=== PATIENT | male | born 1975 | race Caucasian/White ===

== ENCOUNTER 2021-10-18 13:25 | Emergency (ER) | payer OTHER, SELFPAY ==
[2021-10-18 13:49] VITALS: BP 136/81; PULSE 75; RESP 20; TEMP 36.6; O2SAT 98
--- NOTE | 2021-10-18 14:02 | ED.URI ---
HPI - URI/Sore Throat General Chief Complaint: Upper Respiratory Infection Stated Complaint: Sore Throat History of Present Illness HPI Narrative: This is 46 year old male that comes in that has been having a sore throat for the past week and his throat . Patient states he was taking some allergy medication Related Data Allergies Allergy/AdvReac Type Severity Reaction Status Date / Time No Known Allergies Allergy Verified 10/18/21 13:53 Review of Systems Review of Systems: sore throat All systems reviewed & are unremarkable except as noted in HPI and below PMFSH Family History Family History (Updated 11/15/16 @ 13:23 by DOCTOR UNKNOWN) Mother Diabetes mellitus Father Hypertension Social History Social History Smoking status: Former smoker Smoking end date: 09/25/15 Alcohol intake: never Comments At time as signature, I have reviewed and agree with nursing past medical, social, surgical and family history. Please see nursing chart for further information. There is no relevant family history pertinent to the presenting complaint. Exam Narrative: GENERAL:Well-appearing, well-nourished, and in no acute distress. HEAD:Normocephalic, atraumatic. EYES: PERRLA . ENT: Nares clear, Mucous membranes moist. Pharyngeal erythema copious secretions tonsils enlarged CHEST: Clear to auscultation. No respiratory distress. HEART: Regular rate and rhythm. . ABDOMEN: Soft, nontender EXTREMITIES: Normal range of motion. No edema. SKIN: Warm, dry, no rash. NEURO: No focal deficits. Alert and oriented x3. Course Course Level of Care: Express Care Visit Vital Signs Vital signs: Vital Signs Temperature 97.8 F 10/18/21 13:49 Pulse Rate 75 10/18/21 13:49 Respiratory Rate 20 10/18/21 13:49 Blood Pressure 136/81 10/18/21 13:49 Pulse Oximetry 98 10/18/21 13:49 Temperature 97.8 F 10/18/21 13:49 Pulse Rate 75 10/18/21 13:49 Respiratory Rate 20 10/18/21 13:49 Blood Pressure 136/81 10/18/21 13:49 Pulse Oximetry 98 10/18/21 13:49 MDM - URI/Sore Throat Differential Diagnosis Differential diagnosis: Likely upper respiratory infection, otitis media, sinusitis, influenza and pharyngitis Discharge Plan Discharge Clinical Impression: Pharyngitis Qualifiers: Pharyngitis/tonsillitis etiology: unspecified etiology Qualified Code(s): J02.9 - Acute pharyngitis, unspecified Acute tonsillitis Qualifiers: Pharyngitis/tonsillitis etiology: streptococcus Streptococcal tonsillitis recurrence: recurrent Qualified Code(s): J03.01 - Acute recurrent streptococcal tonsillitis Patient Disposition: Home, Self-Care Condition: Stable Instructions: Antibiotic Form, Pharyngitis (ED), Strep Throat (ED), Tonsillitis (ED) Additional Instructions: Strep instructions strep instructions take the medication as prescribed. Salt water gargles and/or may use topical anesthetic (eg. Chloraseptic spray) Take tylenol and ibuprofen as needed for pain and fever as directed. Throw away the toothbrush after 24hours of antibiotic. Follow up with primary care provider in 2-3 days if condition is not improving or seek ER visit if your child starts breathing fast/has trouble breathing, is not drinking enough fluids, will not wake up or will not interact with you. Prescriptions: New amoxicillin 500 mg capsule 500 mg PO Q12H 10 Days Qty: 20 RF: 0 fexofenadine [Fe Allergy] 180 mg tablet 180 mg PO DAILY Qty: 30 RF: 0 Follow-up/Referrals: PHYSICIAN,ADULT MINISTRIES DIRECTOR [Primary Care Provider] - Stand Alone Forms: Work/School Release IP Time of Disposition: 14:05
== END 2021-10-18 14:09 | disposition home or self-care (01) ==
PROVIDERS: Emergency Provider Nurse Practitioner Family
DX: J02.9 Acute pharyngitis, unspecified (principal)
CPT/HCPCS: 87081; 99213; G0463

== ENCOUNTER 2022-08-22 20:24 | Emergency (ER) | payer OTHER, SELFPAY ==
--- NOTE | ~2022-08-22 | XR_ITS ---
EXAMINATION: XR chest 2V Exam Date/Time: 08/22/2022 22:10 TOMBSTONE ERECTOR HISTORY: dyspnea, TIGHTNESS IN CHEST Comparison: 02/06/2018. RESULT: Lines, tubes, and devices: Cervical spine fusion hardware. Lungs and pleura: Clear. Cardiomediastinal silhouette: Stable. Other: No acute osseous or upper abdominal finding. IMPRESSION: No acute cardiopulmonary process. Reviewed, dictated and finalized at location [facility]. STONE ERECTOR
--- NOTE | 2022-08-22 20:25 | ECG_ITS ---
Measurements Intervals [place] Rate: 89 P: 31 OR: 152 QRS: 30 QRSD: 97 T: 17 QT: 342 QTc: 416 Interpretive Statements SINUS RHYTHM NORMAL ECG NO PREVIOUS ECG AVAILABLE FOR COMPARISON Electronically Signed On 08-22-2022 23:23:18 RING SEWER by Kennedy Reid D.O.
[2022-08-22 21:58] VITALS: BP 152/90; PULSE 86; RESP 16; TEMP 37; O2SAT 97
[2022-08-22 22:32] LABS: Alanine Aminotransferase 37 U/L (6-50); Albumin Level 4.5 g/dL (3.5-5.1); Alkaline Phosphatase 68 U/L (38-126); Anion Gap 11 mmol/L (8-16); Aspartate Amino Transferase 30 U/L (17-59); Bilirubin,Total 0.6 mg/dL (0.2-1.3); Blood Urea Nitrogen 18 mg/dL (9-20); Calcium 9.3 mg/dL (8.4-10.2); Carbon Dioxide 24 mmol/L (22-30); Chloride 105 mmol/L (98-107); Estimated CRCL calculation 93 ml/min; Estimated Glomerular Filt Rate > 60; Glucose 101 mg/dL (65-110); Potassium 3.9 mmol/L (3.4-5.0); Sodium 140 mmol/L (137-145)
[2022-08-22 22:48] LABS: Basophils Absolute Auto 0.1 K/mm3 (0.0-0.1); Basophils Percent Auto 0.9 % (0.2-1.2); Eosinophils Absolute Auto 0.5 K/mm3 (0-0.3); Eosinophils Percent Auto 4.2 % (0-4.4); Hematocrit 40.9 % (42.0-52.0); Hemoglobin 14.5 g/dL (14.0-18.0); Immature Granulocyte Absolute 0.03 K/mm3 (0.00-0.031); Immature Granulocyte Percent A 0.3 % (0-0.5); Lymphocytes Absolute Auto 2.74 K/mm3 (0.9-3.2); Lymphocytes Percent Auto 24.2 % (18.3-44.2); Mean Corpuscular HGB Conc 35.5 g/dl (32-36); Mean Corpuscular Hemoglobin 30.8 pg (26-34); Mean Corpuscular Volume 86.8 fl (80-100); Mean Platelet Volume 9.3 fl (7.4-10.4); Monocytes Absolute Auto 1.1 K/mm3 (0.1-0.6); Monocytes Percent Auto 9.3 % (2.6-8.5); Neutrophils Absolute Auto 6.9 K/mm3 (1.3-6.7); Neutrophils Percent Auto 61.1 % (45.5-73.1); Platelet Count Result 329 k/mm3 (150-375); Red Blood Count 4.71 M/mm3 (4.6-6.20); Red Cell Distribution Width 11.8 % (11.5-14.5); White Blood Count 11.3 K/mm3 (4.5-10.0)
[2022-08-22 23:00] LABS: Influenza A QL RT-PCR Negative (Negative); Influenza B QL RT-PCR Negative (Negative); SARS-CoV-2 RNA PCR Negative
--- NOTE | 2022-08-23 00:57 | ED.GENADULT ---
HPI - General Adult General Chief complaint: Shortness of Breath/Dyspnea Stated complaint: hard time breathing Time Seen by Provider: 08/23/22 00:48 History of Present Illness HPI narrative: This is a 47-year-old male with past medical history of hypertension, presenting to the emergency department with an episode of shortness of breath. He states he felt as though he had to take a deep breath in order to catch his breath. He checked his O2 sats at home measured between 89 to 92%. He denies any known sick contacts. He states yesterday he had an episode of chest tightness that resolved on its own after approximately 15 minutes and has not recurred. He has no other complaints today. Related Data Allergies Allergy/AdvReac Type Severity Reaction Status Date / Time No Known Allergies Allergy Verified 10/18/21 13:53 Review of Systems Review of Systems: CONSTITUTIONAL: Denies fever, chills, or sweats. EYES: Denies visual changes, redness, or discharge. ENT: Denies rhinorrhea, congestion, sore throat, or otalgia. CARDIOVASCULAR: Chest tightness?resolved denies chest pain, palpitations, or edema. RESPIRATORY: Dyspnea -resolved denies cough GASTROINTESTINAL: Denies abdominal pain, nausea, vomiting, or diarrhea. GENITOURINARY: Denies dysuria or hematuria. SKIN: Denies rash or itching. MUSCULOSKELETAL: Denies back pain, joint pain, or myalgia. NEUROLOGIC: Denies headache, numbness, dizziness, or weakness. PSYCHIATRIC: Denies anxiety or depression. PMFSH Past Medical History Medical History (Updated 08/23/22 @ 01:00 by Jj Brown MD) Calculus of gallbladder with acute cholecystitis without obstruction Hypertension Surgical History Surgical History History of cholecystectomy Family History Family History Mother Diabetes mellitus Father Hypertension Social History Social History Smoking status: Former smoker Smoking end date: 09/25/15 Alcohol intake: never Exam Narrative: GENERAL: Well-developed, well-nourished, and in no acute distress. HEAD: Normocephalic, atraumatic. EYES: PERRLA and EOMI. ENT: Nares clear, no rhinorrhea or epistaxis. Mucous membranes moist. Oropharynx without tonsillar hypertrophy exudate or other lesions. NECK: Supple. No adenopathy or masses. No carotid bruits or JVD CHEST: Clear to auscultation. No respiratory distress. No wheezes rales or rhonchi HEART: Regular rate and rhythm. No murmur heard. Normal peripheral pulses. ABDOMEN: Soft, nontender, nondistended, normal active bowel sounds. EXTREMITIES: Normal range of motion. No edema. SKIN: Warm, dry, no rash. NEURO: No focal deficits. Alert and oriented x3. PSYCH: Normal mood and affect. Course Course Emergency Course: 02:00 - CBC and chemistries unremarkable. Chest x-ray negative for acute cardiopulmonary process. EKG unremarkable. Troponin negative. Influenza and COVID-negative. HEART score 1 (low risk). Discussed findings with the patient and recommendations to follow-up with primary care doctor. The patient voiced understanding and is comfortable with the plan. All questions answered to his satisfaction Vital Signs Vital signs: Vital Signs Temperature 98.6 F 08/22/22 21:58 Pulse Rate 86 08/22/22 21:58 Respiratory Rate 16 08/22/22 21:58 Blood Pressure 152/90 H 08/22/22 21:58 Pulse Oximetry 97 08/22/22 21:58 Temperature 98.2 F 08/23/22 02:15 Pulse Rate 89 08/23/22 02:15 Respiratory Rate 18 08/23/22 02:15 Blood Pressure 132/79 08/23/22 02:15 Pulse Oximetry 98 08/23/22 02:15 Medical Decision Making [facility] Narrative Medical decision making narrative: Plan: Labs, imaging, EKG, reassess Differential Diagnosis Differential Diagnosis: COVID, influenza, pneumonia, metabolic abnormality, ACS, other Vital S
[2022-08-23 01:56] LABS: Troponin I < 0.012 ng/mL (0.000-0.034)
[2022-08-23 02:15] VITALS: BP 132/79; PULSE 89; RESP 18; TEMP 36.8; O2SAT 98
== END 2022-08-23 02:18 | disposition home or self-care (01) ==
PROVIDERS: Emergency Medicine; Emergency Provider Preventive Medicine Aerospace Medicine
DX: R06.00 Dyspnea, unspecified (principal); Z20.822 Contact with and (suspected) exposure to COVID-19; I10 Essential (primary) hypertension; Z87.891 Personal history of nicotine dependence
CPT/HCPCS: 36415; 71046; 80053; 84484; 85025; 87636; 93005; 99284

== ENCOUNTER 2022-09-15 21:58 | Emergency (ER) | payer OTHER, SELFPAY ==
--- NOTE | ~2022-09-15 | CT_ITS ---
EXAMINATION: CT abdomen pelvis wo con DATE: 09/15/2022 22:28 INDICATION: Flank pain TECHNIQUE: Computed tomography (CT) of the abdomen and pelvis was performed without intravenous contr ast. Automated exposure control and iterative reconstruction technique were employed. Exam dose: 557 .18 mGy-cm total exam DLP. COMPARISON: October 29, 2016 gallbladder ultrasound examination FINDINGS: The lung bases are clear. Normal heart size. No pericardial or pleural effusion. Status post cholecystectomy. No bile duct or pancreatic duct dilatation. No hepatic, splenic, pancreatic, adrenal or renal space-occupying mass lesion is detected There is a 2.8 mm calculus of the left ureterovesical junction with mild left hydroureteronephrosis, minimal perinephric an periureteral stranding on the left. Mild prostate enlargement. Prostate calcifications. Small fat-containing left inguinal hernia. Normal appendix. No bowel obstruction or intraperitoneal free air. Normal caliber of the abdominal aorta. No intraperitoneal or retroperitoneal or pelvic mass lesion or adenopathy or ascites. Diffuse idiopathic skeletal hyperostosis of the thoracic spine. No suspicious osteolytic or osteoblas tic lesions. IMPRESSION: 2.8 mm left uterovesical junction calculus with mild left hydroureteronephrosis Reviewed, dictated and finalized at [facility]. Reviewed, dictated and finalized at location [facility]. EN MAKER IMPRESSION: 2.8 mm left uterovesical junction calculus with mild left hydroure teronephrosis
[2022-09-15 22:00] VITALS: PULSE 86; RESP 16; TEMP 36.2; O2SAT 98
[2022-09-15 22:19] VITALS: O2SAT 99
[2022-09-15] MEDS: KETOROLAC 30 MG/ML VIAL (*BKC) IV PUSH (22:29)
--- NOTE | 2022-09-15 22:48 | ED.ABDPAIN ---
HPI - Abdominal Pain General Chief Complaint: Abdominal Pain Stated Complaint: flank pain Time Seen by Provider: 09/15/22 22:00 History of Present Illness HPI narrative: 47-year-old male presents to the emergency room for evaluation of sudden onset of left flank pain 45 minutes prior to arrival. Patient does endorse history of a kidney stone 3 years ago. Patient denies any nausea or vomiting. He has not taking any medications for his pain. States pain radiates from left flank into his groin area. Admits to having difficulty finding a comfortable position. Denies fever. Reports decreased urine flow. Related Data Allergies Allergy/AdvReac Type Severity Reaction Status Date / Time No Known Allergies Allergy Verified 10/18/21 13:53 Review of Systems Review of Systems: CONSTITUTIONAL: Denies fever, chills, or sweats. EYES: Denies visual changes, redness, or discharge. ENT: Denies rhinorrhea, congestion, sore throat, or otalgia. CARDIOVASCULAR: Denies chest pain, palpitations, or edema. RESPIRATORY: Denies cough or dyspnea. GASTROINTESTINAL: Reports flank pain GENITOURINARY: Denies dysuria or hematuria. SKIN: Denies rash or itching. MUSCULOSKELETAL: Denies back pain, joint pain, or myalgia. NEUROLOGIC: Denies headache, numbness, dizziness, or weakness. PSYCHIATRIC: Denies anxiety or depression. PMFSH Past Medical History Medical History Calculus of gallbladder with acute cholecystitis without obstruction Hypertension Surgical History Surgical History History of cholecystectomy Family History Family History Mother Diabetes mellitus Father Hypertension Social History Social History Smoking status: Former smoker Smoking end date: 09/25/15 Alcohol intake: never Exam Narrative: GENERAL: Well-appearing, well-nourished, no physical limitations, and in obvious acute distress. HEAD: Normocephalic, atraumatic. EYES: Conjunctivae normal, PERRLA and EOMI. CHEST: Clear to auscultation. No respiratory distress. No wheezes rales or rhonchi. HEART: Regular rate and rhythm. No murmur heard. Normal peripheral pulses. ABDOMEN: Soft, nontender, nondistended, normal active bowel sounds. BACK: Left CVA tenderness EXTREMITIES: Normal range of motion. No edema. No clubbing or cyanosis SKIN: Warm, dry, no rash. No noted wounds NEURO: No focal deficits. Alert and oriented x3. MAEW. CN's II-XI intact bilaterally, normal gait PSYCH: Cooperative. Normal mood and affect. Course Vital Signs Vital signs: Vital Signs Temperature 36.2 C L 09/15/22 22:00 Pulse Rate 86 09/15/22 22:00 Respiratory Rate 16 09/15/22 22:00 Pulse Oximetry 98 09/15/22 22:00 Temperature 36.2 C L 09/15/22 22:00 Pulse Rate 76 09/15/22 23:33 Respiratory Rate 20 09/15/22 23:33 Blood Pressure 142/98 H 09/15/22 23:33 Pulse Oximetry 98 09/15/22 23:33 MDM - Abdominal Pain Lab Data 09/15/22 22:19 09/15/22 22:19 Labs: Lab Results 09/15/22 09/15/22 09/15/22 Range/Units 23:18 23:18 23:18 WBC 7.1 (4.5-10.0) K/mm3 RBC 4.56 L (4.6-6.20) M/mm3 Hgb 14.1 (14.0-18.0) g/dL Hct 40.7 L (42.0-52.0) % MCV 89.3 (80-100) fl MCH 30.9 (26-34) pg MCHC 34.6 (32-36) g/dl RDW 11.7 (11.5-14.5) % Plt Count 279 (150-375) k/mm3 MPV 8.9 (7.4-10.4) fl Immature Gran % (Auto) 0.1 (0-0.5) % Neut % (Auto) 62.0 (45.5-73.1) % Lymph % (Auto) 22.5 (18.3-44.2) % Frio % (Auto) 9.8 H (2.6-8.5) % Eos % (Auto) 4.6 H (0-4.4) % Baso % (Auto) 1.0 (0.2-1.2) % Lymph # (Auto) 1.60 (0.9-3.2) K/mm3 Frio # (Auto) 0.7 H (0.1-0.6) K/mm3 Eos # (Auto) 0.3 (0-0.3) K/mm3 Baso # (Auto) 0.1 (0.0-0.1) K/mm3 Abs Immat Gran
[2022-09-15 23:24] LABS: Basophils Absolute Auto 0.1 K/mm3 (0.0-0.1); Eosinophils Absolute Auto 0.3 K/mm3 (0-0.3); Eosinophils Percent Auto 4.6 % (0-4.4); Hematocrit 40.7 % (42.0-52.0); Hemoglobin 14.1 g/dL (14.0-18.0); Immature Granulocyte Absolute 0.01 K/mm3 (0.00-0.031); Immature Granulocyte Percent A 0.1 % (0-0.5); Lymphocytes Percent Auto 22.5 % (18.3-44.2); Mean Corpuscular HGB Conc 34.6 g/dl (32-36); Mean Corpuscular Hemoglobin 30.9 pg (26-34); Mean Corpuscular Volume 89.3 fl (80-100); Mean Platelet Volume 8.9 fl (7.4-10.4); Monocytes Absolute Auto 0.7 K/mm3 (0.1-0.6); Monocytes Percent Auto 9.8 % (2.6-8.5); Neutrophils Absolute Auto 4.4 K/mm3 (1.3-6.7); Platelet Count Result 279 k/mm3 (150-375); Red Blood Count 4.56 M/mm3 (4.6-6.20); Red Cell Distribution Width 11.7 % (11.5-14.5); White Blood Count 7.1 K/mm3 (4.5-10.0)
[2022-09-15 23:33] VITALS: BP 142/98; PULSE 76; RESP 20; O2SAT 98
[2022-09-15 23:33] LABS: Alanine Aminotransferase 36 U/L (6-50); Albumin Level 4.1 g/dL (3.5-5.1); Alkaline Phosphatase 71 U/L (38-126); Anion Gap 7 mmol/L (8-16); Aspartate Amino Transferase 30 U/L (17-59); Bilirubin,Total 0.5 mg/dL (0.2-1.3); Blood Urea Nitrogen 16 mg/dL (9-20); Calcium 8.7 mg/dL (8.4-10.2); Carbon Dioxide 25 mmol/L (22-30); Chloride 106 mmol/L (98-107); Estimated CRCL calculation 86 ml/min; Estimated Glomerular Filt Rate > 60; Glucose 125 mg/dL (65-110); Mucus Urine Rare /lpf; Potassium 3.6 mmol/L (3.4-5.0); RBC Urine >75 /hpf (0-2); Sodium 138 mmol/L (137-145); Squamous Epithelial Cell Urine Rare /hpf (Few)
[2022-09-15 23:42] LABS: Add Urine Microscopic? YES; Appearance Urine Slightly Cloudy (Clear); Bilirubin Urine Negative (Negative); Blood Urine 3+ (Negative); Color Urine Yellow (Yellow); Glucose Urine UA Negative (Negative); Ketones Urine Negative (Negative); Leukocyte Esterase Ur Negative LEU/UL (Negative); Nitrate Urine Negative (Negative); Protein Urine Trace mg/dL (Negative); Specific Grav Ur >= 1.030 (1.001-1.035); Urobilinogen Urine 0.2 mg/dL (<2.0)
[2022-09-15] MEDS: SODIUM CHLORIDE 0.9% IV 1,000 ML 999 ML IV CONT (23:44)
[2022-09-15] MEDS: HYDROmorphone HCL INJ (*CRX) 1 MG/ML SYR IV PUSH (23:48)
[2022-09-16 00:20] VITALS: O2SAT 100
--- NOTE | 2022-09-16 00:20 | PC.NURSE ---
Pt reports to this RN that his flank pain has resolved but he is now having chest tightness. Vitals obtained and pt placed on registered nurse cardiac telemetry. Frankie PEARSON notified.
[2022-09-16 00:21] VITALS: BP 161/99; PULSE 79; RESP 15; O2SAT 100
[2022-09-16 00:30] VITALS: PULSE 56; RESP 16; O2SAT 97
[2022-09-16 00:32] VITALS: BP 143/85; PULSE 72; RESP 16; O2SAT 96
[2022-09-16 00:45] VITALS: PULSE 69; RESP 17; O2SAT 98
[2022-09-16 00:47] VITALS: BP 153/96; PULSE 53; RESP 10; O2SAT 96
== END 2022-09-16 00:59 | disposition home or self-care (01) ==
PROVIDERS: Emergency Provider Nurse Practitioner Family
DX: N13.2 Hydronephrosis with renal and ureteral calculous obstruction (principal); I10 Essential (primary) hypertension; Z87.891 Personal history of nicotine dependence
CPT/HCPCS: 36415; 74176; 80053; 81001; 85025; 96361; 96374; 96375; 99284; J1170; J1885; J7030

== ENCOUNTER 2022-09-22 12:43 | Emergency (ER) | payer OTHER, SELFPAY ==
--- NOTE | ~2022-09-22 | CT_ITS ---
EXAMINATION: CT abdomen pelvis w con INDICATION: Abdominal pain and diarrhea TECHNIQUE: Computed tomographic images of the abdomen and pelvis were obtained after the administrati on of 100 cc of Omnipaque 350 intravenous contrast. The dose-length product (DLP) was 1098.92 mGy-cm. Automated exposure control and iterative reconstruction technique were employed. COMPARISON: 09/15/2022 FINDINGS: Minimal dependent atelectasis is present in the lung bases. The heart size is normal. The l iver, spleen, pancreas, and adrenal glands are normal. The gallbladder is surgically absent. The kidn eys are unremarkable. Previously described mild left hydroureteronephrosis has resolved. The left ure terovesicular junction stone is no longer evident. No pathologically enlarged abdominal or pelvic lym ph nodes are identified. There is no free intraperitoneal gas or evidence of bowel obstruction. There is liquid stool throughout the colon to the level of the rectum. The appendix is normal. There is mi ld lumbar spondylosis. IMPRESSION: 1. Liquid stool throughout the colon to the level of the rectum, consistent with history of diarrhea. 2. Interval treatment or passage of the previously described left ureterovesicular junction stone and resolution of prior left hydroureteronephrosis. Reviewed, dictated and finalized at location [facility]. PROFESSIONAL IMPRESSION: 1. Liquid stool throughout the colon to the level of the rectum, consistent wit h history of diarrhea. 2. Interval treatment or passage of the previously described left ureterovesicu lar junction stone and resolution of prior left hydroureteronephrosis.
[2022-09-22 13:46] VITALS: BP 111/81; PULSE 110; RESP 16; TEMP 37.4; O2SAT 96
[2022-09-22 14:09] LABS: Basophils Percent Auto 0.3 % (0.2-1.2); Eosinophils Absolute Auto 0.1 K/mm3 (0-0.3); Eosinophils Percent Auto 0.4 % (0-4.4); Hematocrit 44.7 % (42.0-52.0); Hemoglobin 15.5 g/dL (14.0-18.0); Immature Granulocyte Absolute 0.04 K/mm3 (0.00-0.031); Immature Granulocyte Percent A 0.3 % (0-0.5); Lymphocytes Absolute Auto 0.73 K/mm3 (0.9-3.2); Mean Corpuscular HGB Conc 34.7 g/dl (32-36); Mean Corpuscular Hemoglobin 30.6 pg (26-34); Mean Corpuscular Volume 88.2 fl (80-100); Mean Platelet Volume 8.9 fl (7.4-10.4); Monocytes Absolute Auto 0.6 K/mm3 (0.1-0.6); Monocytes Percent Auto 4.7 % (2.6-8.5); Neutrophils Absolute Auto 10.8 K/mm3 (1.3-6.7); Neutrophils Percent Auto 88.3 % (45.5-73.1); Platelet Count Result 319 k/mm3 (150-375); Red Blood Count 5.07 M/mm3 (4.6-6.20); Red Cell Distribution Width 11.8 % (11.5-14.5); White Blood Count 12.3 K/mm3 (4.5-10.0)
[2022-09-22 14:17] LABS: Alanine Aminotransferase 39 U/L (6-50); Albumin Level 4.6 g/dL (3.5-5.1); Alkaline Phosphatase 67 U/L (38-126); Anion Gap 10 mmol/L (8-16); Aspartate Amino Transferase 28 U/L (17-59); Bilirubin,Total 1.1 mg/dL (0.2-1.3); Blood Urea Nitrogen 17 mg/dL (9-20); Calcium 9.1 mg/dL (8.4-10.2); Carbon Dioxide 23 mmol/L (22-30); Chloride 104 mmol/L (98-107); Estimated CRCL calculation 93 ml/min; Estimated Glomerular Filt Rate > 60; Glucose 119 mg/dL (65-110); Lipase 31 U/L (23-300); Potassium 4.3 mmol/L (3.4-5.0); Sodium 137 mmol/L (137-145)
--- NOTE | 2022-09-22 15:58 | ED.GENADULT ---
HPI - General Adult General Chief complaint: Nausea/Vomiting/Diarrhea Stated complaint: diarrhea Time Seen by Provider: 09/22/22 15:51 Source: RN notes reviewed History of Present Illness HPI narrative: Patient presents emergency department from home for diarrhea. Patient states symptoms again at 5 AM this morning states has had numerous episodes of loose bowel movement. States is associate with abdominal pain is described as cramping throughout the abdomen. States he has been having subjective fevers he denies any chest pain or shortness of breath denies any vomiting or any other symptoms. States he has not take anything for the symptoms. States he last ate a ham sandwich last Related Data Allergies Allergy/AdvReac Type Severity Reaction Status Date / Time No Known Allergies Allergy Verified 09/22/22 15:55 Review of Systems Review of Systems: Gen.: Denies fevers or chills ENT: Denies congestion Respiratory: Denies shortness of breath or cough CV: Denies chest pain or palpitations GI: See HPI Musculoskeletal: Denies back pain or muscle pain Neuro: Denies numbness, tingling, weakness or focal weakness Skin: Denies rash Except as documented, all other systems reviewed and negative [facility] Past Medical History Medical History Calculus of gallbladder with acute cholecystitis without obstruction Hypertension Surgical History Surgical History History of cholecystectomy Family History Family History Mother Diabetes mellitus Father Hypertension Social History Social History Smoking status: Former smoker Smoking end date: 09/25/15 Alcohol intake: never Exam Narrative: APPEARANCE: No acute distress, nontoxic, resting in bed EYES: EOMI HEENT: Normocephalic, atraumatic, OMM RESPIRATORY: No respiratory distress Clear to auscultation bilaterally with no rhonchi wheezing or rales. CARDIOVASCULAR: Regular rate and rhythm without murmurs rubs or gallops. ABDOMINAL: Soft, nondistended, diffusely tender to palpation no rebound or guarding MUSCULOSKELETAl: Moves all extremities. No clubbing, cyanosis or edema. NEURO: Awake and alert. Following commands, speech normal, no focal deficits SKIN:: Warm, dry. No rashes lesions or abrasions PSYCHIATRIC: Normal affect/mood, Course Course Emergency Course: Patient states that they are feeling much better at this time. States abdominal pain has resolved. Repeat abdominal exam shows the patient's abdomen to be soft with no surgical abdomen present. Discussed with patient results of workup and diagnosis. Discussed need for follow-up with primary care physician, reasons to return to the emergency department in proper use of medication. Patient understands and agrees to current treatment plan Vital Signs Vital signs: Vital Signs Temperature 99.3 F 09/22/22 13:46 Pulse Rate 110 H 09/22/22 13:46 Respiratory Rate 16 09/22/22 13:46 Blood Pressure 111/81 09/22/22 13:46 Pulse Oximetry 96 09/22/22 13:46 Oxygen Delivery Room Air 09/22/22 13:46 Temperature 99.3 F 09/22/22 13:46 Pulse Rate 110 H 09/22/22 13:46 Respiratory Rate 16 09/22/22 13:46 Blood Pressure 111/81 09/22/22 13:46 Pulse Oximetry 96 09/22/22 13:46 Oxygen Delivery Room Air 09/22/22 13:46 Medical Decision Making MDM Narrative Medical decision making narrative: Patient's abdomen is soft without significant pain or signs of surgical abdomen on serial exams. Lab and x-ray evaluations are reviewed and patient is felt to be a reasonable candidate for outpatient management. Patient was instructed as to limitations of x-ray and laboratory evaluation and encouraged to return to ED or primary physician for repeat exam in 12 hours if continued or worsening pain Vital
[2022-09-22] MEDS: SODIUM CHLORIDE 0.9% IV 1,000 ML 999 ML IV CONT ×2 (16:10→18:03)
[2022-09-22] MEDS: KETOROLAC 30 MG/ML VIAL (*BKC) IV PUSH (16:11)
[2022-09-22 17:18] LABS: Influenza A QL RT-PCR Negative (Negative); Influenza B QL RT-PCR Negative (Negative); SARS-CoV-2 RNA PCR Negative
[2022-09-22 18:08] LABS: Add Urine Microscopic? YES; Appearance Urine Clear (Clear); Bilirubin Urine Negative (Negative); Blood Urine 1+ (Negative); Color Urine Yellow (Yellow); Glucose Urine UA Negative (Negative); Ketones Urine Negative (Negative); Leukocyte Esterase Ur Negative LEU/UL (Negative); Nitrate Urine Negative (Negative); Protein Urine Negative (Negative); Urobilinogen Urine 0.2 mg/dL (<2.0)
[2022-09-22 18:18] LABS: Bacteria Urine Trace /hpf; Mucus Urine Moderate /lpf; WBC Urine 0-3 /hpf
== END 2022-09-22 19:29 | disposition home or self-care (01) ==
PROVIDERS: Emergency Medicine; Emergency Provider Emergency Medicine
DX: R19.7 Diarrhea, unspecified (principal); R10.9 Unspecified abdominal pain; Z20.822 Contact with and (suspected) exposure to COVID-19; I10 Essential (primary) hypertension; Z87.891 Personal history of nicotine dependence
CPT/HCPCS: 36415; 74177; 80053; 81001; 83690; 85025; 87636; 96361; 96374; 99284; J1885; J7030; Q9967

== ENCOUNTER 2022-09-22 22:38 | Emergency (ER) | payer OTHER, SELFPAY ==
--- NOTE | ~2022-09-22 | XR_ITS ---
Clinical Indication: Chest pain, back pain PA and lateral views of the chest: Comparison: 08/22/2022 Findings: The lungs are clear, without evidence of focal consolidation or pleural effusion. Cardiome diastinal silhouette is within normal limits. Stable cervical spine fixation hardware. Impression: Clear lungs. Reviewed, dictated and finalized at [facility]. ENT MONITOR Impression: Clear lungs.
--- NOTE | 2022-09-22 22:40 | ECG_ITS ---
Measurements Intervals [place] Rate: 89 P: 26 [place]: 158 QRS: 21 QRSD: 100 T: 15 QT: 342 QTc: 417 Interpretive Statements SINUS RHYTHM NORMAL ECG COMPARED TO ECG 08/22/2022 22:01:49 NO SIGNIFICANT CHANGES Electronically Signed On 09-23-2022 14:46:36 BAR TACKER by Brown Quiroz M.D.
[2022-09-22] MEDS: ASPIRIN 81 MG CHEWABLE TABLET 324 MG (22:56)
[2022-09-22] MEDS: NITROGLYCERIN SL 0.4 MG TABLET 1.2 MG (22:57)
[2022-09-22 23:00] VITALS: BP 115/72; PULSE 84; RESP 20; TEMP 36.7; O2SAT 96
--- NOTE | 2022-09-22 23:13 | ED.CHESTPAIN ---
HPI - Chest Pain General Chief Complaint: Chest Pain Stated Complaint: CP Time Seen by Provider: 09/22/22 23:06 History of Present Illness HPI narrative: 47-year-old male presents to the emergency room for evaluation of midsternal chest pain. Patient states earlier this evening he was sitting watching TV, when he began experiencing squeezing chest tightness that radiated through to his back. States the pain was constant for 30 to 40 minutes until he arrived in the emergency room. Patient also states he was diaphoretic. Denies any shortness of breath or syncopal episodes. Patient was seen here earlier today for abdominal pain secondary to diarrhea. Patient was given fluids and on reexamination was feeling better. Patient states he has not experienced symptoms like this. Upon chart review, patient was in the emergency room on 1129, where he was experiencing shortness of breath and chest tightness. According to chart, the symptoms lasted for 15 minutes and resolved. Related Data Allergies Allergy/AdvReac Type Severity Reaction Status Date / Time No Known Allergies Allergy Verified 09/22/22 15:55 Review of Systems Review of Systems: CONSTITUTIONAL: Denies fever, chills, or sweats. EYES: Denies visual changes, redness, or discharge. ENT: Denies rhinorrhea, congestion, sore throat, or otalgia. CARDIOVASCULAR: Reports chest pain RESPIRATORY: Denies cough or dyspnea. GASTROINTESTINAL: Denies abdominal pain, nausea, vomiting, or diarrhea. GENITOURINARY: Denies dysuria or hematuria. SKIN: Denies rash or itching. MUSCULOSKELETAL: Denies back pain, joint pain, or myalgia. NEUROLOGIC: Denies headache, numbness, dizziness, or weakness. PSYCHIATRIC: Denies anxiety or depression. [facility] Past Medical History Medical History Calculus of gallbladder with acute cholecystitis without obstruction Hypertension Surgical History Surgical History History of cholecystectomy Family History Family History Mother Diabetes mellitus Father Hypertension Social History Social History Smoking status: Former smoker Smoking end date: 09/25/15 Alcohol intake: never Exam Narrative: GENERAL: Well-appearing, well-nourished, no physical limitations, and in no acute distress. HEAD: Normocephalic, atraumatic. EYES: Conjunctivae normal, PERRLA and EOMI. NECK: Supple. No meningeal signs. No adenopathy or masses. No carotid bruits or JVD CHEST: Clear to auscultation. No respiratory distress. No wheezes rales or rhonchi. HEART: Regular rate and rhythm. No murmur heard. Normal peripheral pulses. ABDOMEN: Soft, nontender, nondistended, normal active bowel sounds. EXTREMITIES: Normal range of motion. No edema. No clubbing or cyanosis SKIN: Warm, dry, no rash. No noted wounds NEURO: No focal deficits. Alert and oriented x3. MAEW. CN's II-XI intact bilaterally, normal gait PSYCH: Cooperative. Normal mood and affect. Course Vital Signs Vital signs: Vital Signs Temperature 36.7 C 09/22/22 23:00 Pulse Rate 84 09/22/22 23:00 Respiratory Rate 20 09/22/22 23:00 Blood Pressure 115/72 09/22/22 23:00 Pulse Oximetry 96 09/22/22 23:00 Oxygen Delivery Room Air 09/22/22 23:00 Temperature 36.7 C 09/22/22 23:00 Pulse Rate 84 09/22/22 23:00 Respiratory Rate 20 09/22/22 23:00 Blood Pressure 115/72 09/22/22 23:00 Pulse Oximetry 96 09/22/22 23:00 Oxygen Delivery Room Air 09/22/22 23:00 MDM - Chest Pain MDM Narrative Medical decision making narrative: 47-year-old male presented emergency room with sudden onset of substernal squeezing chest tightness that radiated into his back. Patient was seen here earlier today for diarrhea. EKG showed no signs of active ischemia. Single troponin was ne
[2022-09-22 23:18] LABS: Basophils Percent Auto 0.3 % (0.2-1.2); Eosinophils Absolute Auto 0.1 K/mm3 (0-0.3); Hematocrit 38.4 % (42.0-52.0); Immature Granulocyte Absolute 0.01 K/mm3 (0.00-0.031); Immature Granulocyte Percent A 0.2 % (0-0.5); Lymphocytes Percent Auto 14.3 % (18.3-44.2); Mean Corpuscular HGB Conc 33.9 g/dl (32-36); Mean Corpuscular Hemoglobin 30.2 pg (26-34); Mean Corpuscular Volume 89.1 fl (80-100); Monocytes Absolute Auto 0.5 K/mm3 (0.1-0.6); Monocytes Percent Auto 8.6 % (2.6-8.5); Neutrophils Absolute Auto 4.8 K/mm3 (1.3-6.7); Neutrophils Percent Auto 75.6 % (45.5-73.1); Platelet Count Result 226 k/mm3 (150-375); Red Blood Count 4.31 M/mm3 (4.6-6.20); Red Cell Distribution Width 11.7 % (11.5-14.5); White Blood Count 6.3 K/mm3 (4.5-10.0)
[2022-09-22 23:28] LABS: Alanine Aminotransferase 40 U/L (6-50); Albumin Level 3.6 g/dL (3.5-5.1); Alkaline Phosphatase 52 U/L (38-126); Anion Gap 7 mmol/L (8-16); Aspartate Amino Transferase 45 U/L (17-59); Bilirubin,Total 1.5 mg/dL (0.2-1.3); Blood Urea Nitrogen 14 mg/dL (9-20); Calcium 7.5 mg/dL (8.4-10.2); Carbon Dioxide 20 mmol/L (22-30); Chloride 109 mmol/L (98-107); Estimated Glomerular Filt Rate > 60; Glucose 106 mg/dL (65-110); INR 1.2; Lipase 28 U/L (23-300); Potassium 3.2 mmol/L (3.4-5.0); Prothrombin Time 14.8 Seconds (11.1-14.7); Sodium 136 mmol/L (137-145)
[2022-09-22 23:29] LABS: Partial Thromboplastin Time 25.6 SECONDS (22.3-36.8)
[2022-09-22 23:40] LABS: Troponin I < 0.012 ng/mL (0.000-0.034)
[2022-09-22] MEDS: BELLADONNA ALK/PHENOB ELIX 10 ML, MAG HYDROX/ALUMINUM HYD/SIMETH 30 ML, LIDOCAINE HCL 2... PO (23:41)
[2022-09-23] MEDS: HYDROmorphone HCL INJ (*CRX) 1 MG/ML SYR IV PUSH (00:09)
[2022-09-23] MEDS: PANTOPRAZOLE SODIUM IV 40 MG VIAL IV PUSH (00:28)
[2022-09-23] MEDS: POTASSIUM CHLORIDE 20 MEQ PACKET (FOR LIQUID) 40 MEQ PO (00:28)
[2022-09-23] MEDS: DICYCLOMINE HCL INJ 20 MG/2 ML VIAL IM (00:28)
== END 2022-09-23 01:18 | disposition home or self-care (01) ==
PROVIDERS: General Practice; Emergency Provider Nurse Practitioner Family
DX: M62.838 Other muscle spasm (principal); E87.6 Hypokalemia; I10 Essential (primary) hypertension; Z87.891 Personal history of nicotine dependence
CPT/HCPCS: 36415; 71046; 80053; 83690; 84484; 85025; 85610; 85730; 93005; 96372; 96374; 96375; 99284; A9270; C9113; J0500; J1170

== ENCOUNTER 2024-03-11 22:21 | Emergency (ER) | payer OTHER, SELFPAY ==
--- NOTE | ~2024-03-11 | CT_ITS ---
EXAMINATION: CT abdomen pelvis wo con DATE: 03/12/2024 00:59 INDICATION: Flank pain. TECHNIQUE: Computed tomography (CT) of the abdomen and pelvis was performed without intravenous contr ast. Automated exposure control and iterative reconstruction technique were employed. The dose-length product was 1277.13 mGy-cm. COMPARISON: CT abdomen and pelvis 09/22/2022 FINDINGS: The visualized portions of the lung bases demonstrate mild atelectasis. No pleural effusion . The heart size is normal. No pericardial effusion. There is diffuse hepatic steatosis. There are ch anges of cholecystectomy. The spleen, pancreas, adrenal glands, and right kidney are normal. There is mild left hydronephrosis. There is a 4 mm stone in proximal left ureter. There is a left inguinal he rnia containing fat. There are no dilated loops of bowel. The appendix is normal. There are no pathol ogically enlarged lymph nodes. There is no free intraperitoneal fluid. There is mild thoracic spondyl osis and moderate lumbar spondylosis. IMPRESSION: 1. 4 mm stone in proximal left ureter with mild left hydronephrosis. 2. Diffuse hepatic steatosis. Reviewed, dictated and finalized at location E.
[2024-03-11 22:28] VITALS: BP 155/100; PULSE 92; RESP 18; TEMP 36.6; O2SAT 95
[2024-03-11 23:12] LABS: Basophils Absolute Auto 0.1 K/mm3 (0.0-0.1); Basophils Percent Auto 0.8 % (0.2-1.2); Eosinophils Absolute Auto 0.3 K/mm3 (0-0.3); Eosinophils Percent Auto 3.7 % (0-4.4); Hematocrit 39.3 % (42.0-52.0); Hemoglobin 13.6 g/dL (14.0-18.0); Immature Granulocyte Absolute 0.02 K/mm3 (0.00-0.031); Immature Granulocyte Percent A 0.3 % (0-0.5); Lymphocytes Absolute Auto 2.39 K/mm3 (0.9-3.2); Lymphocytes Percent Auto 30.2 % (18.3-44.2); Mean Corpuscular HGB Conc 34.6 g/dl (32-36); Mean Corpuscular Volume 89.5 fl (80-100); Mean Platelet Volume 8.9 fl (7.4-10.4); Monocytes Absolute Auto 1.1 K/mm3 (0.1-0.6); Monocytes Percent Auto 13.9 % (2.6-8.5); Neutrophils Absolute Auto 4.1 K/mm3 (1.3-6.7); Neutrophils Percent Auto 51.1 % (45.5-73.1); Platelet Count Result 273 k/mm3 (150-375); Red Blood Count 4.39 M/mm3 (4.6-6.20); Red Cell Distribution Width 11.9 % (11.5-14.5); White Blood Count 7.9 K/mm3 (4.5-10.0)
[2024-03-11 23:18] LABS: Appearance Urine Clear (Clear); Bacteria Urine None Seen /hpf; Bilirubin Urine Negative (Negative); Blood Urine 3+ (Negative); Color Urine Yellow (Yellow); Glucose Urine UA Negative (Negative); Ketones Urine Trace mg/dL (Negative); Leukocyte Esterase Ur Negative LEU/UL (Negative); Nitrate Urine Negative (Negative); Non Pathogenic Casts 0-2; Protein Urine Negative (Negative); RBC Urine 21-50 /hpf (0-2); Specific Grav Ur 1.021 (1.001-1.035); Squamous Epithelial Cell Urine None Seen /hpf (Few); WBC Urine 0-5 /hpf (0-3)
[2024-03-11 23:21] LABS: Add Urine Microscopic? YES
[2024-03-11 23:24] LABS: Alanine Aminotransferase 31 U/L (6-50); Albumin Level 4.2 g/dL (3.5-5.1); Alkaline Phosphatase 57 U/L (38-126); Anion Gap 9 mmol/L (4-12); Aspartate Amino Transferase 31 U/L (17-59); Bilirubin,Total 0.8 mg/dL (0.2-1.3); Blood Urea Nitrogen 20 mg/dL (9-20); Carbon Dioxide 24 mmol/L (22-30); Chloride 105 mmol/L (98-107); Estimated CRCL calculation 62 ml/min; Estimated Glomerular Filt Rate 50; Glucose 101 mg/dL (65-110); Potassium 3.6 mmol/L (3.4-5.0); Sodium 138 mmol/L (137-145)
--- NOTE | 2024-03-11 23:28 | PC.NURSE ---
Pt to ED via POV. Pt states having pain in his left flank area. Pt states he has a hx of kidney stones.
[2024-03-12] MEDS: SODIUM CHLORIDE 0.9% IV 1,000 ML 999 ML IV CONT (00:27)
[2024-03-12] MEDS: ONDANSETRON INJ 4 MG/2 ML VIAL IV PUSH (00:28)
[2024-03-12] MEDS: MORPHINE SULFATE (*CRX) 4 MG/ML INJ IV PUSH (00:28)
[2024-03-12 01:37] VITALS: BP 145/89; PULSE 89; RESP 18; O2SAT 100
--- NOTE | 2024-03-12 02:11 | ED.GENADULT ---
HPI - General Adult General Chief complaint: Back Pain/Injury Stated complaint: lower back pain Time Seen by Provider: 03/12/24 00:13 History of Present Illness HPI narrative: patient 49-year-old gentleman presents emergency department with chief complaint of flank pain. Patient reports that he has prior history of kidney stones and reports that he started having discomfort in his flank the patient reports that he is concerned that he may have a kidney stone today reports this is not as bad as his previous episodes reports pain is in the left flank area does report that radiates to the left lower quadrant patient denies dysuria denies fever reports no nausea or vomiting. Related Data Allergies Allergy/AdvReac Type Severity Reaction Status Date / Time No Known Allergies Allergy Verified 03/11/24 22:22 Review of Systems Review of Systems: A 10 system review of systems was completed on the patient and is negative except for what is stated in the HPI. Nursing and ancillary documentation was reviewed. ON LICENSE OF [facility] Past Medical History Medical History Calculus of gallbladder with acute cholecystitis without obstruction Hypertension Surgical History Surgical History History of cholecystectomy Family History Family History Mother Diabetes mellitus Father Hypertension Social History Social History Smoking status: Former smoker Smoking end date: 09/25/15 Alcohol intake: never Exam Narrative: GENERAL: Well-appearing, well-nourished, and in no acute distress. HEAD: Normocephalic, atraumatic. EYES: PERRLA and EOMI. ENT: Nares clear, no rhinorrhea or epistaxis. Mucous membranes moist. NECK: Supple. CHEST: Clear to auscultation. No respiratory distress. HEART: Regular rate and rhythm. No murmur heard. Normal peripheral pulses. ABDOMEN: Soft, nontender, nondistended, normal active bowel sounds. No CVA tenderness EXTREMITIES: Normal range of motion. No edema. SKIN: Warm, dry, no rash. NEURO: No focal deficits. Alert and oriented x3. PSYCH: Normal mood and affect. Course Vital Signs Vital signs: Vital Signs Temperature 36.6 C 03/11/24 22:28 Pulse Rate 92 03/11/24 22:28 Respiratory Rate 18 03/11/24 22:28 Blood Pressure 155/100 H 03/11/24 22:28 Pulse Oximetry 95 03/11/24 22:28 Temperature 36.6 C 03/11/24 22:28 Pulse Rate 89 03/12/24 01:37 Respiratory Rate 18 03/12/24 01:37 Blood Pressure 145/89 H 03/12/24 01:37 Pulse Oximetry 100 03/12/24 01:37 Medical Decision Making MDM Narrative Medical decision making narrative: differential diagnosis includes ureterolithiasis, pyelonephritis, intra-abdominal infection, laboratory studies were obtained on the patient which showed a white count 7.9 hemoglobin 13.6 electrolytes are within normal limits creatinine was 1.5 this is slightly elevated from previous studies. Liver enzymes within normal limits urinalysis showed 21-50 rbc's but otherwise no signs of infection CT scan of the abdomen pelvis showed a 5 mm stone in the mid left ureter approximately 18 cm from the UVJ the patient will be started on Flomax and given a prescription for pain medications Flomax and Zofran. Patient should follow-up with urology Vital Signs Vital Signs: Vital Signs Temperature 36.6 C 03/11/24 22:28 Pulse Rate 92 03/11/24 22:28 Respiratory Rate 18 03/11/24 22:28 Blood Pressure 155/100 H 03/11/24 22:28 Pulse Oximetry 95 03/11/24 22:28 Temperature 36.6 C 03/11/24 22:28 Pulse Rate 89 03/12/24 01:37 Respiratory Rate 18 03/12/24 01:37 Blood Pressure 145/89 H 03/12/24 01:37 Pulse Oximetry 100 03/12/24 01:37 Lab Data 03/11/24 23:04 0
[2024-03-12] MEDS: TAMSULOSIN HCL 0.4 MG CAPSULE PO (04:04)
== END 2024-03-12 04:07 | disposition home or self-care (01) ==
PROVIDERS: Emergency Provider Emergency Medicine
DX: N20.1 Calculus of ureter (principal); I10 Essential (primary) hypertension
CPT/HCPCS: 36415; 74176; 80053; 81001; 85025; 96361; 96374; 96375; 99284; A9270; J2270; J2405; J7030

== ENCOUNTER 2024-03-25 14:07 | Emergency (ER) | payer OTHER, SELFPAY ==
--- NOTE | ~2024-03-25 | CT_ITS ---
EXAMINATION: CT abdomen pelvis wo con DATE: 03/25/2024 15:03 INDICATION: Lower abdominal pain. Hematuria. TECHNIQUE: Computed tomography (CT) of the abdomen and pelvis was performed without intravenous contr ast. Automated exposure control and iterative reconstruction technique were employed. The dose-length product was 605.46 mGy-cm. COMPARISON: CT abdomen and pelvis 03/12/2024 FINDINGS: The visualized portions of the lung bases are clear without pneumonia or pleural effusion. The heart size is normal. No pericardial effusion. There is diffuse hepatic steatosis. There are hernandez ges of cholecystectomy. The spleen, pancreas, adrenal glands, and kidneys are normal. There is a 4 mm stone in distal left ureter. There are no dilated loops of bowel. The appendix is normal. There are no pathologically enlarged lymph nodes. There is no free intraperitoneal fluid. There is mild thoraci c and lumbar spondylosis. IMPRESSION: 1. 4 mm stone in distal left ureter. No hydronephrosis. 2. Diffuse hepatic steatosis. Reviewed, dictated and finalized at location A.
--- NOTE | 2024-03-25 14:27 | ED.MALEGU ---
HPI - Male Genitourinary General Chief complaint: Urogenital-Male <CHRISTY Tomlinson Last Filed: 03/25/24 14:34> Stated complaint: flank pain <CHRISTY Tomlinson Last Filed: 03/25/24 14:34> Time Seen by Provider: 03/25/24 14:27 <CHRISTY Tomlinson Last Filed: 03/25/24 14:34> Focused HPI: Patient is a 49 y/o male who presents to the ED with c/o hematuria. Patient reports he was seen in the ED here on 03/12 and diagnosed with a L sided 4mm UPJ stone. Patient has had several kidney stones in the past, always able to pass on his own. Does not currently follow with Urology. States over the past 4-5 days, he has had pain in his penis with intermittent hematuria. Reports persistent hematuria over last 3 days with dysuria. Reports persistent pain in LLQ. Denies N/V, fevers, testicular pain or swelling. GENERAL: Well-appearing, obese with BMI of 35.3, and in no acute distress. HEAD: Normocephalic, atraumatic. CHEST: Clear to auscultation. ?No respiratory distress. HEART: Regular rate and rhythm.? ABD: TTP in LLQ. Normoactive BS. NEURO: ?Alert and oriented x3. Patient screened in triage and initial orders placed.? ?Additional care and disposition to be based upon?diagnostic testing and treatment. <CHRISTY Tomlinson Last Filed: 03/25/24 14:34> Source: patient and old records reviewed <CHRISTY Tomlinson Last Filed: 03/25/24 14:34> Mode of arrival: ambulatory <CHRISTY Tomlinson Last Filed: 03/25/24 14:34> Limitations: no limitations <CHRISTY Tomlinson Last Filed: 03/25/24 14:34> Related Data Allergies/Adverse reactions: Allergies Allergy/AdvReac Type Severity Reaction Status Date / Time No Known Allergies Allergy Verified 03/11/24 22:22 <Germania aHrmon PA-C - Last Filed: 03/25/24 14:34> [facility] Past Medical History Medical History: Medical History Calculus of gallbladder with acute cholecystitis without obstruction Hypertension <Germania Harmon PA-C - Last Filed: 03/25/24 14:34> Surgical History Surgical History: Surgical History History of cholecystectomy <CHRISTY Tomlinson Last Filed: 03/25/24 14:34> Family History Family History: Family History Mother Diabetes mellitus Father Hypertension <Germania Harmon PA-C - Last Filed: 03/25/24 14:34> Social History Social History: Social History Smoking status: Former smoker Smoking end date: 09/25/15 Alcohol intake: never <Germania Harmon PA-C - Last Filed: 03/25/24 14:34> Exam Narrative: APPEARANCE: No apparent distress. Head: atraumatic. EYES: EOMI, NOSE: Atraumatic NECK: Trachea midline RESPIRATORY: No increased rate of breathing CARDIOVASCULAR: RRR, ABDOMINAL: Non-distended Soft nontender, no CVA tenderness MUSCULOSKELETAl: No obvious deformities NEURO: Alert. Moving 4/4 extremities SKIN:: Warm, dry. Normal color PSYCHIATRIC: Normal affect <Xavier Montalvo MD - Last Filed: 03/25/24 16:14> Course Vital Signs Vital signs: Vital Signs Pulse Rate 86 03/25/24 14:28 Respiratory Rate 17 03/25/24 14:28 Blood Pressure 132/92 H 03/25/24 14:28 Pulse Oximetry 99 03/25/24 14:28 Pulse Rate 86 03/25/24 14:28 Respiratory Rate 17 03/25/24 14:28 Blood Pressure 132/92 H 03/25/24 14:28 Pulse Oximetry 99 03/25/24 14:28 <Germania Harmon PA-C - Last Filed: 03/25/24 14:34> Vital Signs Pulse Rate 86 03/25/24 14:28 Respiratory Rate 17 03/25/24 14:28 Blood Pressure 132/92 H 03/25/24 14:28 Pulse Oximetry 99 03/25/24 14:28 Pulse Rate 86 03/25/24 14:28 Respiratory Rate 17
[2024-03-25 14:28] VITALS: BP 132/92; PULSE 86; RESP 17; O2SAT 99
[2024-03-25] MEDS: HYDROcodone/acetaminophen (*CRX) 5-325 MG TABLET 1 TAB PO (14:40)
[2024-03-25 14:45] LABS: Basophils Absolute Auto 0.1 K/mm3 (0.0-0.1); Basophils Percent Auto 0.9 % (0.2-1.2); Eosinophils Absolute Auto 0.2 K/mm3 (0-0.3); Eosinophils Percent Auto 2.9 % (0-4.4); Hematocrit 40.9 % (42.0-52.0); Hemoglobin 14.2 g/dL (14.0-18.0); Immature Granulocyte Absolute 0.02 K/mm3 (0.00-0.031); Immature Granulocyte Percent A 0.3 % (0-0.5); Lymphocytes Absolute Auto 1.97 K/mm3 (0.9-3.2); Lymphocytes Percent Auto 29.8 % (18.3-44.2); Mean Corpuscular HGB Conc 34.7 g/dl (32-36); Mean Corpuscular Hemoglobin 31.2 pg (26-34); Mean Corpuscular Volume 89.9 fl (80-100); Monocytes Absolute Auto 0.5 K/mm3 (0.1-0.6); Monocytes Percent Auto 7.6 % (2.6-8.5); Neutrophils Absolute Auto 3.9 K/mm3 (1.3-6.7); Neutrophils Percent Auto 58.5 % (45.5-73.1); Platelet Count Result 300 k/mm3 (150-375); Red Blood Count 4.55 M/mm3 (4.6-6.20); Red Cell Distribution Width 11.5 % (11.5-14.5); White Blood Count 6.6 K/mm3 (4.5-10.0)
[2024-03-25 14:50] LABS: Appearance Urine Clear (Clear); Bacteria Urine None Seen /hpf; Bilirubin Urine Negative (Negative); Blood Urine Trace (Negative); Color Urine Yellow (Yellow); Glucose Urine UA Negative (Negative); Ketones Urine Negative (Negative); Leukocyte Esterase Ur Negative LEU/UL (Negative); Nitrate Urine Negative (Negative); Non Pathogenic Casts 0-2; Protein Urine Negative (Negative); Specific Grav Ur 1.021 (1.001-1.035); Squamous Epithelial Cell Urine None Seen /hpf (Few); Urobilinogen Urine 0.2 mg/dL (<2.0); WBC Urine 0-5 /hpf (0-3)
[2024-03-25 14:53] LABS: Add Urine Microscopic? YES
[2024-03-25 15:05] LABS: Alanine Aminotransferase 30 U/L (6-50); Albumin Level 4.4 g/dL (3.5-5.1); Alkaline Phosphatase 57 U/L (38-126); Anion Gap 11 mmol/L (4-12); Aspartate Amino Transferase 27 U/L (17-59); Bilirubin,Total 0.8 mg/dL (0.2-1.3); Blood Urea Nitrogen 15 mg/dL (9-20); Calcium 9.3 mg/dL (8.4-10.2); Carbon Dioxide 23 mmol/L (22-30); Chloride 105 mmol/L (98-107); Estimated CRCL calculation 83 ml/min; Estimated Glomerular Filt Rate > 60; Glucose 158 mg/dL (65-110); Potassium 4.1 mmol/L (3.4-5.0); Sodium 139 mmol/L (137-145)
[2024-03-25] MEDS: KETOROLAC 15 MG/ML VIAL (*BKC) IV PUSH (16:15)
[2024-03-25] MEDS: ACETAMINOPHEN 500 MG TABLET 1000 MG PO (16:15)
[2024-03-25 16:35] VITALS: BP 140/84; PULSE 86; RESP 16; TEMP 36.7; O2SAT 97
== END 2024-03-25 16:42 | disposition home or self-care (01) ==
PROVIDERS: Physician Assistant; Emergency Provider Emergency Medicine
DX: N20.0 Calculus of kidney (principal); I10 Essential (primary) hypertension; Z87.891 Personal history of nicotine dependence
CPT/HCPCS: 36415; 74176; 80053; 81001; 85025; 96374; 99284; A9270; J1885

== ENCOUNTER 2024-10-16 17:30 | Emergency (ER) | payer OTHER, SELFPAY ==
[2024-10-16] VITALS (9 sets, daily range): BP systolic 131–142; BP diastolic 87–94; PULSE 63–82; RESP 14–21; TEMP 36.4–36.6; O2SAT 96–100
--- NOTE | ~2024-10-16 | CT_ITS ---
CLINICAL INDICATION: Right lower quadrant pain COMPARISON: 03/25/2024. TECHNIQUE: Multiple contiguous axial images of the abdomen and pelvis were performed following the ad ministration of with 100 mL Omnipaque-350 intravenous contrast The dose-length product (DLP) was 1213.62 mGy-cm. Automated exposure control and iterative reconstruction technique were employed. FINDINGS/OBSERVATIONS: Visualized lower thorax: The bilateral lung bases are clear. The heart is of normal size, without pericardial effusion. Small hiatal hernia is present. Liver: The liver enhances homogeneously, and is borderline enlarged measuring 19 cm in longitudinal dimensio n. Gallbladder and biliary system: The gallbladder is surgically absent. Pancreas: The pancreas enhances homogeneously without ductal dilatation. Spleen: The spleen enhances homogeneously and is not enlarged measuring 10 cm in longitudinal dimension. Kidneys: The bilateral kidneys enhance symmetrically without hydronephrosis or renal calculi. Adrenal glands: Unremarkable. Gastrointestinal tract: Trace fecal stasis Appendix: The air-filled appendix is of normal caliber (axial series, images 119 through 128) Vasculature: Unremarkable. No aneurysmal dilatation or significant stenosis. Lymph nodes: No pathologically enlarged or morphologically suspicious lymph nodes within the retroperitoneum or at the root of the mesentery. Pelvic structures: The bladder is only minimally distended, and otherwise unremarkable. The prostate gland is not enlarged, and demonstrates multiple calcifications. Body wall and musculoskeletal: No significant degenerative disease within the lower thoracic or lumbosacral spine. . IMPRESSION: No acute pathology. Normal appendix. Reviewed, dictated and finalized at location A. [facility] CO[facility]INATOR
[2024-10-16 18:01] LABS: Add Urine Microscopic? YES; Appearance Urine Clear (Clear); Bacteria Urine None Seen /hpf; Bilirubin Urine Negative (Negative); Blood Urine Trace (Negative); Color Urine Yellow (Yellow); Glucose Urine UA Negative (Negative); Ketones Urine Negative (Negative); Leukocyte Esterase Ur Negative LEU/UL (Negative); Nitrate Urine Negative (Negative); Non Pathogenic Casts 0-2; Protein Urine Negative (Negative); RBC Urine 0-2 /hpf (0-2); Specific Grav Ur 1.028 (1.001-1.035); Squamous Epithelial Cell Urine None Seen /hpf (Few); Urobilinogen Urine 0.2 mg/dL (<2.0); WBC Urine 0-5 /hpf (0-3)
[2024-10-16 18:06] LABS: Basophils Percent Auto 0.6 % (0.2-1.2); Eosinophils Absolute Auto 0.2 K/mm3 (0-0.3); Eosinophils Percent Auto 3.4 % (0-4.4); Hematocrit 40.6 % (42.0-52.0); Immature Granulocyte Absolute 0.02 K/mm3 (0.00-0.031); Immature Granulocyte Percent A 0.3 % (0-0.5); Lymphocytes Absolute Auto 2.37 K/mm3 (0.9-3.2); Lymphocytes Percent Auto 36.5 % (18.3-44.2); Mean Corpuscular HGB Conc 34.5 g/dl (32-36); Mean Corpuscular Hemoglobin 30.5 pg (26-34); Mean Corpuscular Volume 88.5 fl (80-100); Mean Platelet Volume 8.8 fl (7.4-10.4); Monocytes Absolute Auto 0.6 K/mm3 (0.1-0.6); Monocytes Percent Auto 9.4 % (2.6-8.5); Neutrophils Absolute Auto 3.2 K/mm3 (1.3-6.7); Neutrophils Percent Auto 49.8 % (45.5-73.1); Platelet Count Result 281 k/mm3 (150-375); Red Blood Count 4.59 M/mm3 (4.6-6.20); Red Cell Distribution Width 11.6 % (11.5-14.5); White Blood Count 6.5 K/mm3 (4.5-10.0)
[2024-10-16 18:12] LABS: Alanine Aminotransferase 31 U/L (6-50); Albumin Level 4.2 g/dL (3.5-5.1); Alkaline Phosphatase 58 U/L (38-126); Anion Gap 11 mmol/L (4-12); Aspartate Amino Transferase 27 U/L (17-59); Bilirubin,Total 1.1 mg/dL (0.2-1.3); Blood Urea Nitrogen 17 mg/dL (9-20); Calcium 9.1 mg/dL (8.4-10.2); Carbon Dioxide 23 mmol/L (22-30); Chloride 103 mmol/L (98-107); Estimated CRCL calculation 95 ml/min; Estimated Glomerular Filt Rate > 60; Glucose 97 mg/dL (65-110); Lipase 37 U/L (23-300); Potassium 3.8 mmol/L (3.4-5.0); Sodium 137 mmol/L (137-145)
--- NOTE | 2024-10-16 18:25 | ED.ABDPAIN ---
HPI - Abdominal Pain General Chief Complaint: Abdominal Pain Stated Complaint: RLQ abdominal pain x 3 days Time Seen by Provider: 10/16/24 17:45 Source: patient Mode of arrival: ambulatory Limitations: no limitations History of Present Illness HPI narrative: This is a 49 year old male that presents to the ER for right lower quadrant pain. Ongoing over the last couple of days. No associated symptoms. Related Data Allergies Allergy/AdvReac Type Severity Reaction Status Date / Time No Known Allergies Allergy Verified 10/16/24 17:56 Review of Systems Review of Systems: CONSTITUTIONAL: Denies fever GASTROINTESTINAL: Reports abdominal pain. Denies nausea, vomiting, or diarrhea. GENITOURINARY: Denies dysuria or hematuria. All systems reviewed & are unremarkable except as noted in HPI and below PMFSH Past Medical History Medical History Calculus of gallbladder with acute cholecystitis without obstruction Hypertension Surgical History Surgical History History of cholecystectomy Family History Family History Mother Diabetes mellitus Father Hypertension Social History Social History Smoking status: Former smoker Smoking end date: 09/25/15 Alcohol intake: never Exam Narrative: GENERAL: Well-appearing, well-nourished, and in no acute distress. HEAD: Normocephalic, atraumatic. EYES: EOMI. CHEST: Clear to auscultation. No respiratory distress. No wheezes rales or rhonchi HEART: Regular rate and rhythm. No murmur heard. Normal peripheral pulses. ABDOMEN: Soft, nondistended, normal active bowel sounds. Tender to palpation in the right lower quadrant, without guarding EXTREMITIES: Normal range of motion. No edema. SKIN: Warm, dry, no rash. NEURO: No focal deficits. Alert and oriented x3. PSYCH: Normal mood and affect Course Course Emergency Course: Patient updated on his workup and agrees with plan of care Vital Signs Vital signs: Vital Signs Temperature 97.5 F L 10/16/24 17:32 Pulse Rate 70 10/16/24 17:32 Respiratory Rate 16 10/16/24 17:32 Blood Pressure 142/90 H 10/16/24 17:32 Pulse Oximetry 100 10/16/24 17:32 Oxygen Delivery Room Air 10/16/24 17:32 Temperature 97.5 F L 10/16/24 17:32 Pulse Rate 63 10/16/24 19:15 Respiratory Rate 14 10/16/24 19:15 Blood Pressure 131/94 H 10/16/24 17:50 Pulse Oximetry 97 10/16/24 19:15 Oxygen Delivery Room Air 10/16/24 17:32 MDM - Abdominal Pain MDM Narrative Medical decision making narrative: Patient presents to the emergency department for right lower quadrant abdominal pain. Ongoing over the last couple of days. He is afebrile and nontoxic appearing. Cbc without leukocytosis. Metabolic panel without concerning findings. Urine without evidence of infection. CT abdomen and pelvis without acute pathology. Patient was updated on his workup and agrees with plan of care. He is instructed to return for any new/worsening symptoms. He is to follow up with primary provider Differential Diagnosis Differential diagnosis: Likely acute appendicitis, calculus of kidney, constipation and diverticulitis Lab Data Attestation: I reviewed the patient's lab results. 10/16/24 17:56 10/16/24 17:56 Labs: Lab Results 10/16/24 10/16/24 Range/Units 17:48 17:56 WBC 6.5 (4.5-10.0) K/mm3 RBC 4.59 L (4.6-6.20) M/mm3 Hgb 14.0 (14.0-18.0) g/dL Hct 40.6 L (42.0-52.0) % MCV 88.5 (80-100) fl MCH 30.5 (26-34) pg MCHC 34.5 (32-36) g/dl RDW 11.6 (11.5-14.5) % Plt Count 281 (150-375) k/mm3 MPV 8.8 (7.4-10.4) fl Immature Gran % (Auto) 0.3 (0-0.5) % Neut % (Auto) 49.8 (45.5-73.1) % Lymph % (Auto) 36.5 (18.3-44.2) % [place] % (Auto) 9.4 H (2.6-8.5) % Eos % (Auto) 3.4 (0-4.4) % Baso % (Auto) 0.6 (0.2-1.2) % Lymph # (Auto) 2.37 (0.9-3.2) K/mm3 [place] # (Auto) 0.6 (0.1-0.6) K/mm3 Eos # (Auto) 0.2 (0-0.3) K/mm3 Baso # (Auto) 0.0 (0.0-0.1) K/mm3 Abs Immat Gran (auto) 0.02 (0.00-0.031) K/mm3 Absolute Neuts (auto) 3.2 (1.3-6.7) K/mm3 Absolute Nucleated RBC 0.000 (0.0-0.012) K/mm3 Nucleated RBC % 0.0 (0.0-0.2) % Sodium 137 (137-145) mmol/L Potassium 3.8 (3.4-5.0) mmol/L Chloride 103 (98-107) mmol/L Carbon Dioxide 23 (22-30) mmol/L Anion Gap 11 (4-12) mmol/L BUN 17 (9-20) mg/dL Creatinine 0.97 (0.7-1.3) mg/dL Estim Creat Clear Calc 95 ml/min Estimated GFR > 60 (59 - ) Glucose 97 (65-110) mg/dL Calcium 9.1 (8.4-10.2) mg/dL Total Bilirubin 1.1 (0.2-1.3) mg/dL AST 27 (17-59) U/L ALT 31 (6-50) U/L Alkaline Phosphatase 58 (38-126) U/L Total Protein 8.0 (6.3-8.2) g/dL Albumin 4.2 (3.5-5.1) g/dL Lipase 37 (23-300) U/L Urine Color Yellow (Yellow) Urine Appearance Clear (Clear) Urine pH 5.0 (5.0-9.0) Ur Specific [place] 1.028 (1.001-1.035) Urine Protein Negative (Negative) mg/dL Urine Glucose (UA) Negative (Negative) mg/dL Urine Ketones Negative (Negative) mg/dL Ur Blood (Man) Trace (Negative) Urine Nitrate Negative (Negative) Urine Bilirubin Negative (Negative) Urine Urobilinogen 0.2 (<2.0) mg/dL Leukocyte Esterase Rfl Negative (Negative) MELISSA/UL Urine RBC 0-2 (0-2) /hpf Urine WBC 0-5 (0-3) /hpf Ur Squamous Epith Cells None seen (Few) /hpf Urine Bacteria None seen /hpf Urine Casts 0-2 Imaging Data Radiologist's impression: ITS Impressions Abdomen/Pelvis CT 10/16/24 19:03 IMPRESSION: No acute pathology. Normal appendix. Critical Care Time Critical Care Time Critical Care Time: No Discharge Plan Discharge Clinical Impression: Abdominal pain, acute, right lower quadrant Patient Disposition: Home, Self-Care Condition: Stable Instructions: Abdominal Pain (ED) Additional Instructions: Return to the ER if you experience fever, abdominal pain with nausea and vomiting, you are unable to keep down liquids or solids, pain or burning with urination, blood in the urine or any other symptoms that are concerning to you Follow up with your primary care doctor Patient Language: Syriac Prescriptions: No Action amoxicillin 500 mg capsule 500 mg PO Q12H 10 Days Qty: 20 0RF fexofenadine [Fe Allergy] 180 mg tablet 180 mg PO DAILY Qty: 30 0RF dicyclomine 20 mg tablet 20 mg PO BID Qty: 14 0RF hydrocodone-acetaminophen 5-325 mg tablet 1 tablet PO Q8H PRN (Reason: pain) Qty: 10 0RF hydrocodone-acetaminophen 5-325 mg tablet 1 tablet PO Q8H PRN (Reason: pain) Qty: 10 0RF tamsulosin [Flomax] 0.4 mg capsule 0.4 mg PO DAILY Qty: 7 0RF tamsulosin [Flomax] 0.4 mg capsule 0.4 mg PO DAILY Qty: 10 0RF ondansetron 4 mg tablet,disintegrating 4 mg PO Q8H PRN (Reason: nausea and vomiting) Qty: 10 0RF hydrocodone-acetaminophen 5-325 mg tablet 1 tablet PO Q6H PRN (Reason: pain) 3 Days Qty: 12 0RF ibuprofen 800 mg tablet 800 mg PO TID PRN (Reason: pain) 7 Days Qty: 21 0RF acetaminophen 500 mg tablet 1,000 mg PO TID PRN (Reason: veronica) 7 Days Qty: 42 0RF ondansetron 4 mg tablet,disintegrating 4 mg PO Q8H PRN (Reason: nausea and vomiting) Qty: 30 0RF oxycodone 5 mg tablet 5 mg PO Q4H PRN (Reason: pain) Qty: 14 0RF tamsulosin [Flomax] 0.4 mg capsule 0.4 mg PO DAILY Qty: 30 0RF Follow-up/Referrals: PHYSICIAN NOT ON STAFF,NONSTAFF [Primary Care Provider] -
--- OUTSIDE RECORDS SUMMARY | 2024-10-18 03:25 | XMS_ITS | Continuity of Care Document ---
Author Name [facility] Organization [facility] Care Team Providers Care Precipitator Name Role Phone [facility] Unavailable Unavailable Problems Combined list of problems from Department of Defense and Veterans Affairs facilities. It does not include entries that were removed or entered in error. 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
cervica l spinal surgery 10/2004 Ambulatory Pharmacy Dermatitis or Eczema Active 11/22/19 13 Condition Ambulatory Pharmacy Calculus of Kidney6 Active 11/22/19 13 Condition 07/14/2006 - NILDA VALENTINE
2002 and 2003 Ambulatory Pharmacy Pain in joint involving hand (ICD-9-CM 719.44) Active 09/01/20 11 Condition Ambulatory Pharmacy Folliculitis * (ICD-9-CM 704.8) Active 07/08/20 09 Condition Ambulatory Pharmacy Cyst, ganglion * (ICD-9-CM 727.43) Active 10/10/19 09 Condition Ambulatory Pharmacy Disorders of bursae and tendons in shoulder region (ICD-9-CM 726.10) Active 08/08/20 06 Condition Ambulatory Pharmacy Pain in joint involving ankle and foot (ICD-9-CM 719.47)1 Active 07/14/20 06 Condition 07/14/2006 - NILDA VALENTINE
cystic bone lesion right ankle Ambulatory Pharmacy Cervical Radiculopathy2 Active 07/14/20 06 Condition 07/14/2006 - NILDA VALENTINE
fusion C5-6 Ambulatory Pharmacy Family History of Diabetes Mellitus3 Active 07/14/20 Condition 07/14/2006 - NILDA VALENTINE
mother recently dx with DMT2 or glucose intolerance Ambulatory Pharmacy Family History of Stroke (Cerebrovascular) Active 07/14/20 Condition Ambulatory Pharmacy Family History of other Cardiovascular Diseases4 Active 07/14/20 Condition 07/14/2006 - NILDA VALENTINE
FH HTN Ambulatory Pharmacy Headache * (ICD-9-CM 784.0)5 Active 07/14/20 Condition 07/14/2006 - NILDA VALENTINE
related to neck pain Ambulatory Pharmacy Obesity8 Active 07/14/20 Condition 07/14/2006 - NILDA VALENTINE
BMI-32 06/30 FH DMT2 Ambulatory Pharmacy Tobacco Use Disorder * (ICD-9-CM 305.1)9 Active 07/14/20 Condition 07/14/2006 - NILDA VALENTINE
1/2 PPD 06/30 Ambulatory Pharmacy Blood Platelet Disorders Active Condition Jul 14, 2006 Entered By: NILDA VALENTINE Comment: stays awayf rom black hair dye, Vit C, Vit K and other listsJul 14, 2006 Entered By: NILDA VALENTINE Comment: Dx: G6PD [facility] Calculus of Kidney Active Condition O ct 2005 Entered By: NILDA VALENTINE Comment: 2002 and 2003 [facility] Calculus of Kidney Active Condition [facility] Cervical Radiculopathy Active Condition Jul 14, 2006 Entered By: NILDA VALENTINE Comment: fusion C5-6 [facility] Cyst, ganglion * (ICD-9-CM 727.43) Active Condition [facility] Dermatitis or Eczema Active Condition [facility] Disorders of bursae and tendons in shoulder region (ICD-9-CM 726.10) Active Condition [facility] Family History of Diabetes Mellitus Active Condition Jul 14 Entered By: NILDA VALENTINE Comment: mother recently dx with DMT2 or glucose intolerance [facility] Family History of Malignant Neoplasm of other Respiratory and Intrathoracic Orga Active Condition Jul 14 006 Entered By: NILDA VALENTINE Comment: GM lung caner and bone cancer- likley METS to bone [facility] Family History of other Cardiovascular Diseases Active Condition Jul 14, 2006 Entered By: NILDA VALENTINE Comment: FH HTN [facility] Family History of Stroke (Cerebrovascular) Active Condition [facility] Folliculitis * (ICD-9-CM 704.8) Active Condition [facility] Gastroesophageal reflux disease Active Condition [facility] Gastroesophageal Reflux Disorder Active Condition [facility] Tftxloj-7-usuahudpi dehydrogenase deficiency anemia Active Condition [facility] Headache * (ICD-9-CM 784.0) Active Condition Jul 14 6 Entered By: NILDA VALENTINE Comment: related to neck pain [facility] Hyperlipidemia Active Condition [facility] Kidney stone Active Condition [facility] Lichen planus Active Condition [facility] Lichen planus, bullous Active Condition [facility] Neck pain Active Condition Jan 06 15 Entered By: DERRICK HENDERSON Comment: cervical spinal surgery 10/2004 [facility] Neck Pain Active Condition [facility] Obesity Active Condition Jul 14 06 Entered By: NILDA VALENTINE Comment: BMI-32 06/30 FH DMT2 [facility] Obesity Active Condition [facility] Pain in joint involving ankle and foot (ICD-9-CM 719.47) Active Condition Jul 14, 2006 Entered By: NILDA VALENTINE Comment: cystic bone lesion right ankle [facility] Pain in joint involving hand (ICD-9-CM 719.44) Active Condition [facility] Personality disorder Active Condition [facility] Pompholyx * (ICD-9-CM 705.81) Active Condition [facility] Tobacco Use Disorder * (ICD-9-CM 305.1) Active Condition Jul 14 6 Entered By: NILDA VALENTINE Comment: 12 PPD 06/30 [facility] Benign essential hypertension Inactive Condition 01/24/2024 [facility] Dyslipidemia Inactive Condition 01/24/2024 [facility] Legal problem Inactive Condition 01/24/2024 [facility] Pain in joint involving shoulder region (ICD-9-CM 719.41) Inactive Condition 08/08/2006 Jul 14, 2006 Entered By: NILDA VALENTINE Comment: left shoulder pain with possible rotator cuff injury [facility] Diagnosis: ICD-10-CM N20.0 Calculus of kidney Active Diagnosis [facility] Diagnosis: ICD-10-CM N23 Unspecified renal colic Active Diagnosis [facility] Diagnosis: ICD-10-CM N20.1 Calculus of ureter Active Diagnosis [facility] Diagnosis: ICD-10-CM M54.2 Cervicalgia Active Diagnosis [facility] Diagnosis: ICD-10-CM M47.892 Other spondylosis, cervical region Active Diagnosis [facility] Diagnosis: ICD-10-CM Z00.00 Encntr for general adult medical exam w/o abnormal findings Active Diagnosis [facility] Diagnosis: ICD-10-CM H52.4 Presbyopia Active Diagnosis [facility] Diagnosis: ICD-10-CM M54.12 Radiculopathy, cervical region Active Diagnosis [facility] Medications Combined list of outpatient medications from Department of Defense and [facility] Affairs facilities.Medications provided include 1) outpatient medications from the last 15 months, and 2) patient-reported medications. Medication Details Route Status Patient Instructions Prescription Expires Prescription Number Last Dispense Date Ordering Provider Order Date Order Qty Source ACETAMINOPH EN TAB TAKE BY MOUTH FOUR TIMES A DAY NEEDED ORAL ACTIVE JOSEPH ZAMORA 2023 [facility] CLOBETASOL 0.05% CREAM/CEREV E CREAM 1:1- APPLY SPARINGL Y TO AFFECTED AREA(S) ONCE A DAY (EXTERNA L USE ONLY) 02/23/2024 [id number] 4 MARGARITA ZAMORA 2023 30 [facility] CLOBETASOL 0.05% CREAM/CEREV E CREAM 1:1- APPLY SPARINGL Y TO AFFECTED AREA(S) ONCE A DAY (EXTERNA L USE ONLY) 02/23/2024 [id number] 4 MARGARITA ZAMORA 2023 30 [facility] CLOBETASOL PROPIONATE 0.05% CREAM,TOP APPLY SPARINGL Y TO AFFECTED AREA(S) ONCE A DAY (EXTERNA L USE ONLY) TOPICA L 02/23/2024 [id number] 4 JOSEPH ZAMORA LBY R 2023 30 [facility] NAPROXEN 500MG TAB TAKE ONE TABLET BY MOUTH TWICE A DAY FOR PAIN TAKE WITH FOOD. ORAL 05/04/2024 [id number] 4 MARIANO FLORES 2023 28 [facility] Allergies, Adverse Reactions, Alerts Combined list of allergies from Department of Defense and Veterans Affairs facilities. It does not include entries that were removed or entered in error. Substance Category Reaction Severity Reaction type Status Date Reported Comments Source MUPIROCIN Propensity to adverse reactions to drug (finding) Eruption active 3 [facility] Mupirocin Calcium Drug allergy (disorder) Eruption of skin active 9 [facility] mupirocin topical Drug allergy Eruption of skin (disorder ), Eruption of skin (disorder ) Active One or More [facility] Facilities MST Immunizations Combined list of available immunizations from the Department of Defense and Veterans Affairs facilities. 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 Comments Source influenza virus vaccine, unspecified 2019 88 complet ed influenza virus vaccine, unspecifi ed 07/22/20 Recorded Ambulat ory Pharmac y INFLUENZA, UNSPECIFIED FORMULATION 2019 88 complet ed [facility] INFLUENZA, INJECTABLE, MDCK, PRESERVATIVE FREE, QUADRIVALENT 1 2019 171 complet ed [facility] TDAP 2015 115 complet ed Left Deltoid [facility] tetanus, diphtheria, acellular pertu is 2015 115 complet ed Result Comment: Left Deltoid Ambulat ory Pharmac y tetanus, diphtheria, acellular pertu is 2013 115 complet ed tetanus, diphtheri a, acellular pertussis 09/25/13 Recorded Ambulat ory Pharmac y TDAP 2013 115 complet ed [facility] Td(adult) unspecified formulation 2007 139 complet ed Td(adult) unspecifi ed formulati on 09/25/07 Recorded Ambulat ory Pharmac y TETANUS DIPTHERIA (TD-ADULT) (HISTORICAL) 2007 139 complet ed [facility] Td(adult) unspecified formulation 2003 139 complet ed Td(adult) unspecifi ed formulati on 09/25/03 Recorded Ambulat ory Pharmac y TD(ADULT) UNSPECIFIED FORMULATION 2003 139 complet ed [facility] Results Combined list of recent chemistry, hematology and other laboratory results from Department of Defense and Veterans Affairs, ranging from 15 months to all on record, depending upon the facility. Order Name Results Value Reference Range Date Interpretation Specimen Comments Source URINALYSI S W/ CX REFLEX (STL-PB) COLOR OF URINE Colorles s 04/04 Specimen Type: URINE No comment entered. Ordering Provider: MARIANO FLORES Report Released Date/Time : Apr 04, 2024 09:53 AM Reporting Lab: [facility] [address] [place] [phone] 1 Performin g Lab: [address] [phone] [facility] URINALYSI S W/ CX REFLEX (STL-PB) BILIRUBIN.T OTAL [PRESENCE] IN URINE BY TEST STRIP Negative mg/dL 04/04 Specimen Type: URINE No comment entered. Ordering Provider: MARIANO FLOERS Report Released Date/Time : Apr 04, 2024 09:53 AM Reporting Lab: [facility] [address] [place] [phone] 1 Performin g Lab: [address] [phone] 1 [facility] URINALYSI S W/ CX REFLEX (STL-PB) PH OF URINE BY TEST STRIP 5.5 5.0 - 8.0 04/04 Specimen Type: URINE No comment entered. Ordering Provider: MARIANO FLORES Report Released Date/Time : Apr 04, 2024 09:53 AM Reporting Lab: [address] [phone] 1 Performin g Lab: [address] [phone] 1 [facility] URINALYSI S W/ CX REFLEX (STL-PB) LEUKOCYTES [#/AREA] IN URINE SEDIMENT BY MICROSCOPY HIGH POWER FIELD <1/[HPF] 0 - 5 04/04 Specimen Type: URINE No comment entered. Ordering Provider: MARIANO FLORES Report Released Date/Time : Apr 04, 2024 09:53 AM Reporting Lab: [address] [phone] 1 Performin g Lab: [address] [phone] 1 [facility] URINALYSI S W/ CX REFLEX (STL-PB) ERYTHROCYTE S [#/VOLUME] IN URINE SEDIMENT BY MICROSCOPY HIGH POWER FIELD 1 /[HPF] 0 - 5 04/04 Specimen Type: URINE No comment entered. Ordering Provider: MARIANO FLORES Report Released Date/Time : Apr 04, 2024 09:53 AM Reporting Lab: [address] [phone] 1 Performin g Lab: [address] [address] 1 [facility] URINALYSI S W/ CX REFLEX (STL-PB) APPEARANCE OF URINE Clear 04/04 Specimen Type: URINE No comment entered. Ordering Provider: MARIANO FLORES Report Released Date/Time : Apr 04, 2024 09:53 AM Reporting Lab: [address] [phone] 1 Performin g Lab: [address] [address] 1 [facility] URINALYSI S W/ CX REFLEX (STL-PB) NITRITE [PRESENCE] IN URINE BY TEST STRIP Negative mg/dL 04/04 Specimen Type: URINE No comment entered. Ordering Provider: MARIANO FLORES Report Released Date/Time : Apr 04, 2024 09:53 AM Reporting Lab: [address] [phone] 1 Performin g Lab: [address] [phone] 1 [facility] URINALYSI S W/ CX REFLEX (STL-PB) MUCUS [PRESENCE] IN URINE SEDIMENT BY LIGHT MICROSCOPY RARE/[LP F] 04/04 Specimen Type: URINE No comment entered. Ordering Provider: MARIANO FLORES Report Released Date/Time : Apr 04, 2024 09:53 AM Reporting Lab: [place] [address] 1 Performin g Lab: [address] [phone] 1 [facility] URINALYSI S W/ CX REFLEX (STL-PB) GLUCOSE [MASS/VOLUM E] IN URINE BY TEST STRIP Normalmg /dL 04/04 Specimen Type: URINE No comment entered. Ordering Provider: MARIANO FLORES Report Released Date/Time : Apr 04, 2024 09:53 AM Reporting Lab: [address] [phone] 1 Performin g Lab: [address] [phone] 1 [facility] URINALYSI S W/ CX REFLEX (STL-PB) PROTEIN [MASS/VOLUM E] IN URINE BY TEST STRIP Negative mg/dL - 20 04/04 Specimen Type: URINE No comment entered. Ordering Provider: MARIANO FLORES Report Released Date/Time : Apr 04, 2024 09:53 AM Reporting Lab: [address] [phone] 1 Performin g Lab: [address] [phone] 1 [facility] URINALYSI S W/ CX REFLEX (STL-PB) URN.UROBILI NOGEN Normalmg /dL 04/04 Specimen Type: URINE No comment entered. Ordering Provider: MARIANO FLORES Report Released Date/Time : Apr 04, 2024 09:53 AM Reporting Lab: [place] [address] [facility] [address] 1 Performin g Lab: [address] [phone] 1 [facility] URINALYSI S W/ CX REFLEX (STL-PB) HEMOGLOBIN [MASS/VOLUM E] IN URINE BY TEST STRIP Negative mg/dL 04/04 Specimen Type: URINE No comment entered. Ordering Provider: MARIANO FLORES Report Released Date/Time : Apr 04, 2024 09:53 AM Reporting Lab: [place] [address] 1 Performin g Lab: [address] [phone] 1 [facility] URINALYSI S W/ CX REFLEX (STL-PB) KETONES [MASS/VOLUM E] IN URINE BY TEST STRIP Negative mg/dL 04/04 Specimen Type: URINE No comment entered. Ordering Provider: MARIANO FLORES Report Released Date/Time : Apr 04, 2024 09:53 AM Reporting Lab: [address] [address] 1 Performin g Lab: [address] 15[address] 1 [facility] URINALYSI S W/ CX REFLEX (STL-PB) URN.LEUK.ES T. Negative mg/dL 04/04 Specimen Type: URINE No comment entered. Ordering Provider: MARIANO FLORES Report Released Date/Time : Apr 04, 2024 09:53 AM Reporting Lab: [place] [phone] 1 Performin g Lab: [place] [address] [place] [address] 1 [facility] URINALYSI S W/ CX REFLEX (STL-PB) SPECIFIC GRAVITY OF URINE 1.017 1.005 - 1.029 04/04 Specimen Type: URINE No comment entered. Ordering Provider: MARIANO FLORES Report Released Date/Time : Apr 04, 2024 09:53 AM Reporting Lab: [place] [address] [place] [address] 1 Performin g Lab: [place] [address] [place] [address] 1 [facility] COMPREHEN SIVE METABOLIC PANEL CREATININE [MASS/VOLUM E] IN SERUM OR PLASMA 0.94 mg/dL 0.7 - 1.3 04/04 Specimen Type: PLASMA Comment: K result may show a positive bias due to hemolysis . Specimen slightly hemolyzed . Ordering Provider: MARIANO FLORES Report Released Date/Time : Apr 04, 2024 09:53 AM Reporting Lab: [place] [address] [place] [address] 1 Performin g Lab: [place] [address] 1 [facility] COMPREHEN SIVE METABOLIC PANEL UREA NITROGEN [MASS/VOLUM E] IN SERUM OR PLASMA 14.5 mg/dL 9.0 - 25.0 04/04 Specimen Type: PLASMA Comment: K result may show a positive bias due to hemolysis . Specimen slightly hemolyzed . Ordering Provider: MARIANO FLORES Report Released Date/Time : Apr 04, 2024 09:53 AM Reporting Lab: [place] [address] 1 Performin g Lab: [place] [address] 1 [facility] COMPREHEN SIVE METABOLIC PANEL GLUCOSE [MASS/VOLUM E] IN SERUM OR PLASMA 96 mg/dL 72 - 99 04/04 Specimen Type: PLASMA Comment: K result may show a positive bias due to hemolysis . Specimen slightly hemolyzed . Ordering Provider: MARIANO FLORES Report Released Date/Time : Apr 04, 2024 09:53 AM Reporting Lab: [facility] [address] [facility] [address] 1 Performin g Lab: [facility] [address] [facility] [address] 1 [facility] COMPREHEN SIVE METABOLIC PANEL SODIUM [MOLES/VOLU ME] IN SERUM OR PLASMA 138 meq/L 136 - 145 04/04 Specimen Type: PLASMA Comment: K result may show a positive bias due to hemolysis . Specimen slightly hemolyzed . Ordering Provider: MARIANO FLORES Report Released Date/Time : Apr 04, 2024 09:53 AM Reporting Lab: [place] [phone] 1 Performin g Lab: [place] [address] [place] [phone] 1 [facility] COMPREHEN SIVE METABOLIC PANEL POTASSIUM [MOLES/VOLU ME] IN SERUM OR PLASMA 5.0 meq/L 3.5 - 5 04/04 Specimen Type: PLASMA Comment: K result may show a positive bias due to hemolysis . Specimen slightly hemolyzed . Ordering Provider: MARIANO FLORES Report Released Date/Time : Apr 04, 2024 09:53 AM Reporting Lab: [address] [phone] 1 Performin g Lab: [place] [address] [facility] [address]-859 1 [facility] COMPREHEN SIVE METABOLIC PANEL CHLORIDE [MOLES/VOLU ME] IN SERUM OR PLASMA 108 meq/L 98 - 107 04/04 H Specimen Type: PLASMA Comment: K result may show a positive bias due to hemolysis . Specimen slightly hemolyzed . Ordering Provider: MARIANO FLORES Report Released Date/Time : Apr 04, 2024 09:53 AM Reporting Lab: [facility] [address] [facility] [address]-937 1 Performin g Lab: [facility] [address] [facility] 20051-468 1 [facility] COMPREHEN SIVE METABOLIC PANEL CARBON DIOXIDE, TOTAL [MOLES/VOLU ME] IN SERUM OR PLASMA 21 meq/L 22 - 31 04/04 L Specimen Type: PLASMA Comment: K result may show a positive bias due to hemolysis . Specimen slightly hemolyzed . Ordering Provider: MARIANO FLORES Report Released Date/Time : Apr 04, 2024 09:53 AM Reporting Lab: [place] [phone] Performin g Lab: [place] [phone] 1 [facility] COMPREHEN SIVE METABOLIC PANEL CALCIUM [MASS/VOLUM E] IN SERUM OR PLASMA 9.5 mg/dL 8.4 - 10.4 04/04 Specimen Type: PLASMA Comment: K result may show a positive bias due to hemolysis . Specimen slightly hemolyzed . Ordering Provider: MARIANO FLORES Report Released Date/Time : Apr 04, 2024 09:53 AM Reporting Lab: [address] [phone] 1 Performin g Lab: [address] [address] 1 [facility] COMPREHEN SIVE METABOLIC PANEL PROTEIN [MASS/VOLUM E] IN SERUM OR PLASMA 7.4 g/dL 6 - 8.6 04/04 Specimen Type: PLASMA Comment: K result may show a positive bias due to hemolysis . Specimen slightly hemolyzed . Ordering Provider: MARIANO FLORES Report Released Date/Time : Apr 04, 2024 09:53 AM Reporting Lab: [address] [address] 1 Performin g Lab: [address] [address]57[address] 1 [facility] COMPREHEN SIVE METABOLIC PANEL ALBUMIN [MASS/VOLUM E] IN SERUM OR PLASMA 4.0 g/dL 3.4 - 5 04/04 Specimen Type: PLASMA Comment: K result may show a positive bias due to hemolysis . Specimen slightly hemolyzed . Ordering Provider: MARIANO FLORES Report Released Date/Time : Apr 04, 2024 09:53 AM Reporting Lab: [facility] [address] [facility] [address] 1 Performin g Lab: [place] [address] [facility] [address] 1 [facility] COMPREHEN SIVE METABOLIC PANEL BILIRUBIN.T OTAL [MASS/VOLUM E] IN SERUM OR PLASMA 0.4 mg/dL 0.2 - 1.2 04/04 Specimen Type: PLASMA Comment: K result may show a positive bias due to hemolysis . Specimen slightly hemolyzed . Ordering Provider: MARIANO FLORES Report Released Date/Time : Apr 04, 2024 09:53 AM Reporting Lab: [place] [address] [facility] [address]183 1 Performin g Lab: [place] [address] [facility] [address] 1 [facility] COMPREHEN SIVE METABOLIC PANEL ALKALINE PHOSPHATASE [ENZYMATIC ACTIVITY/VO LUME] IN SERUM OR PLASMA 65 U/L 40 - 150 04/04 Specimen Type: PLASMA Comment: K result may show a positive bias due to hemolysis . Specimen slightly hemolyzed . Ordering Provider: MARIANO FLORES Report Released Date/Time : Apr 04, 2024 09:53 AM Reporting Lab: [place] [address] [address] [facility] [address] 1 Performin g Lab: [place] [address] [facility] [address] 1 [facility] COMPREHEN SIVE METABOLIC PANEL ASPARTATE AMINOTRANSF ERASE [ENZYMATIC ACTIVITY/VO LUME] IN SERUM OR PLASMA 22 U/L 5 - 34 04/04 Specimen Type: PLASMA Comment: K result may show a positive bias due to hemolysis . Specimen slightly hemolyzed . Ordering Provider: MARIANO FLORES Report Released Date/Time : Apr 04, 2024 09:53 AM Reporting Lab: [address] [phone] 1 Performin g Lab: [address] [address] 1 [facility] COMPREHEN SIVE METABOLIC PANEL ALANINE AMINOTRANSF ERASE [ENZYMATIC ACTIVITY/VO LUME] IN SERUM OR PLASMA 27 U/L 8 - 40 04/04 Specimen Type: PLASMA Comment: K result may show a positive bias due to hemolysis . Specimen slightly hemolyzed . Ordering Provider: MARIANO FLORES Report Released Date/Time : Apr 04, 2024 09:53 AM Reporting Lab: [address] [phone] 1 Performin g Lab: [address] [phone] 1 [facility] COMPREHEN SIVE METABOLIC PANEL GLOMERULAR FILTRATION RATE/1.73 SQ M.PREDICTED [VOLUME RATE/AREA] IN SERUM, PLASMA OR BLOOD BY CREATININE- BASED FORMULA (CKD-EPI 2020) 100.0 60 04/04 Specimen Type: PLASMA Comment: K result may show a positive bias due to hemolysis . Specimen slightly hemolyzed . Ordering Provider: MARIANO FLORES Report Released Date/Time : Apr 04, 2024 09:53 AM Reporting Lab: [address] [address] 1 Performin g Lab: [address] [address] [facility] CBC LEUKOCYTES [#/VOLUME] IN BLOOD BY AUTOMATED COUNT 6.4 10*3/uL 3.6 - 11.2 04/04 Specimen Type: BLOOD No comment entered. Ordering Provider: MARIANO FLORES Report Released Date/Time : Apr 04, 2024 09:53 AM Reporting Lab: [address] [address] 1 Performin g Lab: [address] [address] 1 [facility] CBC ERYTHROCYTE S [#/VOLUME] IN BLOOD BY AUTOMATED COUNT 4.62 10*6/uL 4.10 - 5.70 04/04 Specimen Type: BLOOD No comment entered. Ordering Provider: MARIANO FLORES Report Released Date/Time : Apr 04, 2024 09:53 AM Reporting Lab: [address] [address] 1 Performin g Lab: [address] [address] 1 [facility] CBC HEMOGLOBIN [MASS/VOLUM E] IN BLOOD 14.2 g/dL 13.1 - 16.8 04/04 Specimen Type: BLOOD No comment entered. Ordering Provider: MARIANO FLORES Report Released Date/Time : Apr 04, 2024 09:53 AM Reporting Lab: [address] [address] 1 Performin g Lab: [address] [phone] 1 [facility] CBC HEMATOCRIT [VOLUME FRACTION] OF BLOOD 41.4 38.2 - 48.4 04/04 Specimen Type: BLOOD No comment entered. Ordering Provider: MARIANO FLORES Report Released Date/Time : Apr 04, 2024 09:53 AM Reporting Lab: [address] [phone] 1 Performin g Lab: [address] [address] 1 [facility] CBC MCV [ENTITIC VOLUME] BY AUTOMATED COUNT 89.6 fL 80.0 - 100.0 04/04 Specimen Type: BLOOD No comment entered. Ordering Provider: MARIANO FLORES Report Released Date/Time : Apr 04, 2024 09:53 AM Reporting Lab: [address] [address] 1 Performin g Lab: [place] [phone] [facility] CBC MCH [ENTITIC MASS] BY AUTOMATED COUNT 30.7 pg 27.0 - 34.0 04/04 Specimen Type: BLOOD No comment entered. Ordering Provider: MARIANO FLORES Report Released Date/Time : Apr 04, 2024 09:53 AM Reporting Lab: [address] [address] 1 Performin g Lab: [address] [address] 1 [facility] CBC MCHC [MASS/VOLUM E] BY AUTOMATED COUNT 34.3 g/dL 33.0 - 36.0 04/04 Specimen Type: BLOOD No comment entered. Ordering Provider: MARIANO FLORES Report Released Date/Time : Apr 04, 2024 09:53 AM Reporting Lab: [address] [address] 1 Performin g Lab: [address] [address] 1 [facility] CBC PLATELETS [#/VOLUME] IN BLOOD BY AUTOMATED COUNT 331 10*3/uL 150 - 400 04/04 Specimen Type: BLOOD No comment entered. Ordering Provider: MARIANO FLORES Report Released Date/Time : Apr 04, 2024 09:53 AM Reporting Lab: [address] [address] 1 Performin g Lab: [address] [address] 1 [facility] CBC PLATELET MEAN VOLUME [ENTITIC VOLUME] IN BLOOD BY AUTOMATED COUNT 9.6 fL 7.5 - 11.2 04/04 Specimen Type: BLOOD No comment entered. Ordering Provider: MARIANO FLORES Report Released Date/Time : Apr 04, 2024 09:53 AM Reporting Lab: [address] [address] 1 Performin g Lab: [address] [place] [address] [facility] CBC ERYTHROCYTE DISTRIBUTIO N WIDTH [RATIO] BY AUTOMATED COUNT 11.7 11.8 - 15.1 04/04 L Specimen Type: BLOOD No comment entered. Ordering Provider: MARIANO FLORES Report Released Date/Time : Apr 04, 2024 09:53 AM Reporting Lab: [facility] [address] [place] [address] 1 Performin g Lab: [address] [address] 1 [facility] CBC LYMPHOCYTES /100 LEUKOCYTES IN BLOOD BY AUTOMATED COUNT 30 04/04 Specimen Type: BLOOD No comment entered. Ordering Provider: MARIANO FLORES Report Released Date/Time : Apr 04, 2024 09:53 AM Reporting Lab: [address] [address] 1 Performin g Lab: [address] [address] 1 [facility] CBC MONOCYTES/1 00 LEUKOCYTES IN BLOOD BY AUTOMATED COUNT 8 04/04 Specimen Type: BLOOD No comment entered. Ordering Provider: MARIANO FLORES Report Released Date/Time : Apr 04, 2024 09:53 AM Reporting Lab: [address] [address] 1 Performin g Lab: [address] [address] 1 [facility] CBC NEUTROPHILS /100 LEUKOCYTES IN BLOOD BY AUTOMATED COUNT 55 04/04 Specimen Type: BLOOD No comment entered. Ordering Provider: MARIANO FLORES Report Released Date/Time : Apr 04, 2024 09:53 AM Reporting Lab: [address] [address] 1 Performin g Lab: [address] [address] 1 [facility] CBC EOSINOPHILS /100 LEUKOCYTES IN BLOOD BY AUTOMATED COUNT 5 04/04 Specimen Type: BLOOD No comment entered. Ordering Provider: MARIANO FLORES Report Released Date/Time : Apr 04, 2024 09:53 AM Reporting Lab: [address] [address] 1 Performin g Lab: [address] [address] 1 [facility] CBC BASOPHILS/1 00 LEUKOCYTES IN BLOOD BY AUTOMATED COUNT 1 04/04 Specimen Type: BLOOD No comment entered. Ordering Provider: MARIANO FLORES Report Released Date/Time : Apr 04, 2024 09:53 AM Reporting Lab: [place] [address] 1 Performin g Lab: [place] [address] 1 [facility] CBC LYMPHOCYTES [#/VOLUME] IN BLOOD BY AUTOMATED COUNT 1.93 10*3/uL 0.77 - 4.50 04/04 Specimen Type: BLOOD No comment entered. Ordering Provider: MARIANO FLORES Report Released Date/Time : Apr 04, 2024 09:53 AM Reporting Lab: [place] [phone] 1 Performin g Lab: [address] [address] 1 [facility] CBC MONOCYTES [#/VOLUME] IN BLOOD BY AUTOMATED COUNT 0.53 10*3/uL 0.19 - 0.80 04/04 Specimen Type: BLOOD No comment entered. Ordering Provider: MARIANO FLORES Report Released Date/Time : Apr 04, 2024 09:53 AM Reporting Lab: [place] [phone] 1 Performin g Lab: [address] [address] 1 [facility] CBC NEUTROPHILS [#/VOLUME] IN BLOOD BY AUTOMATED COUNT 3.48 10*3/uL 2.10 - 8.00 04/04 Specimen Type: BLOOD No comment entered. Ordering Provider: MARIANO FLORES Report Released Date/Time : Apr 04, 2024 09:53 AM Reporting Lab: [address] [address] 1 Performin g Lab: [address] [address] 1 [facility] CBC EOSINOPHILS [#/VOLUME] IN BLOOD BY AUTOMATED COUNT 0.34 10*3/uL 0.00 - 0.60 04/04 Specimen Type: BLOOD No comment entered. Ordering Provider: MARIANO FLORES Report Released Date/Time : Apr 04, 2024 09:53 AM Reporting Lab: [address] [address] 1 Performin g Lab: [address] [address] 1 [facility] CBC BASOPHILS [#/VOLUME] IN BLOOD BY AUTOMATED COUNT 0.08 10*3/uL 0.00 - 0.20 04/04 Specimen Type: BLOOD No comment entered. Ordering Provider: MARIANO FLORES Report Released Date/Time : Apr 04, 2024 09:53 AM Reporting Lab: [address] [address] 1 Performin g Lab: [address] [address] 1 [facility] Vital Signs Combined list of inpatient and outpatient Vital Signs from Department of Defense and Veterans Affairs, ranging from 12 months to all on record, depending upon the facility. Vital Sign Value Date Comments Source No data available for this section Ambulatory Pharm acy SYSTOLIC BLOOD PRESSURE 121 04/22/20 24 13:35:51 [facility] DIASTOLIC BLOOD PRESSURE 83 024 13:35:51 [facility] PULSE OXIMETRY 97 04/22/2024 13:35:51 [facility] WEIGHT 235.4 04/22/2024 13:35:51 [facility] BMI 37kg/m2 04/22/2024 13:35:51 [facility] PAIN 0 04/22/2024 13:35:51 [facility] HEIGHT 67 04/22/2024 13:35:51 [facility] TEMPERATURE 97.4 04/22/2024 13:35:51 [facility] PULSE 78 04/22/2024 13:35:51 [facility] RESPIRATION 18 04/22/2024 13:35:51 [facility] SYSTOLIC BLOOD PRESSURE 152 04/04/20 24 09:24:00 [facility] DIASTOLIC BLOOD PRESSURE 98 024 09:24:00 [facility] PAIN 4 04/04/2024 09:24:00 [facility] TEMPERATURE 98.2 04/04/2024 09:24:00 [facility] PULSE 70 04/04/2024 09:24:00 [facility] RESPIRATION 18 04/04/2024 09:24:00 [facility] SYSTOLIC BLOOD PRESSURE 138 03/11/20 24 10:09:29 [facility] DIASTOLIC BLOOD PRESSURE 92 024 10:09:29 [facility] PULSE OXIMETRY 95 03/11/2024 10:09:29 [facility] WEIGHT 230.1 03/11/2024 10:09:29 [facility] BMI 36kg/m2 03/11/2024 10:09:29 [facility] PAIN 7 03/11/2024 10:09:29 [facility] HEIGHT 67 03/11/2024 10:09:29 [facility] TEMPERATURE 97.5 03/11/2024 10:09:29 [facility] PULSE 79 03/11/2024 10:09:29 [facility] RESPIRATION 20 03/11/2024 10:09:29 [facility] SYSTOLIC BLOOD PRESSURE 151 01/24/20 24 14:41:39 [facility] DIASTOLIC BLOOD PRESSURE 90 024 14:41:39 [facility] PULSE OXIMETRY 95 01/24/2024 14:41:39 [facility] WEIGHT 231.4 01/24/2024 14:41:39 [facility] BMI 36kg/m2 01/24/2024 14:41:39 [facility] PAIN 7 01/24/2024 14:41:39 [facility] TEMPERATURE 98.2 01/24/2024 14:41:39 [facility] PULSE 68 01/24/2024 14:41:39 [facility] RESPIRATION 18 01/24/2024 14:41:39 [facility] Encounters Combined list of: 1) Encounters from Department of Veterans Affairs facilities [facility]. 2) Encounters from the Department of Defense facilities going back up to 280 months. Location Location Details Encounter Type Encounter Number Reason For Visit Attending Provider ADM Date DC Date Status Disposition Source [facility] Outpatient Encounter [id number] TRICIA ZAMORA 05/10 [facility] Outpatient Encounter [id number] 09/06 [facility] Outpatient Encounter [id number] 12/18 [facility] Outpatient Encounter [id number] JUAN MATTHEW 12/18 [facility] Outpatient Encounter [id number] Diagnos is: ICD-10- CM M54.2 Cervica lgia
GRAVES,CHINTAN N L 12/18 [facility] Outpatient Encounter [id number] 12/25 [facility] OFF/OP CNSLTJ NEW/EST MOD 40 [id number] Diagnos is: ICD-10- CM M54.12 Radicul opathy, cervica l region< br/> JOHANN,FUR QAN 12/25 [facility] Outpatient Encounter [id number] 12/25 [facility] COMPRE OPH EXAM EST PT 1/> [id number] Diagnos is: ICD-10- CM H52.4 Presbyo jo<br/ > FATOUMATARPEDRO Bowser PANCHITO 12/31 [facility] OFF/OP CNSLTJ NEW/EST MOD 40 [id number] Diagnos is: ICD-10- CM M54.2 Cervica lgia
MARQUISE,ABRAM HN 01/07 [facility] Outpatient Encounter [id number] 01/23 [facility] Outpatient Encounter [id number] Diagnos is: ICD-10- CM Z00.00 Encntr for general adult medical exam w/o abnorma l finding s
TRICIA ZAMORA BY R 01/23 [facility] Outpatient Encounter [id number] 02/15 [facility] OFF/OP CNSLTJ NEW/EST LOW 30 [id number] Diagnos is: ICD-10- CM M47.892 Other spondyl osis, cervica l region< br/> SAMUDRALA, SIRESHA 02/21 [facility] Outpatient Encounter [id number] 03/08 [facility] OFFICE O/P EST MOD 30 MIN [id number] Diagnos is: ICD-10- CM M54.2 Cervica lgia
MARQUISE,ABRAM HN 03/11 [facility] Outpatient Encounter [id number] 03/12 [facility] Outpatient Encounter [id number] 03/15 [facility] Outpatient Encounter [id number] PEDRO KRAUSE L 03/25 [facility] Outpatient Encounter [id number] 03/25 [facility] Outpatient Encounter [id number] Diagnos is: ICD-10- CM N20.1 Calculu s of ureter< br/> VU,SERGIO D 03/25 [facility] Outpatient Encounter [id number] 03/29 [facility] HC PRO PHONE CALL 5-10 MIN [id number] Diagnos is: ICD-10- CM N20.1 Calculu s of ureter< br/> MAYDEN,CHR ISTINE M 04/01 [facility] EMERGENCY DEPT VISIT [facility] [id number] Diagnos is: ICD-10- CM N23 Unspeci fied renal colic<b r/> Cristofer VOGEL MD 04/04 [facility] Outpatient Encounter [id number] Cristofer VOGEL MD 04/04 [facility] OFFICE O/P EST LOW 20 MIN [id number] Diagnos is: ICD-10- CM N20.0 Calculu s of kidney< br/> RADHA,R ALPH J 04/22 [facility] HC PRO PHONE CALL 5-10 MIN [id number] Diagnos is: ICD-10- CM N20.0 Calculu s of kidney< br/> SCOTT SALVADOR S 04/25 [facility] Outpatient Encounter [id number] 05/01 [facility] Outpatient Encounter [id number] 06/19 [facility] Outpatient Encounter [id number] 06/21 [facility] Outpatient Encounter [id number] 10/16 [facility] Procedures Combined list of: 1) Procedures from Department of Veterans Affairs facilities going back up to thelast 18 months, not all ID non-surgical procedures are included; 2) All procedures from the Department of Defense facilities. Procedure Procedure Type Code Date Perfomer Comments Sourc e COLONOSCOPY, FLEXIBLE; DIAGNOSTIC, INCLUDING COLLECTION OF SPECIMEN(S) BY BRUSHING OR WASHING, WHEN PERFORMED (SEPARATE PROCEDURE) Colonoscopy, flexible, proximal to splenic flexure; diagnostic, with or without collection of specimen(s) by brushing or washing, with or without colon decompression (separate procedure) [id number] 12/05/19 Ambulatory Pharmacy ESOPHAGOGASTRODUODEN OSCOPY, FLEXIBLE, TRANSORAL; WITH BIOPSY, SINGLE OR MULTIPLE Upper gastrointestinal endoscopy including esophagus, stomach, and either the duodenum and/or jejunum as appropriate; with biopsy, single or multiple [id number] 12/05/19 Ambulatory Pharmacy EXCISION OF LESION, TENDON, TENDON SHEATH, OR CAPSULE (INCLUDING SYNOVECTOMY) (EG, CYST OR GANGLION); FOOT Excision of lesion, tendon, tendon sheath, or capsule (including synovectomy) (eg, cyst or ganglion); foot [id number] 01/03/20 09 Ambulatory Pharmacy IMMUNIZATION ADMINISTRATION (INCLUDES PERCUTANEOUS, INTRADERMAL, SUBCUTANEOUS, OR INTRAMUSCULAR INJECTIONS); 1 VACCINE (SINGLE OR COMBINATION VACCINE/TOXOID) 08/03/20 17 [facility]D IMMUNIZATION ADMINISTRATION (INCLUDES PERCUTANEOUS, INTRADERMAL, SUBCUTANEOUS, OR INTRAMUSCULAR INJECTIONS); EACH ADDITIONAL VACCINE (SINGLE OR COMBINATION VACCINE/TOXOID) 07/29/20 16 [facility] OPHTHALMOLOGICAL SERVICES: MEDICAL EXAMINATION AND EVALUATION, WITH INITIATION OR CONTINUATION OF DIAGNOSTIC AND TREATMENT PROGRAM; COMPREHENSIVE, ESTABLISHED PATIENT, 1 OR MORE VISITS 06/21/20 16 [facility] OPHTHALMOLOGICAL SERVICES: MEDICAL EXAMINATION AND EVALUATION, WITH INITIATION OR CONTINUATION OF DIAGNOSTIC AND TREATMENT PROGRAM; COMPREHENSIVE, ESTABLISHED PATIENT, 1 OR MORE VISITS 05/13/20 15 [facility] INFLUENZA VIRUS VACCINE, QUADRIVALENT (IIV4), SPLIT VIRUS, 0.5 ML DOSAGE, FOR INTRAMUSCULAR USE 08/06/20 14 [facility] OPHTHALMOLOGICAL SERVICES: MEDICAL EXAMINATION AND EVALUATION, WITH INITIATION OR CONTINUATION OF DIAGNOSTIC AND TREATMENT PROGRAM; COMPREHENSIVE, ESTABLISHED PATIENT, 1 OR MORE VISITS 04/30/20 14 [facility] INTRAOPERATIVE CHOLANGIOGRAM 03/27/20 14 [facility] LAPAROSCOPIC CHOLECYSTECTOMY 03/27/20 14 [facility] CASE MANAGEMENT, EACH 15 MINUTES 03/27/20 14 [facility] MEDICAL NUTRITION THERAPY; INITIAL ASSESSMENT AND INTERVENTION, INDIVIDUAL, [id number] WITH THE PATIENT, EACH 15 MINUTES 03/26/20 14 [facility] LAPAROSCOPY, SURGICAL; CHOLECYSTECTOMY WITH CHOLANGIOGRAPHY 03/25/20 14 [facility] THERAPEUTIC, PROPHYLACTIC, OR DIAGNOSTIC INJECTION (SPECIFY SUBSTANCE OR DRUG); INTRAVENOUS PUSH, SINGLE OR INITIAL SUBSTANCE/DRUG 03/24/20 14 [facility] INFLUENZA VIRUS VACCINE, TRIVALENT (IIV3), SPLIT VIRUS, PRESERVATIVE FREE, 0.5 ML DOSAGE, FOR INTRAMUSCULAR USE 09/04/20 13 [facility] OPHTHALMOLOGICAL SERVICES: MEDICAL EXAMINATION AND EVALUATION, WITH INITIATION OR CONTINUATION OF DIAGNOSTIC AND TREATMENT PROGRAM; COMPREHENSIVE, ESTABLISHED PATIENT, 1 OR MORE VISITS 07/23/20 13 [facility] UNLISTED SPECIAL SERVICE, PROCEDURE OR REPORT 06/27/20 13 [facility] ELECTROCARDIOGRAM, ROUTINE ECG WITH AT LEAST 12 LEADS; WITH INTERPRETATION AND REPORT 06/21/20 13 [facility] OPHTHALMOLOGICAL SERVICES: MEDICAL EXAMINATION AND EVALUATION, WITH INITIATION OR CONTINUATION OF DIAGNOSTIC AND TREATMENT PROGRAM; COMPREHENSIVE, ESTABLISHED PATIENT, 1 OR MORE VISITS 12/28/19 13 [facility] IMMUNIZATION ADMINISTRATION (INCLUDES PERCUTANEOUS, INTRADERMAL, SUBCUTANEOUS, OR INTRAMUSCULAR INJECTIONS); EACH ADDITIONAL VACCINE (SINGLE OR COMBINATION VACCINE/TOXOID) 07/23/20 12 [facility] ECHOCARDIOGRAPHY, TRANSTHORACIC, REAL-TIME WITH IMAGE DOCUMENTATION (2D), INCLUDES M-MODE RECORDING, WHEN PERFORMED, COMPLETE, WITHOUT SPECTRAL OR COLOR DOPPLER ECHOCARDIOGRAPHY 05/21/20 12 [facility] PNEUMOCOCCAL POLYSACCHARIDE VACCINE, 23-VALENT (PPSV23), ADULT OR IMMUNOSUPPRESSED PATIENT DOSAGE, WHEN ADMINISTERED TO INDIVIDUALS 2 YEARS OR OLDER, FOR SUBCUTANEOUS OR INTRAMUSCULAR USE 04/25/20 12 [facility] TETANUS, DIPHTHERIA TOXOIDS AND ACELLULAR PERTUSSIS VACCINE (TDAP), WHEN ADMINISTERED TO INDIVIDUALS 7 YEARS OR OLDER, FOR INTRAMUSCULAR USE 04/25/20 12 [facility] OPHTHALMOLOGICAL SERVICES: MEDICAL EXAMINATION AND EVALUATION, WITH INITIATION OR CONTINUATION OF DIAGNOSTIC AND TREATMENT PROGRAM; COMPREHENSIVE, ESTABLISHED PATIENT, 1 OR MORE VISITS 03/22/20 12 [facility] OPHTHALMOLOGICAL SERVICES: MEDICAL EXAMINATION AND EVALUATION, WITH INITIATION OR CONTINUATION OF DIAGNOSTIC AND TREATMENT PROGRAM; COMPREHENSIVE, ESTABLISHED PATIENT, 1 OR MORE VISITS 06/16/20 11 [facility] VIS FUNCT SCREEN,AUTOMAT/SEMI- AUTOMAT BILAT QUANT DETERM VISUAL ACUITY,OCULAR ALIGN,COLOR VISION,PSEUDOISOCHRO MAT PLATES,& FIELD VIS (MAY INC ALL/SOME SCRN DETERM FOR CONTRAST SENSITIV,VIS UND GLARE) 05/13/20 11 [facility] INFLUENZA VIRUS VACCINE, TRIVALENT (IIV3), SPLIT VIRUS, 0.5 ML DOSAGE, FOR INTRAMUSCULAR USE 08/31/20 10 DoD TELE ASSESS & MGT SRV PROV QUAL NONPHYS HLTH CARE PRO TO EST PAT,PARENT,GUARD NOT ORIG REL ASSESS & MGT SRV PROV W/IN PREV 7 DAYS NOR LEAD ASSESS & MGT SRV/PX W/IN NXT 24H/SOON APT; 11-20 MIN MED DIS 04/06/20 10 [facility] IMMUNIZATION ADMINISTRATION (INCLUDES PERCUTANEOUS, INTRADERMAL, SUBCUTANEOUS, OR INTRAMUSCULAR INJECTIONS); 1 VACCINE (SINGLE OR COMBINATION VACCINE/TOXOID) 09/24/20 09 [facility] ECHOCARDIOGRAPHY,TRA NSTHORACIC,REAL-TIME W IMAGE DOCUMENTATION (2D),INCLUDES M-MODE RECORDING,WHEN PERFORMED,COMPLETE,W ITH SPECTRAL DOPPLER ECHOCARDIOGRAPHY,AND W COLOR FLOW DOPPLER ECHOCARDIOGRAPHY 09/23/20 09 [facility] INFLUENZA VIRUS VACCINE, TRIVALENT (IIV3), SPLIT VIRUS, 0.5 ML DOSAGE, FOR INTRAMUSCULAR USE 07/22/20 09 [facility] DUPLEX SCAN OF EXTREMITY VEINS INCLUDING RESPONSES TO COMPRESSION AND OTHER MANEUVERS; UNILATERAL OR LIMITED STUDY 05/27/20 09 [facility]D TELE ASSESS & MGT SRV PROV QUAL NONPHYS HLTH CARE PRO TO EST PAT,PARENT,GUARD NOT ORIG REL ASSESS & MGT SRV PROV W/IN PREV 7 DAYS NOR LEAD ASSESS & MGT SRV/PX W/IN NXT 24 HR/SOON APT;5-10 MIN MED DIS 03/26/20 09 [facility] INFLUENZA VIRUS VACCINE, TRIVALENT (IIV3), SPLIT VIRUS, PRESERVATIVE FREE, 0.5 ML DOSAGE, FOR INTRAMUSCULAR USE 07/25/20 08 [facility] IMMUNIZATION ADMINISTRATION (INCLUDES PERCUTANEOUS, INTRADERMAL, SUBCUTANEOUS, OR INTRAMUSCULAR INJECTIONS); 1 VACCINE (SINGLE OR COMBINATION VACCINE/TOXOID) 08/22/20 06 [facility] INFLUENZA VIRUS VACCINE, TRIVALENT (IIV3), SPLIT VIRUS, 0.5 ML DOSAGE, FOR INTRAMUSCULAR USE 09/01/20 05 DoD NONINVASIVE EAR OR PULSE OXIMETRY FOR OXYGEN SATURATION; SINGLE DETERMINATION 04/17/20 05 [facility] INFLUENZA VIRUS VACCINE, TRIVALENT (IIV3), SPLIT VIRUS, 0.5 ML DOSAGE, FOR INTRAMUSCULAR USE 09/02/20 04 DoD SCREENING PAP[place]ICOLAOU SMEAR; OBTAINING, PREPARING AND CONVEYANCE OF CERVICAL OR VAGINAL SMEAR TO LABORATORY 07/29/20 04 [facility] BLOOD,OCCULT,BY PEROXIDASE ACTIV (EG,GUAIAC),QUAL;FEC ES,CONSECUTIVE COLLECTED SPECIMENS W SING DETERMIN,FOR COLORECTAL NEOPLAS SCREEN (IE,PAT PROVIDE 3 CARDS/SING TRIPLE CARD FOR CONSECUTIVE COLLECT) 06/17/20 03 [facility] DETERMINATION OF REFRACTIVE STATE 06/12/20 03 [facility] ROUTINE VENIPUNCTURE FOR COLLECTION OF SPECIMEN(S) 03/25/20 03 [facility] INFLUENZA VIRUS VACCINE, TRIVALENT (IIV3), SPLIT VIRUS, 0.5 ML DOSAGE, FOR INTRAMUSCULAR USE 02/11/20 [facility] SCREENING PAPANICOLAOU SMEAR; OBTAINING, PREPARING AND CONVEYANCE OF CERVICAL OR VAGINAL SMEAR TO LABORATORY 12/27/19 [facility] COLLECTION OF VENOUS BLOOD BY VENIPUNCTURE 08/08/20 [facility] INFLUENZA VIRUS VACCINE, TRIVALENT (IIV3), SPLIT VIRUS, 0.5 ML DOSAGE, FOR INTRAMUSCULAR USE 08/07/20 [facility] Social History Combined list of available smoking, tobacco, and other social history from Department of Defense and Veterans Affairs facilities. Social History Type Response Date Comment [facility] e Tobacco smoking status [facility] VA-TOBACCO FORMER USER 01/24/2024 [facility] History of tobacco use ID-TOBACCO QUIT 5 TO < 15 YRS 01/24/2024 [facility] Male 12/29/2021 [facility] History of tobacco use ID-TOBACCO QUIT 1 TO < 5 YRS 06/12/2020 [facility] History of tobacco use ID-TOBACCO QUIT 1 TO < 5 YRS 08/28/2018 [facility] History of tobacco use QUIT TOBACCO >12 MO and <7 YRS AGO 02/07/2018 [facility] History of tobacco use TOBACCO OFFERRED PT MEDS (PROVIDER) 04/01/2016 [facility] History of tobacco use CURRENT TOBACCO USER 01/06/2015 [facility] History of tobacco use TOBACCO SCREEN COMPLETED 11/22/2012 No, not willing to quit now [facility] History of tobacco use TOBACCO CESSATION MEDS REFUSED 09/01/2011 [facility] History of tobacco use PREMA TOBACCO MEDS INTERESTED 08/31/2010 [facility] History of tobacco use TOBACCO OFFERRED PT MEDS (PROVIDER) 09/03/2009 [facility] History of tobacco use TOBACCO OFFERRED STOP SMOKING CLINIC 08/20/2008 [facility] Sexual Orientation [facility]acy Gender identity [facility] This section is an empty social history section. DoD Assessment and Plan Combined list of future care activities from Department of Defense and Veterans Affairs facilities (e.g., assessment and plan notes, appointments, orders, and referrals). Additional future care activities may be listed in the Plan of Care section. Result Assessment and Plan Date Source Assessment and Plan No data available for this section 10/18/2024 [facility] Plan of Care List of future care activities from Department of Veterans Affairs facilities. Additional future care activities may be listed in the Assessment and Plan section. Date/Time Care Activity Care Activity Detail Facili ty 11/20/2024 AMBULATORY - SURGERY AMBULATORY - SURGERY [facility] 12/23/2024 AMBULATORY - SURGERY AMBULATORY - SURGERY [facility] 01/28/2025 AMBULATORY - MEDICINE AMBULATORY - MEDICI [facility] Functional Status Combined list of recent functional and cognitive assessments recorded at Department of Defense and Veterans Affairs (ID).ID Functional [place] Measurement (FIM) Scale: 1 = Total Assistance (Subject = 0% +), 2 = Maximal Assistance (Subject = 25% +), 3 = Moderate Assistance (Subject = 50% +), 4 = Minimal Assistance (Subject = 75% +), 5 = Supervision, 6 = Modified [place] (Device), 7 = Complete [place] (Timely, Safely). Assessment Date/Time Source Assessment Type Assessment Skill Assessment Score Assessment Details No data available for this section
--- OUTSIDE RECORDS SUMMARY | 2024-10-18 03:25 | XMS_ITS | Encounter Summary ---
Author Name [facility] [place] [facility] [place] Organization [facility] [place] [facility] [place] Address [address] [place] [address] Care Team Providers Care Quarry Worker Name Role Phone NOAHTRICIABY Primary Care Provider Unavailabl e Selected Encounter This section includes the information on record at [place] for the Encounter. Date/Time Encounter Type Encounter Description Reason Pro vider Source Oct 16, 2024 02:31 PM Outpatient Encounter TELEPHONE TRIAGE IHE Encounter Template Text not used by [place] Plan of Treatment: Future Appointments (+ 6 months) and Future Tests (+/- 45 days) The Plan of Treatment section includes future care activities for the patient from all [place] treatmentfacilities. This section includes future appointments and future orders which are active, pending or scheduled. Future Appointments This section includes appointments that were scheduled to occur 6 months from the date of the Encounter, up to a maximum of 20 appointments. The data comes from all [place] treatment facilities. Appointment Date/Time Appointment Type Appointme nt Facility Name Nov 20, 2024 01:00 PM AMBULATORY - SURGERY [facility] Dec 23, 2024 02:00 PM AMBULATORY - SURGERY [facility] January 28, 2025 02:00 PM AMBULATORY - MEDICINE [facility] Social History: Smoking Status (Most current) and Tobacco Use (All prior to encounter date) This section includes the most current, and the historical, smoking and tobacco- related health factors from the [place] facility where the Encounter took place. Current Smoking Status This section includes the most current smoking, or tobacco-related health factor, from the [place] facility where the Encounter took place. Date/Time Current Smoking Status Comment Jojo ferris Jan 06, 2015 01:37 PM CURRENT TOBACCO USER [facility] Tobacco Use History This section includes a history of the smoking, or tobacco-related health factors, that were collected on or before the date of the Encounter. The data comes from the [place] facility where the Encounter took place. Date/Time Smoking Status/Tobacco Use Comment F pacomounika Jan 06, 2015 01:37 PM TOBACCO MEDS OFFER ED BUT DECLINED [facility] Encounter Notes: All associated encounter notes This section contains the clinical notes associated to the Encounter. Date/Time Encounter Note(s) Provider Source Oct 16, 2024 02:31 PM RN PROGRESS NOTE: LOCAL TITLE: CCC: CLINICAL TRIAGE STANDARD TITLE: RN PROGRESS NOTE DATE OF NOTE: OCT 16, 2024@14:31:09 ENTRY DATE: OCT 16, 2024@14:31:09 AUTHOR: JOSELYN ATKINS COSIGNER: URGENCY: STATUS: COMPLETED Patient Demographics Patient Name: VANNA GLEZ Patient Primary Address: [address] [place] [address] Patient Primary Phone: [phone] Patient : 1975 Patient Age: 49 Current Location: [address] [place] [address] Call Back Number: [phone] Caller/Recipient Relation to Patient: Self Caller Name: VANNA GLEZ Emergency Contact: OKSANA LUNA Triage Summary Conducted triage/discussed symptoms Pain Score: 4 Utilized the Triage Tool: Yes Chief Complaint: Abdominal Pain System WHEN: Within 24 Hours Nurse's Recommendation / WHEN: Now System WHERE: Clinic Nurse's Recommendation / WHERE: ED [facility] Patient Disposition Patient/Caregiver agrees to plan of care: No Patient WHERE: ED Other Patient WHEN: Now Nursing Plan and Disposition Referred patient to higher level of care Instructed to go to Emergency Room (ER) Advised of Financial Disclaimer: Patient advised that recommendation for care provided during the call does not constitute an approval or authorization for payment by the [place] or its staff. Patient advised to report a community ED visit to the [facility] Office of Community Care at within 72 hours. Other course(s) of action Generated msg to PACT/Provider Nurse Summary Nurse Summary: The has been having 4/10 Right lower quadrant abdominal pain for the past 4 days. His temperature is 98.6 he says. I triaged the and recommended that he be evaluated for his symptoms at an ER now. The is 25 minutes form the [facility] ER so he will go to [facility] ER now to be evaluated. I reminded the that the [place] may or may not pay for non [facility] care and that he should call [facility] within 72 hours of being treated at any non [place] medical center. Clinical Contact Center Codes Clinic/Location: [facility] PHONE CCC RN Decision Support System Output: Triage Complete Triage Date: 10/16/2024, 02:26 PM Triage Note: Decision Support Tool Used: TXCC Phone Triage 16 Oct 2024 20:17:59 +[address] [facility] Demographics 49 y/o Male Results CC: Abdominal Pain Software suggested: Within 24 Hours Software suggested follow-up location: Clinic, consider [facility] care Values and Measures Temperature: 98.6 Fahrenheit Duration of CC: 4 Days Positive Responses HPI: abdominal pain, duration longer than 6 hours HPI: abdominal pain, right lower quadrant HPI: diarrhea PMH: UTI PSH: abdominal surgery VS: BP not taken VS: pulse not taken Negative Responses Denies: HPI: abdominal pain, localized to upper abdomen Denies: HPI: abdominal pain, moderate to severe Denies: HPI: abdominal pain, severe Denies: HPI: abdominal pain, worsening Denies: HPI: brown urine Denies: HPI: chest pain Denies: HPI: dermal icterus Denies: HPI: diarrhea, more than 8 episodes within past 12 hours Denies: HPI: diarrhea, watery stool, more than 5 episodes within past 24 hours Denies: HPI: diarrhea, watery stool, more than 8 episodes within past 2 days Denies: HPI: dysuria Denies: HPI: generalized pruritus Denies: HPI: hematochezia Denies: HPI: hematuria Denies: HPI: increased urinary frequency Denies: HPI: melena Denies: HPI: oliguria Denies: HPI: scleral icterus Denies: HPI: symptoms similar to past UTI Denies: HPI: urinary urgency, constant Denies: HPI: vomiting Denies: HPI: weakness, unable to stand or get out of bed Denies: MEDS: antibiotic Denies: PMH: abdominal aortic aneurysm Denies: PMH: Crohn's disease Denies: PMH: diabetes Denies: PMH: ulcerative colitis Denies: PSH: abdominal surgery, within past 10 days IMPORTANT: This note was created by [facility] Clinical Contact Center staff. Please do not alert the staff member by adding them as a signer for future communications. Alerts are not monitored by this user. /es/ JOSELYN ATKINS RN JOSELYN ATKINS RN Signed: 10/16/2024 14:31 Receipt Acknowledged By: 10/16/2024 15:18 /es/ WOODROW MENDEZ,DEPARTMENT CHAIR REGISTERED NURSE 10/16/2024 15:18 /es/ hSanthi Aiken DNP, MOTION PICTURE NARRATOR, MANAGER ENVIRONMENTAL-C Primary Care Nurse Practitioner JOSELYN ATKINS [facility]
--- OUTSIDE RECORDS SUMMARY | 2024-10-18 03:25 | XMS_ITS | Encounter Summary ---
Author Name [facility] [place] [facility] [place] Organization [facility] [place] [facility] [place] Address [address] [place] [address] Care Team Providers Care Rn First Assistant Name Role Phone MARGARITA ZAMORA Primary Care Provider Unavailabl e Selected Encounter This section includes the information on record at [place] for the Encounter. Date/Time Encounter Type Encounter Description Reason Provider Source Mar 25, 2024 01:11 PM Outpatient Encounter ADMIN PAT ACTIVTIES (MASNONCT) DANIELA KRAUSE Kimberly Encounter Template Text not used by [place] Plan of Treatment: Future Appointments (+ 6 months) and Future Tests (+/- 45 days) The Plan of Treatment section includes future care activities for the patient from all [place] treatmentfacilities. This section includes future appointments and future orders which are active, pending or scheduled. Future Appointments This section includes appointments that were scheduled to occur 6 months from the date of the Encounter, up to a maximum of 20 appointments. The data comes from all [place] treatment facilities. Appointment Date/Time Appointment Type Appointme nt Facility Name Apr 01, 2024 10:30 AM AMBULATORY - MEDICINE [facility] Apr 04, 2024 09:16 AM AMBULATORY - MEDICINE [facility] Apr 22, 2024 01:20 PM AMBULATORY - SURGERY [facility] Active, Pending, and Scheduled Orders This section includes a listing of several types of active, pending, and scheduled orders, including clinic medications orders, diagnostic test orders, procedure orders and consult orders; where the start date of the order is 45 days before the date of the Encounter or 45 days after the date of theEncounter. The data comes from all [place] treatment facilities. Test Date/Time Test Type Test Details Facility Name Apr 02, 2024 12:00 AM Laboratory - Chemistry Order LIPID PANEL (STL) GREEN LI/HEP BLD/PLAS PLASMA SP [facility] Apr 02, 2024 12:00 AM Laboratory - Chemistry Order VITAMIN D, 25-HYDROXY GOLD/RED SST SERUM SP [facility] Apr 02, 2024 12:00 AM Laboratory - Chemistry Order CBC BLOOD [facility] Apr 02, 2024 12:00 AM Laboratory - Chemistry Order TSH (MA-PB) GOLD/RED SST SERUM SP [facility] Apr 02, 2024 12:00 AM Laboratory - Chemistry Order COMPREHENSIVE METABOLIC PANEL GREEN LI/HEP BLD/PLAS PLASMA SP [facility] Apr 02, 2024 12:00 AM Laboratory - Chemistry Order HGA1C BLOOD [facility] Lab Results: +/- 30 days of the encounter This section includes the Chemistry and Hematology Lab Results on record with [place] for the patient. Radiology Reports and Pathology Reports are provided separately, in subsequent sections. Lab Results This section contains the Chemistry/Hematology Results that were resulted 30 days before or 30 daysafter the date of the Encounter. Date/Time Source Result Type Result - Unit Interpretation Reference Range Comment Apr 04, 2024 09:54 AM [facility] COMPREHENSIVE METABOLIC PANEL Specimen Type: PLASMA Comment: K result may show a positive bias due to hemolysis. Specimen slightly hemolyzed. Ordering Provider: TYSHAWN FLORES Report Released Date/Time: Apr 04, 2024 09:53 AM Reporting Lab: [facility] [address] [address] Performing Lab: [facility] [address] [facility] [address] CREATININE 0.94 mg/dL 0.7-1.3 UREA NITROGEN 14.5 mg/dL 9.0-25.0 GLUCOSE 96 mg/dL 72-99 SODIUM 138 meq/L 136-145 POTASSIUM 5.0 meq/L 3.5-5 CHLORIDE 108 meq/L H 98-107 CARBON DIOXIDE 21 meq/L L 22-31 CALCIUM 9.5 mg/dL 8.4-10.4 PROTEIN 7.4 g/dL 6-8.6 ALBUMIN 4.0 g/dL 3.4-5 TOTAL BILIRUBIN 0.4 mg/dL 0.2-1.2 ALKALINE PHOSPHATASE 65 U/L 40-150 AST/SGOT 22 U/L 5-34 ALT/SGPT 27 U/L 8-40 EGFR (CKD-EPI 2020) 100.0 >60 Apr 04, 2024 09:54 AM [facility] URINALYSIS W/ CX REFLEX (STL-PB) Specimen Type: URINE No comment entered. Ordering Provider: TYSHAWN FLORES Report Released Date/Time: Apr 04, 2024 09:53 AM Reporting Lab: [address] [address] Performing Lab: [address] [address] URINE COLOR Colorless Yellow U.BILIRUBIN Negative mg/dL Negative U.PH 5.5 5.0-8.0 URINE WBC/HPF <1 /[HPF] 0-5 URINE RBC/HPF 1 /[HPF] 0-5 APPEARANCE Clear Clear U.NITRITE Negative mg/dL Negative MUCUS RARE /[LPF] Negative -Ra re URN.GLUCOSE Normal mg/dL Negative URN.PROTEIN Negative mg/dL Negative-20 URN.UROBILINOGEN Normal mg/dL Normal URN.BLOOD Negative mg/dL Negative-Tr jax URN.KETONES Negative mg/dL Negative-Tr jax URN.LEUK.EST. Negative mg/dL Negative-Tr jax URN.SPECIFIC GRAVITY 1.017 1.005-1.029 Apr 04, 2024 09:54 AM [facility] CBC Specimen Type: BLOOD No comment entered. Ordering Provider: TYSHAWN FLORES Report Released Date/Time: Apr 04, 2024 09:53 AM Reporting Lab: [address] [place] [address] Performing Lab: [facility] [address] [facility] [address] WBC 6.4 10*3/uL 3.6-11.2 RBC 4.62 10*6/uL 4.10-5.70 HGB 14.2 g/dL 13.1-16.8 HCT 41.4 38.2-48.4 MCV 89.6 fL 80.0-100.0 MCH 30.7 pg 27.0-34.0 MCHC 34.3 g/dL 33.0-36.0 PLT 331 10*3/uL 150-400 MPV 9.6 fL 7.5-11.2 RDW 11.7 L 11.8-15.1 LYMPHOCYTES, AUTO % 30 MONOCYTES, AUTO % 8 NEUTROPHILS, AUTO % 55 EOSINOPHILS, AUTO % 5 BASOPHILS, AUTO % 1 LYMPHOCYTES, ABSOLUTE 1.93 10*3/uL 0.77-4.50 MONOCYTES, ABSOLUTE 0.53 10*3/uL 0.19-0.80 NEUTROPHILS, ABSOLUTE 3.48 10*3/uL 2.10-8.00 EOSINOPHILS, ABSOLUTE 0.34 10*3/uL 0.00-0.60 BASOPHILS, ABSOLUTE 0.08 10*3/uL 0.00-0.20 Social History: Smoking Status (Most current) and Tobacco Use (All prior to encounter date) This section includes the most current, and the historical, smoking and tobacco- related health factors from the [place] facility where the Encounter took place. Current Smoking Status This section includes the most current smoking, or tobacco-related health factor, from the [place] facility where the Encounter took place. Date/Time Current Smoking Status Comment Jojo ferris Jan 06, 2015 01:37 PM CURRENT TOBACCO USER [facility] Tobacco Use History This section includes a history of the smoking, or tobacco-related health factors, that were collected on or before the date of the Encounter. The data comes from the [place] facility where the Encounter took place. Date/Time Smoking Status/Tobacco Use Comment F mellisa Jan 06, 2015 01:37 PM TOBACCO MEDS OFFER ED BUT DECLINED [facility] Radiology Reports: +/- 30 days of the encounter Radiology Reports For cases when an order for radiology services may have been completed prior to the date of the Encounter, the report list includes the Radiology Reports that were completed up to 30 days before dateof the Encounter. For cases when an order for radiology services may have been completed after the date of the Encounter, the report list also includes the Radiology Reports that were completed up to30 days after date of the Encounter. The data comes from all [place] treatment facilities. Date/Time Radiology Report Provider Source Apr 04, 2024 10:[address] ABD PEL W/O CON T & 3D: VANNA GLEZ [facility] [id number] -1975 M Exm Date: APR 04, 2024@10:14 Req Phys: MARIANO FLORES M Pat Loc: [facility]-EMERGENCY DEPT 2ND SHIFT (R Img Loc: [facility]-CT IMAGING [facility] Service: Unknown [address] [address] (Case [id number] COMPLETE) CT ABDOMEN AND PELVIS W/O CONTRAS(CT Detailed) CPT:62092 Reason for Study: kidney stones, L and R flank pain, L groin pain (Case [id number] COMPLETE) CT 3D RENDERING W INDEPENDENT WOR(CT Detailed) CPT:25174 Clinical History: Responsible Attendin Attending Contact Number: Phil Resident Contact Number: Stone protocol Allergies listed in CPRS chart: Patient has answered NKA Creatinine:No CREATININE EO data found /eGFR: STL EGFR (within one year). *No Lab Data Found* Wt: 230.1 lb [104.37 kg] (03/11/2024 10:09) History of: Renal failure, chronic or acute renal disease: NO Report Status: Verified Date Reported: APR 04, 2024 Date Verified: APR 04, 2024 Sanforizing Machine Operator E-Sig:/ES/PATSY HAY Report: EXAMINATION: CT ABDOMEN AND PELVIS W/O CONTRAST, CT 3D RENDERING W INDEPENDENT WORKSTATION POSTPROCESSING [id number] DATE: 04/04/2024 10:14 AM HISTORY: kidney stones, L and R flank pain, L groin pain. COMPARISON: None. TECHNIQUE: Helical multidetector dual-energy CT axial slices through the abdomen and pelvis without intravenous contrast administration, according to center protocol. From the original axial data, sagittal and coronal reconstructions were performed. Kidney stone decomposition dual-energy CT analysis was also performed. FINDINGS: Inferior Thorax: Unremarkable. Vasculature: Calcified plaque; aortic caliber does not exceed 2.9 cm. Normal portal venous and hepatic venous enhancement for the contrast bolus timing. Liver: normal Gallbladder: Prior cholecystectomy. Bile Ducts: The intrahepatic and extrahepatic bile ducts are normal for the patient's stated age. Spleen: normal Pancreas: normal Kidneys: Mild asymmetric dilatation of the left extrarenal pelvis. No intrarenal calculi. Adrenal Glands: normal Bowel: Unremarkable Appendix: Normal. Retroperitoneum and Mesentery: No ascites or suspicious lymphadenopathy. Urinary Bladder: There is a 4 mm cystine calculus within the left ureterovesical junction with only minimal distal asymmetric left ureteral dilatation and distal urothelial thickening consistent with a mildly obstructing calculus. Reproductive/Other Pelvic Contents: Normal for age. Musculoskeletal/Soft Tissues: The musculoskeletal anatomy is age appropriate. Impression: Mildly obstructing 4 mm cystine calculus at the left ureterovesical junction. Primary Interpreting Staff: PATSY HAY Diagnostic Radiologist (Sanforizing Machine Operator) /PATSY BURKS [facility] Encounter Notes: All associated encounter notes This section contains the clinical notes associated to the Encounter. Date/Time Encounter Note(s) Provider Source Mar 25, 2024 01:11 PM TELEHEALTH NOTE: LOCAL TITLE: TELE EMERGENCY CARE ABSTRACT CHECKER NOTE STANDARD TITLE: TELEHEALTH NOTE DATE OF NOTE: MAR 25, 2024@13:11 ENTRY DATE: MAR 25, 2024@13:11:42 AUTHOR: DANIELA KRAUSE EXP COSIGNER: URGENCY: STATUS: COMPLETED referred from: [place]'s name, last 4, and were verified. Encounter/Visit Type: Telephone 's Phone Number, Address, Email Address and Contact Information Patient Address: [address] [place] [address] Patient Email - NONE FOUND Emergency Contact: CON - Patient Contacts Patient Phone Numbers: Cell: No data available Home: Work: Emergency Contact: Name: JEREMY,OKSANA Relationship: UNRELATED FRIEND/OTHER Secondary Emergency Contact: Name: No data available Relationship: No data available Phone: No data available Secondary Next of Kin Contact Name: NEWTONABRAHAN Relationship: BROTHER ------- Age: 49 years old Gender: MALE Chief Complaint: urinary frequency TeleEC (HUMAIRA) dry heat room attendant Assessment Info Triage being performed by Tele[facility] (HUMAIRA) RN Vital Signs: (Self-Reported) Vitals not taken Stability Assessment (Self-Reported): Neuro: Oriented to the following: Person, Place, Time, Situation Breathing Assessment: Regular Respirations, no labored breathing. Able to speak complete sentences with ease. Skin Assessment: Other:unable to visualize Subjective/Chief Complaint: pt states he was dx with a kidney stone 2 weeks ago with hx of stones. states he's been straining and hasn't seen it yet. states it was 5mm. states now he is having urinary frequency, urgency, and blood in urine. dneies any pain. states taking flomax. states new sx x4-5 days. pt denies any fever. pt agrees to speak with tele ec provider. Safety Assessment: (Self-Reported) Are you living in a safe environment? Yes Are you carrying any weapons or contraband? 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 NELI TURNER anemia Obesity 01/24/2024 MARGARITA ZAMORA Lichen planus 01/24/2024 MARGARITA ZAMORA Allergies/Adverse Reactions Current Medications: Active Outpatient Medications (including Supplies): Non-VA ACETAMINOPHEN TAB BY MOUTH ACTIVE Vital Signs (Historical/Last 3): Measurement DT TEMP RESP PULSE BP POx F(C) (L/MIN)(%) 03/11/2024 10:09 97.5(36.4) 20 79 138/92 95 01/24/2024 14:41 127/86 01/24/2024 14:41 98.2(36.8) 18 68 151/90 95 Measurement DT PAIN WEIGHT HEIGHT LB(KG)[BMI] IN(CM) 03/11/2024 10:09 7 230.1(104.37)[36*] 67(170.18) 01/24/2024 14:41 01/24/2024 14:41 7 231.4(104.96)[36*] Emergency Severity Index (ELBA) level Level 3 Disposition: Transferred to Tele Emergency Care Provider Time Spent: 15minutes /es/ DANIELA KRAUSE RN Signed: 03/25/2024 13:[address] [facility]
--- OUTSIDE RECORDS SUMMARY | 2024-10-18 03:26 | XMS_ITS | Clinical Summary ---
Author Organization [facility] Address [address] [place] [address]. 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 Gender Identity Not on file Sexual Orientation Not on file Plan of Treatment Health Maintenance Due Date Last Done Comments Colorectal Cancer Screening Colonoscopy (10 Years) 1975 Annual Physical 1979 Hepatitis C 1994 DTaP, Tdap and Td Vaccines ( 1 - Tdap) 1995 Hepatitis B Vaccines (1 of 3 - 19+ 3-dose series) 1995 COVID-19 Vaccine (2023-2 5 season) 2024 Influenza Adult (#1) 2024 Meningococcal Vaccine Aged Out No kiara lexi eligible based on patient's age to complete this topic Pneumococcal Vaccine: Pediat rics (0 to 5 Years) and At-Risk Patients (6 to 64 Years) Aged Out No longer eligible b ased on patient's age to complete this topic RSV Immunizations Under 20 Months Aged Out No longer eligible based on patient's age to complete this topic
--- OUTSIDE RECORDS SUMMARY | 2024-10-18 03:30 | XMS_ITS | Continuity of Care Document ---
Author Name [facility] Organization [facility] Care Team Providers Care Airbrush Artist Name Role Phone [facility] Unavailable Unavailable Problems Combined list of problems from Department of Defense and Veterans Affairs facilities. It does not include entries that were removed or entered in error. 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 Ambulatory [...] Entered By: NILDA VALENTINE Comment: Dx: G6PD [facility] Calculus of Kidney Active Condition O ct 2005 Entered By: NILDA VALENTINE Comment: 2002 and 2003 [facility] Calculus of Kidney Active Condition [facility] Cervical Radiculopathy Active Condition Jul 14, 2006 Entered By: NILDA VALENTINE Comment: fusion C5-6 [facility] Cyst, ganglion * (ICD-9-CM 727.43) Active Condition [facility] Dermatitis or Eczema Active Condition [facility] Disorders of bursae and tendons in shoulder region (ICD-9-CM 726.10) Active Condition [facility] Family History of Diabetes Mellitus Active Condition Jul 14 Entered By: NILDA VALENTINE Comment: mother recently dx with DMT2 or glucose intolerance [facility] Family History of Malignant Neoplasm of other Respiratory and Intrathoracic Orga Active Condition Jul 14 006 Entered By: NILDA VALENTINE Comment: GM lung caner and bone cancer- likley METS to bone [facility] Family History of other Cardiovascular Diseases Active Condition Jul 14, 2006 Entered By: NILDA VALENTINE Comment: FH HTN [facility] Family History of Stroke (Cerebrovascular) Active Condition [facility] Folliculitis * (ICD-9-CM 704.8) Active Condition [facility] Gastroesophageal reflux disease Active Condition [facility] Gastroesophageal Reflux Disorder Active Condition [facility] Cifwfzl-9-yyoxafhwe dehydrogenase deficiency anemia Active Condition [facility] Headache * (ICD-9-CM 784.0) Active Condition Jul 14 6 Entered By: NILDA VALENTINE Comment: related to neck pain [facility] Hyperlipidemia Active Condition [facility] Kidney stone Active Condition [facility] Lichen planus Active Condition [facility] Lichen planus, bullous Active Condition [facility] Neck pain Active Condition Jan 06 15 Entered By: DERRICK HENDERSON Comment: cervical spinal surgery 10/2004 [facility] Neck Pain Active Condition [facility] Obesity Active Condition Jul 14 06 Entered By: NILDA VALENTINE Comment: BMI-32 06/30 FH DMT2 [facility] Obesity Active Condition [facility] Pain in joint involving ankle and foot (ICD-9-CM 719.47) Active Condition Jul 14, 2006 Entered By: NILDA VALENTINE Comment: cystic bone lesion right ankle [facility] Pain in joint involving hand (ICD-9-CM 719.44) Active Condition [facility] Personality disorder Active Condition [facility] Pompholyx * (ICD-9-CM 705.81) Active Condition [facility] Tobacco Use Disorder * (ICD-9-CM 305.1) Active Condition Jul 14 6 Entered By: NILDA VALENTINE Comment: 12 PPD 06/30 [facility] Benign essential hypertension Inactive Condition 01/24/2024 [facility] Dyslipidemia Inactive Condition 01/24/2024 [facility] Legal problem Inactive Condition 01/24/2024 [facility] Pain in joint involving shoulder region (ICD-9-CM 719.41) Inactive Condition 08/08/2006 Jul 14, 2006 Entered By: NILDA VALENTINE Comment: left shoulder pain with possible rotator cuff injury [facility] Diagnosis: ICD-10-CM N20.0 Calculus of kidney Active Diagnosis [facility] Diagnosis: ICD-10-CM N23 Unspecified renal colic Active Diagnosis [facility] Diagnosis: ICD-10-CM N20.1 Calculus of ureter Active Diagnosis [facility] Diagnosis: ICD-10-CM M54.2 Cervicalgia Active Diagnosis [facility] Diagnosis: ICD-10-CM M47.892 Other spondylosis, cervical region Active Diagnosis [facility] Diagnosis: ICD-10-CM Z00.00 Encntr for general adult medical exam w/o abnormal findings Active Diagnosis [facility] Diagnosis: ICD-10-CM H52.4 Presbyopia Active Diagnosis [facility] Diagnosis: ICD-10-CM M54.12 Radiculopathy, cervical region Active Diagnosis [facility] Medications Combined list of outpatient medications from Department of Defense and [facility] Affairs facilities.Medications provided include 1) outpatient medications from the last 15 months, and 2) patient-reported medications. Medication Details Route Status Patient Instructions Prescription Expires Prescription Number Last Dispense Date Ordering Provider Order Date Order Qty Source ACETAMINOPH EN TAB TAKE BY MOUTH FOUR TIMES A DAY NEEDED ORAL ACTIVE JOSEPH ZAMORA 2023 [facility] CLOBETASOL 0.05% CREAM/CEREV E CREAM 1:1- APPLY SPARINGL Y TO AFFECTED AREA(S) ONCE A DAY (EXTERNA L USE ONLY) 02/23/2024 [id number] MARGARITA ZAMORA 2023 30 [facility] CLOBETASOL 0.05% CREAM/CEREV E CREAM 1:1- APPLY SPARINGL Y TO AFFECTED AREA(S) ONCE A DAY (EXTERNA L USE ONLY) 02/23/2024 [id number] 4 MARGARITA ZAMORA 2023 30 [facility] CLOBETASOL PROPIONATE 0.05% CREAM,TOP APPLY SPARINGL Y TO AFFECTED AREA(S) ONCE A DAY (EXTERNA L USE ONLY) TOPICA L 02/23/2024 [id number] 4 JOSEPH ZAMORA LBY R 2023 30 [facility] NAPROXEN 500MG TAB TAKE ONE TABLET BY MOUTH TWICE A DAY FOR PAIN TAKE WITH FOOD. ORAL 05/04/2024 [id number] 4 MARIANO FLORES 2023 28 [facility] Allergies, Adverse Reactions, Alerts Combined list of allergies from Department of Defense and Veterans Affairs facilities. It does not include entries that were removed or entered in error. Substance Category Reaction Severity Reaction type Status Date Reported Comments Source MUPIROCIN Propensity to adverse reactions to drug (finding) Eruption active 3 [facility] Mupirocin Calcium Drug allergy (disorder) Eruption of skin active 9 [facility] mupirocin topical Drug allergy Eruption of skin (disorder ), Eruption of skin (disorder ) Active One or More [facility] Facilities MST Immunizations Combined list of available immunizations from the Department of Defense and Veterans Affairs facilities. Immunization Series Date Given Administered By Site Reaction Lot Number CVX Code Drug Cargo Services Coordinator Status Comments Source influenza virus vaccine, unspecified 2019 88 complet ed influenza virus vaccine, unspecifi ed 07/22/20 Recorded Ambulat ory Pharmac y INFLUENZA, UNSPECIFIED FORMULATION 2019 88 complet ed [facility] INFLUENZA, INJECTABLE, MDCK, PRESERVATIVE FREE, QUADRIVALENT 1 2019 171 complet ed [facility] TDAP 2015 115 complet ed Left Deltoid [facility] tetanus, diphtheria, acellular pertu is 2015 115 complet ed Result Comment: Left Deltoid Ambulat ory Pharmac y tetanus, diphtheria, acellular pertu is 2013 115 complet ed tetanus, diphtheri a, acellular pertussis 09/25/13 Recorded Ambulat ory Pharmac y TDAP 2013 115 complet ed [facility] Td(adult) unspecified formulation 2007 139 complet ed Td(adult) unspecifi ed formulati on 09/25/07 Recorded Ambulat ory Pharmac y TETANUS DIPTHERIA (TD-ADULT) (HISTORICAL) 2007 139 complet ed [facility] Td(adult) unspecified formulation 2003 139 complet ed Td(adult) unspecifi ed formulati on 09/25/03 Recorded Ambulat ory Pharmac y TD(ADULT) UNSPECIFIED FORMULATION 2003 139 complet ed [facility] Results Combined list of recent chemistry, hematology and other laboratory results from Department of Defense and Veterans Affairs, ranging from 15 months to all on record, depending upon the facility. Order Name Results Value Reference Range Date Interpretation Specimen Comments Source CBC LEUKOCYTES [#/VOLUME] IN BLOOD BY AUTOMATED COUNT 6.4 10*3/uL 3.6 - 11.2 04/04 Specimen Type: BLOOD No comment entered. Ordering Provider: MARIANO FLORES Report Released Date/Time : Apr 04, 2024 09:53 AM Reporting Lab: [facility] [address] [facility] [phone] 1 Performin g Lab: [facility] [address] [place] [phone] 1 [facility] CBC ERYTHROCYTE S [#/VOLUME] IN BLOOD BY AUTOMATED COUNT 4.62 10*6/uL 4.10 - 5.70 04/04 Specimen Type: BLOOD No comment entered. Ordering Provider: MARIANO FLORES Report Released Date/Time : Apr 04, 2024 09:53 AM Reporting Lab: [facility] 5 [facility] [phone] 1 Performin g Lab: [address] [phone] [facility] CBC HEMOGLOBIN [MASS/VOLUM E] IN BLOOD 14.2 g/dL 13.1 - 16.8 04/04 Specimen Type: BLOOD No comment entered. Ordering Provider: MARIANO FLORES Report Released Date/Time : Apr 04, 2024 09:53 AM Reporting Lab: [place] [address] [facility] [phone] 1 Performin g Lab: [address] [phone] 1 [facility] CBC HEMATOCRIT [VOLUME FRACTION] OF BLOOD 41.4 38.2 - 48.4 04/04 Specimen Type: BLOOD No comment entered. Ordering Provider: MARIANO FLORES Report Released Date/Time : Apr 04, 2024 09:53 AM Reporting Lab: [address] [phone] 1 Performin g Lab: [address] [phone] 1 [facility] CBC MCV [ENTITIC VOLUME] BY AUTOMATED COUNT 89.6 fL 80.0 - 100.0 04/04 Specimen Type: BLOOD No comment entered. Ordering Provider: MARIANO FLORES Report Released Date/Time : Apr 04, 2024 09:53 AM Reporting Lab: [address] [phone] 1 Performin g Lab: [address] [phone] 1 [facility] CBC MCH [ENTITIC MASS] BY AUTOMATED COUNT 30.7 pg 27.0 - 34.0 04/04 Specimen Type: BLOOD No comment entered. Ordering Provider: MARIANO FLORES Report Released Date/Time : Apr 04, 2024 09:53 AM Reporting Lab: [address] [phone] 1 Performin g Lab: [address] [phone] 1 [facility] CBC MCHC [MASS/VOLUM E] BY AUTOMATED COUNT 34.3 g/dL 33.0 - 36.0 04/04 Specimen Type: BLOOD No comment entered. Ordering Provider: MARIANO FLORSE Report Released Date/Time : Apr 04, 2024 09:53 AM Reporting Lab: [address] [place] [address] 1 Performin g Lab: [address] [phone] 1 [facility] CBC PLATELETS [#/VOLUME] IN BLOOD BY AUTOMATED COUNT 331 10*3/uL 150 - 400 04/04 Specimen Type: BLOOD No comment entered. Ordering Provider: MARIANO FLORES Report Released Date/Time : Apr 04, 2024 09:53 AM Reporting Lab: [address] [phone] 1 Performin g Lab: [address] [phone] 1 [facility] CBC PLATELET MEAN VOLUME [ENTITIC VOLUME] IN BLOOD BY AUTOMATED COUNT 9.6 fL 7.5 - 11.2 04/04 Specimen Type: BLOOD No comment entered. Ordering Provider: MARIANO FLORES Report Released Date/Time : Apr 04, 2024 09:53 AM Reporting Lab: [address] [phone] 1 Performin g Lab: [address] [phone] 1 [facility] CBC ERYTHROCYTE DISTRIBUTIO N WIDTH [RATIO] BY AUTOMATED COUNT 11.7 11.8 - 15.1 04/04 L Specimen Type: BLOOD No comment entered. Ordering Provider: MARIANO FLORES Report Released Date/Time : Apr 04, 2024 09:53 AM Reporting Lab: [address] [phone] 1 Performin g Lab: [address] [phone] 1 [facility] CBC LYMPHOCYTES /100 LEUKOCYTES IN BLOOD BY AUTOMATED COUNT 30 04/04 Specimen Type: BLOOD No comment entered. Ordering Provider: MARIANO FLORES Report Released Date/Time : Apr 04, 2024 09:53 AM Reporting Lab: [place] [phone] 1 Performin g Lab: [facility] [address] [facility] [phone] 1 [facility] CBC MONOCYTES/1 00 LEUKOCYTES IN BLOOD BY AUTOMATED COUNT 8 04/04 Specimen Type: BLOOD No comment entered. Ordering Provider: MARIANO FLORES Report Released Date/Time : Apr 04, 2024 09:53 AM Reporting Lab: [facility] [address] [facility] [phone] 1 Performin g Lab: [facility] [address] [facility] [phone] 1 [facility] CBC NEUTROPHILS /100 LEUKOCYTES IN BLOOD BY AUTOMATED COUNT 55 04/04 Specimen Type: BLOOD No comment entered. Ordering Provider: MARIANO FLORES Report Released Date/Time : Apr 04, 2024 09:53 AM Reporting Lab: [facility] [address] [place] [phone] 1 Performin g Lab: [facility] [address] [place] [phone] 1 [facility] CBC EOSINOPHILS /100 LEUKOCYTES IN BLOOD BY AUTOMATED COUNT 5 04/04 Specimen Type: BLOOD No comment entered. Ordering Provider: MARIANO FLORES Report Released Date/Time : Apr 04, 2024 09:53 AM Reporting Lab: [facility] [address] [place] [phone] 1 Performin g Lab: [facility] [address] [place] [phone] 1 [facility] CBC BASOPHILS/1 00 LEUKOCYTES IN BLOOD BY AUTOMATED COUNT 1 04/04 Specimen Type: BLOOD No comment entered. Ordering Provider: MARIANO FLORES Report Released Date/Time : Apr 04, 2024 09:53 AM Reporting Lab: [facility] [address] [place] [phone] 1 Performin g Lab: [facility] [address] [facility] [phone] 1 [facility] CBC LYMPHOCYTES [#/VOLUME] IN BLOOD BY AUTOMATED COUNT 1.93 10*3/uL 0.77 - 4.50 04/04 Specimen Type: BLOOD No comment entered. Ordering Provider: MARIANO FLORES Report Released Date/Time : Apr 04, 2024 09:53 AM Reporting Lab: [place] [phone] 1 Performin g Lab: [place] [phone] 1 [facility] CBC MONOCYTES [#/VOLUME] IN BLOOD BY AUTOMATED COUNT 0.53 10*3/uL 0.19 - 0.80 04/04 Specimen Type: BLOOD No comment entered. Ordering Provider: MARIANO FLORES Report Released Date/Time : Apr 04, 2024 09:53 AM Reporting Lab: [place] [phone] 1 Performin g Lab: [place] [id number] 1 [facility] CBC NEUTROPHILS [#/VOLUME] IN BLOOD BY AUTOMATED COUNT 3.48 10*3/uL 2.10 - 8.00 04/04 Specimen Type: BLOOD No comment entered. Ordering Provider: MARIANO FLORES Report Released Date/Time : Apr 04, 2024 09:53 AM Reporting Lab: [place] [id number] 1 Performin g Lab: [place] [phone] 1 [facility] CBC EOSINOPHILS [#/VOLUME] IN BLOOD BY AUTOMATED COUNT 0.34 10*3/uL 0.00 - 0.60 04/04 Specimen Type: BLOOD No comment entered. Ordering Provider: MARIANO FLORES Report Released Date/Time : Apr 04, 2024 09:53 AM Reporting Lab: [place] [phone] 1 Performin g Lab: [facility] [place] [address] 1 [facility] CBC BASOPHILS [#/VOLUME] IN BLOOD BY AUTOMATED COUNT 0.08 10*3/uL 0.00 - 0.20 04/04 Specimen Type: BLOOD No comment entered. Ordering Provider: MARIANO FLORES Report Released Date/Time : Apr 04, 2024 09:53 AM Reporting Lab: [place] [phone] 1 Performin g Lab: [place] [address] 1 [facility] COMPREHEN SIVE METABOLIC PANEL CREATININE [MASS/VOLUM E] IN SERUM OR PLASMA 0.94 mg/dL 0.7 - 1.3 04/04 Specimen Type: PLASMA Comment: K result may show a positive bias due to hemolysis . Specimen slightly hemolyzed . Ordering Provider: MARIANO FLORES Report Released Date/Time : Apr 04, 2024 09:53 AM Reporting Lab: [place] [address] 1 Performin g Lab: [place] [address] 1 [facility] COMPREHEN SIVE METABOLIC PANEL UREA NITROGEN [MASS/VOLUM E] IN SERUM OR PLASMA 14.5 mg/dL 9.0 - 25.0 04/04 Specimen Type: PLASMA Comment: K result may show a positive bias due to hemolysis . Specimen slightly hemolyzed . Ordering Provider: MARIANO FLORES Report Released Date/Time : Apr 04, 2024 09:53 AM Reporting Lab: [place] [address] 1 Performin g Lab: [place] [address] 1 [facility] COMPREHEN SIVE METABOLIC PANEL GLUCOSE [MASS/VOLUM E] IN SERUM OR PLASMA 96 mg/dL 72 - 99 04/04 Specimen Type: PLASMA Comment: K result may show a positive bias due to hemolysis . Specimen slightly hemolyzed . Ordering Provider: MARIANO FLORES Report Released Date/Time : Apr 04, 2024 09:53 AM Reporting Lab: [facility] [address] [facility] [phone] 1 Performin g Lab: [facility] [address] [facility] [phone] 1 [facility] COMPREHEN SIVE METABOLIC PANEL SODIUM [MOLES/VOLU ME] IN SERUM OR PLASMA 138 meq/L 136 - 145 04/04 Specimen Type: PLASMA Comment: K result may show a positive bias due to hemolysis . Specimen slightly hemolyzed . Ordering Provider: MARIANO FLORES Report Released Date/Time : Apr 04, 2024 09:53 AM Reporting Lab: [place] [address] [facility] [phone] 1 Performin g Lab: [place] [address] [facility] [phone] 1 [facility] COMPREHEN SIVE METABOLIC PANEL POTASSIUM [MOLES/VOLU ME] IN SERUM OR PLASMA 5.0 meq/L 3.5 - 5 04/04 Specimen Type: PLASMA Comment: K result may show a positive bias due to hemolysis . Specimen slightly hemolyzed . Ordering Provider: MARIANO FLORES Report Released Date/Time : Apr 04, 2024 09:53 AM Reporting Lab: [place] [address] [facility] [phone] 1 Performin g Lab: [place] [address] [facility] [phone] 1 [facility] COMPREHEN SIVE METABOLIC PANEL CHLORIDE [MOLES/VOLU ME] IN SERUM OR PLASMA 108 meq/L 98 - 107 04/04 H Specimen Type: PLASMA Comment: K result may show a positive bias due to hemolysis . Specimen slightly hemolyzed . Ordering Provider: MARIANO FLORES Report Released Date/Time : Apr 04, 2024 09:53 AM Reporting Lab: [place] [address] [facility] [phone] 1 Performin g Lab: [place] [address] [facility] [phone] 1 [facility] COMPREHEN SIVE METABOLIC PANEL CARBON DIOXIDE, TOTAL [MOLES/VOLU ME] IN SERUM OR PLASMA 21 meq/L 22 - 31 04/04 L Specimen Type: PLASMA Comment: K result may show a positive bias due to hemolysis . Specimen slightly hemolyzed . Ordering Provider: MARIANO FLORES Report Released Date/Time : Apr 04, 2024 09:53 AM Reporting Lab: [place] [address] [place] [address] 1 Performin g Lab: [place] [id number] 1 [facility] COMPREHEN SIVE METABOLIC PANEL CALCIUM [MASS/VOLUM E] IN SERUM OR PLASMA 9.5 mg/dL 8.4 - 10.4 04/04 Specimen Type: PLASMA Comment: K result may show a positive bias due to hemolysis . Specimen slightly hemolyzed . Ordering Provider: MARIANO FLORES Report Released Date/Time : Apr 04, 2024 09:53 AM Reporting Lab: [address] [phone] 1 Performin g Lab: [address] [phone] 1 [facility] COMPREHEN SIVE METABOLIC PANEL PROTEIN [MASS/VOLUM E] IN SERUM OR PLASMA 7.4 g/dL 6 - 8.6 04/04 Specimen Type: PLASMA Comment: K result may show a positive bias due to hemolysis . Specimen slightly hemolyzed . Ordering Provider: MARIANO FLORES Report Released Date/Time : Apr 04, 2024 09:53 AM Reporting Lab: [address] [phone] 1 Performin g Lab: [address] [phone] 1 [facility] COMPREHEN SIVE METABOLIC PANEL ALBUMIN [MASS/VOLUM E] IN SERUM OR PLASMA 4.0 g/dL 3.4 - 5 04/04 Specimen Type: PLASMA Comment: K result may show a positive bias due to hemolysis . Specimen slightly hemolyzed . Ordering Provider: MARIANO FLORES Report Released Date/Time : Apr 04, 2024 09:53 AM Reporting Lab: [place] [address] [facility] [phone] 1 Performin g Lab: [place] [address] [facility] [phone] 1 [facility] COMPREHEN SIVE METABOLIC PANEL BILIRUBIN.T OTAL [MASS/VOLUM E] IN SERUM OR PLASMA 0.4 mg/dL 0.2 - 1.2 04/04 Specimen Type: PLASMA Comment: K result may show a positive bias due to hemolysis . Specimen slightly hemolyzed . Ordering Provider: MARIANO FLORES Report Released Date/Time : Apr 04, 2024 09:53 AM Reporting Lab: [place] [address] [place] [phone] 1 Performin g Lab: [place] [address] [facility] [phone] 1 [facility] COMPREHEN SIVE METABOLIC PANEL ALKALINE PHOSPHATASE [ENZYMATIC ACTIVITY/VO LUME] IN SERUM OR PLASMA 65 U/L 40 - 150 04/04 Specimen Type: PLASMA Comment: K result may show a positive bias due to hemolysis . Specimen slightly hemolyzed . Ordering Provider: MARIANO FLORES Report Released Date/Time : Apr 04, 2024 09:53 AM Reporting Lab: [place] [address] [place] [id number] 1 Performin g Lab: [place] [address] [facility] [phone] 1 [facility] COMPREHEN SIVE METABOLIC PANEL ASPARTATE AMINOTRANSF ERASE [ENZYMATIC ACTIVITY/VO LUME] IN SERUM OR PLASMA 22 U/L 5 - 34 04/04 Specimen Type: PLASMA Comment: K result may show a positive bias due to hemolysis . Specimen slightly hemolyzed . Ordering Provider: MARIANO FLORES Report Released Date/Time : Apr 04, 2024 09:53 AM Reporting Lab: [place] [address] [facility] [address]284 1 Performin g Lab: [place] [address] [facility] [phone] 1 [facility] COMPREHEN SIVE METABOLIC PANEL ALANINE AMINOTRANSF ERASE [ENZYMATIC ACTIVITY/VO LUME] IN SERUM OR PLASMA 27 U/L 8 - 40 04/04 Specimen Type: PLASMA Comment: K result may show a positive bias due to hemolysis . Specimen slightly hemolyzed . Ordering Provider: MARIANO FLORES Report Released Date/Time : Apr 04, 2024 09:53 AM Reporting Lab: [address] [phone] 1 Performin g Lab: [address] [phone] 1 [facility] COMPREHEN SIVE METABOLIC PANEL GLOMERULAR FILTRATION RATE/1.73 SQ M.PREDICTED [VOLUME RATE/AREA] IN SERUM, PLASMA OR BLOOD BY CREATININE- BASED FORMULA (CKD-EPI 2020) 100.0 60 04/04 Specimen Type: PLASMA Comment: K result may show a positive bias due to hemolysis . Specimen slightly hemolyzed . Ordering Provider: MARIANO FLORES Report Released Date/Time : Apr 04, 2024 09:53 AM Reporting Lab: [place] [address] [facility] [address]595 1 Performin g Lab: [address] [phone] 1 [facility] URINALYSI S W/ CX REFLEX (STL-PB) COLOR OF URINE Colorles s 04/04 Specimen Type: URINE No comment entered. Ordering Provider: MARIANO FLORES Report Released Date/Time : Apr 04, 2024 09:53 AM Reporting Lab: [address] [phone] 1 Performin g Lab: [address] [phone] 1 [facility] URINALYSI S W/ CX REFLEX (STL-PB) BILIRUBIN.T OTAL [PRESENCE] IN URINE BY TEST STRIP Negative mg/dL 04/04 Specimen Type: URINE No comment entered. Ordering Provider: MARIANO FLORES Report Released Date/Time : Apr 04, 2024 09:53 AM Reporting Lab: [place] [id number] 1 Performin g Lab: [place] [id number] 1 [facility] URINALYSI S W/ CX REFLEX (STL-PB) PH OF URINE BY TEST STRIP 5.5 5.0 - 8.0 04/04 Specimen Type: URINE No comment entered. Ordering Provider: MARIANO FLORES Report Released Date/Time : Apr 04, 2024 09:53 AM Reporting Lab: [place] [phone] 1 Performin g Lab: [place] [id number] 1 [facility] URINALYSI S W/ CX REFLEX (STL-PB) LEUKOCYTES [#/AREA] IN URINE SEDIMENT BY MICROSCOPY HIGH POWER FIELD <1/[HPF] 0 - 5 04/04 Specimen Type: URINE No comment entered. Ordering Provider: MARIANO FLORES Report Released Date/Time : Apr 04, 2024 09:53 AM Reporting Lab: [place] [id number] Performin g Lab: [address] [phone] 1 [facility] URINALYSI S W/ CX REFLEX (STL-PB) ERYTHROCYTE S [#/VOLUME] IN URINE SEDIMENT BY MICROSCOPY HIGH POWER FIELD 1 /[HPF] 0 - 5 04/04 Specimen Type: URINE No comment entered. Ordering Provider: MARIANO FLORES Report Released Date/Time : Apr 04, 2024 09:53 AM Reporting Lab: [address] [place] [address] 1 Performin g Lab: [address] [phone] 1 [facility] URINALYSI S W/ CX REFLEX (STL-PB) APPEARANCE OF URINE Clear 04/04 Specimen Type: URINE No comment entered. Ordering Provider: MARIANO FLORES Report Released Date/Time : Apr 04, 2024 09:53 AM Reporting Lab: [place] [id number] 1 [facility] g Lab: [place] [id number] 1 [facility] URINALYSI S W/ CX REFLEX (STL-PB) NITRITE [PRESENCE] IN URINE BY TEST STRIP Negative mg/dL 04/04 Specimen Type: URINE No comment entered. Ordering Provider: MARIANO FLORES Report Released Date/Time : Apr 04, 2024 09:53 AM Reporting Lab: [place] [id number] [facility] g Lab: [place] [id number] 1 [facility] URINALYSI S W/ CX REFLEX (L-PB) MUCUS [PRESENCE] IN URINE SEDIMENT BY LIGHT MICROSCOPY RARE/[LP F] 04/04 Specimen Type: URINE No comment entered. Ordering Provider: MARIANO FLORES Report Released Date/Time : Apr 04, 2024 09:53 AM Reporting Lab: [place] [id number] 1 [facility] g Lab: [place] [id number] 1 [facility] URINALYSI S W/ CX REFLEX (STL-PB) GLUCOSE [MASS/VOLUM E] IN URINE BY TEST STRIP Normalmg /dL 04/04 Specimen Type: URINE No comment entered. Ordering Provider: MARIANO FLORES Report Released Date/Time : Apr 04, 2024 09:53 AM Reporting Lab: [address] [phone] 1 Performin g Lab: [place] [id number] 1 [facility] URINALYSI S W/ CX REFLEX (STL-PB) PROTEIN [MASS/VOLUM E] IN URINE BY TEST STRIP Negative mg/dL - 20 04/04 Specimen Type: URINE No comment entered. Ordering Provider: MARIANO FLORES Report Released Date/Time : Apr 04, 2024 09:53 AM Reporting Lab: [place] [id number] 1 [facility] g Lab: [place] [id number] 1 [facility] URINALYSI S W/ CX REFLEX (STL-PB) URN.UROBILI NOGEN Normalmg /dL 04/04 Specimen Type: URINE No comment entered. Ordering Provider: MARIANO FLORES Report Released Date/Time : Apr 04, 2024 09:53 AM Reporting Lab: [place] [id number] 1 [facility] g Lab: [address] [address] 1 [facility] URINALYSI S W/ CX REFLEX (L-PB) HEMOGLOBIN [MASS/VOLUM E] IN URINE BY TEST STRIP Negative mg/dL 04/04 Specimen Type: URINE No comment entered. Ordering Provider: MARIANO FLORES Report Released Date/Time : Apr 04, 2024 09:53 AM Reporting Lab: [place] [id number] 1 [facility] g Lab: [address] [phone] 1 [facility] URINALYSI S W/ CX REFLEX (STL-PB) KETONES [MASS/VOLUM E] IN URINE BY TEST STRIP Negative mg/dL 04/04 Specimen Type: URINE No comment entered. Ordering Provider: MARIANO FLORES Report Released Date/Time : Apr 04, 2024 09:53 AM Reporting Lab: [address] [id number] 1 Performin g Lab: [address] [phone] 1 [facility] URINALYSI S W/ CX REFLEX (STL-PB) URN.LEUK.ES T. Negative mg/dL 04/04 Specimen Type: URINE No comment entered. Ordering Provider: MARIANO FLORES Report Released Date/Time : Apr 04, 2024 09:53 AM Reporting Lab: [address] [phone] 1 Performin g Lab: [address] [phone] 1 [facility] URINALYSI S W/ CX REFLEX (STL-PB) SPECIFIC GRAVITY OF URINE 1.017 1.005 - 1.029 04/04 Specimen Type: URINE No comment entered. Ordering Provider: MARIANO FLORES Report Released Date/Time : Apr 04, 2024 09:53 AM Reporting Lab: [address] [address] 1 Performin g Lab: [address] [address] 1 [facility] Vital Signs Combined list of inpatient and outpatient Vital Signs from Department of Defense and Veterans Affairs, ranging from 12 months to all on record, depending upon the facility. Vital Sign Value Date Comments Source No data available for this section Ambulatory Pharm acy SYSTOLIC BLOOD PRESSURE 121 04/22/20 24 13:35:51 [facility] DIASTOLIC BLOOD PRESSURE 83 024 13:35:51 [facility] PULSE OXIMETRY 97 04/22/2024 13:35:51 [facility] WEIGHT 235.4 04/22/2024 13:35:51 [facility] BMI 37kg/m2 04/22/2024 13:35:51 [facility] PAIN 0 04/22/2024 13:35:51 [facility] HEIGHT 67 04/22/2024 13:35:51 [facility] TEMPERATURE 97.4 04/22/2024 13:35:51 [facility] PULSE 78 04/22/2024 13:35:51 [facility] RESPIRATION 18 04/22/2024 13:35:51 [facility] SYSTOLIC BLOOD PRESSURE 152 04/04/20 24 09:24:00 [facility] DIASTOLIC BLOOD PRESSURE 98 024 09:24:00 [facility] PAIN 4 04/04/2024 09:24:00 [facility] TEMPERATURE 98.2 04/04/2024 09:24:00 [facility] PULSE 70 04/04/2024 09:24:00 [facility] RESPIRATION 18 04/04/2024 09:24:00 [facility] SYSTOLIC BLOOD PRESSURE 138 03/11/20 24 10:09:29 [facility] DIASTOLIC BLOOD PRESSURE 92 024 10:09:29 [facility] PULSE OXIMETRY 95 03/11/2024 10:09:29 [facility] WEIGHT 230.1 03/11/2024 10:09:29 [facility] BMI 36kg/m2 03/11/2024 10:09:29 [facility] PAIN 7 03/11/2024 10:09:29 [facility] HEIGHT 67 03/11/2024 10:09:29 [facility] TEMPERATURE 97.5 03/11/2024 10:09:29 [facility] PULSE 79 03/11/2024 10:09:29 [facility] RESPIRATION 20 03/11/2024 10:09:29 [facility] SYSTOLIC BLOOD PRESSURE 151 01/24/20 24 14:41:39 [facility] DIASTOLIC BLOOD PRESSURE 90 024 14:41:39 [facility] PULSE OXIMETRY 95 01/24/2024 14:41:39 [facility] WEIGHT 231.4 01/24/2024 14:41:39 [facility] BMI 36kg/m2 01/24/2024 14:41:39 [facility] PAIN 7 01/24/2024 14:41:39 [facility] TEMPERATURE 98.2 01/24/2024 14:41:39 [facility] PULSE 68 01/24/2024 14:41:39 [facility] RESPIRATION 18 01/24/2024 14:41:39 [facility] Encounters Combined list of: 1) Encounters from Department of Veterans Affairs facilities [facility] 2) Encounters from the Department of Defense facilities going back up to 280 months. Location Location Details Encounter Type Encounter Number Reason For Visit Attending Provider ADM Date DC Date Status Disposition Source [facility] Outpatient Encounter [id number] TRICIA ZAMORA 05/10 [facility] Outpatient Encounter [id number] 09/06 [facility] Outpatient Encounter [id number] 12/18 [facility] Outpatient Encounter [id number] JUAN MATTHEW 12/18 [facility] Outpatient Encounter [id number] Diagnos is: ICD-10- CM M54.2 Cervica lgia
GRAVES,CHINTAN N L 12/18 [facility] Outpatient Encounter [id number] 12/25 [facility] OFF/OP CNSLTJ NEW/EST MOD 40 [id number] Diagnos is: ICD-10- CM M54.12 Radicul opathy, cervica l region< br/> JOHANN,FUR QAN 12/25 [facility] Outpatient Encounter [id number] 12/25 [facility] COMPRE OPH EXAM EST PT 1/> [id number] Diagnos is: ICD-10- CM H52.4 Presbyo jo<br/ > FATOUMATARPEDRO Bowser PANCHITO 12/31 [facility] OFF/OP CNSLTJ NEW/EST MOD 40 [id number] Diagnos is: ICD-10- CM M54.2 Cervica lgia
MARQUISE,ABRAM HN 01/07 [facility] Outpatient Encounter [id number] 01/23 [facility] Outpatient Encounter [id number] Diagnos is: ICD-10- CM Z00.00 Encntr for general adult medical exam w/o abnorma l finding s
TRICIA ZAMORA BY R 01/23 [facility] Outpatient Encounter [id number] 02/15 [facility] OFF/OP CNSLTJ NEW/EST LOW 30 [id number] Diagnos is: ICD-10- CM M47.892 Other spondyl osis, cervica l region< br/> SAMUDRALA, SIRESHA 02/21 [facility] Outpatient Encounter [id number] 03/08 [facility] OFFICE O/P EST MOD 30 MIN [id number] Diagnos is: ICD-10- CM M54.2 Cervica lgia
MARQUISE,ABRAM HN 03/11 [facility] Outpatient Encounter [id number] 03/12 [facility] Outpatient Encounter [id number] 03/15 [facility] Outpatient Encounter [id number] PEDRO KRAUSE L 03/25 [facility] Outpatient Encounter [id number] 03/25 [facility] Outpatient Encounter [id number] Diagnos is: ICD-10- CM N20.1 Calculu s of ureter< br/> VU,SERGIO D 03/25 [facility] Outpatient Encounter [id number] 03/29 [facility] HC PRO PHONE CALL 5-10 MIN [id number] Diagnos is: ICD-10- CM N20.1 Calculu s of ureter< br/> MAYDEN,CHR ISTINE M 04/01 [facility] EMERGENCY DEPT VISIT [facility] [id number] Diagnos is: ICD-10- CM N23 Unspeci fied renal colic<b r/> Cristofer VOGEL MD 04/04 [facility] Outpatient Encounter [id number] Cristofer VOGEL MD 04/04 [facility] OFFICE O/P EST LOW 20 MIN [id number] Diagnos is: ICD-10- CM N20.0 Calculu s of kidney< br/> RADHA,R ALPH J 04/22 [facility] HC PRO PHONE CALL 5-10 MIN [id number] Diagnos is: ICD-10- CM N20.0 Calculu s of kidney< br/> SCOTT SALVADOR S 04/25 [facility] Outpatient Encounter [id number] 05/01 [facility] Outpatient Encounter [id number] 06/19 [facility] Outpatient Encounter [id number] 06/21 [facility] Outpatient Encounter [id number] 10/16 [facility] Procedures Combined list of: 1) Procedures from Department of Veterans Affairs facilities going back up to thelast 18 months, not all [place] non-surgical procedures are included; 2) All procedures from the Department of Defense facilities. Procedure Procedure Type Code Date Perfomer Comments Sour e IMMUNIZATION ADMINISTRATION (INCLUDES PERCUTANEOUS, INTRADERMAL, SUBCUTANEOUS, OR INTRAMUSCULAR INJECTIONS); 1 VACCINE (SINGLE OR COMBINATION VACCINE/TOXOID) 08/03/20 17 [facility] IMMUNIZATION ADMINISTRATION (INCLUDES PERCUTANEOUS, INTRADERMAL, SUBCUTANEOUS, OR INTRAMUSCULAR INJECTIONS); EACH ADDITIONAL VACCINE (SINGLE OR COMBINATION VACCINE/TOXOID) 07/29/20 16 [facility] OPHTHALMOLOGICAL SERVICES: MEDICAL EXAMINATION AND EVALUATION, WITH INITIATION OR CONTINUATION OF DIAGNOSTIC AND TREATMENT PROGRAM; COMPREHENSIVE, ESTABLISHED PATIENT, 1 OR MORE VISITS 06/21/20 16 [facility] OPHTHALMOLOGICAL SERVICES: MEDICAL EXAMINATION AND EVALUATION, WITH INITIATION OR CONTINUATION OF DIAGNOSTIC AND TREATMENT PROGRAM; COMPREHENSIVE, ESTABLISHED PATIENT, 1 OR MORE VISITS 05/13/20 15 [facility] INFLUENZA VIRUS VACCINE, QUADRIVALENT (IIV4), SPLIT VIRUS, 0.5 ML DOSAGE, FOR INTRAMUSCULAR USE 08/06/20 14 [facility] OPHTHALMOLOGICAL SERVICES: MEDICAL EXAMINATION AND EVALUATION, WITH INITIATION OR CONTINUATION OF DIAGNOSTIC AND TREATMENT PROGRAM; COMPREHENSIVE, ESTABLISHED PATIENT, 1 OR MORE VISITS 04/30/20 14 [facility] INTRAOPERATIVE CHOLANGIOGRAM 03/27/20 14 [facility] LAPAROSCOPIC CHOLECYSTECTOMY 03/27/20 14 [facility] CASE MANAGEMENT, EACH 15 MINUTES 03/27/20 14 [facility] MEDICAL NUTRITION THERAPY; INITIAL ASSESSMENT AND INTERVENTION, INDIVIDUAL, [id number] WITH THE PATIENT, EACH 15 MINUTES 03/26/20 14 [facility] LAPAROSCOPY, SURGICAL; CHOLECYSTECTOMY WITH CHOLANGIOGRAPHY 03/25/20 14 [facility] THERAPEUTIC, PROPHYLACTIC, OR DIAGNOSTIC INJECTION (SPECIFY SUBSTANCE OR DRUG); INTRAVENOUS PUSH, SINGLE OR INITIAL SUBSTANCE/DRUG 03/24/20 14 [facility] INFLUENZA VIRUS VACCINE, TRIVALENT (IIV3), SPLIT VIRUS, PRESERVATIVE FREE, 0.5 ML DOSAGE, FOR INTRAMUSCULAR USE 09/04/20 13 [facility] OPHTHALMOLOGICAL SERVICES: MEDICAL EXAMINATION AND EVALUATION, WITH INITIATION OR CONTINUATION OF DIAGNOSTIC AND TREATMENT PROGRAM; COMPREHENSIVE, ESTABLISHED PATIENT, 1 OR MORE VISITS 07/23/20 13 [facility] UNLISTED SPECIAL SERVICE, PROCEDURE OR REPORT 06/27/20 13 [facility] ELECTROCARDIOGRAM, ROUTINE ECG WITH AT LEAST 12 LEADS; WITH INTERPRETATION AND REPORT 06/21/20 13 [facility] OPHTHALMOLOGICAL SERVICES: MEDICAL EXAMINATION AND EVALUATION, WITH INITIATION OR CONTINUATION OF DIAGNOSTIC AND TREATMENT PROGRAM; COMPREHENSIVE, ESTABLISHED PATIENT, 1 OR MORE VISITS 12/28/19 13 [facility] IMMUNIZATION ADMINISTRATION (INCLUDES PERCUTANEOUS, INTRADERMAL, SUBCUTANEOUS, OR INTRAMUSCULAR INJECTIONS); EACH ADDITIONAL VACCINE (SINGLE OR COMBINATION VACCINE/TOXOID) 07/23/20 12 [facility] ECHOCARDIOGRAPHY, TRANSTHORACIC, REAL-TIME WITH IMAGE DOCUMENTATION (2D), INCLUDES M-MODE RECORDING, WHEN PERFORMED, COMPLETE, WITHOUT SPECTRAL OR COLOR DOPPLER ECHOCARDIOGRAPHY 05/21/20 12 [facility] PNEUMOCOCCAL POLYSACCHARIDE VACCINE, 23-VALENT (PPSV23), ADULT OR IMMUNOSUPPRESSED PATIENT DOSAGE, WHEN ADMINISTERED TO INDIVIDUALS 2 YEARS OR OLDER, FOR SUBCUTANEOUS OR INTRAMUSCULAR USE 04/25/20 12 [facility] TETANUS, DIPHTHERIA TOXOIDS AND ACELLULAR PERTUSSIS VACCINE (TDAP), WHEN ADMINISTERED TO INDIVIDUALS 7 YEARS OR OLDER, FOR INTRAMUSCULAR USE 04/25/20 12 [facility] OPHTHALMOLOGICAL SERVICES: MEDICAL EXAMINATION AND EVALUATION, WITH INITIATION OR CONTINUATION OF DIAGNOSTIC AND TREATMENT PROGRAM; COMPREHENSIVE, ESTABLISHED PATIENT, 1 OR MORE VISITS 03/22/20 12 [facility] OPHTHALMOLOGICAL SERVICES: MEDICAL EXAMINATION AND EVALUATION, WITH INITIATION OR CONTINUATION OF DIAGNOSTIC AND TREATMENT PROGRAM; COMPREHENSIVE, ESTABLISHED PATIENT, 1 OR MORE VISITS 06/16/20 11 [facility] VIS FUNCT SCREEN,AUTOMAT/SEMI- AUTOMAT BILAT QUANT DETERM VISUAL ACUITY,OCULAR ALIGN,COLOR VISION,PSEUDOISOCHRO MAT PLATES,& FIELD VIS (MAY INC ALL/SOME SCRN DETERM FOR CONTRAST SENSITIV,VIS UND GLARE) 05/13/20 11 [facility] INFLUENZA VIRUS VACCINE, TRIVALENT (IIV3), SPLIT VIRUS, 0.5 ML DOSAGE, FOR INTRAMUSCULAR USE 08/31/20 10 [facility] TELE ASSESS & MGT SRV PROV QUAL NONPHYS HLTH CARE PRO TO EST PAT,PARENT,GUARD NOT ORIG REL ASSESS & MGT SRV PROV W/IN PREV 7 DAYS NOR LEAD ASSESS & MGT SRV/PX W/IN NXT 24H/SOON APT; 11-20 MIN MED DIS 04/06/20 10 [facility] IMMUNIZATION ADMINISTRATION (INCLUDES PERCUTANEOUS, INTRADERMAL, SUBCUTANEOUS, OR INTRAMUSCULAR INJECTIONS); 1 VACCINE (SINGLE OR COMBINATION VACCINE/TOXOID) 09/24/20 09 [facility] ECHOCARDIOGRAPHY,TRA NSTHORACIC,REAL-TIME W IMAGE DOCUMENTATION (2D),INCLUDES M-MODE RECORDING,WHEN PERFORMED,COMPLETE,W ITH SPECTRAL DOPPLER ECHOCARDIOGRAPHY,AND W COLOR FLOW DOPPLER ECHOCARDIOGRAPHY 09/23/20 09 [facility] INFLUENZA VIRUS VACCINE, TRIVALENT (IIV3), SPLIT VIRUS, 0.5 ML DOSAGE, FOR INTRAMUSCULAR USE 07/22/20 09 [facility] DUPLEX SCAN OF EXTREMITY VEINS INCLUDING RESPONSES TO COMPRESSION AND OTHER MANEUVERS; UNILATERAL OR LIMITED STUDY 05/27/20 09 [facility] TELE ASSESS & MGT SRV PROV QUAL NONPHYS HLTH CARE PRO TO EST PAT,PARENT,GUARD NOT ORIG REL ASSESS & MGT SRV PROV W/IN PREV 7 DAYS NOR LEAD ASSESS & MGT SRV/PX W/IN NXT 24 HR/SOON APT;5-10 MIN MED DIS 03/26/20 09 [facility] INFLUENZA VIRUS VACCINE, TRIVALENT (IIV3), SPLIT VIRUS, PRESERVATIVE FREE, 0.5 ML DOSAGE, FOR INTRAMUSCULAR USE 07/25/20 08 [facility] IMMUNIZATION ADMINISTRATION (INCLUDES PERCUTANEOUS, INTRADERMAL, SUBCUTANEOUS, OR INTRAMUSCULAR INJECTIONS); 1 VACCINE (SINGLE OR COMBINATION VACCINE/TOXOID) 08/22/20 06 [facility] INFLUENZA VIRUS VACCINE, TRIVALENT (IIV3), SPLIT VIRUS, 0.5 ML DOSAGE, FOR INTRAMUSCULAR USE 09/01/20 05 [facility] NONINVASIVE EAR OR PULSE OXIMETRY FOR OXYGEN SATURATION; SINGLE DETERMINATION 04/17/20 05 [facility] INFLUENZA VIRUS VACCINE, TRIVALENT (IIV3), SPLIT VIRUS, 0.5 ML DOSAGE, FOR INTRAMUSCULAR USE 09/02/20 04 [facility] SCREENING PAPANICOLAOU SMEAR; OBTAINING, PREPARING AND CONVEYANCE OF CERVICAL OR VAGINAL SMEAR TO LABORATORY 07/29/20 04 [facility] BLOOD,OCCULT,BY PEROXIDASE ACTIV (EG,GUAIAC),QUAL;FEC ES,CONSECUTIVE COLLECTED SPECIMENS W SING DETERMIN,FOR COLORECTAL NEOPLAS SCREEN (IE,PAT PROVIDE 3 CARDS/SING TRIPLE CARD FOR CONSECUTIVE COLLECT) 06/17/20 03 [facility] DETERMINATION OF REFRACTIVE STATE 06/12/20 03 [facility] ROUTINE VENIPUNCTURE FOR COLLECTION OF SPECIMEN(S) 03/25/20 03 [facility] INFLUENZA VIRUS VACCINE, TRIVALENT (IIV3), SPLIT VIRUS, 0.5 ML DOSAGE, FOR INTRAMUSCULAR USE 02/11/20 03 [facility] SCREENING P[place]ICOLAOU SMEAR; OBTAINING, PREPARING AND CONVEYANCE OF CERVICAL OR VAGINAL SMEAR TO LABORATORY 12/27/19 02 [facility] COLLECTION OF VENOUS BLOOD BY VENIPUNCTURE 08/08/20 01 [facility] INFLUENZA VIRUS VACCINE, TRIVALENT (IIV3), SPLIT VIRUS, 0.5 ML DOSAGE, FOR INTRAMUSCULAR USE 08/07/20 [facility] COLONOSCOPY, FLEXIBLE; DIAGNOSTIC, INCLUDING COLLECTION OF SPECIMEN(S) BY BRUSHING OR WASHING, WHEN PERFORMED (SEPARATE PROCEDURE) Colonoscopy, flexible, proximal to splenic flexure; diagnostic, with or without collection of specimen(s) by brushing or washing, with or without colon decompression (separate procedure) [id number] 12/05/19 [facility]ulatory Pharmacy ESOPHAGOGASTRODUODEN OSCOPY, FLEXIBLE, TRANSORAL; WITH BIOPSY, SINGLE OR MULTIPLE Upper gastrointestinal endoscopy including esophagus, stomach, and either the duodenum and/or jejunum as appropriate; with biopsy, single or multiple [id number] 12/05/19 Ambulatory Pharmacy EXCISION OF LESION, TENDON, TENDON SHEATH, OR CAPSULE (INCLUDING SYNOVECTOMY) (EG, CYST OR GANGLION); FOOT Excision of lesion, tendon, tendon sheath, or capsule (including synovectomy) (eg, cyst or ganglion); foot [id number] 01/03/20 Ambulatory Pharmacy Social History Combined list of available smoking, tobacco, and other social history from Department of Defense and Veterans Affairs facilities. Social History Type Response Date Comment [facility] e Tobacco smoking status [facility] VA-TOBACCO FORMER USER 01/24/2024 [facility] History of tobacco use [place]-TO[place]ACCO QUIT 5 TO < 15 YRS 01/24/2024 [facility] Male 12/29/2021 Ambulatory [facility]acy History of tobacco use [place]-TOBACCO QUIT 1 TO < 5 YRS 06/12/2020 [facility] History of tobacco use [place]-TOBACCO QUIT 1 TO < 5 YRS 08/28/2018 [facility] History of tobacco use QUIT TOBACCO >12 MO and <7 YRS AGO 02/07/2018 [facility] History of tobacco use TOBACCO OFFERRED PT MEDS (PROVIDER) 04/01/2016 [facility] History of tobacco use CURRENT TOBACCO USER 01/06/2015 [facility] History of tobacco use TOBACCO SCREEN COMPLETED 11/22/2012 No, not willing to quit now [facility] History of tobacco use TOBACCO CESSATION MEDS REFUSED 09/01/2011 [facility] History of tobacco use PREMA TOBACCO MEDS INTERESTED 08/31/2010 [facility] History of tobacco use TOBACCO OFFERRED PT MEDS (PROVIDER) 09/03/2009 [facility] History of tobacco use TOBACCO OFFERRED STOP SMOKING CLINIC 08/20/2008 [facility] This section is an empty social history section. DoD Sexual Orientation Ambula tory Pharmacy Gender identity Ambulator y Pharmacy Assessment and Plan Combined list of future care activities from Department of Defense and Veterans [facility] facilities (e.g., assessment and plan notes, appointments, orders, and referrals). Additional future care activities may be listed in the Plan of Care section. Result Assessment and Plan Date Source Assessment and Plan No data available for this section 10/18/2024 Ambulatory Pharmacy Plan of Care List of future care activities from Department of Veterans [facility] facilities. Additional future care activities may be listed in the Assessment and Plan section. Date/Time Care Activity Care Activity Detail Facili ty 11/20/2024 AMBULATORY - SURGERY AMBULATORY - SURGERY [facility] 12/23/2024 AMBULATORY - SURGERY AMBULATORY - SURGERY [facility] 01/28/2025 AMBULATORY - MEDICINE AMBULATORY - MEDICI [facility] Functional Status Combined list of recent functional and cognitive assessments recorded at Department of Defense and Veterans Affairs ([place] Functional [place] Measurement (FIM) Scale: 1 = Total Assistance (Subject = 0% +), 2 = Maximal Assistance (Subject = 25% +), 3 = Moderate Assistance (Subject = 50% +), 4 = Minimal Assistance (Subject = 75% +), 5 = Supervision, 6 = Modified [place] (Device), 7 = Complete [place] (Timely, Safely). Assessment Date/Time Source Assessment Type Assessment Skill Assessment Score Assessment Details No data available for this section
== END 2024-10-16 20:18 | disposition home or self-care (01) ==
PROVIDERS: Emergency Provider Physician Assistant
DX: R10.31 Right lower quadrant pain (principal); I10 Essential (primary) hypertension; Z87.891 Personal history of nicotine dependence; Z90.49 Acquired absence of other specified parts of digestive tract
CPT/HCPCS: 36415; 74177; 80053; 81001; 83690; 85025; 99284; Q9967

== ENCOUNTER 2025-04-11 15:19 | Observation (INO) | payer OTHER, SELFPAY ==
[2025-04-11] VITALS (11 sets, daily range): BP systolic 120–169; BP diastolic 75–110; PULSE 71–86; RESP 18–21; TEMP 36.4–36.7; O2SAT 95–98; BMI 36.9
--- NOTE | ~2025-04-11 | CT_ITS ---
EXAMINATION: CTA brain carotid DATE: 04/11/2025 19:31 INDICATION: r neck pain, L face/arm numbness TECHNIQUE: Computed tomographic angiography (CTA) of the head was performed without and with 100 mL O mnipaque-350 intravenous contrast. CTA of the neck was performed with intravenous contrast. The dose- length product was 1960.70 mGy-cm. Maximum intensity projection and volume rendered 3D-reconstruction s were created by the technologist on a separate workstation. COMPARISON: None. FINDINGS: CT BRAIN: No acute large vessel infarct, intracranial hemorrhage, mass, or hydrocephalus. CTA HEAD: No large vessel occlusion, aneurysm, high flow vascular malformation, nidus or extravasation. Persist ent origin of the right FRONT WINDOW CASHIER, a normal variant. Patent cerebral veins. Symmetric parenchymal enh ancement. CTA NECK: Aortic arch and proximal great vessels: Normal arch anatomy. No significant plaque. Right common carotid, carotid bifurcation, and internal carotid artery: No plaque.There is 0% stenosi s of the proximal right internal carotid artery relative to normal distal artery lumen diameter (NASC ET criteria). Left common carotid, carotid bifurcation, and internal carotid artery: No plaque.There is 0% stenosis of the proximal left internal carotid artery relative to normal distal artery lumen diameter (NASCET criteria). Vertebral arteries: No significant plaque or stenosis. Vertebral arteries co-dominant. Other findings: Uncomplicated appearing ACDF hardware and interbody device at C5-6. Left hilar node c alcification. IMPRESSION: No acute intracranial process. No large vessel intracranial occlusion, high-grade intracranial stenosis, or aneurysm. No carotid or vertebral artery occlusion, dissection, or significant stenosis. Reviewed, dictated and finalized at location K. IMPRESSION: No acute intracranial process. No large vessel intracranial occlusion, high-grade intracranial stenosis, or an eurysm. No carotid or vertebral artery occlusion, dissection, or significant stenosis.
--- NOTE | ~2025-04-11 | MR_ITS ---
MRI of the cervical spine Clinical History: Left arm numbness Technique: Axial T2-weighted and gradient images, and sagittal T1-weighted, T2-weighted, and STIR paris ges were acquired. Findings: No acute fracture or dislocation seen. No suspicious bone marrow signal reality seen. There is anterior fusion from C5 to C6. At C2-C3, there is no significant disc bulge or herniation. No spinal canal stenosis, cord compressio n, or neural foraminal narrowing. At C3-C4, there is mild disc osteophyte complex. No adrian canal stenosis, cord compression. Probable mild bilateral neural foraminal narrowing. At C4-C5, there is disc ossify compress with central disc protrusion. There is mild canal stenosis an d mild ventral cord compression. There is bilateral neural foraminal narrowing. At C5-C6, there is mild osteophyte formations left paracentral region. There is minimal canal stenosi s without adrian cord compression. No definite neural foraminal narrowing. At C6-C7, there is minimal disc osteophyte complex. No spinal canal stenosis or cord compression. No definite neural foraminal narrowing. No abnormal signal seen in the spinal cord. Paravertebral soft tissues are unremarkable. Impression: Advanced spondylosis at C4-C5, with disc protrusion and osteophyte complex, resulting in mild ventral cord compression. Additional degenerative changes, as above. Prior anterior fusion from C5 to C6. Reviewed, dictated and finalized at [facility]. Impression: Advanced spondylosis at C4-C5, with disc protrusion and osteophyte complex, res ulting in mild ventral cord compression. Additional degenerative changes, as above. Prior anterior fusion from C5 to C6.
--- NOTE | ~2025-04-11 | MR_ITS ---
MRI of the brain Clinical History: Left arm numbness, CVA Technique: Axial and sagittal T1-weighted images were acquired. These were followed by axial T2-weigh vanessa, diffusion weighted, gradient, and FLAIR images. Following intravenous administration of 20 cc Mu ltiHance gadolinium, T1-weighted fat-sat imaging was performed in the axial and coronal planes. Findings: No abnormal signal seen in the brain parenchyma. No acute infarct, intracranial hemorrhage or mass lesion seen. Ventricles and subarachnoid spaces are unremarkable. Orbits are unremarkable. Paranasal sinuses and m astoid air cells are clear. Major intracranial flow voids are intact. Sagittal midline structures are intact. No abnormal postcontrast enhancement identified. IMPRESSION: Normal exam. Reviewed, dictated and finalized at location M. IMPRESSION: Normal exam.
--- NOTE | ~2025-04-11 | XR_ITS ---
EXAMINATION: XR chest 2V Exam Date/Time: 04/11/2025 18:26 CDT HISTORY: cva w/u Comparison: 09/22/2022; CT abdomen pelvis 10/16/2024. RESULT: Lines, tubes, and devices: ACDF hardware. Lungs and pleura: No focal consolidation, pleural effusion, or pneumothorax. Streaky bibasilar atele ctasis/scar. 11 mm left lower lung nodule. Cardiomediastinal silhouette: Stable. Other: No acute osseous or upper abdominal finding. IMPRESSION: 11 mm left lower lung nodule, not confidently identified in prior studies. Recommend nonemergent but timely outpatient low-dose noncontrast CT of the chest. Reviewed, dictated and finalized at location K. IMPRESSION: 11 mm left lower lung nodule, not confidently identified in prior studies. Pito mmend nonemergent but timely outpatient low-dose noncontrast CT of the chest.
--- OUTSIDE RECORDS SUMMARY | 2025-04-11 15:21 | XMS_ITS | Encounter Summary ---
Author Name [facility] Organization [facility] Address [address] [place] [address] Care Team Providers Care Retail Merchandiser Name Role Phone NOAH MARGARITA Primary Care Provider Unavailabl e Selected Encounter This section includes the information on record at [place] for the Encounter. Date/Time Encounter Type Encounter Description Reason Provider Source Apr 08, 2025 02:20 PM Inpatient Visit EMERGENCY DEPT DENISE COFFMAN Encounter Template Text not used by [place] Plan of Treatment: Future Appointments (+ 6 months) and Future Tests (+/- 45 days) The Plan of Treatment section includes future care activities for the patient from all [place] treatmentfacilities. This section includes future appointments and future orders which are active, pending or scheduled. Future Appointments This section includes appointments that were scheduled to occur 6 months from the date of the Encounter, up to a maximum of 20 appointments. The data comes from all [place] treatment facilities. Appointment Date/Time Appointment Type Appointme nt Facility Name Apr 11, 2025 03:30 PM [facility] Apr 23, 2025 01:20 PM AMBULATORY - SURGERY [facility] Apr 29, 2025 10:00 AM AMBULATORY - NONE [facility] May 19, 2025 02:00 PM AMBULATORY - MEDICINE [facility] Jul 01, 2025 11:00 AM AMBULATORY - MEDICINE [facility] Active, Pending, and Scheduled Orders This section includes a listing of several types of active, pending, and scheduled orders, including clinic medications orders, diagnostic test orders, procedure orders and consult orders; where the start date of the order is 45 days before the date of the Encounter or 45 days after the date of theEncounter. The data comes from all [place] treatment facilities. Test Date/Time Test Type Test Details Facility Name Apr 08, 2025 03:22 PM Procedure Order CP EKG STL CP EKG - STL Proc Medical Investigator's Choice [facility] Apr 29, 2025 12:00 AM Imaging - Magnetic Resonance Imaging (MRI) Order MRI SPINE CERVICAL W/O&W CONT [facility] Apr 29, 2025 12:00 AM Imaging - Magnetic Resonance Imaging (MRI) Order MRI BRAIN W/O CONT [facility] Lab Results: +/- 30 days of the encounter This section includes the Chemistry and Hematology Lab Results on record with [facility] for the patient. Radiology Reports and Pathology Reports are provided separately, in subsequent sections. Lab Results This section contains the Chemistry/Hematology Results that were resulted 30 days before or 30 daysafter the date of the Encounter. Date/Time Source Result Type Result - Unit Interpretation Reference Range Specimen Type Comment Apr 09, 2025 06:38 AM [facility] B12 SERUM Specimen Type: SERUM No comment entered. Ordering Provider: ANTONINA MEDINA Report Released Date/Time: Apr 09, 2025 04:48 AM Reporting Lab: [facility] [address] [facility] [address] Performing Lab: [place] [id number] [facility] [address] B12 350 pg/mL [id number] Apr 08, 2025 11:50 PM [facility] MRSA SURVL NARES DNA NARES Specimen Type: DEEPTHI ES Comment: Qualitative real-time PCR test for the rapid detection of methicillin-resistant Staphylococcus aureus (MRSA) DNA from nasal swabs. A negative result does not preclude infection with the agent(s) tested and should not be used as the sole basis for treatment or other patient management decisions. A positive test does not necessarily indicate the presence of viable organisms, following bacterial culture to recover the organism for further characterization and susceptibility testing. All results must be combined with clinical observations, patient history, and epidemiological information for final interpretation. Ordering Provider: JESSICA MEDINA Report Released Date/Time: Apr 08, 2025 09:42 PM Reporting Lab: [facility] [address] [facility] [address] Performing Lab: [facility] [address] [place] [phone] MRSA SURVL NARES DNA Negative Negative Apr 08, 2025 10:06 PM [facility] LIPID PANEL (STL) PLASMA Specimen Type: PLASM A No comment entered. Ordering Provider: JESSICA MEDINA Report Released Date/Time: Apr 08, 2025 09:42 PM Reporting Lab: [place] [address] [facility] [address] Performing Lab: [facility] [address] [facility] [address] CHOLESTEROL 207 mg/dL H 0-200 TRIGLYCERIDE 121 mg/dL 0-150 CALCULATED LDL 141 mg/dL HDL(New) 42 mg/dL >40 Apr 08, 2025 04:08 PM [facility] MAGNESIUM PLASMA Specimen Type: PLASM A Comment: No hemolysis noted. Ordering Provider: DI GOODWIN Report Released Date/Time: Apr 08, 2025 03:20 PM Reporting Lab: [facility] [address] [facility] [address] Performing Lab: [address] [address] MAGNESIUM 2.1 mg/dL 1.6-2.6 Apr 08, 2025 04:08 PM [facility] PHOSPHOROUS PLASMA Specimen Type: PLASM A Comment: No hemolysis noted. Ordering Provider: DI GOODWIN Report Released Date/Time: Apr 08, 2025 03:20 PM Reporting Lab: [facility] [address] [facility] [address] Performing Lab: [address] [address] PHOSPHOROUS 3.0 mg/dL 2.3-4.7 Apr 08, 2025 04:08 PM [facility] TROPONIN I (STL) PLASMA Specimen Type: PLASM A Comment: No hemolysis noted. Ordering Provider: DI GOODWIN Report Released Date/Time: Apr 08, 2025 03:20 PM Reporting Lab: [address] [address] Performing Lab: [address] [address] TROPONIN I (STL) <0.010 ng/mL 0-0.033 Apr 08, 2025 04:08 PM [facility] TSH (MA-PB) SERUM Specimen Type: SERUM No comment entered. Ordering Provider: DI GOODWIN Report Released Date/Time: Apr 08, 2025 03:20 PM Reporting Lab: [address] [address] Performing Lab: [address] [address] TSH 2.009 u[IU]/mL 0.47-5 Apr 08, 2025 04:08 PM [facility] CBC BLOOD Specimen Type: BLOOD No comment entered. Ordering Provider: DI GOODWIN Report Released Date/Time: Apr 08, 2025 03:20 PM Reporting Lab: [address] [address] Performing Lab: [address] [address] WBC 6.7 10*3/uL 3.6-11.2 RBC 4.69 10*6/uL 4.10-5.70 HGB 14.2 g/dL 13.1-16.8 HCT 41.2 38.2-48.4 MCV 87.8 fL 80.0-100.0 MCH 30.3 pg 27.0-34.0 MCHC 34.5 g/dL 33.0-36.0 PLT 315 10*3/uL 150-400 MPV 9.1 fL 7.5-11.2 RDW 11.8 11.8-15.1 LYMPHOCYTES, AUTO % 28 MONOCYTES, AUTO % 12 NEUTROPHILS, AUTO % 55 EOSINOPHILS, AUTO % 5 BASOPHILS, AUTO % 1 LYMPHOCYTES, ABSOLUTE 1.86 10*3/uL 0.77- 4.50 MONOCYTES, ABSOLUTE 0.80 10*3/uL 0.19-0. 80 NEUTROPHILS, ABSOLUTE 3.67 10*3/uL 2.10- 8.00 EOSINOPHILS, ABSOLUTE 0.32 10*3/uL 0.00- 0.60 BASOPHILS, ABSOLUTE 0.07 10*3/uL 0.00-0. 20 Apr 08, 2025 04:08 PM [facility] COMPREHENSIVE METABOLIC PANEL PLASMA Specimen Type: PLASMA Comment: No hemolysis noted. Ordering Provider: DI GOODWIN Report Released Date/Time: Apr 08, 2025 03:20 PM Reporting Lab: [place] [id number] [facility] [address] Performing Lab: [address] [address] CREATININE 1.08 mg/dL 0.7-1.3 UREA NITROGEN 19.7 mg/dL 9.0-25.0 GLUCOSE 90 mg/dL 72-99 SODIUM 135 meq/L L 136-145 POTASSIUM 4.2 meq/L 3.5-5 CHLORIDE 106 meq/L 98-107 CARBON DIOXIDE 22 meq/L 22-31 CALCIUM 9.1 mg/dL 8.4-10.4 PROTEIN 7.8 g/dL 6-8.6 ALBUMIN 4.1 g/dL 3.4-5 TOTAL BILIRUBIN 0.5 mg/dL 0.2-1.2 ALKALINE PHOSPHATASE 65 U/L 40-150 AST/SGOT 31 U/L 5-34 ALT/SGPT 38 U/L 8-40 EGFR (CKD-EPI 2020) 84.1 >60 Vital Signs: All taken on the encounter date This section contains inpatient and outpatient Vital Signs collected on the date of the Encounter. Date/Time Temperature Pulse Blood Pressure Respiratory Rate SP02 Pain Height Weight Body Mass Index Source Apr 08, 2025 11:45 PM 5 [facility] Apr 08, 2025 10:15 PM 5 [facility] Apr 08, 2025 09:44 PM 97.9 F 71 /min 154/96 mm[Hg] 18 /min 96 % 6 237.1 lb 37 [facility] Apr 08, 2025 09:43 PM 73 /min 144/93 mm[Hg] 15 /min 95 % [facility] Apr 08, 2025 08:46 PM 79 /min 147/108 mm[Hg] 18 /min 94 % [facility] Social History: Smoking Status (Most current) and Tobacco Use (All prior to encounter date) This section includes the most current, and the historical, smoking and tobacco- related health factors from the [place] facility where the Encounter took place. Current Smoking Status This section includes the most current smoking, or tobacco-related health factor, from the [place] facility where the Encounter took place. Date/Time Current Smoking Status Comment Jojo ferris Jan 06, 2015 01:37 PM CURRENT TOBACCO USER [facility] Tobacco Use History This section includes a history of the smoking, or tobacco-related health factors, that were collected on or before the date of the Encounter. The data comes from the [place] facility where the Encounter took place. Date/Time Smoking Status/Tobacco Use Comment F mellisa Jan 06, 2015 01:37 PM TOBACCO MEDS OFFER ED BUT DECLINED [facility] Radiology Reports: +/- 30 days of the [...] the Encounter. The data comes from all [place] treatment facilities. Date/Time Radiology Report Provider Source Apr 08, 2025 04:[address] CERVICAL SPINE W/O CONT: NEWTONVANNA ALL [id number] -1975 M Exm Date: APR 08, 2025@16:26 Req Phys: DI GOODWIN Loc: THEO-EMERGENCY DEPT 2ND SHIFT (R Img Loc: THEO-CT IMAGING THEO Service: Unknown [facility] [address] [place] [address] (Case [id number] COMPLETE) CT CERVICAL SPINE W/O CONT (CT Detailed) CPT:20536 Reason for Study: possibel chord blockage c spine, dr teran says ct is best test Clinical History: Responsible Attending: lucas Attending Contact Number: er Resident Contact Number: Allergies listed in CPRS chart: Patient has answered NKA Creatinine/eGFR: STL EGFR (within one year). CREATININE 1.04 mg/dL (01/31/25 13:38) Wt: 234 lb [106.14 kg] (01/31/2025 14:10) History of: Renal failure, chronic or acute renal disease: NO Report Status: Verified Date Reported: APR 08, 2025 Date Verified: APR 08, 2025 Coin Purse Assembler E-Sig:/ES/OUTSIDE SERVICE RADIOLOGY Report: CT HEAD W/O CONT, CT CERVICAL SPINE W/O CONT HISTORY: weakness COMPARISON: 12/26/[address] TECHNIQUE: Contiguous axial CT images from the level of the skull base through the skull apex, performed at the local [place] facility. 270 images were received by the [place] National Teleradiology Program (NTP) for interpretation. CT of the cervical spine with multiplanar reformatting was performed at the local [place] facility. 1260 images were received by the [place] National Teleradiology Program (NTP) for interpretation. RADIATION DOSE (mGy*cm): 1315 IV CONTRAST: None administered. FINDINGS: Head: Intracranial Hemorrhage: No acute intracranial hemorrhage. Brain Parenchyma: No evidence for evolving cortical infarction. Sanford-white differentiation is preserved. No significant white matter disease. No intracranial mass effect. Extraaxial Spaces: Ventricles and sulci are normal in size. Basilar cisterns are patent. Cerebral Vasculature: No significant atherosclerotic calcification. Orbits: Visualized intraorbital contents are within normal limits. Sinuses: Visualized paranasal sinuses are well-aerated. Calvarium and Skull Base: No depressed calvarial fracture. Mastoid air cells and middle ears are well-aerated. Scalp: Soft tissues are within normal limits. Cervical spine: Trauma: C5-6 ACDF with interbody spacer and osseous bridging. No prevertebral soft tissue swelling. Alignment: Straightening of normal cervical lordosis. Anatomic basocervical alignment. Regional Soft Tissue: No significant inflammatory stranding, hematoma or subcutaneous gas. Lung Apices: Visualized portions clear. Findings by disc level (Please note evaluation of degenerative changes is more sensitive with MRI): C2-3: No appreciable disk bulge. No appreciable facet arthropathy. No appreciable spinal canal narrowing. No appreciable neuroforaminal narrowing. C3-4: Mild posterior disk osteophyte complex. No appreciable facet arthropathy. No appreciable spinal canal narrowing. No appreciable neuroforaminal narrowing. C4-5: Mild posterior disk osteophyte complex. Mild bilateral facet arthropathy. Mild spinal canal narrowing. Mild bilateral neuroforaminal narrowing. C5-6: Left asymmetric posterior disc osteophyte complex. Mild bilateral facet arthropathy. Moderate left lateral recess narrowing. Moderate to severe left neural foraminal narrowing. C6-7: No appreciable disk bulge. No appreciable facet arthropathy. No appreciable spinal canal narrowing. No appreciable neuroforaminal narrowing. C7-T1: No appreciable disk bulge. No appreciable facet arthropathy. No appreciable spinal canal narrowing. No appreciable neuroforaminal narrowing. Impression: No acute intracranial hemorrhage or territorial infarct. No acute fracture or subluxation of the cervical spine. Postoperative changes at the C5-6 level again noted. Left asymmetric posterior disc osteophyte complex with moderate narrowing of the lateral recess and moderate to severe left neural foraminal narrowing. Mild degenerative changes at other cervical levels also noted as described READING PHYSICIAN: Fly Hui M.D. -[phone] 04/08/2025 12:34 [facility] National Teleradiology Program [phone] (For Medical Practitioner Use Only) Attention Patients / Veterans: If you have questions or concerns about these test results, please contact your ordering provider or primary care team. Primary Interpreting Staff: OUTSIDE SERVICE RADIOLOGY, Staff Physician / RADIOLOGY,OUTSIDE SERVICE [facility] Apr 08, 2025 04:[address] HEAD W/O CONT: VANNA GLEZ [id number] -1975 M Exm Date: APR 08, 2025@16:26 Req Phys: DI GOODWIN Loc: THEO-EMERGENCY DEPT 2ND SHIFT (R Img Loc: THEO-CT IMAGING THEO Service: Unknown [facility] [address] [place] [address] (Case [id number] COMPLETE) CT HEAD W/O CONT (CT Detailed) CPT:46919 Reason for Study: weakness Clinical History: Responsible Attending: lucas Attending Contact Number: er Resident Contact Number: Allergies listed in CPRS chart: Patient has answered NKA Creatinine: CREATININE 1.04 mg/dL 01/31/2025 13:38 /eGFR: STL EGFR (within one year). CREATININE 1.04 mg/dL (01/31/25 13:38) Wt: 234 lb [106.14 kg] (01/31/2025 14:10) History of: Renal failure, chronic or acute renal disease: NO Report Status: Verified Date Reported: APR 08, 2025 Date Verified: APR 08, 2025 Coin Purse Assembler E-Sig:/ES/OUTSIDE SERVICE RADIOLOGY Report: CT HEAD W/O CONT, CT CERVICAL SPINE W/O CONT HISTORY: weakness COMPARISON: 12/26/[address] TECHNIQUE: Contiguous axial CT images from the level of the skull base through the skull apex, performed at the local [place] facility. 270 images were received by the [place] National Teleradiology Program (NTP) for interpretation. CT of the cervical spine with multiplanar reformatting was performed at the local [place] facility. 1260 images were received by the [place] National Teleradiology Program (NTP) for interpretation. RADIATION DOSE (mGy*cm): 1315 IV CONTRAST: None administered. FINDINGS: Head: Intracranial Hemorrhage: No acute intracranial hemorrhage. Brain Parenchyma: No evidence for evolving cortical infarction. Sanford-white differentiation is preserved. No significant white matter disease. No intracranial mass effect. Extraaxial Spaces: Ventricles and sulci are normal in size. Basilar cisterns are patent. Cerebral Vasculature: No significant atherosclerotic calcification. Orbits: Visualized intraorbital contents are within normal limits. Sinuses: Visualized paranasal sinuses are well-aerated. Calvarium and Skull Base: No depressed calvarial fracture. Mastoid air cells and middle ears are well-aerated. Scalp: Soft tissues are within normal limits. Cervical spine: Trauma: C5-6 ACDF with interbody spacer and osseous bridging. No prevertebral soft tissue swelling. Alignment: Straightening of normal cervical lordosis. Anatomic basocervical alignment. Regional Soft Tissue: No significant inflammatory stranding, hematoma or subcutaneous gas. Lung Apices: Visualized portions clear. Findings by disc level (Please note evaluation of degenerative changes is more sensitive with MRI): C2-3: No appreciable disk bulge. No appreciable facet arthropathy. No appreciable spinal canal narrowing. No appreciable neuroforaminal narrowing. C3-4: Mild posterior disk osteophyte complex. No appreciable facet arthropathy. No appreciable spinal canal narrowing. No appreciable neuroforaminal narrowing. C4-5: Mild posterior disk osteophyte complex. Mild bilateral facet arthropathy. Mild spinal canal narrowing. Mild bilateral neuroforaminal narrowing. C5-6: Left asymmetric posterior disc osteophyte complex. Mild bilateral facet arthropathy. Moderate left lateral recess narrowing. Moderate to severe left neural foraminal narrowing. C6-7: No appreciable disk bulge. No appreciable facet arthropathy. No appreciable spinal canal narrowing. No appreciable neuroforaminal narrowing. C7-T1: No appreciable disk bulge. No appreciable facet arthropathy. No appreciable spinal canal narrowing. No appreciable neuroforaminal narrowing. Impression: No acute intracranial hemorrhage or territorial infarct. No acute fracture or subluxation of the cervical spine. Postoperative changes at the C5-6 level again noted. Left asymmetric posterior disc osteophyte complex with moderate narrowing of the lateral recess and moderate to severe left neural foraminal narrowing. Mild degenerative changes at other cervical levels also noted as described READING PHYSICIAN: Fly Hui M.D. -[phone] 04/08/2025 12:34 [facility] National Teleradiology Program [phone] (For Medical Practitioner Use Only) Attention Patients / Veterans: If you have questions or concerns about these test results, please contact your ordering provider or primary care team. Primary Interpreting Staff: OUTSIDE SERVICE RADIOLOGY, Staff Physician / RADIOLOGY,OUTSIDE SERVICE [facility] Mar 21, 2025 01:25 PM US RENAL COMPLETE: VANNA GLEZ [id number] -1975 M Ex Date: MAR 21, 2025@13:25 Req Phys: SYL COREAS Pat Loc: THEO-UROLOGY RES (Req'g Loc) Img Loc: THEO-ULTRASOUND THEO Service: [facility] [address] [place] [address] (Case [id number] COMPLETE) US RENAL COMPLETE (US Detailed) CPT:59066 Reason for Study: history of stones Clinical History: Report Status: Verified Date Reported: MAR 21, 2025 Date Verified: MAR 21, 2025 Coin Purse Assembler E-Sig:/ES/JAVIER ZAMORA Report: HISTORY: history of stones FINDINGS: Echotexure of the kidneys normal, with age appropriate size. Right kidney normal measuring 10.8cm and left kidney normal measuring 11.7cm. No hydronephrosis or obstruction. No renal lithiasis. No large mass or cyst. No perirenal fluid collections. Visualized bladder normal. Impression: Normal renal ultrasound. RR Primary Interpreting Staff: JAVIER ZAMORA, Staff Physician (Coin Purse Assembler) /JAVIER DIAZ [facility] Encounter Notes: All associated encounter notes This section contains the clinical notes associated to the Encounter. Date/Time Encounter Note(s) Provider Source Apr 08, 2025 02:31 PM EMERGENCY DEPT TRI AGE NOTE: LOCAL TITLE: EMERGENCY DEPARTMENT TRIAGE NOTE STANDARD TITLE: EMERGENCY DEPT TRIAGE NOTE DATE OF NOTE: APR 08, 2025@14:31 ENTRY DATE: APR 08, 2025@14:31:41 AUTHOR: DENISE COFFMAN EXP COSIGNER: URGENCY: STATUS: COMPLETED EMERGENCY DEPARTMENT TRIAGE NOTE Has ADDENDA Emergency Department/Urgent Care Center Triage Patient age:50 Sex in chart: MALE Mode of Arrival: Self Mode of Mobility: * Walk Chief Complaint: facial numbness, bilateral thumb numbness poke in Note (Subjective/Objective): pt to ER triage NOD related facial numbness and numbness to both thumbs since yesterday. pt related hx of numbness to R thumb, hx of neck surgery and fusion, pt being followed by neurosurgery. pt denied weakness, bilateral tow motor operator strength equal, no facial droop. pt related he feels off balance, denied changes to gait just off Level of Consciousness (AVPU): Alert = Appears aware of and responsive to the environment on their own. Follows commands, opens eyes spontaneously, and tracks objects. Vital Signs: Vital signs previously recorded this visit: Date Vital Measurement Qualifiers 04/08/2025 14:30 Temp F (C) 98.1 (36.7) Pulse 78 Respir 14 BP 132/82 POx (L/Min)(%) 97 Pain: DVPRS Scale Location: [facility] Pain Rating Scale (DVPRS): Patient's acceptable pain goal: Suicide Screen: [place] Suicide Severity Rating Scale (C-SSRS) screener 1. Over the past month, have you wished you were or wished you could go to sleep and not wake up? No 2. Over the past month, have you had any actual thoughts of killing yourself? No 3. Over the past month, have you been thinking about how you might do this? Response not required due to responses to other questions. 4. Over the past month, have you had these thoughts and had some intention of acting on them? Response not required due to responses to other questions. 5. Over the past month, have you started to work out or worked out the details of how to kill yourself? Response not required due to responses to other questions. 6. If yes, at any time in the past month did you intend to carry out this plan? Response not required due to responses to other questions. 7. In your lifetime, have you ever done anything, started to do anything, or prepared to do anything to end your life (for example, collected pills, obtained a gun, gave away valuables, went to the roof but didn't jump)? No 8. If YES, was this within the past 3 months? Response not required due to responses to other questions. Emergency Severity Index (ELBA) level: Level 3 Previously documented allergies: Patient has answered NKA Current Problems: 1) Gastroesophageal reflux disease 2) Neck pain 3) Personality disorder 4) Hyperlipidemia 5) Termggk-8-wsifcygxh dehydrogenase deficiency anemia 6) Obesity 7) Lichen planus 8) Kidney stone 9) Abdominal pain 10) Vitamin D deficiency /brigida/ SOULEYMANE ROSARIO, RN REGISTERED NURSE Signed: 04/08/2025 14:34 04/08/2025 ADDENDUM STATUS: COMPLETED 1605: 18g IV placed in L AC bld work collected and sent /brigida/ SOULEYMANE ROSARIO, RN REGISTERED NURSE Signed: 04/08/2025 16:10 04/08/2025 ADDENDUM STATUS: COMPLETED 1730: Pt placed in ED room 104-1 at this time. Pt escorted to assigned ED room via wheelchair. Pt able to stand/pivot to ED stretcher. Pt currently resting in ED stretcher. Monitoring equipment attached to pt. EKG completed prior to ED room placement. Blood work completed prior to ED room placement. CT Head & CT neck completed prior to ED room placement. Warm blankets applied. Pt ED side rails up x 2. Call light is within reach. Bed locked in lowest position. Pt A&Ox4 at this time. Pt in NAD at this time. Respirations even & unlabored. Assessment unchanged from triage. 1735: Currently waiting on MRI for pt imaging. 1740: WATER SWALLOW SCREENING Completed 5 ml water 10 ml water 20 ml water PATIENT PASSED DYSPHAGIA SCREEN 1800: Assessment unchanged from previous rounding. 1900: Assessment unchanged from previous rounding. 1940: Transfer of care report given to Joann AUGUSTINE. All questions answered at this time. No additional comments or concerns raised. /brigida/ BASSAM BOOKER RN REGISTERED NURSE Signed: 04/08/2025 19:41 04/08/2025 ADDENDUM STATUS: COMPLETED 2044: Pt requested sandwich and update regarding plan of care including when MRI would be performed; Provider okayed pt to eat; Pt given sandwich and water. Pt updated that MRI will be performed tomorrow as they are not here overnight. Pt updated. Pt denies any needs. VSS. Pt resting quietly and calmly in no distress with even and unlabored respirations. ASA was documented as being administered, however, pt declined the administration of this medication b/c he stated he isn't supposed to take it due to having anemia that attacks his RBCs when he has it; Provider notified and made aware and stated to hold. 2119: Report given to Nurse Cowan on inpatient unit who will be resuming pt care upon pt's transport to inpatient unit. Pt udpated. Pt denies any needs. VSS. Pt resting quietly and calmly in no distress with even and unlabored respirations. 2141: Pt transported to inpatient unit with this RN; Pt was waiting on food to be delivered that has since now been delievered by his friend. VSS. Pt in no distress with even and unlabored respirations. /es/ Van Porter RN REGISTERED NURSE Signed: 04/08/2025 21:[address] [facility]
--- OUTSIDE RECORDS SUMMARY | 2025-04-11 15:21 | XMS_ITS | Encounter Summary ---
Author Name [facility] [facility] [place] Address [address] [place] [address] Care Team Providers Care Stripper And Printer Name Role Phone MARGARITA ZAMORA Primary Care Provider Unavailabl e Selected Encounter This section includes the information on record at [place] for the Encounter. Date/Time Encounter Type Encounter Description Reason Provider Source Nov 20, 2024 01:00 PM OFFICE O/P EST LOW 20 MIN [facility]OLOGY CL[facility]IC ICD-10-CM N20.0 Calculus of kidney NAIFAND MEHREEN STORY Encounter Template Text not used by [place] Assessments - Encounter Diagnoses This section includes the primary and secondary diagnoses documented for the Encounter. Date/Time Primary/Secondary Diagnosis Diagnosis Name Provider Source Nov 20, 2024 01:55 PM PRIMARY Calculus of kidney SOY NINO [facility] Plan of Treatment: Future Appointments (+ 6 months) and Future Tests (+/- 45 days) The Plan of Treatment section includes future care activities for the patient from all [place] treatmentfacilities. This section includes future appointments and future orders which are active, pending or scheduled. Future Appointments This section includes appointments that were scheduled to occur 6 months from the date of the Encounter, up to a maximum of 20 appointments. The data comes from all [facility]. Appointment Date/Time Appointment Type Appointme nt Facility Name Dec 10, 2024 10:00 AM AMBULATORY - MEDICINE [facility] Dec 10, 2024 01:00 PM AMBULATORY - MEDICINE [facility] Dec 23, 2024 02:00 PM AMBULATORY - SURGERY . [facility] January 31, 2025 01:30 PM AMBULATORY - MEDICINE [facility] February 14, 2025 03:30 PM AMBULATORY - MEDICINE [facility] Feb 26, 2025 01:00 PM AMBULATORY - MEDICINE [facility] Mar 21, 2025 01:30 PM AMBULATORY - NONE [facility] Apr 08, 2025 02:20 PM AMBULATORY - MEDICINE [facility] Apr 11, 2025 03:30 PM AMBULATORY - MEDICINE [facility] Apr 23, 2025 01:20 PM AMBULATORY - SURGERY [facility] Apr 29, 2025 10:00 AM AMBULATORY - NONE [facility] May 19, 2025 02:00 PM AMBULATORY - MEDICINE [facility] Active, Pending, and Scheduled Orders This section includes a listing of several types of active, pending, and scheduled orders, including clinic medications orders, diagnostic test orders, procedure orders and consult orders; where the start date of the order is 45 days before the date of the Encounter or 45 days after the date of theEncounter. The data comes from all [facility]. Test Date/Time Test Type Test Details Facility Name Dec 10, 2024 12:00 AM Laboratory - Chemi stry Order PTH, INTACT (STL) RED/NO-GEL SERUM SP [facility] Dec 10, 2024 12:00 AM Laboratory - Chemi stry Order MICRAL/CREAT PROFILE (STL) URINE YELLOW SP [facility] Dec 10, 2024 12:00 AM Laboratory - Chemi stry Order RENAL PANEL GREEN LI/HEP BLD/PLAS PLASMA SP [facility] Dec 10, 2024 12:00 AM Laboratory - Chemi stry Order CBC BLOOD SP [facility] Dec 10, 2024 12:00 AM Laboratory - Chemi stry Order URINE STONE PNL (24HR-STL-PB) 24HR UR ANGELITO 24-HOUR URINE SP ONCE [facility] Dec 10, 2024 12:00 AM Laboratory - Chemi stry Order URIC ACID GREEN LI/HEP BLD/PLAS PLASMA SP [facility] Vital Signs: All taken on the encounter date This section contains inpatient and outpatient Vital Signs collected on the date of the Encounter. Date/Time Temperature Pulse Blood Pressure Respiratory Rate SP02 Pain Height Weight Body Mass Index Source Nov 20, 2024 01:22 PM 97.9 66 118/73 16 96 0 67 229.3 36 [facility] Social History: Smoking Status (Most current) and Tobacco Use (All prior to encounter date) This section includes the most current, and the historical, smoking and tobacco- related health factors from the [place] facility where the Encounter took place. Current Smoking Status This section includes the most current smoking, or tobacco-related health factor, from the [place] facility where the Encounter took place. Date/Time Current Smoking Status Comment Jojo ity Jan 06, 2015 01:37 PM TOBACCO MEDS OFFER ED BUT DECLINED [facility] Tobacco Use History This section includes a history of the smoking, or tobacco-related health factors, that were collected on or before the date of the Encounter. The data comes from the [place] facility where the Encounter took place. Date/Time Smoking Status/Tobacco Use Comment F [email or web address] Jan 06, 2015 01:37 PM TOBACCO MEDS OFFER ED BUT DECLINED [facility] Encounter Notes: All associated encounter notes This section contains the clinical notes associated to the Encounter. Date/Time Encounter Note(s) Provider Source Nov 20, 2024 01:35 PM UROLOGY NOTE: LOCAL TITLE: UROLOGY NOTE STANDARD TITLE: UROLOGY NOTE DATE OF NOTE: NOV 20, 2024@13:35 ENTRY DATE: NOV 20, 2024@13:35:49 AUTHOR: BEATRICE NINO COSIGNER: VIKY DISLA URGENCY: STATUS: COMPLETED CHIEF COMPLAINT, HPI, EXAM & DATA CC: f/u kidney stones, last seen March 2024 HPI: - 49 yr old M with PMHx of recurrent kidney stones, GERD, G6PD deficiency, lichen planus who presents for follow up of kidney stones # Hx of recurrent kidney stones, - has had about 6-7 episodes in past, - always passed them, no surgical interventions. - [facility], was diagnosed with L kidney stone at [facility], represented to [facility] ED, stone progressed to UVJ. March we saw in clinic and had specimen in a cup. There is no record of this in labs - since that episode has not passed another stone or had UTIs - overall feels well, no further pain, dysuria, hematuria, or fevers/chills - states that occasionally has ache in right flank pain. happens in morning, does not drink alcohol so unclear if happens with this. has not noticed after caffeine. has never been told he has an obstruction. On March 2024 CT scan, there is no hydro but right UO does appear somewhat tethered to psoas. Pain is only 1-2 and transient so - looks as if was referred to nephrology but never saw ROS/PMH Denies F/C/N/V/CP/SOB Remainder of PMH listed below and reviewed? Yes TARGETED PHYSICAL EXAM: Gen: NAD HEENT: NC/AT Resp: NLB Abd: s/nt/nd, no rebound or guarding Back: No CVAT bilaterally Ext: WWP MSK: MAEW Neuro: non-focal Skin: warm and dry : deferred PVR (by scan): NI CREATININE:CREATININE 0.94 mg/dL 04/04/2024 09:54 PSA: No PSA EO data found IMAGING: none new ASSESSM ENT AND PLAN --- 49 yo M with hx of recurrent kidney stones. No recent episodes. Will see back in March with RBUS which is ~ 1 year out from prior imaging. Return precautions given. Discussed that if intermittent flank pain worsens to let us know so we can consider UPJO etc. Also discussed >2 L water per day, lemon in water, <2 gram salt per day. He will try to implement these. Will replace referreal to nephrology. FOLLOW-UP: March with RBUS (MORE INFORMATION) -- * LABS------ PSA Trend: No PSA (LAST 10 5Y) EO data found BMP: SODIUM 138 mEq/L 04/04/2024 09:54 POTASSIUM 5.0 mEq/L 04/04/2024 09:54 CHLORIDE 108 H mEq/L 04/04/2024 09:54 UREA NITROGEN 14.5 mg/dL 04/04/2024 09:54 CREATININE 0.94 mg/dL 04/04/2024 09:54 CALCIUM 9.5 mg/dL 04/04/2024 09:54 CARBON DIOXIDE 21 L mEq/L 04/04/2024 09:54 GLUCOSE 96 mg/dL 04/04/2024 09:54 EGFR (CKD-EPI 2020) 100.0 04/04/2024 09:54 CBC: WBC 6.4 10*3/uL 04/04/2024 09:54 RBC 4.62 10*6/uL 04/04/2024 09:54 HGB 14.2 g/dL 04/04/2024 09:54 HCT 41.4 % 04/04/2024 09:54 MCV 89.6 fL 04/04/2024 09:54 MCH 30.7 pg 04/04/2024 09:54 MCHC 34.3 g/dL 04/04/2024 09:54 RDW 11.7 L % 04/04/2024 09:54 PLT 331 10*3/uL 04/04/2024 09:54 MPV 9.6 fL 04/04/2024 09:54 NEUTROPHILS, AUTO % 55 % 04/04/2024 09:54 LYMPHOCYTES, AUTO % 30 % 04/04/2024 09:54 MONOCYTES, AUTO % 8 % 04/04/2024 09:54 EOSINOPHILS, AUTO % 5 % 04/04/2024 09:54 BASOPHILS, AUTO % 1 % 04/04/2024 09:54 NEUTROPHILS, ABSOLUTE 3.48 10*3/uL 04/04/2024 09:54 LYMPHOCYTES, ABSOLUTE 1.93 10*3/uL 04/04/2024 09:54 MONOCYTES, ABSOLUTE 0.53 10*3/uL 04/04/2024 09:54 EOSINOPHILS, ABSOLUTE 0.34 10*3/uL 04/04/2024 09:54 BASOPHILS, ABSOLUTE 0.08 10*3/uL 04/04/2024 09:54 UA: URINE COLOR Colorless 04/04/2024 09:54 APPEARANCE Clear 04/04/2024 09:54 U.PH 5.5 04/04/2024 09:54 U.BILIRUBIN Negative mg/dL 04/04/2024 09:54 U.NITRITE Negative mg/dL 04/04/2024 09:54 URINE RBC/HPF 1 /HPF 04/04/2024 09:54 URINE WBC/HPF <1 /HPF 04/04/2024 09:54 MUCUS RARE /LPF 04/04/2024 09:54 PAST MEDICAL, SOCIAL, FAMILY HX AND ROS 1) Gastroesophageal reflux disease 2) Neck pain 3) Personality disorder 4) Hyperlipidemia 5) Ynmwqdi-2-qcmcirwpa dehydrogenase deficiency anemia 6) Obesity 7) Lichen planus 8) Kidney stone 9) Abdominal pain MEDICATIONS: Active Outpatient Medications (including Supplies): Active Non-VA Medications Status 1) Non-VA ACETAMINOPHEN TAB BY MOUTH ACTIVE Allergies: Patient has answered NKA /brigida/ BEATRICE NINO MD UROLOGY RESIDENT Signed: 11/20/2024 13:56 /brigida/ VIKY DISLA MD Staff Physician, Urology Cosigned: 11/20/2024 22:44 BEATRICE NINO [facility]
--- OUTSIDE RECORDS SUMMARY | 2025-04-11 15:22 | XMS_ITS ---
[place] [facility] Encounter Summary Created on: April 11, 2025 JESUSITAVANNA HENSON : 1975 Sex: Male Author Name [facility] [place] [facility] [place] Address [address] [place] [address] Care Team Providers Care Patient Experience Coordinator Name Role Phone NOAHTRICIABY Primary Care Provider Unavailabl e Selected Encounter This section includes the information on record at [place] for the Encounter. Date/Time Encounter Type Encounter Description Reason Pro vider Source Apr 08, 2025 09:40 PM Inpatient Visit HOSPITALIZATION KWABENA MAYERS Kimberly Encounter Template Text not used by [place] Plan of Treatment: Future Appointments (+ 6 months) and Future Tests (+/- 45 days) The Plan of Treatment section includes future care activities for the patient from all [place] treatmentfacilities. This section includes future appointments and future orders which are active, pending or scheduled. Future Appointments This section includes appointments that were scheduled to occur 6 months from the date of the Encounter, up to a maximum of 20 appointments. The data comes from all [place] treatment facilities. Appointment Date/Time Appointment Type Appointme nt Facility Name Apr 11, 2025 03:30 PM AMBULATORY - MEDICINE . [facility] Apr 23, 2025 01:20 PM AMBULATORY - SURGERY [facility] Apr 29, 2025 10:00 AM AMBULATORY - NONE [facility] May 19, 2025 02:00 PM AMBULATORY - MEDICINE [facility] Jul 01, 2025 11:00 AM AMBULATORY - MEDICINE [facility] Active, Pending, and Scheduled Orders This section includes a listing of several types of active, pending, and scheduled orders, including clinic medications orders, diagnostic test orders, procedure orders and consult orders; where the start date of the order is 45 days before the date of the Encounter or 45 days after the date of theEncounter. The data comes from all [place] treatment facilities. Test Date/Time Test Type Test Details Facility Name Apr 08, 2025 03:22 PM Procedure Order CP EKG STL CP EKG - STL Proc Branding Specialist's Choice [facility] Apr 29, 2025 12:00 AM Imaging - Magnetic Resonance Imaging (MRI) Order MRI SPINE CERVICAL W/O&W CONT [facility] Apr 29, 2025 12:00 AM Imaging - Magnetic Resonance Imaging (MRI) Order MRI BRAIN W/O CONT [facility] Lab Results: +/- 30 days of the encounter This section includes the Chemistry and Hematology Lab Results on record with [place] for the patient. Radiology Reports and Pathology Reports are provided separately, in subsequent sections. Lab Results This section contains the Chemistry/Hematology Results that were resulted 30 days before or 30 daysafter the date of the Encounter. Date/Time Source Result Type Result - Unit Interpretation Reference Range Specimen Type Comment Apr 09, 2025 06:[address] [facility] B12 SERUM Specimen Type: SERUM No comment entered. Ordering Provider: ANTONINA MEDINA Report Released Date/Time: Apr 09, 2025 04:48 AM Reporting Lab: [facility] [address] [address] Performing Lab: [facility] [address] [facility] [facility] [address] B12 350 pg/mL 213-816 Apr 08, 2025 11:[address] [facility] MRSA SURVL NARES DNA NARES Specimen [...] Apr 08, 2025 09:42 PM Reporting Lab: [facility] [address] [address] Performing Lab: [facility] [address] [address] MRSA SURVL NARES DNA Negative Negative Apr 08, 2025 10:[address] [facility] LIPID PANEL (STL) PLASMA Specimen Type: PLASM A No comment entered. Ordering Provider: JESSICA MEDINA Report Released Date/Time: Apr 08, 2025 09:42 PM Reporting Lab: [facility] [address] [address] Performing Lab: [facility] [address] [address] CHOLESTEROL 207 mg/dL H 0-200 TRIGLYCERIDE 121 mg/dL 0-150 CALCULATED LDL 141 mg/dL HDL(New) 42 mg/dL >40 Apr 08, 2025 04:[address] [facility] PHOSPHOROUS PLASMA Specimen Type: PLASM A Comment: No hemolysis noted. Ordering Provider: DI GOODWIN Report Released Date/Time: Apr 08, 2025 03:20 PM Reporting Lab: [facility] [address] [address] Performing Lab: [facility] [address] [address] PHOSPHOROUS 3.0 mg/dL 2.3-4.7 Apr 08, 2025 04:[address] [facility] MAGNESIUM PLASMA Specimen Type: PLASM A Comment: No hemolysis noted. Ordering Provider: DI GOODWIN Report Released Date/Time: Apr 08, 2025 03:20 PM Reporting Lab: [facility] [address] [facility] [address] Performing Lab: [facility] [address] [address] MAGNESIUM 2.1 mg/dL 1.6-2.6 Apr 08, 2025 04:[address] [facility] TROPONIN I (STL) PLASMA Specimen Type: PLASM A Comment: No hemolysis noted. Ordering Provider: DI GOODWIN Report Released Date/Time: Apr 08, 2025 03:20 PM Reporting Lab: [address] [address] Performing Lab: [place] [id number] TROPONIN I (STL) <0.010 ng/mL 0-0.033 Apr 08, 2025 04:[address] [facility] TSH (MA-PB) SERUM Specimen Type: SERUM No comment entered. Ordering Provider: DI GOODWIN Report Released Date/Time: Apr 08, 2025 03:20 PM Reporting Lab: [address] [address] Performing Lab: [address] [address] TSH 2.009 u[IU]/mL 0.47-5 Apr 08, 2025 04:[address] [facility] CBC BLOOD Specimen Type: BLOOD No comment entered. Ordering Provider: DI GOODWIN Report Released Date/Time: Apr 08, 2025 03:20 PM Reporting Lab: [address] [address] Performing Lab: [address] [address] WBC 6.7 10*3/uL 3.6-11.2 RBC 4.69 10*6/uL [...] 0.00-0. 20 Apr 08, 2025 04:[address] [facility] COMPREHENSIVE METABOLIC PANEL PLASMA Specimen Type: PLASMA Comment: No hemolysis noted. Ordering Provider: DI GOODWIN Report Released Date/Time: Apr 08, 2025 03:20 PM Reporting Lab: [facility] [address] [address] Performing Lab: [facility] [address] [facility] [address] CREATININE 1.08 mg/dL 0.7-1.3 UREA NITROGEN 19.7 [...] Source Apr 08, 2025 11:45 PM 5 [facility] Apr 08, 2025 10:15 PM 5 [facility] Apr 08, 2025 09:44 PM 97.9 F 71 /min 154/96 mm[Hg] 18 /min 96 % 6 237.1 lb 37 [facility] Apr 08, 2025 09:43 PM 73 /min 144/93 mm[Hg] 15 /min 95 % [facility] Apr 08, 2025 08:46 PM 79 /min 147/108 mm[Hg] 18 /min 94 % [facility] Social History: Smoking Status (Most current) and Tobacco Use (All prior to encounter date) This section includes the most current, and the historical, smoking and tobacco- related health factors from the [place] facility where the Encounter took place. Current Smoking Status This section includes the most current smoking, or tobacco-related health factor, from the [place] facility where the Encounter took place. Date/Time Current Smoking Status Comment Jojo ferris Jan 06, 2015 01:37 PM CURRENT TOBACCO USER [facility] Tobacco Use History This section includes a history of the smoking, or tobacco-related health factors, that were collected on or before the date of the Encounter. The data comes from the [place] facility where the Encounter took place. Date/Time Smoking Status/Tobacco Use Comment Garret pak Jan 06, 2015 01:37 PM TOBACCO MEDS OFFER ED BUT DECLINED [facility] Radiology Reports: +/- 30 days of [...] the Encounter. The data comes from all [place] treatment facilities. Date/Time Radiology Report Provider Source Apr 08, 2025 04:[address] HEAD W/O CONT: VANNA GLEZ ALL [id number] -1975 M Exm Date: APR 08, 2025@16:26 Req Phys: DI GOODWIN Loc: THEO-EMERGENCY DEPT 2ND SHIFT (R Img Loc: THEO-CT IMAGING THEO Service: Unknown [facility] [address] [place] [address] (Case [id number] COMPLETE) CT HEAD W/O CONT (CT Detailed) CPT:22683 Reason for Study: weakness Clinical History: Responsible [...] 08, 2025 Date Verified: APR 08, 2025 [employer]-Sig:/ES/OUTSIDE SERVICE RADIOLOGY Report: CT HEAD W/O CONT, CT CERVICAL SPINE W/O CONT HISTORY: weakness COMPARISON: 12/26/[address] TECHNIQUE: Contiguous axial CT images from the level of the skull base through the skull apex, performed at the local [place] facility. 270 images were received by the [place] National Teleradiology Program (NTP) for interpretation. CT of the cervical spine with multiplanar reformatting was performed at the local [place] facility. 1260 images were received by the [place] National Teleradiology Program (NTP) for interpretation. RADIATION [...] as described READING PHYSICIAN: Fly Hui M.D. -[phone] 04/08/2025 12:34 [facility] National Teleradiology Program [phone] (For Medical Practitioner Use Only) Attention Patients / Veterans: If you have questions or concerns about these test results, please contact your ordering provider or primary care team. Primary Interpreting Staff: OUTSIDE SERVICE RADIOLOGY, Staff Physician / RADIOLOGY,OUTSIDE SERVICE [facility] Apr 08, 2025 04:[address] CERVICAL SPINE W/O CONT: VANNA GLEZ [id number] -1975 M Ex Date: APR 08, 2025@16:26 Req Phys: DI GOODWIN Loc: THEO-EMERGENCY DEPT 2ND SHIFT (R Img Loc: THEO-CT IMAGING THEO Service: Unknown [facility] [address] [place] [address] (Case [id number] COMPLETE) CT CERVICAL SPINE W/O CONT (CT Detailed) CPT:23963 Reason for Study: possibel chord blockage c [...] 08, 2025 Date Verified: APR 08, 2025 [employer]:/ES/OUTSIDE SERVICE RADIOLOGY Report: CT HEAD W/O CONT, CT CERVICAL SPINE W/O CONT HISTORY: weakness COMPARISON: 12/26/[address] TECHNIQUE: Contiguous axial CT images from the level of the skull base through the skull apex, performed at the local [place] facility. 270 images were received by the [place] National Teleradiology Program (NTP) for interpretation. CT of the cervical spine with multiplanar reformatting was performed at the local [place] facility. 1260 images were received by the [place] National Teleradiology Program (NTP) for interpretation. RADIATION [...] as described READING PHYSICIAN: Fly Hui M.D. -[phone] 04/08/2025 12:34 [facility] National Teleradiology Program [phone] (For Medical Practitioner Use Only) Attention Patients / Veterans: If you have questions or concerns about these test results, please contact your ordering provider or primary care team. Primary Interpreting Staff: OUTSIDE SERVICE RADIOLOGY, Staff Physician / RADIOLOGY,OUTSIDE SERVICE [facility] Mar 21, 2025 01:25 PM US RENAL COMPLETE: VANNA GLEZ [id number] -1975 M Exm Date: MAR 21, 2025@13:25 Req Phys: SYL COREAS Pat Loc: THEO-UROLOGY RES (Req'g Loc) Img Loc: THEO-ULTRASOUND THEO Service: Unknown [facility] [address] [address] (Case [id number] COMPLETE) US RENAL COMPLETE (US Detailed) CPT:85198 Reason for Study: history of stones Clinical History: Report Status: Verified Date Reported: MAR 21, 2025 Date Verified: MAR 21, 2025 [employer]:/ES/JAVIER ZAMORA Report: HISTORY: history of stones FINDINGS: Echotexure of the kidneys normal, with age appropriate size. Right kidney normal measuring 10.8cm and left kidney normal measuring 11.7cm. No hydronephrosis or obstruction. No renal lithiasis. No large mass or cyst. No perirenal fluid collections. Visualized bladder normal. Impression: Normal renal ultrasound. RR Primary Interpreting Staff: JAVIER ZAMORA, Staff Physician (Yassine) /JAVIER DIAZ [facility] Encounter Notes: All associated encounter notes This section contains the clinical notes associated to the Encounter. Date/Time Encounter Note(s) Provider Source Apr 09, 2025 02:38 PM DISCHARGE SUMMARY: LOCAL TITLE: Discharge Summary STANDARD TITLE: DISCHARGE SUMMARY DICT DATE: APR 09, 2025@10:56 ENTRY DATE: APR 09, 2025@10:56:14 DICTATED BY: JESÚS HAHN ATTENDING: MUSHTAQ GEE URGENCY: routine STATUS: COMPLETED PRINCIPAL DIAGNOSIS: Numbness and tingling (different from baseline) SECONDARY DIAGNOSES: Significant Medical Problems PRESENT on Admission: Rybvvgu-4-yuvnivkdm dehydrogenase-deficiency, Hyperlipidemia, Gastroesophageal Reflux Disease, nephrolithiasis, lichen planus, obesity, cervical spinal stenosis status post C5-6 Anterior Cervical Discectomy and Fusion in 2002, and chronic neck pain Significant Medical Problems NOT PRESENT on Admission: None OPERATIVE/INVASIVE PROCEDURES: None ATTENDING PHYSICIAN: Mushtaq Gee M.D. BRIEF HISTORY AND ESSENTIAL PHYSICAL FINDINGS: 50-year-old male with a significant PMH of [id number], HLD, GERD, nephrolithiasis, lichen planus, obesity, cervical spinal stenosis s/p C5-6 ACDF in 2002, and chronic neck pain presented with complaints of facial numbness from the jaw to cheekbones, bilateral thumb numbness, and left index finger numbness. ROS was notable for intermittent numbness exacerbated by certain movements, mild facial numbness episode last year, and chronic left neck pain. On physical exam, AOx4, CN II-XII intact, full strength, and sensation in extremities with a normal gait. CBC and CMP were unremarkable; CT Head negative for hemorrhage or infarct; CT Spine showed postoperative C5-6 changes with moderate narrowing of the lateral recess and moderate to severe left neural foraminal narrowing. MRI findings suggested degenerative disc disease and facet disease in the cervical spine. HOSPITAL COURSE: Facial numbness and bilateral thumb numbness: Given the intermittent symptoms and lack of focal neurological deficits, compressive etiology from cervical spinal disease was suspected. Imaging showed changes consistent with previous cervical spinal stenosis. ASA 325 mg was administered. MRI brain and cervical spine w/o contrast were ordered but deferred to outpatient. Rule out CVA: CT Head was negative for hemorrhage or infarct; troponin levels were negative. Hx cervical spinal stenosis/radiculopathy: Previous imaging and EMG/NCS (December 2023) indicated chronic left cervical radiculopathy; consultation with neurosurgery reaffirmed this etiology. Conservative therapy recommended with outpatient follow-up for repeat bilateral EMG/NCS, MRI studies, and referral for PT. Other chronic conditions: Managed with home medications including clobetasol, ketoconazole shampoo, potassium citrate, and cholecalciferol. CONDITION ON DISCHARGE: Stable Neurosurgery follow-up with recommended outpatient investigations and therapies was arranged (NSGY will order MRI). The patient was advised to call for any new or worsening symptoms. FOLLOW-UP: 04/23/2025 13:20 THEO-UROLOGY RES INPATIENT APPOINTMENT 05/19/2025 14:00 THEO-DERM MD INPATIENT APPOINTMENT 07/01/2025 11:00 THEO-RENAL MADD[place]URI INPATIENT APPOINTMENT 12/15/2025 14:00 THEO-OPTOMETRY 1 INPATIENT APPOINTMENT 02/03/2026 14:30 THEO-ST CLR PACT 3 PCP INPATIENT APPOINTMENT NON-VA FOLLOW-UP CARE: None DISCHARGE MEDICATIONS: Active Outpatient Medications (including Supplies): Active Outpatient Medications Status 1) CHOLECALCIF 50MCG (D3-2,000UNIT) TAB TAKE ONE TABLET BY ACTIVE MOUTH ONCE A DAY Indication: FOR VITAMIN D DEFICIENCY 2) CLOBETASOL PROPIONATE 0.05% OINT APPLY SPARINGLY TO AFFECTED ACTIVE AREA(S) TWICE A DAY (EXTERNAL USE ONLY) APPLY TO RASH ON ARMS AND LEGS TWICE DAILY Indication: LICHEN PLANUS 3) KETOCONAZOLE 2% SHAMPOO USE SHAMPOO TO AFFECTED AREA(S) ONCE ACTIVE A DAY (EXTERNAL USE ONLY) (SHAKE WELL) LATHER AND LET SIT FOR 5 MINUTES THEN RINSE Indication: TINEA VERSICOLOR 4) POTASSIUM CITRATE 10MEQ SA TAB TAKE ONE TABLET BY MOUTH ACTIVE TWICE A DAY SWALLOW WHOLE, DO NOT CUT, CRUSH, CHEW, OR DISSOLVE Indication: KIDNEY STONE 5) SALONPAS PAIN RELIEF PATCH LARGE APPLY 1 PATCH TO SKIN SITE ACTIVE ONCE A DAY NEEDED (EXTERNAL USE ONLY) Indication: FOR PAIN Active Non-VA Medications Status 1) Non-VA ACETAMINOPHEN TAB BY MOUTH ACTIVE 6 Total Medications ALLERGIES OR DRUG SENSITIVITIES: Patient has answered NKA DIET: Regular ACTIVITY: As tolerated INFORMATION REGARDING CONDITION OR PROPER HOME AND/OR WOUND CARE: None RETURN TO WORK: As tolerated DISPOSITION: [X} Discharge home [ ] Discharge to home hospice [ ] Transfer to chcf [ ] Transfer to rehab [ ] Transfer to psychiatry [ ] Transfer to Spinal cord injury unit [ ] Transfer to hospice [ ] Transfer to outside facility: [ ] Transfer to outside facility under hospice: [ ] : autopsy approved by Next of Kin [ ] : autopsy not approved by Next of Kin [ ] : 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 [ ] The patient is not competent in the VA sense of the word. TOTAL TIME SPENT FOR FINAL HOSPITAL DISCHARGE: 45 minutes. Verified By PATRICIA/GENO /brigida/ MUSHTAQ GEE MD Staff Physician - Allergy & Immunology Signed: 04/09/2025 16:11 for JESÚS HAHN RESIDENT PHYSICIAN /es/ MUSHTAQ GEE MD Staff Physician - Allergy & Immunology Cosigned: 04/09/2025 16:11 MUSHTAQ GEE [facility] Apr 09, 2025 11:19 AM NURSING TRANSFER SUMMARIZATION DISCHARGE NOTE: LOCAL TITLE: PREMA DISCHARGE/TRANSFER SUMMARY STL STANDARD TITLE: NURSING TRANSFER SUMMARIZATION DISCHARGE NOTE DATE OF NOTE: APR 09, 2025@11:19 ENTRY DATE: APR 09, 2025@11:19:32 AUTHOR: ANENL DUARTE COSIGNER: URGENCY: STATUS: COMPLETED DISCHARGE - TRANSFER SUMMARY Action: Discharge Diagnosis: Last Admission: 04/08/25 9:40:58 pm Admit Dx: R/O CVA Age: 50 Allergies: Patient has answered NKA Patient Condition: Stable Vital Signs: Temperature: 97.6 F [36.4 C] (04/09/2025 06:27) Pulse: 65 (04/09/2025 06:27) Respiration: 18 (04/09/2025 06:27) Blood Pressure: 136/78 (04/09/2025 06:27) Pain: 6 (04/09/2025 09:54) Fall Risk Assessment Score: 35 Fall Risk Level: Low Risk ===== SUICIDE SCREEN ===== Result of C-SSRS screener done was NEGATIVE. C-SSRS Screen is Negative Isolation: No Precautions: None Orientation: x3 Hygiene: Self Care Nutrition: Regular diet Special needs: Assistance: Independent Bowel/Bladder: Date of last bowel movement: Mar Defecation: Normal Able to void: YES Continent: YES Catheter: No Wound / Skin Condition: Assessment Type: SKIN REINSPECTION/REASSESSMENT SKIN INSPECTION: Skin Color: Usual for ethnicity Skin Temperature: Warm Skin Moisture: Normal Skin Turgor: Elastic (normal/immediate) Dallas Skin Assessment: The patient's Dallas Scale Score is 19. The patient is considered not at risk for development of pressure ulcers/injuries. Sensory perception -- ability to respond meaningfully to pressure-related discomfort No impairment. Moisture -- degree to which skin is exposed to moisture Rarely moist. Activity -- ability to change and control body position Walks occasionally. Mobility -- ability to change and control body position Slightly limited. Nutrition -- usual food intake patterns Adequate. Friction and shear Potential problem. INTERVENTIONS: No change in previous interventions as listed below 04/08/2025 Educate Importance Of Changing Position Provide Education On Cause/Prevention RISK FACTORS THAT INCREASE RISK FOR DEVELOPING PRESSURE INJURIES The patient/resident does not have any additional risk factors. SKIN INTEGRITY: Intact STANDARD OF CARE / PRACTICE IMPLEMENTED: Indicate status at Discharge/Transfer: Stabilized Flu Shot Given: No Patient received flu vaccine prior to admission Pneumococcal Shot Given: No Patient refused MRSA Discharge Swab Done: No Reason: done on admission Discharged/Transfered to: Own home without home care services Accompanied by (Name & Relationship): Next of Kin notified: Discharge/Transfer Mode: Ambulatory Wheelchair Discharged/Transferred with: Written Discharge Instructions Return Appointments The was informed of the date and time of his/her follow-up mental health appointments: The [place] was provided the opportunity to cancel or change his/her scheduled follow-up mental health appointments: The [place] was educated about what to do and who to contact should he/she need to cancel the follow-up mental health appointment: Clothing / Valuables returned: Yes Describe: $20.wallet.keys.hat.shirt.s horts.shoes.socks.cellphone w/ portable tool carrier. Prosthetics with patient: Dentures/Partials with patient: None Glasses with patient: YES Other: NA Printed MD Instruction sheet with medication list reviewed and given to the patient/caregiver. Patient/Caregiver verifies medication list is complete and accurate. Patient/Caregiver appeared ready for instruction (good eye contact, appropriate questions, active participation, etc) Person(s) who received education: Patient Education Topic/Teaching Needs: Disease/Condition Follow-up Instructions Methods used Included: A copy of the Discharge Instructions Health Summary given to patient/caregiver and signed by patient/guardian. Patient's medications were reviewed and reconciled by discharge team. Teaching outcomes: Good level of understanding /es/ SOULEYMANE KISER,RN REGISTERED NURSE Signed: 04/09/2025 12:39 ANNEL DUARTE [facility] Apr 09, 2025 11:18 AM NURSING NOTE: LOCAL TITLE: VAAES NSG IV INSERTION AND MAINTENANCE STANDARD TITLE: NURSING NOTE DATE OF NOTE: APR 09, 2025@11:18 ENTRY DATE: APR 09, 2025@11:19:01 AUTHOR: ANNEL DUARTE EXP COSIGNER: URGENCY: STATUS: COMPLETED Version 2.2 Charting in accordance with [place] APPROVED IGIUGIG STANDARD (CAAES) ACUTE INPATIENT/REHABILITATION NURSING ADMISSION SCREENING, ASSESSMENT, AND STANDARDS OF CARE IV Line Insertion and Maintenance Peripheral IV Line #1: Discontinue: Location: Left, Antecubital Date/Time: Mar Reason for discontinuation: Therapy complete /brigida/ SOULEYMANE KISER,RN REGISTERED NURSE Signed: 04/09/2025 12:39 ANNEL DUARTE [facility] Apr 09, 2025 10:51 AM PHYSICIAN EDUCATION DISCHARGE NOTE: LOCAL TITLE: DISCHARGE INSTRUCTIONS STL STANDARD TITLE: PHYSICIAN EDUCATION DISCHARGE NOTE DATE OF NOTE: APR 09, 2025@10:51 ENTRY DATE: APR 09, 2025@10:51:20 AUTHOR: JESÚS HAHN COSIGNER: MUSHTAQ GEE URGENCY: STATUS: COMPLETED MEDICATIONS THAT WERE CHANGED: None MEDICATIONS THAT WERE STOPPED (AND REASON FOR STOPPING): None NEW MEDICATIONS WITH INSTRUCTIONS: None DATE OF ADMISSION: Mar 21:40 DATE OF DISCHARGE: Mar REASON(S) FOR BEING IN THE HOSPITAL: You were admitted to the hospital because you felt numbness in your face, from your jaw to your cheekbones, and also in your thumbs and left index finger. Additionally, you reported feeling off-balance while walking. These symptoms raised concerns about a possible stroke. While in the hospital, you underwent several tests, including blood work, a CT scan of your head, and imaging of your spine. All tests showed that you did not have a stroke, nor was there any bleeding in your brain. Your imaging results and previous medical history of cervical spinal stenosis, which means narrowing in your neck bones, suggest that your symptoms may be related to this condition rather than a stroke. Your numbness and discomfort seem to be linked to changes in your neck, especially around the area where you had surgery in 2002. Based on these findings, the doctors concluded that your symptoms are most likely due to your existing neck condition. Further follow-up and treatment will be managed through outpatient care, focusing on your cervical spine issues. This will include a MRI of your head and spine that the neurosurgery team will order. YOUR OUTPATIENT CARE TEAM: Team Information Primary Care Team: [facility] PACT 03 Provider: MARGARITA [facility] Position: NURSE VALE FUTURE APPOINTMENTS: 04/23/2025 13:20 THEO-UROLOGY RES INPATIENT APPOINTMENT 05/19/2025 14:00 SON PALACIO INPATIENT APPOINTMENT 07/01/2025 11:00 THEO-RENAL [place] INPATIENT APPOINTMENT 12/15/2025 14:00 THEO-OPTOMETRY 1 INPATIENT APPOINTMENT 02/03/2026 14:30 [facility] PACT 3 PCP INPATIENT APPOINTMENT YOUR KNOWN ALLERGIES: Patient has answered NKA CALL YOUR DOCTOR IF YOU HAVE ANY OF THESE PROBLEMS: Migraines and Headaches: Problems with speech, vision, balance, or movement PHYSICAL ACTIVITY: Activity as tolerated DIET: Oral Nutrition/Diet Instructions Regular Diet: A healthy eating plan will maintain or promote good health. -Consume a diet rich in fruits, vegetables, whole grains, and healthy oils -Choose lean protein sources such as fish, poultry, beans/legumes, and non-fat or low-fat dairy sources. -Limit saturated fat such as fatty cuts of beef, kaufman, pork, chicken with skin, whole milk, cream, butter -Minimize consumption of sugary drinks, desserts -Limit deep-fried foods and fast foods -Limit the use of added table salts, salt-type seasoning, and processed foods -Speak to a Registered Dietitian about other healthy eating tips and meal planning DEVICES AT DISCHARGE: Not Applicable: The patient should be discharged with no urinary catheter or intravenous access TOBACCO & ALCOHOL: Discharge tobacco cessation medication(s) not indicated due to: Other reason(s) documented by physician/DIRECTOR OF INFORMATICS/PA or pharmacist Reason(s): n/a Discharge medications for alcohol/drug disorder not offered Reason: n/a DISCHARGE INSTRUCTIONAL MATERIALS: CONDITION OF PATIENT AT DISCHARGE: Stable DISCHARGE DESTINATION: Home NOTE: If you are having feelings of Depression or Emotional Distress, or feel you just need to talk with someone, please call [phone] ([phone]), [facility] - Press 1. COPY OF DISCHARGE INSTRUCTIONS: The patient/family understands and will be provided a copy of these discharge instructions. DISCHARGE MEDICATION LIST: Active Outpatient Medications (including Supplies): Active Outpatient Medications Status 1) CHOLECALCIF 50MCG (D3-2,000UNIT) TAB TAKE ONE TABLET BY ACTIVE MOUTH ONCE A DAY Indication: FOR VITAMIN D DEFICIENCY 2) CLOBETASOL PROPIONATE 0.05% OINT APPLY SPARINGLY TO AFFECTED ACTIVE AREA(S) TWICE A DAY (EXTERNAL USE ONLY) APPLY TO RASH ON ARMS AND LEGS TWICE DAILY Indication: LICHEN PLANUS 3) KETOCONAZOLE 2% SHAMPOO USE SHAMPOO TO AFFECTED AREA(S) ONCE ACTIVE A DAY (EXTERNAL USE ONLY) (SHAKE WELL) LATHER AND LET SIT FOR 5 MINUTES THEN RINSE Indication: TINEA VERSICOLOR 4) POTASSIUM CITRATE 10MEQ SA TAB TAKE ONE TABLET BY MOUTH ACTIVE TWICE A DAY SWALLOW WHOLE, DO NOT CUT, CRUSH, CHEW, OR DISSOLVE Indication: KIDNEY STONE 5) SALONPAS PAIN RELIEF PATCH LARGE APPLY 1 PATCH TO SKIN SITE ACTIVE ONCE A DAY NEEDED (EXTERNAL USE ONLY) Indication: FOR PAIN Active Non-VA Medications Status 1) Non-VA ACETAMINOPHEN TAB BY MOUTH ACTIVE 6 Total Medications Active Remote Medications: No Active Remote Medications for this patient /brigida/ JESÚS HAHN RESIDENT PHYSICIAN Signed: 04/09/2025 10:55 /brigida/ MUSHTAQ GEE MD Staff Physician - Allergy & Immunology Cosigned: 04/09/2025 11:32 JESÚS HAHN [facility] Apr 09, 2025 09:19 AM NURSING NOTE: LOCAL TITLE: [facility] SKIN INSPECTION/ASSESSMENT STANDARD TITLE: NURSING NOTE DATE OF NOTE: APR 09, 2025@09:19 ENTRY DATE: APR 09, 2025@09:20:21 AUTHOR: ANNEL DUARTE EXP COSIGNER: URGENCY: STATUS: COMPLETED Assessment Type: SKIN REINSPECTION/REASSESSMENT SKIN INSPECTION: Skin Color: Usual for ethnicity Skin Temperature: Warm Skin Moisture: Normal Skin Turgor: Elastic (normal/immediate) Dallas Skin Assessment: The patient's Dallas Scale Score is 18. The patient is at mild risk for development of pressure ulcer/injury. Sensory perception -- ability to respond meaningfully to pressure-related discomfort Slightly limited. Moisture -- degree to which skin is exposed to moisture Rarely moist. Activity -- ability to change and control body position Walks occasionally. Mobility -- ability to change and control body position Slightly limited. Nutrition -- usual food intake patterns Adequate. Friction and shear Potential problem. INTERVENTIONS: No change in previous interventions as listed below 04/08/2025 Educate Importance Of Changing Position Provide Education On Cause/Prevention RISK FACTORS THAT INCREASE RISK FOR DEVELOPING PRESSURE INJURIES The patient/resident does not have any additional risk factors. SKIN INTEGRITY: Intact /es/ SOULEYMANE KISER,RN REGISTERED NURSE Signed: 04/09/2025 09:21 ANNEL DUARTE [facility] Apr 09, 2025 09:14 AM NURSING INPATIENT NOTE: LOCAL TITLE: [facility] ACUTE INPATIENT NSG SHIFT ASSESSMENT STANDARD TITLE: NURSING INPATIENT NOTE DATE OF NOTE: APR 09, 2025@09:14 ENTRY DATE: APR 09, 2025@09:14:17 AUTHOR: ANNEL DUARTE EXP COSIGNER: URGENCY: STATUS: COMPLETED Version 2.2 Charting in accordance with [facility] IGIUGIG STANDARD (CAAES) ACUTE INPATIENT/REHABILITATION NURSING ADMISSION SCREENING, ASSESSMENT, AND STANDARDS OF CARE ======== ASSESSMENT ======== ======== HANDOFF ======== Bedside report and handoff completed Safety check completed ======== PAIN ASSESSMENT ======== Patient's acceptable pain goal: 0 No pain Are you currently experiencing pain? Yes - DVPRS scale used to assess Location: neck Defense and [facility] Pain Rating Scale (DVPRS): 6 Hard to ignore, avoid usual activities Pain Score: 6 ======== MELÉNDEZ FALL SCALE & TIPS PROGRAM ======== Meléndez Fall Scale: The Meléndez Fall scale was performed and score was 35. This is indicative of moderate risk for falls. History of falling: immediate or within 3 months? No Secondary diagnosis: Yes Ambulatory aid: None/bedrest/nurse assist Intravenous therapy/Heparin lock: Yes Gait/Transferring: Normal/bed rest/immobile Mental Status: Oriented to own ability/knows own limitations Fall Tailoring Interventions for Patient Safety (TIPS) Fall TIPS initiated with patient: Yes Interventions: Communicate recent fall or risk of harm Fall TIPS reviewed with patient: Yes Interventions: Communicate recent fall or risk of harm ======== ENVIRONMENTAL SAFETY MANAGEMENT ======== Implemented safety standards of care: -[place] to unit & environment -Adequate room lighting -Bed in low and locked position -Call light within reach -Personal items within reach -Traffic path in room free of clutter -Non-slip footwear -Upper/half length side rails up for bed mobility -Sensory aids within reach -Encourage patient to utilize sensory support Additional safety measures: Increased frequency of rounding ======== NEUROLOGICAL ======== Neurological Orientation: Oriented x4 Level of Consciousness (AVPU): Alert = Appears aware of and responsive to the environment on their own. Follows commands, opens eyes spontaneously, and tracks objects. Affect/behavior: Cooperative Calm Christine Agitation Sedation Scale (RASS): 0 Alert and calm ======== NEUROMUSCULAR/NEUROVASCULAR EXTREMITIES ASSESSMENT ======== Strength: Radio Equipment Repairer Bilateral: Strong Upper Extremity Bilateral: Full strength Lower Extremity Bilateral: Full strength Sensation: Upper Extremity Sensation Bilateral: Decreased Lower Extremity Sensation Bilateral: Intact Temperature: Upper Extremity Temperature Bilateral: Warm Lower Extremity Temperature Bilateral: Warm ======== CARDIOVASCULAR ======== Heart Sounds: Normal (S1S2) Heart Rate/Rhythm (without assistant professor of history): Regular Capillary Refill: All 4 extremities, less than or equal to 3 seconds. Peripheral Pulses: All 4 extremities, 3+ normal. Edema: None Cardiovascular - Embolism Prevention: Comment: Lovenox ======== RESPIRATORY ======== Respirations: Unlabored Pattern: Regular Breath Sounds Auscultated: Anterior and posterior Left Upper Lobe: Clear Right Upper Lobe: Clear Right Middle Lobe: Clear Left Lower Lobe: Clear Right Lower Lobe: Clear ======== GASTROINTESTINAL ======== Last bowel movement: 04/08/2025 Bowel movement reported by patient-unwitnessed Elimination: Continent Abdominal Description: Rounded Palpation: Soft, Non-tender Bowel Sounds: RUQ: Active LUQ: Active RLQ: Active LLQ: Active ======== GENITOURINARY ======== Elimination: Continent ======= INTEGUMENTARY/SKIN/WOUND - (INCLUDING [place]) SEE NOTE: VAAES SKIN INPECTION/ASSESSMENT ======= ======== ACTIVITIES OF DAILY LIVING ======== Hygiene ADLs: Comment: Pt independent w/ ADLs ======== MOBILITY ======== Mobility Status: Independent: Able to stand and step without staff assistance Steady standing balance Gait: Steady ======== IV LINES ======== Peripheral IV: Line #1: Assessment: Location: Left, Antecubital Gauge: 18 Dressing Condition: Clean, dry, intact Transparent dressing Site Condition: No redness, swelling, pain Line Status: Patent/infusing Flushed ======== PSYCHOSOCIAL ======== Type of Emotional Support Provided: 1:1 discussion, Hospitalization discussion, Treatment discussion, Ventilation of feelings encouraged /es/ SOULEYMANE KISER,RN REGISTERED NURSE Signed: 04/09/2025 09:21 ANNEL DUARTE [facility] Apr 09, 2025 06:27 AM NURSING INPATIENT NOTE: LOCAL TITLE: [facility] ACUTE INPATIENT NSG SHIFT ASSESSMENT STANDARD TITLE: NURSING INPATIENT NOTE DATE OF NOTE: APR 09, 2025@06:27 ENTRY DATE: APR 09, 2025@06:27:32 AUTHOR: EMILY,KANDISS EXP COSIGNER: URGENCY: STATUS: COMPLETED Version 2.2 Charting in accordance with [facility] APPROVED IGIUGIG STANDARD (VAAES) ACUTE INPATIENT/REHABILITATION NURSING ADMISSION SCREENING, ASSESSMENT, AND STANDARDS OF CARE ======== REASSESSMENT ======== ======== PAIN ASSESSMENT ======== Patient's acceptable pain goal: 0 No pain Are you currently experiencing pain? No: Pain Score: 0 ======== NEUROLOGICAL ======== Neurological Orientation: Oriented x4 Level of Consciousness (AVPU): Alert = Appears aware of and responsive to the environment on their own. Follows commands, opens eyes spontaneously, and tracks objects. ======== NEUROMUSCULAR/NEUROVASCULAR EXTREMITIES ASSESSMENT ======== Strength: Radio Equipment Repairer Bilateral: Strong Upper Extremity Bilateral: Full strength Lower Extremity Bilateral: Full strength ======== CARDIOVASCULAR ======== Heart Sounds: Normal (S1S2) Heart Rate/Rhythm (without assistant professor of history): Regular ======== RESPIRATORY ======== Respirations: Unlabored Pattern: Regular ======== GASTROINTESTINAL ======== Elimination: Continent ======== GENITOURINARY ======== Elimination: Continent ======= INTEGUMENTARY/SKIN/WOUND - (INCLUDING [place]) SEE NOTE: VAAES SKIN INPECTION/ASSESSMENT ======= /brigida/ RALPH COMER RN REGISTERED NURSE Signed: 04/09/2025 06:28 RALPH DIAZ [facility] Apr 09, 2025 12:23 AM INTERNAL MEDICINE H & P NOTE: LOCAL TITLE: MEDICINE HISTORY AND PHYSICAL STL STANDARD TITLE: INTERNAL MEDICINE H & P NOTE DATE OF NOTE: APR 09, 2025@00:23 ENTRY DATE: APR 09, 2025@00:23:23 AUTHOR: JESSICA MEDINA COSIGNER: MUSHTAQ GEE URGENCY: STATUS: COMPLETED MEDICINE HISTORY AND PHYSICAL STL Has ADDENDA CC: Numbness and tingling HPI: Mr. Glez is a 50yo M with PMHx [id number], HLD, GERD, nephrolithiasis, lichen planus, and cervical spinal stenosis s/p C5-6 ACDF in 2002 who presented to ED 04/08/2025 with facial numbness. Patient endorses onset of facial numbness from his jaw to his cheekbones as well as numbness of his left thumb and index finger and right thumb starting mid-day on Monday. He also endorses feeling off-balance while walking for the past few days. He spoke to Neurosurgery on the phone and they referred him to the ED. Denies weakness, tremor, or lightheadedness. Denies fevers, chills, bowel or bladder incontinence. His feeling of numbness is intermittent, and he feels that movement and position changes can both exacerbate and relieve this feeling with no apparent pattern. He has numbness of his left thumb intermittently at baseline, which he says is triggered by certain neck movements or tweaks. He endorses an episode of minor facial numbness about a year ago which barely went past his jaw, notes he got an MRI around that time but not inpatient. Neurosurgery notes from 12/2023 indicate patient was seen for new left thumb numbness at the time, MRI with spinal canal and neural foraminal stenosis, EMG demonstrated chronic left C6-C8/T1 cervical radiculopathy of mild to moderate severity, planned for conservative therapy. He endorses some neck pain on his left side that is chronic for him and is tender to palpation. In the ED, VSS. Recieved ASA 325mg. CBC and CMP unremarkable. TSH 2. In January 2025, A1c 4.7% and LDL 96. CTH negative for hemorrhage or infarct. CT spine with post-operative C5-6 changes and left posterior disc osteophyte complex with moderate narrowing of the lateral recess and moderate to severe left neural foraminal narrowing. Smoked 1.5 ppd for 25 years, quit 10 years ago. Denies alcohol, cannabis, or drug use. Past Medical, Surgical and Psychiatric History: as above. Problem List: 1) Gastroesophageal reflux disease 2) Neck pain 3) Personality disorder 4) Hyperlipidemia 5) Bylbvio-4-uzkexrjrn dehydrogenase deficiency anemia 6) Obesity 7) Lichen planus 8) Kidney stone 9) Abdominal pain 10) Vitamin D deficiency Medications: Active Outpatient Medications (excluding Supplies): Issue Date Status Last Fill Active Outpatient Medications Refills Expiration 1) CHOLECALCIF 50MCG (D3-2,000UNIT) TAB Qty: ACTIVE Issue: 02/27/25 100 for 90 days Sig: TAKE ONE TABLET BY Refills: 3 Last : 02/27/25 MOUTH ONCE A DAY Expr : 02/28/26 Indication: FOR VITAMIN D DEFICIENCY 2) CLOBETASOL PROPIONATE 0.05% OINT Qty: 60 for ACTIVE Issue: 02/14/25 90 days Sig: APPLY SPARINGLY TO AFFECTED Refills: 3 Last : 02/17/25 AREA(S) TWICE A DAY (EXTERNAL USE ONLY) Expr : 02/15/26 APPLY TO RASH ON ARMS AND LEGS TWICE DAILY Indication: LICHEN PLANUS 3) KETOCONAZOLE 2% SHAMPOO Qty: 120 for 90 days ACTIVE Issue: 02/14/25 Sig: USE SHAMPOO TO AFFECTED AREA(S) ONCE A Refills: 3 Last : 02/17/25 DAY (EXTERNAL USE ONLY) (SHAKE WELL) LATHER Expr : 02/15/26 AND LET SIT FOR 5 MINUTES THEN RINSE Indication: TINEA VERSICOLOR 4) POTASSIUM CITRATE 10MEQ SA TAB Qty: 200 for ACTIVE Issue: 02/28/25 90 days Sig: TAKE ONE TABLET BY MOUTH TWICE Refills: 1 Last : 03/03/25 A DAY SWALLOW WHOLE, DO NOT CUT, CRUSH, Expr : 03/01/26 CHEW, OR DISSOLVE Indication: KIDNEY STONE 5) SALONPAS PAIN RELIEF PATCH LARGE Qty: 30 for ACTIVE Issue: 02/26/25 30 days Sig: APPLY 1 PATCH TO SKIN SITE ONCE Refills: 3 Last : 02/26/25 A DAY NEEDED (EXTERNAL USE ONLY) Expr : 02/27/26 Indication: FOR PAIN Start Date Active Non-VA Medications Status Stop Date 1) Non-VA ACETAMINOPHEN TAB Sig: BY MOUTH ACTIVE 6 Total Medications Life Sustaining Treatment Orders Medications were reviewed with the patient/caregiver and discrepancies resolved. Allergies: Patient has answered NKA Social History: Lives with his fiance and her children in [place], [place]. Family History: No known family history of stroke. Review of Systems: Review of systems reviewed in detail and negative except as noted in HPI. Physical Exam: Vitals: (most recent, as listed in the electronic record): B/P: 154/96 (04/08/2025 21:44) Pulse: 71 (04/08/2025 21:44) Temperature: 97.9 F [36.6 C] (04/08/2025 21:44) Weight: 237.1 lb [107.55 kg] (04/08/2025 21:44) Height: 67 in [170.2 cm] (01/31/2025 14:10) BMI: 37.2 Pain: 5 (04/08/2025 23:45) (0-10 scale) General: Alert, well-appearing male, no acute distress Lungs: CTAB, non-labored breathing on RA Cardiovascular: Regular rate and rhythm. Abdominal: Soft, non-tender, non-distended. Extremities: No cyanosis or edema. Neuro: AOx4. CN II-XII intact. Full strength and sensation in extremities bilaterally. Gait is grossly normal. Labs: CBC: WBC 6.7 10*3/uL 04/08/2025 16:08 RBC 4.69 10*6/uL 04/08/2025 16:08 HGB 14.2 g/dL 04/08/2025 16:08 HCT 41.2 % 04/08/2025 16:08 MCV 87.8 fL 04/08/2025 16:08 MCH 30.3 pg 04/08/2025 16:08 MCHC 34.5 g/dL 04/08/2025 16:08 RDW 11.8 % 04/08/2025 16:08 PLT 315 10*3/uL 04/08/2025 16:08 MPV 9.1 fL 04/08/2025 16:08 NEUTROPHILS, AUTO % 55 % 04/08/2025 16:08 LYMPHOCYTES, AUTO % 28 % 04/08/2025 16:08 MONOCYTES, AUTO % 12 % 04/08/2025 16:08 EOSINOPHILS, AUTO % 5 % 04/08/2025 16:08 BASOPHILS, AUTO % 1 % 04/08/2025 16:08 NEUTROPHILS, ABSOLUTE 3.67 10*3/uL 04/08/2025 16:08 LYMPHOCYTES, ABSOLUTE 1.86 10*3/uL 04/08/2025 16:08 MONOCYTES, ABSOLUTE 0.80 10*3/uL 04/08/2025 16:08 EOSINOPHILS, ABSOLUTE 0.32 10*3/uL 04/08/2025 16:08 BASOPHILS, ABSOLUTE 0.07 10*3/uL 04/08/2025 16:08 CMP: SODIUM 135 L mEq/L 04/08/2025 16:08 POTASSIUM 4.2 mEq/L 04/08/2025 16:08 CHLORIDE 106 mEq/L 04/08/2025 16:08 UREA NITROGEN 19.7 mg/dL 04/08/2025 16:08 CREATININE 1.08 mg/dL 04/08/2025 16:08 CALCIUM 9.1 mg/dL 04/08/2025 16:08 PROTEIN 7.8 g/dL 04/08/2025 16:08 ALBUMIN 4.1 g/dL 04/08/2025 16:08 ALKALINE PHOSPHATASE 65 U/L 04/08/2025 16:08 ALT/SGPT 38 U/L 04/08/2025 16:08 AST/SGOT 31 U/L 04/08/2025 16:08 TOTAL BILIRUBIN 0.5 mg/dL 04/08/2025 16:08 CARBON DIOXIDE 22 mEq/L 04/08/2025 16:08 GLUCOSE 90 mg/dL 04/08/2025 16:08 EGFR (CKD-EPI 2020) 84.1 04/08/2025 16:08 TROPONIN: TROPONIN I (STL) <0.010 ng/mL 04/08/2025 16:08 U/A: URINE COLOR Colorless 04/04/2024 09:54 APPEARANCE Clear 04/04/2024 09:54 U.PH 5.5 04/04/2024 09:54 U.BILIRUBIN Negative mg/dL 04/04/2024 09:54 U.NITRITE Negative mg/dL 04/04/2024 09:54 URINE RBC/HPF 1 /HPF 04/04/2024 09:54 URINE WBC/HPF <1 /HPF 04/04/2024 09:54 MUCUS RARE /LPF 04/04/2024 09:54 PT/INR: ____ PTT: ____ Imaging: Impression for CHEST PORTABLE, 04/06/21, case [id number] No evidence of pulmonary consolidation, mass or mediastinal lymphadenopathy. Assessment/Plan: Mr. Glez is a 50yo M with PMHx [id number], HLD, GERD, nephrolithiasis, lichen planus, and cervical spinal stenosis s/p C5-6 ACDF in 2002 who presented to ED 04/08/2025 with facial numbness. #Facial numbness #Numbness of b/l thumbs, left index finger #Rule out CVA #Hx cervical spinal stenosis and cervical radiculopathy s/p c5-6 ACDF in 2002 Patient endorses intermittent weakness of his bilateral face and several fingers. Intermittent nature of symptoms and lack of focal neurological deficits favors compressive etiology but facial numbness increases concern for central defect. His baseline thumb numbness was attributed to his left cervical radiculopathy. - CTH without hemorrhage or infarct - CT Spine post-operative C5-6 changes and left posterior disc osteophyte complex with moderate narrowing of the lateral recess and moderate to severe left neural foraminal narrowing - Passed swallow study - 01/2025 A1c 4.7%, 03/2025 LDL 141, ASCVD 9.3% - TSH 2 - B12 ordered - s/p ASA 325mg in ED - ASA and statin daily - Neurosurgery consulted - MRI brain and C-spine w/o contrast ordered #Hx nephrolithiasis - Home potasium citrate #Lichun planus - Not in flair - Home clobetasol PRN Is the patient 65 or older? No Code: Full Diet: Regular DVT: Lovenox The material part of the above assessment and plans was discussed with the patient and/or his/her family members who agreed and had no further questions. Total time spent: 45 Minutes /brigida/ JESSICA MEDINA Medicine Resident Signed: 04/09/2025 05:05 /brigida/ MUSHTAQ GEE MD Staff Physician - Allergy & Immunology Cosigned: 04/09/2025 08:10 04/09/2025 ADDENDUM STATUS: COMPLETED I have seen and examined the patient on Mar. I agree with the history, exam, and assessment/plan as discussed with and documented in the internal medicine resident's note. 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 He notes he had something similar happen a year ago when lifting some tile while doing a home renovation. Discussed with his neurosurgery team who had him present to ER. This morning, feeling well. Exam: AF, VSS. NAD. NCAT. PERRLA. RRR. CTA. Soft, NT/ND, +BS. No edema. 5/5 strength UE and LE. No decreased sensation. Diagnostics: CBC and CMP unremarkable. Trop negative. Head CT negative. Cervical neck CT with DJD and C5-6 narrowing again seen. # Numbness: Likely related to his cervical neck disease. Appreciate neurosurgery recs. Will obtain imaging per their recs. He has been loaded with aspirin but CVA seems less likely. Rest of plan per resident's note. /brigida/ MUSHTAQ GEE MD Staff Physician - Allergy & Immunology Signed: 04/09/2025 08:15 JESSICA MEDINA [facility] Apr 09, 2025 12:00 AM NURSING TREATMENT PLAN NOTE: LOCAL TITLE: [facility] PLAN OF CARE STANDARD TITLE: NURSING TREATMENT PLAN NOTE DATE OF NOTE: APR 09, 2025@00:00:01 ENTRY DATE: APR 09, 2025@00:00:16 AUTHOR: RALPH DIAZ: URGENCY: STATUS: COMPLETED Plan of Care and Discharge Plan (nurse) TREATMENT PLAN Significant other involved in treatment plan and discharge planning No Patient involved in making decisions about their care, treatment and plan for discharge Yes Date: Mar Is the patient an elopement risk: No Does the patient have potential or actual alteration in skin integrity? No. Is patient at risk for aspiration related to signs/symptoms of dysphagia? No. Is the patient a fall risk? No Does patient have pain and/or chest pain? Yes, Pain NURSING DIAGNOSIS: Alteration in comfort: pain related to neck pain Goals: Prior to discharge, patient will:--Injury due to fall will be minimized during hospital stay, --Verbalize safety measures to lower risk of fall/injury (lock w/c, use hand rails, ask for assistance) Mar, --Identify factor(s) that may increase risk of fall before discharge, --Maintain or preserve physical mobility during hospital stay--Be able to participate in daily activities, --Achieve acceptable pain level per patient, --Verbalize satisfaction with pain management ongoing, --Verbalize understanding of disease., --Be free of injury during hospital stay, --Identify techniques that prevent, decrease pain and improve coping mechanism i.e. relaxation techniques, biofeedback, TV or other diversions, --Patient's subjective perception of discomfort decreases as documented by pain scale or objective indicators such as grimacing, are absent or diminished. Intervention: --Implement and document use of alternative , --Administer medications per order, --Assess pain characteristics and probable , --Monitor need for and evaluate patient's , --Encourage verbalization of pain. , --Provide for patient safety. (Nursing, , --Provide instruction on causes of pain, , --Referral to pain management committee for Care plan status: Continued Progress toward goals documented continuously through progress notes Patient education: --Normal function and disease process., --Treatment regimen-purpose and effect including: Diet, medications, activity, risk factors, and significant symptoms. /maury COMER RN REGISTERED NURSE Signed: 04/09/2025 00:02 RALPH DIAZ [facility] Apr 08, 2025 11:55 PM NURSING INPATIENT NOTE: LOCAL TITLE: [facility] PATIENT SAFETY CHECK STL STANDARD TITLE: NURSING INPATIENT NOTE DATE OF NOTE: APR 08, 2025@23:55 ENTRY DATE: APR 09, 2025@00:11:29 AUTHOR: RALPH DIAZ EXP COSIGNER: URGENCY: STATUS: COMPLETED BEDSIDE SAFETY CHECK STL Visual inspection of wounds, incisions, and drains. A visual sweep of the patient's room for any physical or environmental safety concerns was completed and education provided to patient regarding their personal safety concerns. Comment: Pt sitting up in bed watching television. Pt verbalizes all needs are met. Call light and personal items remain within reach. /maury COMER RN REGISTERED NURSE Signed: 04/09/2025 00:12 [facility] Apr 08, 2025 11:19 PM NURSING NOTE: LOCAL TITLE: [facility] PROGRESS NOTE STL STANDARD TITLE: NURSING NOTE DATE OF NOTE: APR 08, 2025@23:19 ENTRY DATE: APR 08, 2025@23:19:38 AUTHOR: RALPH DIAZ COSIGNER: URGENCY: STATUS: COMPLETED PREMA PROGRESS NOTE STL Has ADDENDA PM medications administered per MD order. Pt verbalizes all needs are met. Call light and personal items remain with reach. /maury COMER RN REGISTERED NURSE Signed: 04/08/2025 23:20 04/09/2025 ADDENDUM STATUS: COMPLETED AM medications administered per MD order. Pt verbalizes all needs are met. Call light and personal items remain within reach. /maury COMER RN REGISTERED NURSE Signed: 04/09/2025 06:36 RALPH DIAZ [facility] Apr 08, 2025 10:15 PM NURSING INPATIENT NOTE: LOCAL TITLE: [facility] ACUTE INPATIENT NSG SHIFT ASSESSMENT STANDARD TITLE: NURSING INPATIENT NOTE DATE OF NOTE: APR 08, 2025@22:15 ENTRY DATE: APR 08, 2025@23:29:07 AUTHOR: RALPH DIAZ EXP COSIGNER: URGENCY: STATUS: COMPLETED Version 2.2 Charting in accordance with [place] APPROVED IGIUGIG STANDARD (CAAES) ACUTE INPATIENT/REHABILITATION NURSING ADMISSION SCREENING, ASSESSMENT, AND STANDARDS OF CARE ======== ASSESSMENT ======== ======== PAIN ASSESSMENT ======== Patient's acceptable pain goal: 0 No pain Are you currently experiencing pain? Yes - DVPRS scale used to assess Location: neck Defense and Veterans Pain Rating Scale (DVPRS): 5 Interrupts some activities Pain Score: 5 ======== MELÉNDEZ FALL SCALE & TIPS PROGRAM ======== Meléndez Fall Scale: The Meléndez Fall scale was performed and score was 35. This is indicative of moderate risk for falls. History of falling: immediate or within 3 months? No Secondary diagnosis: Yes Ambulatory aid: None/bedrest/nurse assist Intravenous therapy/Heparin lock: Yes Gait/Transferring: Normal/bed rest/immobile Mental Status: Oriented to own ability/knows own limitations Fall Tailoring Interventions for Patient Safety (TIPS) Fall TIPS initiated with patient: Yes Interventions: Communicate recent fall or risk of harm Fall TIPS reviewed with patient: Yes Interventions: Communicate recent fall or risk of harm ======== ENVIRONMENTAL SAFETY MANAGEMENT ======== Implemented safety standards of care: -[place] to unit & environment -Adequate room lighting -Bed in low and locked position -Call light within reach -Personal items within reach -Traffic path in room free of clutter -Non-slip footwear -Upper/half length side rails up for bed mobility -Sensory aids within reach -Encourage patient to utilize sensory support ======== NEUROLOGICAL ======== Neurological Orientation: Oriented x4 Level of Consciousness (AVPU): Alert = Appears aware of and responsive to the environment on their own. Follows commands, opens eyes spontaneously, and tracks objects. Affect/behavior: Cooperative Calm ======== NEUROMUSCULAR/NEUROVASCULAR EXTREMITIES ASSESSMENT ======== Strength: Radio Equipment Repairer Bilateral: Strong Upper Extremity Bilateral: Full strength Lower Extremity Bilateral: Full strength Sensation: Upper Extremity Sensation Bilateral: Decreased Lower Extremity Sensation Bilateral: Intact Temperature: Upper Extremity Temperature Bilateral: Warm Lower Extremity Temperature Bilateral: Warm ======== CARDIOVASCULAR ======== Heart Sounds: Normal (S1S2) Heart Rate/Rhythm (without assistant professor of history): Regular Capillary Refill: All 4 extremities, less than or equal to 3 seconds. Peripheral Pulses: All 4 extremities, 3+ normal. Edema: None Cardiovascular - Embolism Prevention: Comment: lovenox ======== RESPIRATORY ======== Respirations: Unlabored Pattern: Regular Breath Sounds Auscultated: Posterior only Left Upper Lobe: Clear Right Upper Lobe: Clear Right Middle Lobe: Clear Left Lower Lobe: Clear Right Lower Lobe: Clear ======== GASTROINTESTINAL ======== Last bowel movement: 04/07/2025 Elimination: Continent Abdominal Description: Rounded Palpation: Soft, Non-tender Bowel Sounds: RUQ: Active LUQ: Active RLQ: Active LLQ: Active ======== GENITOURINARY ======== Elimination: Continent ======= INTEGUMENTARY/SKIN/WOUND - (INCLUDING [place]) SEE NOTE: VAAES SKIN INPECTION/ASSESSMENT ======= ======== MOBILITY ======== Mobility Status: Independent: Able to stand and step without staff assistance Steady standing balance Gait: Steady ======== IV LINES ======== Peripheral IV: Present on admission: No Line #1: Assessment: Location: Left, Antecubital Gauge: 18 Dressing Condition: Clean, dry, intact Site Condition: No redness, swelling, pain Line Status: Flushed ======== PSYCHOSOCIAL ======== Type of Emotional Support Provided: 1:1 discussion, Treatment discussion, Ventilation of feelings encouraged ======== ADULT EDUCATION ======== Updates to barriers to learning: None evident /brigida/ RALPH COMER RN REGISTERED NURSE Signed: 04/09/2025 00:00 RALPH DIAZ [facility] Apr 08, 2025 10:10 PM NURSING NOTE: LOCAL TITLE: [facility] SKIN INSPECTION/ASSESSMENT STANDARD TITLE: NURSING NOTE DATE OF NOTE: APR 08, 2025@22:10 ENTRY DATE: APR 08, 2025@23:23:49 AUTHOR: RALPH DIAZ EXP COSIGNER: URGENCY: STATUS: COMPLETED Assessment Type: SKIN REINSPECTION/REASSESSMENT SKIN INSPECTION: Skin Color: Usual for ethnicity Skin Temperature: Warm Skin Moisture: Normal Skin Turgor: Elastic (normal/immediate) [place] Skin Assessment: The patient's [place] Scale Score is 22. The patient is considered not at risk for development of pressure ulcers/injuries. Sensory perception -- ability to respond meaningfully to pressure-related discomfort No impairment. Moisture -- degree to which skin is exposed to moisture Rarely moist. Activity -- ability to change and control body position Walks frequently. Mobility -- ability to change and control body position No limitation. Nutrition -- usual food intake patterns Adequate. Friction and shear No apparent problem. INTERVENTIONS: New or changed pressure ulcer/injury interventions or medical condition. Education: Provide patient/caregiver education regarding causes and prevention of pressure ulcers/injuries. Teach patient/caregiver importance of changing position frequently for pressure ulcer/injury prevention. RISK FACTORS THAT INCREASE RISK FOR DEVELOPING PRESSURE INJURIES The patient/resident does not have any additional risk factors. SKIN INTEGRITY: Intact /es/ RALPH DIAZ BSN RN REGISTERED NURSE Signed: 04/08/2025 23:28 RALPH DIAZ [facility] Apr 08, 2025 10:08 PM NURSING ADMISSION EVALUATION NOTE: LOCAL TITLE: [facility] ACUTE INPATIENT NSG ADMISSION SCREEN STANDARD TITLE: NURSING ADMISSION EVALUATION NOTE DATE OF NOTE: APR 08, 2025@22:08 ENTRY DATE: APR 08, 2025@22:10:21 AUTHOR: RALPH DIAZ EXP COSIGNER: URGENCY: STATUS: COMPLETED ======= ALLERGY/ADVERSE DRUG REACTION (ADR) REVIEW (MRT5) ======= FACILITY ALLERGY/ADR -------- [facility] No Known Allergies Allergy/Adverse Drug Reaction Review to be conducted by: Nurse: Results of Allergy/ADR Review: Allergy/Adverse Drug Reaction list confirmed. ====== MEDICATION REVIEW (MRR1) ====== Did patient bring medication(s) from home? No Medication Review conducted by Nurse Results of Medication Review: Active Medication List: INCLUDED IN THIS LIST: Alphabetical list of active outpatient prescriptions dispensed from this [place] (local) and dispensed from another [place] or [facility] facility (remote) as well as inpatient orders (local pending and active), local clinic medications, locally documented non-VA medications, and local prescriptions that have or been discontinued in the past 90 days. Non-VA Meds Last Documented On: January 24, 2024 NOTE The display of VA prescriptions dispensed from another [place] or [facility] facility (remote) is limited to active outpatient prescription entries matched to National Drug File at the originating site and may not include some items such as investigational drugs, compounds, etc. NOT INCLUDED IN THIS LIST: Medications self-entered by the patient into personal health records (i.e. [employer]) are NOT included in this list. Non-VA medications documented outside this [place], remote inpatient orders (regardless of status) and remote clinic medications are NOT included in this list. The patient and provider must always discuss medications the patient is taking, regardless of where the medication was dispensed or obtained. Non-VA ACETAMINOPHEN TAB TAKE BY MOUTH FOUR TIMES A DAY NEEDED VA RX: Patient wants to buy from Non-VA pharmacy CLIN ASPIRIN 325MG TAB (Status=) 325MG BY MOUTH NOW Indication: FOR CARDIOVASCULAR DISEASE BCMA ORDER LAST ACTION: 04/08/25 20:39 GIVEN OUTPT CHOLECALCIF 50MCG (D3-2,000UNIT) TAB (Status = Active) TAKE ONE TABLET BY MOUTH ONCE A DAY FOR VITAMIN D DEFICIENCY Rx# [id number] Last Released: 02/28/25 Qty/Days Supply: 100/ Rx Expiration Date: 02/28/26 Refills Remainin Indication: FOR VITAMIN D DEFICIENCY INPT CHOLECALCIF 50MCG (D3-2,000UNIT) TAB (Status=Active) 50MCG BY MOUTH QDAILY Indication: FOR VITAMIN D DEFICIENCY INPT CLOBETASOL PROPIONATE 0.05% OINT (Status=Active) SPARINGLY TOP TWICE A DAY NEEDED APPLY TO RASH ON ARMS AND LEGS TWICE DAILY Indication: LICHEN PLANUS OUTPT CLOBETASOL PROPIONATE 0.05% CREAM (Status = Discontinued) APPLY SPARINGLY TO AFFECTED AREA(S) ONCE A DAY (EXTERNAL USE ONLY) Rx# [id number] Last Released: 02/03/25 Qty/Days Supply: 30 Rx Expiration Date: 03/02/25 Refills Remainin OUTPT CLOBETASOL PROPIONATE 0.05% OINT (Status = Active) APPLY SPARINGLY TO AFFECTED AREA(S) TWICE A DAY (EXTERNAL USE ONLY) APPLY TO RASH ON ARMS AND LEGS TWICE DAILY Rx# [id number] Last Released: 02/19/25 Qty/Days Supply: 60/ Rx Expiration Date: 02/15/26 Refills Remainin Indication: LICHEN PLANUS INPT ENOXAPARIN 40MG/0.4ML INJ SYRINGE 0.4ML (Status=Active) 40MG/0.4ML UNDER THE SKIN QDAILY Indication: FOR ANTICOAGULATION OUTPT KETOCONAZOLE 2% SHAMPOO (Status = Active) USE SHAMPOO TO AFFECTED AREA(S) ONCE A DAY (EXTERNAL USE ONLY) (SHAKE WELL) LATHER AND LET SIT FOR 5 MINUTES THEN RINSE Rx# [id number] Last Released: 02/19/25 Qty/Days Supply: 120/ Rx Expiration Date: 02/15/26 Refills Remainin Indication: TINEA VERSICOLOR INPT KETOCONAZOLE 2% SHAMPOO (Status=Active) SHAMPOO TOP QDAILY NEEDED LATHER HAIR AND LET SIT FOR 5 MINUTES THEN RINSE FOR TINEA VERSICOLOR Indication: TINEA VERSICOLOR INPT POTASSIUM CITRATE 10MEQ SA TAB (Status=Active) 10MEQ BY MOUTH TWICE A DAY Indication: KIDNEY STONE OUTPT POTASSIUM CITRATE 10MEQ SA TAB (Status = Active) TAKE ONE TABLET BY MOUTH TWICE A DAY SWALLOW WHOLE, DO NOT CUT, CRUSH, CHEW, OR DISSOLVE Rx# [id number] Last Released: 03/04/25 Qty/Days Supply: 200/90 Rx Expiration Date: 03/01/26 Refills Remainin Indication: KIDNEY STONE INPT SALONPAS PAIN RELIEF PATCH LARGE (Status=Discontinued) 1 PATCH TRANSDERMAL QDAILY - TOPICAL Please re-order with specified area of application and schedule with comment that patient may refuse/defer (PRN is not allowed) per policy. thanks Indication: FOR PAIN *UNSIGNED* OUTPT SALONPAS PAIN RELIEF PATCH LARGE (Status = Active) APPLY 1 PATCH TO SKIN SITE ONCE A DAY NEEDED FOR PAIN (EXTERNAL USE ONLY) Rx# [id number] Last Released: 02/27/25 Qty/Days Supply: Rx Expiration Date: 02/27/26 Refills Remainin Indication: FOR PAIN SUPPLIES ========= MEDICATION REVIEW ========= 4. Patient/Family/Caregiver report TAKING WRITTEN all other medications ====== GENERAL INFORMATION ====== Admission information given by: Patient Is there a legal guardian/conservator? No Preferred language for discussing healthcare: Faroese Preferred mode of communication: Verbal Items at Bedside: Visual Aids: Standard Glasses ======= INFECTIOUS DISEASE RISK SCREEN ======= Travel Screen: Have you traveled within the [facility] within the last 21 days? No Have you traveled outside the [facility] within the last 21 days? No Within the last 14 days, have you had: No known exposure Other Exposure to Infectious Disease: No known exposure Patient reported the following symptoms: Numbness History of Multiple Drug Resistant Organism (MDRO): No Methicillin-resistant Staphylococcus aureus (MRSA) Swabbing: Informed verbal consent obtained Education provided ======= NUTRITION SCREENING ======= Malnutrition Screening Weight (Previous 6 months): Measurement DT WEIGHT LB(KG)[BMI] 04/08/2025 21:44 237.1(107.55)[37*] Lost weight recently without trying: No (0 points) Have you been eating poorly because of decreased appetite? No (0 points) Total Score: 0 Other Nutrition Screening Questions: The patient does not report any concerns with their teeth that would make it difficult to eat. The patient does not report overeating to the point of feeling sick or making themselves vomit. The patient denies gaining 10 lbs.(4.5 kgs) or more in the past 3 months without trying. The patient denies having any food allergies, intolerance, special dietary needs, or ethnic, cultural or protestant preferences that would affect their dietary needs. Food Insecurity Screening Within the past 12 months, you worried whether your food would run out before you got money to buy more. Never true Within the past 12 months, the food you bought just did not last you and you did not have the money to get more. Never true Food Insecurity Disposition: ====== RISK SCREENINGS ====== Alcohol Screen: Screen to be completed by: Nurse: SCREEN FOR ALCOHOL (AUDIT-C) An alcohol screening test (AUDIT-C) was negative (score=1). 1. How often did you have a drink containing alcohol in the past year? Consider a drink to be a 12 ounce can or bottle of regular beer, 8 ounces of malt liquor, a 5 ounce glass of table wine, or a 1.5 ounce shot of liquor (like scotch, gin, or vodka). Monthly or less 2. How many drinks containing alcohol did you have on a typical day when you were drinking in the past year? One or two drinks 3. How often did you have six or more drinks on one occasion in the past year? Never *Does the patient consume alcohol? Yes: Alcohol Use History: Amount used/Frequency: 1or 2 monthly Date/Time of last use: Mar Do you have a history of alcohol withdrawal symptoms? No Do you have a history of Delirium Tremens (DTs)? No Do you have a history of seizures related to withdrawal? No Tobacco Use: Never - tobacco user Do you currently or have you ever used alternative nicotine products? No Substance Use Assessment: *Do you use any recreational drugs or narcotics (prescription or non-prescription)? No ======= RISK OF WANDERING ======= The patient does not have a history of wandering. The patient does not have a history of elopement. The patient is not expressing a desire to leave. ===== SUICIDE SCREEN ===== Result of C-SSRS screener done was NEGATIVE. C-SSRS Screen is Negative ====== EXPOSURE TO VIOLENCE AND ABUSE PRE-SCREEN ====== Are you worried for your safety, that you will be hurt or harmed? No Has anyone tried to force you to sign papers or use your money against your will? No ====== POST TRAUMATIC STRESS DISORDER CARE CONSIDERATIONS ====== To minimize a startle response, what is your preference on how best to awaken you? No preference ======= REPRODUCTIVE & SEXUAL HEALTH ======= Do you have any sexual or reproductive concerns you would like your healthcare team to be aware of? No ====== ADVANCE DIRECTIVE ====== Notification of Rights Related to Advance Directives: Written notification provided. *The patient wishes to receive information about or assistance with Advance Care Planning and/or Advance Directive: No ===== SPIRITUALITY ===== Are there protestant practices or spiritual concerns you want the high school french teacher, your provider, and other health care team members to know? No ====== ANTICIPATED DISCHARGE NEEDS ====== Where do you live? Housing owned/rented by [facility]: Method of transportation upon discharge: Private Vehicle: Are there any anticipated barriers to discharge? No ===== EDUCATIONAL NEEDS/LEARNING STYLE ===== Barriers to learning: None evident Patient learning style preferences: Verbal explanation ====== VISITOR INFORMATION ====== Will you have a primary support person while in the hospital? No Patient's Visitor Restriction preferences: No Privacy Review: No passcode provided due to opt out ======== MELÉNDEZ FALL SCALE & TIPS PROGRAM ======== Meléndez Fall Scale: The Meléndez Fall scale was performed and score was 35. This is indicative of moderate risk for falls. History of falling: immediate or within 3 months? No Secondary diagnosis: Yes Ambulatory aid: None/bedrest/nurse assist Intravenous therapy/Heparin lock: Yes Gait/Transferring: Normal/bed rest/immobile Mental Status: Oriented to own ability/knows own limitations Fall Tailoring Interventions for Patient Safety (TIPS) Fall TIPS initiated with patient: Yes Interventions: Communicate recent fall or risk of harm ======= ASPIRATION RISK ASSESSMENT AND SWALLOW SCREEN ======= Aspiration Risk(s): Screening complete. No aspiration risk identified. Bedside Swallow Screen not indicated. ======== PAIN ASSESSMENT ======== Patient's acceptable pain goal: 3 Sometimes distracts me Are you currently experiencing pain? Yes - DVPRS scale used to assess Location: neck Defense and Veterans Pain Rating Scale (DVPRS): 5 Interrupts some activities Pain Score: 5 /es/ RALPH COMER RN REGISTERED NURSE Signed: 04/08/2025 22:15 RALPH DIAZ [facility] Apr 08, 2025 10:06 PM NURSING NOTE: LOCAL TITLE: [facility]MA PERSONAL EFFECTS [facility] STANDARD TITLE: NURSING NOTE DATE OF NOTE: APR 08, 2025@22:06 ENTRY DATE: APR 08, 2025@22:06:46 AUTHOR: RALPH DIAZ EXP COSIGNER: URGENCY: STATUS: COMPLETED PERSONAL EFFECTS Hazardous Check: Advised of prohibited hazardous items, Denies hazardous items, No hazardous items observed Medication Check: Denies medication on person Prosthetic Check: Glasses Personal Items: Patient/Family advised that VA not responsible for loss of any personal effects or valuables., Patient effects placed in tamper evident bag and sealed in patients presence., Patient/Family advised of locker availability., Patient chooses to keep belongings at bedside., Patient valuables observed: Patient Funds Disposition: wallet with $20.00 reyes Patient Valuables Observed: hat,wallet,keys,phone with portable tool carrier, shirt,shorts,socks,shoes /maury COMER RN REGISTERED NURSE Signed: 04/08/2025 22:08 RALPH DIAZ [facility] Apr 08, 2025 10:05 PM NURSING INPATIENT NOTE: LOCAL TITLE: [facility] NURSING FREQUENT DOCUMENTATION STANDARD TITLE: NURSING INPATIENT NOTE DATE OF NOTE: APR 08, 2025@22:05 ENTRY DATE: APR 08, 2025@22:06:03 AUTHOR: RALPH DIAZ EXP COSIGNER: URGENCY: STATUS: COMPLETED Version 2.4 Charting in accordance with [facility] IGIUGIG STANDARD ([facility]) ACUTE INPATIENT/REHABILITATION NURSING ADMISSION SCREENING, ASSESSMENT, AND STANDARDS OF CARE ======== NATIONAL EARLY WARNING SCORE (NEWS) ======== The following vital measurements were used to complete the NEWS. Measurement DT TEMP PULSE RESP BP POx F(C) (L/MIN)(%) 04/08/2025 21:44 97.9(36.6) 71 18 154/96 96 The NEWS total is 0. 1. Temperature (C/F): Score = 0 36.1 - 38.0 C (96.9 - 100.4 F) 2. Pulse: Score = 0 51-90 3. Respirations: Score = 0 12-20 4. Blood Pressure (Only Systolic BP, mmHg): Score = 0 111-219 5. Pulse Oximetry: Score = 0 96% or greater 6. Supplemental oxygen in use: Score = 0 No 7. AVPU: Score = 0 Alert /maury COMER RN REGISTERED NURSE Signed: 04/08/2025 22:06 RALPH DIAZ [facility] Apr 08, 2025 09:47 PM NURSING INPATIENT NOTE: LOCAL TITLE: [facility] NURSING FREQUENT DOCUMENTATION STANDARD TITLE: NURSING INPATIENT NOTE DATE OF NOTE: APR 08, 2025@21:47 ENTRY DATE: APR 08, 2025@21:47:41 AUTHOR: BRIGIDO NG COSIGNER: URGENCY: STATUS: COMPLETED Version 2.4 Charting in accordance with [place] APPROVED IGIUGIG STANDARD (CAAES) ACUTE INPATIENT/REHABILITATION NURSING ADMISSION SCREENING, ASSESSMENT, AND STANDARDS OF CARE ======== ACTIVITIES OF DAILY LIVING ======== Hygiene ADLs: Dressing: Upper Body: Independent Lower Body: Independent Eating: Independent Foot Care: Inspection Hand Hygiene: Performed post toileting Performed pre meals/snacks Oral Care: Non-ventilator patient: Patient teeth brushed: Independently The [facility] was educated that poor oral hygiene increases the risk of hospital acquired pneumonia and dental problems like gingivitis and tooth decay. [facility] was educated using their preferred method and verbalized understanding. Pericare: Soap and water Independent Patient declined Personal Care: Shower Independent Patient declined Comment: pt. will do in the morning Toileting: Independent ========= ACTIVITY/MOBILIZATION ========= Mobility Status: Independent: Able to stand and step without staff assistance Steady standing balance Mobilization Tolerance: Tolerates well Gait: Steady [facility] - Highest Level of Mobility achieved this shift: 6 - Walked 10 steps or more (walked to restroom) ======== ENVIRONMENTAL SAFETY MANAGEMENT ======== Implemented safety standards of care: -[place] to unit & environment -Adequate room lighting -Bed in low and locked position -Call light within reach -Personal items within reach -Traffic path in room free of clutter -Non-slip footwear -Upper/half length side rails up for bed mobility -Sensory aids within reach -Encourage patient to utilize sensory support ======== GASTROINTESTINAL ======== Last bowel movement: 04/07/2025 Elimination: Continent ======== GENITOURINARY ======== Elimination: Continent ========= Pain ========= DVPRS Scale Location: left side neck/shoulder Defense and Veterans Pain Rating Scale (DVPRS): 6 Hard to ignore, avoid usual activities Patient's acceptable pain goal: Pain Alleviating Interventions: /brigida/ VIRGIL NG CNA OPERATIONAL TRAINER Signed: 04/08/2025 21:[address] [facility] Apr 08, 2025 09:47 PM ADMINISTRATIVE NOTE: LOCAL TITLE: ADMINISTRATIVE ST STANDARD TITLE: ADMINISTRATIVE NOTE DATE OF NOTE: APR 08, 2025@21:47 ENTRY DATE: APR 08, 2025@21:47:32 AUTHOR: YVES RAO EXP COSIGNER: URGENCY: STATUS: COMPLETED NOTIFIED ME I BIOMATERIALS ENGINEER MIRTHA MEDINA OF ADMIT TO . /brigida/ YVES RAO ADVANCED AUTOMOBILE TAILLIGHT ASSEMBLER Signed: 04/08/2025 21:48 Receipt Acknowledged By: 04/09/2025 18:34 /brigida/ KENDRICK FIGUEROA LOCKSMITH APPRENTICE AUTOMOBILE TAILLIGHT ASSEMBLER YVES RAO [facility]
--- OUTSIDE RECORDS SUMMARY | 2025-04-11 15:22 | XMS_ITS ---
Author Name [facility] [facility] Address [address] [place] [address] Care Team Providers Care Fur Plucker Name Role Phone MARGARITA ZAMORA Primary Care Provider Unavailabl e Selected Encounter This section includes the information on record at [place] for the Encounter. Date/Time Encounter Type Encounter Description Reason Pro vider Source Feb 26, 2025 01:00 PM OFF/OP CNSLTJ NEW/EST MOD 40 GASTROENTEROLOGY ICD-10-CM R10.31 Right lower quadrant pain Triston MARTIN Kimberly Encounter Template Text not used by [place] Assessments - Encounter Diagnoses This section includes the primary and secondary diagnoses documented for the Encounter. Date/Time Primary/Secondary Diagnosis Diagnosis Name Provider Source Feb 26, 2025 04:21 PM PRIMARY Right lower quadrant pain BRIAN RUDOLPH [facility] Plan of Treatment: Future Appointments (+ 6 months) and Future Tests (+/- 45 days) The Plan of Treatment section includes future care activities for the patient from all [place] treatmentfacilities. This section includes future appointments and future orders which are active, pending or scheduled. Future Appointments This section includes appointments that were scheduled to occur 6 months from the date of the Encounter, up to a maximum of 20 appointments. The data comes from all [facility]. Appointment Date/Time Appointment Type Appointme nt Facility Name Mar 21, 2025 01:30 PM AMBULATORY - NONE [facility] Apr 08, 2025 02:20 PM AMBULATORY - MEDICINE [facility] Apr 11, 2025 03:30 PM AMBULATORY - MEDICINE [facility] Apr 23, 2025 01:20 PM AMBULATORY - SURGERY [facility] Apr 29, 2025 10:00 AM AMBULATORY - NONE [facility] May 19, 2025 02:00 PM AMBULATORY - MEDICINE [facility] Jul 01, 2025 11:00 AM AMBULATORY - MEDICINE [facility] Active, Pending, and Scheduled Orders This section includes a listing of several types of active, pending, and scheduled orders, including clinic medications orders, diagnostic test orders, procedure orders and consult orders; where the start date of the order is 45 days before the date of the Encounter or 45 days after the date of theEncounter. The data comes from all [facility]. Test Date/Time Test Type Test Details Facility Name Apr 08, 2025 03:22 PM Procedure Order CP EKG STL CP EKG - STL Proc Set O Type Operator's Choice [facility] Lab Results: +/- 30 days of the encounter This section includes the Chemistry and Hematology Lab Results on record with [place] for the patient. Radiology Reports and Pathology Reports are provided separately, in subsequent sections. Lab Results This section contains the Chemistry/Hematology Results that were resulted 30 days before or 30 daysafter the date of the Encounter. Date/Time Source Result Type Result - Unit Interpretation Reference Range Specimen Type Comment February 06, 2025 08:00 AM [facility] URINE STONE PNL (24HR-STL-PB) 24-HOUR URINE Specimen Type: 24-HOUR URINE Comment: Total Urine Volume: 0.87 (L) L/day Uric acid, 24 Hour Urine: 160mg/day The patient has: Low urinary pH Low urine volume Supersat Index,Respect to: Calcium oxalate Uric acid 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 Ordering Provider: SYL COREAS Report Released Date/Time: January 29, 2025 10:38 AM Reporting Lab: [facility] [address] [facility] [facility] [phone] Performing Lab: [facility] [address] [facility] [address] VOLUME 950 mL CREATININE URINE/OTHERS [phone] POTASSIUM URINE/OTHERS 58 19-135 SODIUM URINE/OTHERS 121 <200 CALCIUM URINE/OTHERS 199 <250.0 PHOSPHOROUS URINE/OTHERS 1119 H <1100 URIC ACID URINE/OTHERS 160 <700 MAGNESIUM URINE/OTHER 71 >60.0 OXALATE 22 <45 CITRIC ACID 607 >320 SULFATE,U-PB STL 24 <30 +BRUSHITE 1.08 <2.00 .INTERP comment PH(SO) 5.3 L 5.5-7.0 +CALCIUM OXALATE 2.38 H <2.00 +SODIUM-URATE 0.97 <2.00 January 31, 2025 01:38 PM [facility] PTH, INTACT (STL) SERUM Specimen Type: SERUM No comment entered. Ordering Provider: SYL COREAS Report Released Date/Time: January 29, 2025 10:38 AM Reporting Lab: [place] [id number] [facility] [phone] Performing Lab: [address] [address] PTH, INTACT (STL) 45.60 pg/mL 8.7-77.7 January 31, 2025 01:38 PM [facility] TSH (MA-PB) SERUM Specimen Type: SERUM No comment entered. Ordering Provider: MARGARITA ZAMORA Report Released Date/Time: January 31, 2025 01:31 PM Reporting Lab: [facility] [address] [phone] Performing Lab: [facility] [address] [facility] [phone] TSH 1.989 u[IU]/mL 0.47-5 January 31, 2025 01:38 PM [facility] URIC ACID PLASMA Specimen Type: PLASM A Comment: No hemolysis noted. Ordering Provider: SYL COREAS Report Released Date/Time: January 29, 2025 10:38 AM Reporting Lab: [facility] [address] [facility] [address] Performing Lab: [facility] [address] [place] [phone] URIC ACID 5.5 mg/dL 3.5-7.2 January 31, 2025 01:38 PM [facility] RENAL PANEL PLASMA Specimen Type: PLASM A Comment: No hemolysis noted. Ordering Provider: SYL COREAS Report Released Date/Time: January 29, 2025 10:38 AM Reporting Lab: [facility] [address] [place] [phone] Performing Lab: [address] [address] CREATININE 1.04 mg/dL 0.7-1.3 UREA NITROGEN 12.7 mg/dL 9.0-25.0 GLUCOSE 119 mg/dL H 72-99 SODIUM 138 meq/L 136-145 POTASSIUM 3.8 meq/L 3.5-5 CHLORIDE 107 meq/L 98-107 CARBON DIOXIDE 24 meq/L 22-31 CALCIUM 9.2 mg/dL 8.4-10.4 PHOSPHOROUS 3.0 mg/dL 2.3-4.7 ALBUMIN 4.1 g/dL 3.4-5 EGFR (CKD-EPI 2020) 88.6 >60 January 31, 2025 01:38 PM [facility] HGA1C BLOOD Specimen Type: BLOOD No comment entered. Ordering Provider: MARGARITA ZAMORA Report Released Date/Time: January 31, 2025 01:31 PM Reporting Lab: [facility] [address] [place] [phone] Performing Lab: [address] [phone] HGA1C 4.7 4.0-6.0 January 31, 2025 01:38 PM [facility] CBC BLOOD Specimen Type: BLOOD No comment entered. Ordering Provider: SYL COREAS Report Released Date/Time: January 29, 2025 10:38 AM Reporting Lab: [facility] [address] [place] [phone] Performing Lab: [facility] [address] [place] [phone] WBC 6.1 10*3/uL 3.6-11.2 RBC 4.80 10*6/uL 4.10-5.70 HGB 14.5 g/dL 13.1-16.8 HCT 43.0 38.2-48.4 MCV 89.6 fL 80.0-100.0 MCH 30.2 pg 27.0-34.0 MCHC 33.7 g/dL 33.0-36.0 PLT 320 10*3/uL 150-400 MPV 9.5 fL 7.5-11.2 RDW 11.4 L 11.8-15.1 LYMPHOCYTES, AUTO % 31 MONOCYTES, AUTO % 8 NEUTROPHILS, AUTO % 55 EOSINOPHILS, AUTO % 5 BASOPHILS, AUTO % 2 LYMPHOCYTES, ABSOLUTE 1.86 10*3/uL 0.77- 4.50 MONOCYTES, ABSOLUTE 0.47 10*3/uL 0.19-0. 80 NEUTROPHILS, ABSOLUTE 3.37 10*3/uL 2.10- 8.00 EOSINOPHILS, ABSOLUTE 0.29 10*3/uL 0.00- 0.60 BASOPHILS, ABSOLUTE 0.10 10*3/uL 0.00-0. 20 January 31, 2025 01:38 PM [facility] HEPATIC FUNTION PANEL (STL) PLASMA Specimen Ty pe: PLASMA No comment entered. Ordering Provider: MARGARITA ZAMORA Report Released Date/Time: January 31, 2025 01:31 PM Reporting Lab: [facility] [address] [place] [phone] Performing Lab: [address] [phone] PROTEIN 7.8 g/dL 6-8.6 ALBUMIN 4.1 g/dL 3.4-5 TOTAL BILIRUBIN 0.6 mg/dL 0.2-1.2 ALKALINE PHOSPHATASE 68 U/L 40-150 AST/SGOT 25 U/L 5-34 ALT/SGPT 19 U/L 8-40 CONJ. BILIRUBIN 0.2 mg/dL 0-0.5 January 31, 2025 01:38 PM [facility] LIPID PANEL (STL) PLASMA Specimen Type: PLASM A No comment entered. Ordering Provider: MARGARITA ZAMORA Report Released Date/Time: January 31, 2025 01:31 PM Reporting Lab: [place] [id number] [facility] [phone] Performing Lab: [address] [address] CHOLESTEROL 176 mg/dL 0-200 TRIGLYCERIDE 223 mg/dL H 0-150 CALCULATED LDL 96 mg/dL HDL(New) 35 mg/dL L >40 January 31, 2025 01:38 PM [facility] VITAMIN D, 25-HYDROXY SERUM Specimen Type: SE RUM No comment entered. Ordering Provider: MARGARITA ZAMORA Report Released Date/Time: January 31, 2025 01:31 PM Reporting Lab: [address] [phone] Performing Lab: [address] [phone] VITAMIN D, 25-HYDROXY 21.4 ng/mL L 30-96 January 31, 2025 01:35 PM [facility] MICRAL/CREAT PROFILE (STL) URINE Specimen Typ e: URINE No comment entered. Ordering Provider: SYL COREAS Report Released Date/Time: January 29, 2025 10:38 AM Reporting Lab: [address] [address] Performing Lab: [address] [address] URINE ALBUMIN (PB-STL) 6.6 mg/L uACR (STL) 3 mg/g 0-29 CREATININE URINE/OTHERS 192.6 mg/dL H 63-1 66 Social History: Smoking Status (Most current) and Tobacco Use (All prior to encounter date) This section includes the most current, and the historical, smoking and tobacco- related health factors from the [place] facility where the Encounter took place. Current Smoking Status This section includes the most current smoking, or tobacco-related health factor, from the [place] facility where the Encounter took place. Date/Time Current Smoking Status Comment Jojo ity Jan 06, 2015 01:37 PM CURRENT TOBACCO USER [facility] Tobacco Use History This section includes a history of the smoking, or tobacco-related health factors, that were collected on or before the date of the Encounter. The data comes from the [place] facility where the Encounter took place. Date/Time Smoking Status/Tobacco Use Comment F acility Jan 06, 2015 01:37 PM TOBACCO MEDS OFFER ED BUT DECLINED [facility] Radiology Reports: +/- 30 days of [...] the Encounter. The data comes from all [place] treatment facilities. Date/Time Radiology Report Provider Source Mar 21, 2025 01:25 PM US RENAL COMPLETE: VANNA GLEZ [id number] -[id number] M Exm Date: MAR 21, 2025@13:25 Req Phys: SYL COREAS Loc: [facility]-UROLOGY RES (Req'g Loc) Img Loc: [facility]-ULTRASOUND THEO Service: [address] [address] (Case [id number] COMPLETE) US RENAL COMPLETE (US Detailed) CPT:10138 Reason for Study: history of stones Clinical History: Report Status: Verified Date Reported: MAR 21, 2025 Date Verified: MAR 21, 2025 Sewage Plant Operator E-Sig:/BRIGIDA/JAVIER ZAMORA Report: HISTORY: history of stones FINDINGS: Echotexure of the kidneys normal, with age appropriate size. Right kidney normal measuring 10.8cm and left kidney normal measuring 11.7cm. No hydronephrosis or obstruction. No renal lithiasis. No large mass or cyst. No perirenal fluid collections. Visualized bladder normal. Impression: Normal renal ultrasound. RR Primary Interpreting Staff: JAVIER ZAMORA, Staff Physician (Sewage Plant Operator) /JAVIER DIAZ [facility] Encounter Notes: All associated encounter notes This section contains the clinical notes associated to the Encounter. Date/Time Encounter Note(s) Provider Source Feb 26, 2025 01:20 PM GASTROENTEROLOGY C ONSULT: LOCAL TITLE: GASTROENTEROLOGY OUTPATIENT CONSULT ST STANDARD TITLE: GASTROENTEROLOGY CONSULT DATE OF NOTE: FEB 26, 2025@13:20 ENTRY DATE: FEB 26, 2025@13:21:01 AUTHOR: BRIAN RUDOLPH COSIGNER: CANDIDA MARTIN URGENCY: STATUS: COMPLETED GASTROENTEROLOGY OUTPATIENT CONSULT ST Has ADDENDA CC: RLQ pain HPI: Pt. is a 49 y/o WHITE MALE PMH GERD, G6PD deficiency, personality disorder, cervicalgia, hx of recurrent kidney stones, lichen planus who presents for evaluation of RLQ abdominal pain. #RLQ pain: pain started 2-3 months ago which started acutely at the time. Describes it as a knot like pain. Presentd to ER at the time where they did CT can which per patient was normal. He reports the pain comes and go, he feels it when he is sitting or lying down for a long time then he feels it. When he lifts he feels it. Denies noticing pain with eating or drinking. No issues when he bends down. Will occasionally feel it when he strains. The pain will go away after some time. Rates pain 3/10. LFTs obtained January 2026 which were normal. Has hx of cholecystectomy but otherwise no other abdominal surgeries. #GERD: reports acid reflux. will take tums as needed. has made lifestyle modifications. Was previously on omeprazole, states he does not need it currenlty as sxs controlled Denies weight loss, appetite changes, weight loss. Prior scope history: EGD and colonoscopy 11/2019: PROCEDURE & FINDINGS EGD with Findings The benefits, risks (perforation, bleeding, infection, and adverse effects to the medicine), and alternatives for the procedure were discussed and informed consent was obtained from the patient and/or surrogate. A verbal time out was performed. The patient was placed in the left lateral position. Under direct visualization, the Smarty Ring video endoscope was then passed to the 2nd portion of the duodenum. On withdrawal of the scope, careful evaluation was made of the esophageal, gastric, and duodenal mucosa including retroflextion in the fundus. The following findings were noted: Esophagus Esophagitis LA grade A Stomach Normal mucosa, perhaps one small area of superficial erosion. Randomly biopsied. Duodenum Normal mucosa COMPLICATIONS The patient tolerated the procedure well and there were no immediate complications. PATHOLOGY SPECIMEN(S) Jar A Random gastric bx(s) IMPRESSION Esophagitis - Grade A (Mucosal break </= 5mm in length) DIAGNOSIS: STOMACH, RANDOM BIOPSY: -- GASTRIC MUCOSA WITH FOCAL MILD CHRONIC INFLAMMATION AND EPITHELIAL REACTIVE CHANGES -- NO EVIDENCE OF INTESTINAL METAPLASIA OR DYSPLASIA -- NO H. PYLORI IDENTIFIED PROCEDURE & FINDINGS Normal Colonoscopy to the Cecum or Terminal Ileum The benefits, risks, and alternatives for the procedure were discussed and informed consent was obtained from the patient and/or surrogate. A verbal time out was performed. The patient was placed in the left lateral position and the anal canal lubricated with jelly. A digital rectal examination was performed and showed external hemorrhoids. Under direct visualization, the [employer] video colonoscope was then passed to the cecum. The cecum was identified by standard anatomical markings including the ileocecal valve, appendiceal orifice, and the confluence of haustral folds was photo documented. On withdrawal of the scope, careful evaluation was made of the colonic mucosa. There was normal appearing mucosa in the cecum, ascending colon, transverse colon, descending colon and sigmoid colon without any evidence of masses, polyps, colitis, diverticula or other lesions. Retroflex views in the rectum appeared normal. . [place] Bowel Preparation Scale (BBPS): Right colon: 3 Transverse colon/flexures: 3 Left colon: 3 The patient tolerated the procedure well and there were no immediate complications. IMPRESSION - Prep quality BBPS total score: 9 - External Hemorrhoids PMHx: Reviewed. Notable for MEDS: Reviewed. Notable for 1) Gastroesophageal reflux disease 2) Neck pain 3) Personality disorder 4) Hyperlipidemia 5) Zgdetex-1-drkbxmtce dehydrogenase deficiency anemia 6) Obesity 7) Lichen planus 8) Kidney stone 9) Abdominal pain 10) Vitamin D deficiency Active Outpatient Medications (excluding Supplies): Issue Date Status Last Fill Active Outpatient Medications Refills Expiration 1) CLOBETASOL PROPIONATE 0.05% OINT Qty: 60 for ACTIVE Issue: 02/14/25 90 days Sig: APPLY SPARINGLY TO AFFECTED Refills: 3 Last : 02/17/25 AREA(S) TWICE A DAY (EXTERNAL USE ONLY) Expr : 02/15/26 APPLY TO RASH ON ARMS AND LEGS TWICE DAILY Indication: LICHEN PLANUS 2) KETOCONAZOLE 2% SHAMPOO Qty: 120 for 90 days ACTIVE Issue: 02/14/25 Sig: USE SHAMPOO TO AFFECTED AREA(S) ONCE A Refills: 3 Last : 02/17/25 DAY (EXTERNAL USE ONLY) (SHAKE WELL) LATHER Expr : 02/15/26 AND LET SIT FOR 5 MINUTES THEN RINSE Indication: TINEA VERSICOLOR Start Date Active Non-VA Medications Status Stop Date 1) Non-VA ACETAMINOPHEN TAB Sig: BY MOUTH ACTIVE 3 Total Medications FHx: No colon CA or polyps. No IBD. No liver, stomach or pancreatic disease. SHx: Smoking-prior smoker EtOH- denies Drugs-denies ROS: Review of systems is as per HPI and additionally notable for Constitutional: No fever, No weakness/ fatigue Cardiovascular: No chest pain, No palpitations Respiratory: No shortness of breath, No cough Genitourinary: No dysuria, No polyuria Neurology: No headache, No tremors Musculoskeletal: No joint pain, No back pain Skin: No rash, No itching Psychiatric: No anxiety, No depression 10-point ROS is otherwise negative. Vitals-98.1 F [36.7 C] (01/31/2025 14:10)83 (01/31/2025 14:10)136/88 (01/31/2025 14:10)18 (01/31/2025 14:10) Measurement DT POx (L/MIN)(%) 01/31/2025 14:10 95 11/20/2024 13:22 96 04/22/2024 13:35 97 03/11/2024 10:09 95 General- NAD, well-nourished HEENT-mmm, no lesion or exudate Neck-no thyromegaly, no JVD CV-rrr no m/r/g/t Lung-cta chaitanya, symmetric movement Abd-nabs, s/nt/nd, no masses, no HSM Rectal- Ext-no c/c/e Lymph-no edema, cervical or supraclavicular LAD Skin-no rashes, nodules, or jaundice Psych-A&O x 3, normal mood Hemoccult:No FOBT EO data found LABS: Hgb HGB 14.5 g/dL 01/31/2025 13:38 Hct 43.0 % (01/31/25 13:38) MCV 89.6 fL (01/31/25 13:38) Plt PLT 320 10*3/uL 01/31/2025 13:38 Iron, TIBC No IRON & TIBC EO data found Ricardo No FERRITIN EO data found BUN 12.7 mg/dL (01/31/25 13:38) Cr CREATININE 1.04 mg/dL 01/31/2025 13:38 Alb ALBUMIN 4.1 g/dL 01/31/2025 13:38 Ca 9.2 mg/dL (01/31/25 13:38) TSH TSH 1.989 uIU/mL 01/31/2025 13:38 Vit D VITAMIN D, 25-HYDROXY 21.4 L ng/mL 01/31/2025 13:38 ALT 19 U/L (01/31/25 13:38) AST 25 U/L (01/31/25 13:38) TB TOTAL BILIRUBIN 0.6 mg/dL 01/31/2025 13:38 AP ALKALINE PHOSPHATASE 68 U/L 01/31/2025 13:38 INR No INR EO data found IMAGING: Impression for CT ABDOMEN AND PELVIS W/O CONTRAST, 04/04/24, case [id number] Mildly obstructing 4 mm cystine calculus at the left ureterovesical junction. Impression for US ABDOMEN LTD, SINGLE ORG OR QUADRANT, 03/11/20, case [id number] 1. CHOLECYSTECTOMY. 2. NO BILE DUCT DILATATION. 3. MILD FATTY INFILTRATION OF THE LIVER. No Impressions found #RLQ abdominal pain His pain is related to movements, knotlike and reproducible with palpation on exam. Denies pain related to eating or change in bowel habits. LFTs are wnl. CT from ER not availabe to review but per PCP note with no acute pathology and CT 2023 normal. Given his description and his symptoms, his RLQ abdominal pain does seem to be related to a GI tract pathology and we discussed this with the patient that it could be related to MSK related pain or his kidney stones given they are localized on the R side. Plan: -will provide salonpas, can be refilled by PCP if he gets relief -if any changes in symptoms such as abdominal pain related to diet or change in bowel habits, we discussed calling our office and provided with contact information /brigida/ BRIAN RUDOLPH MD Gastroenterology Fellow Signed: 02/26/2025 14:50 /brigida/ CANDIDA MARTIN Gastroenterology Cosigned: 02/26/2025 16:18 02/26/2025 ADDENDUM STATUS: COMPLETED GI note Patient seen/chart reviewed. Suspect that symptoms are likely musculoskeletal. Reassured by normal blood counts, imaging, and lack of association with eating/bowel habits. No FH of IBD or alarming features. For now, treat MSK pain. Reviewed s/s of digestive disease that would prompt colonoscopy. Reviewed s/s of hernia as well. Patient given my contact information and he will reach out if symptoms progress or he develops alarm features and at that time we will proceed with colonoscopy/repeat imaging/etc. Thanks/PABLO /brigida/ CANDIDA MARTIN Gastroenterology Signed: 02/26/2025 16:21 BRIAN RUDOLPH [facility]
--- OUTSIDE RECORDS SUMMARY | 2025-04-11 15:22 | XMS_ITS | Encounter Summary ---
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 Date/Time Encounter Type Encounter Description Reason Provider Source Oct 18, 2024 08:34 AM Outpatient Encounter GENERAL INTERNAL MEDICINE SHANTHI ZAMORA Kimberly Encounter Template Text not used by [place] Plan of Treatment: Future Appointments (+ 6 months) and Future Tests (+/- 45 days) The Plan of Treatment section includes future care activities for the patient from all [place] treatmentfacilities. This section includes future appointments and future orders which are active, pending or scheduled. Future Appointments This section includes appointments that were scheduled to occur 6 months from the date of the Encounter, up to a maximum of 20 appointments. The data comes from all [place] treatment facilities. Appointment Date/Time Appointment Type Appointme nt Facility Name Oct 24, 2024 03:30 PM AMBULATORY - MEDICINE [facility] Nov 19, 2024 01:00 PM AMBULATORY - MEDICINE [facility] Nov 20, 2024 01:00 PM AMBULATORY - SURGERY [facility] Dec 10, 2024 10:00 AM AMBULATORY - MEDICINE [facility] Dec 10, 2024 01:00 PM AMBULATORY - MEDICINE . [facility] Dec 23, 2024 02:00 PM AMBULATORY - SURGERY [facility] January 31, 2025 01:30 PM AMBULATORY - MEDICINE [facility] February 14, 2025 03:30 PM AMBULATORY - MEDICINE [facility] Feb 26, 2025 01:00 PM AMBULATORY - MEDICINE [facility] Mar 21, 2025 01:30 PM AMBULATORY - NONE . [facility] Apr 08, 2025 02:20 PM AMBULATORY - MEDICINE [facility] Apr 11, 2025 03:30 PM AMBULATORY - MEDICINE [facility] Social History: Smoking Status (Most current) and Tobacco Use (All prior to encounter date) This section includes the most current, and the historical, smoking and tobacco- related health factors from the [place] facility where the Encounter took place. Current Smoking Status This section includes the most current smoking, or tobacco-related health factor, from the [place] facility where the Encounter took place. Date/Time Current Smoking Status Comment Facil ity Jan 06, 2015 01:37 PM TOBACCO MEDS OFFER ED BUT DECLINED [facility] Tobacco Use History This section includes a history of the smoking, or tobacco-related health factors, that were collected on or before the date of the Encounter. The data comes from the [place] facility where the Encounter took place. Date/Time Smoking Status/Tobacco Use Comment F acmounika Jan 06, 2015 01:37 PM TOBACCO MEDS OFFER ED BUT DECLINED [facility] Encounter Notes: All associated encounter notes This section contains the clinical notes associated to the Encounter. Date/Time Encounter Note(s) Provider Source Oct 24, 2024 02:08 PM ADDENDUM: LOCAL TITLE: Addendum STANDARD TITLE: ADDENDUM DATE OF NOTE: OCT 24, 2024@14:08:58 ENTRY DATE: OCT 24, 2024@14:08:59 AUTHOR: REGGIE FRANKLIN COSIGNER: URGENCY: STATUS: COMPLETED DC SUMMARY AND RELEVANT RECORDS RECEIVED VIA [employer]. SENT TO [facility] TO BE SCANNED INTO [facility] Alerting PCP team to this note for continuity of care. [place] records sent securely to [place] PCP and RNCM. /brigida/ REGGIE COMER RN REGISTERED NURSE Signed: 10/24/2024 14:10 Receipt Acknowledged By: 10/24/2024 14:27 /FAWN [place] REGISTERED NURSE 10/24/2024 16:04 /brigida/ Shanthi Zamora DNP, APRN, FNP-C Primary Care Nurse Practitioner ====== --- Original Document --- 10/16/24 [facility] SELF PRESENTING CARE COORD PLAN [address]: Emergency Notification Intake Date Presenting to the Facility: Sep Method of Contact: Notified from [facility] worklist Notification ID: [id number] [facility] Referral #: [id number] Clinical Review [facility] Name: Hospital: [facility] Address: [facility] [address] City: [place] State: [place] Zip Code: [address] [facility] Point of Contact: Name: Smita Velasco Chief complaint: Abdominal Pain Primary Diagnosis: Disposition Unknown at time of intake note entry Faxed request for records to above hospital. /brigida/ KAYDEN MAZARIEGOS ADVANCED DIRECTOR OF CORPORATE SALES Signed: 10/18/2024 08:38 Receipt Acknowledged By: 10/18/2024 14:24 /FAWN [place] REGISTERED NURSE 10/18/2024 08:43 /brigida/ Shanthi Zamora DNP, APRN, FNP-C Primary Care Nurse Practitioner 10/18/2024 ADDENDUM STATUS: COMPLETED RNCM please place a RTC for a nurse discharge f/u with via phone. Thank you! /maury Zamora DNP, APRN, FNP-C Primary Care Nurse Practitioner Signed: 10/18/2024 08:43 Receipt Acknowledged By: 10/18/2024 14:22 /es/ FAWN SORIANON REGISTERED NURSE KELI FRANKLINEKRadha Silva [facility] Oct 18, 2024 08:43 AM ADDENDUM: LOCAL TITLE: Addendum STANDARD TITLE: ADDENDUM DATE OF NOTE: OCT 18, 2024@08:43:13 ENTRY DATE: OCT 18, 2024@08:43:14 AUTHOR: SHANTHI ZAMORA EXP COSIGNER: URGENCY: STATUS: COMPLETED RNCM please place a RTC for a nurse discharge f/u with via phone. Thank you! /brigida/ Shanthi Zamora DNP, APRN, IESHA-C Primary Care Nurse Practitioner Signed: 10/18/2024 08:43 Receipt Acknowledged By: 10/18/2024 14:22 /es/ FAWN SORIANO REGISTERED NURSE ====== --- Original Document --- 10/16/24 [facility] PRESENTING CARE COORD PLAN [address]: Emergency Notification Intake Date Presenting to the Facility: Sep Method of Contact: Notified from [facility] work[facility] Notification ID: [id number] [facility] Referral #: [id number] Clinical Review [facility] Name: Hospital: [facility] Address: [address] [place] [address] City: [place] State: [place] Zip Code: [address] [facility] Point of Contact: Name: Smita Velasco Chief complaint: Abdominal Pain Primary Diagnosis: Disposition Unknown at time of intake note entry Faxed request for records to [facility]. /brigida/ KAYDEN MAZARIEGOS ADVANCED DIRECTOR OF CORPORATE SALES Signed: 10/18/2024 08:38 Receipt Acknowledged By: * AWAITING SIGNATURE * WOODROW MENDEZ 10/18/2024 08:43 /brigida/ Shanthi Zamora DNP, APRN, MINE ENGINEERING SUPERINTENDENT-C Primary Care Nurse Practitioner SHANTHI ZAMORA [facility] Oct 16, 2024 08:34 AM NONVA NOTE: LOCAL TITLE: [facility] SELF PRESENTING CARE COORD PLAN STANDARD TITLE: NONVA NOTE DATE OF NOTE: OCT 16, 2024@08:34 ENTRY DATE: OCT 18, 2024@08:34:24 AUTHOR: KAYDEN MAZARIEGOS COSIGNER: URGENCY: STATUS: COMPLETED [facility] SELF PRESENTING CARE COORD PLAN [address] Has ADDENDA Emergency Notification Intake Date Presenting to the Facility: Sep Method of Contact: Notified from [facility] worklist Notification ID: [id number] [facility] Referral #: [id number] Clinical Review [facility] Name: Hospital: [facility] Address: [address] City: [place] State: [place] Zip Code: [address] [facility] Point of Contact: Name: Smita Velasco Chief complaint: Abdominal Pain Primary Diagnosis: Disposition Unknown at time of intake note entry Faxed request for records to [facility]. /brigida/ KAYDEN MAZARIEGOS ADVANCED DIRECTOR OF CORPORATE SALES Signed: 10/18/2024 08:38 Receipt Acknowledged By: 10/18/2024 14:24 /brigida/ FAWN SORIANO REGISTERED NURSE 10/18/2024 08:43 /brigida/ Shanthi Zamora DNP, APRN, FNP-C Primary Care Nurse Practitioner 10/18/2024 ADDENDUM STATUS: COMPLETED RNCM please place a RTC for a nurse discharge f/u with via phone. Thank you! /maury Zamora DNP, APRN, ESTER Primary Care Nurse Practitioner Signed: 10/18/2024 08:43 Receipt Acknowledged By: 10/18/2024 14:22 /brigida/ FAWN SORIANON REGISTERED NURSE 10/24/2024 ADDENDUM STATUS: COMPLETED DC SUMMARY AND RELEVANT RECORDS RECEIVED VIA [employer] SENT TO [facility] TO BE SCANNED INTO CPRS Alerting PCP team to this note for continuity of care. [place] records sent securely to [place] PCP and RNCM. /brigida/ REGGIE COMER RN REGISTERED NURSE Signed: 10/24/2024 14:10 Receipt Acknowledged By: * AWAITING SIGNATURE * WOODROW MENDEZ * AWAITING SIGNATURE * SHANTHI ZAMORA,KAYDEN [facility]
--- OUTSIDE RECORDS SUMMARY | 2025-04-11 15:22 | XMS_ITS | Continuity of Care Document ---
Author Name [facility] Organization [facility] Care Team Providers Care Geospatial Technologist Name Role Phone [facility] Unavailable Unavailable Problems Combined list of problems from Department of Defense and Veterans Affairs facilities. It does not include entries that were removed or entered in error. 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
cervica l spinal surgery 10/2004 Unknown Organization Dermatitis or Eczema Active 013 Condition Unknown Organization Calculus of Kidney6 Active 013 Condition 07/14/2006 - NILDA VALENTINE
2002 and 2003 Unknown Organization Pain in joint involving hand (ICD-9-CM 719.44) Active 011 Condition Unknown Organization Folliculitis * (ICD-9-CM 704.8) Active 009 Condition Unknown Organization Cyst, ganglion * (ICD-9-CM 727.43) Active 009 Condition Unknown Organization Disorders of bursae and tendons in shoulder region (ICD-9-CM 726.10) Active 006 Condition Unknown Organization Pain in joint involving ankle and foot (ICD-9-CM 719.47)1 Active 006 Condition 07/14/2006 - NILDA VALENTINE
cystic bone lesion right ankle Unknown Organization Cervical Radiculopathy2 Active 006 Condition 07/14/2006 - NILDA VALENTINE
fusion C5-6 Unknown Organization Family History of Diabetes Mellitus3 Active 006 Condition 07/14/2006 - NILDA VALENTINE
mother recently dx with DMT2 or glucose intolerance Unknown Organization Family History of Stroke (Cerebrovascular) Active 006 Condition Unknown Organization Family History of other Cardiovascular Diseases4 Active Condition 07/14/2006 - NILDA VALENTINE
FH HTN Unknown Organization Headache * (ICD-9-CM 784.0)5 Active Condition 07/14/2006 - NILDA VALENTINE A
related to neck pain Unknown Organization Obesity8 Active Condition 07/14/2006 - NILDA VALENTINE
BMI-32 06/30 FH DMT2 Unknown Organization Tobacco Use Disorder * (ICD-9-CM 305.1)9 Active Condition 07/14/2006 - NILDA VALENTINE
1/2 PPD 06/30 Unknown Organization Abdominal pain Active Condition [facility] Blood Platelet Disorders Active Condition Jul 14, 2006 Entered By: NILDA VALENTINE Comment: stays awayf rom black hair dye, Vit C, Vit K and other listsOct 2005 Entered By: NILDA VALENTINE Comment: Dx: G6PD [facility] Calculus of Kidney Active Condition O ct 2005 Entered By: NILDA VALENTINE Comment: 2002 [facility] Calculus of Kidney Active Condition [facility] Cervical Radiculopathy Active Condition Jul 14, 2006 Entered By: NILDA VALENTINE Comment: fusion C5-6 [facility] Cyst, ganglion * (ICD-9-CM 727.43) Active Condition [facility] Dermatitis or Eczema Active Condition [facility] Disorders of bursae and tendons in shoulder region (ICD-9-CM 726.10) Active Condition [facility] Family History of Diabetes Mellitus Active Condition Jul 14 Entered By: NILDA VALENTINE Comment: mother recently dx with DMT2 or glucose intolerance [facility] Family History of Malignant Neoplasm of other Respiratory and Intrathoracic Orga Active Condition Jul 14 Entered By: NILDA VALENTINE Comment: GM lung caner and bone cancer- likley METS to bone [facility] Family History of other Cardiovascular Diseases Active Condition Jul 14, 2006 Entered By: NILDA VALENTINE Comment: FH HTN [facility] Family History of Stroke (Cerebrovascular) Active Condition [facility] Folliculitis * (ICD-9-CM 704.8) Active Condition [facility] Gastroesophageal reflux disease Active Condition [facility] Gastroesophageal Reflux Disorder Active Condition [facility] H CS Ujmnhgq-3-kcjfdfnwf dehydrogenase deficiency anemia Active Condition [facility] Headache * (ICD-9-CM 784.0) Active Condition Jul 14 6 Entered By: NILDA VALENTINE Comment: related to neck pain [facility] Hyperlipidemia Active Condition [facility] Kidney stone Active Condition [facility] Lichen planus Active Condition [facility] Lichen planus, bullous Active Condition [facility] Neck pain Active Condition Jan 06 15 Entered By: DERRICK HENDERSON Comment: cervical spinal surgery 10/2004 [facility] Neck Pain Active Condition [facility] Obesity Active Condition Jul 14 06 Entered By: NILDA VALENTINE Comment: BMI-32 06/30 FH DMT2 [facility] Obesity Active Condition [facility] Pain in joint involving ankle and foot (ICD-9-CM 719.47) Active Condition Jul 14, 2006 Entered By: NILDA VALENTINE Comment: cystic bone lesion right ankle [facility] Pain in joint involving hand (ICD-9-CM 719.44) Active Condition [facility] Personality disorder Active Condition [facility] Pompholyx * (ICD-9-CM 705.81) Active Condition [facility] Tobacco Use Disorder * (ICD-9-CM 305.1) Active Condition Jul 14 6 Entered By: NILDA VALENTINE Comment: 09/26 PPD 06/30 [facility] Vitamin D deficiency Active Condition [facility] Benign essential hypertension Inactive Condition 01/24/2024 [facility] Dyslipidemia Inactive Condition 01/24/2024 [facility] Legal problem Inactive Condition 01/24/[address] [facility] Pain in joint involving shoulder region (ICD-9-CM 719.41) Inactive Condition 08/08/2006 Jul 14, 2006 Entered By: NILDA VALENTINE Comment: left shoulder pain with possible rotator cuff injury [facility] Diagnosis: ICD-10-CM Z91.89 Oth personal risk factors, not elsewhere classified Active Diagnosis [facility] Diagnosis: ICD-10-CM Z71.81 Spiritual or anabaptist counseling Active Diagnosis [facility] Diagnosis: ICD-10-CM M48.02 Spinal stenosis, cervical region Active Diagnosis [facility] Admit Reason: R/O CVA Active Diagnosis [facility] Diagnosis: ICD-10-CM R20.2 Paresthesia of skin Active Diagnosis [facility] Diagnosis: ICD-10-CM M54.2 Cervicalgia Active Diagnosis [facility] Diagnosis: ICD-10-CM N20.0 Calculus of kidney Active Diagnosis [facility] Diagnosis: ICD-10-CM R10.31 Right lower quadrant pain Active Diagnosis [facility] Diagnosis: ICD-10-CM L43.9 Lichen planus, unspecified Active Diagnosis [facility] Diagnosis: ICD-10-CM Z00.00 Encntr for general adult medical exam w/o abnormal findings Active Diagnosis [facility] Diagnosis: ICD-10-CM Z01.00 Encounter for exam of eyes and vision w/o abnormal findings Active Diagnosis [facility] Diagnosis: ICD-10-CM N23 Unspecified renal colic Active Diagnosis [facility] Diagnosis: ICD-10-CM N20.1 Calculus of ureter Active Diagnosis [facility] Diagnosis: ICD-10-CM M47.892 Other spondylosis, cervical region Active Diagnosis [facility] Diagnosis: ICD-10-CM H52.4 Presbyopia Active Diagnosis [facility] Diagnosis: ICD-10-CM M54.12 Radiculopathy, cervical region Active Diagnosis [facility] Medications Combined list of outpatient medications from Department of Defense and Veterans Affairs facilities.Medications provided include 1) outpatient medications from the last 15 months, and 2) patient-reported medications. Medication Details Route Status Patient Instructions Prescription Expires Prescription Number Last Dispense Date Ordering Provider Order Date Order Qty Source ACETAMINOPH EN TAB TAKE BY MOUTH FOUR TIMES A DAY NEEDED ORAL ACTIVE JOSEPH ZAMORA R 2023 [facility] CAMPHOR/MEN THOL/METHYL SALICYLATE LARGE PATCH APPLY 1 PATCH TO SKIN SITE ONCE A DAY NEEDED FOR PAIN (EXTERNA L USE ONLY) TRANSD ERMAL ACTIVE 02/27/2026 [id number] CHUY RUDOLPH IVJULIAN A 2024 30 [facility] CHOLECALCIF IRIS 50MCG (2,000UNIT) TAB TAKE ONE TABLET BY MOUTH ONCE A DAY FOR VITAMIN D DEFICIEN CY ORAL ACTIVE 02/28/2026 [id number] 5 JOSEPH ZAMORA MARLENE R 2024 100 [facility] CLOBETASOL 0.05% CREAM/CEREV E CREAM 1:1- APPLY SPARINGL Y TO AFFECTED AREA(S) ONCE A DAY (EXTERNA L USE ONLY) 02/23/2024 [id number] 4 MARGARITA ZAMORA 2023 30 [facility] CLOBETASOL 0.05% CREAM/CEREV E CREAM 1:1- APPLY SPARINGL Y TO AFFECTED AREA(S) ONCE A DAY (EXTERNA L USE ONLY) 02/23/2024 [id number] 4 MARGARITA ZAMORA 2023 30 [facility] CLOBETASOL PROPIONATE 0.05% CREAM,TOP APPLY SPARINGL Y TO AFFECTED AREA(S) ONCE A DAY (EXTERNA L USE ONLY) TOPICA L DISCONT INUED 03/02/2025 [id number] 5 JOSEPH ZAMORA FABIANLiane R 2024 30 [facility] CLOBETASOL PROPIONATE 0.05% CREAM,TOP APPLY SPARINGL Y TO AFFECTED AREA(S) ONCE A DAY (EXTERNA L USE ONLY) TOPICA L 02/23/2024 [id number] 4 JOSEPH ZAMORA LBLiane R 2023 30 [facility] CLOBETASOL PROPIONATE 0.05% OINT,TOP APPLY SPARINGL Y TO AFFECTED AREA(S) TWICE A DAY (EXTERNA L USE ONLY) APPLY TO RASH ON ARMS AND LEGS TWICE DAILY TOPICA L ACTIVE 02/15/2026 [id number] 5 [facility] JARET SALAZAR E 2024 60 [facility] KETOCONAZOL E 2% SHAMPOO USE SHAMPOO TO AFFECTED AREA(S) ONCE A DAY (EXTERNA L USE ONLY) (SHAKE WELL) LATHER AND LET SIT FOR 5 MINUTES THEN RINSE TOPICA L ACTIVE 02/15/2026 [id number] 5 [facility] HY,JARET E 2024 120 [facility] NAPROXEN 500MG TAB TAKE ONE TABLET BY MOUTH TWICE A DAY FOR PAIN TAKE WITH FOOD. ORAL 05/04/2024 [id number] 4 MARIANO FLORES 2023 28 [facility] POTASSIUM CITRATE 10MEQ TAB,SA TAKE ONE TABLET BY MOUTH TWICE A DAY SWALLOW WHOLE, DO NOT CUT, CRUSH, CHEW, OR DISSOLVE ORAL ACTIVE 03/01/2026 [id number] 5 SYL COREAS 2024 200 [facility] Allergies, Adverse Reactions, Alerts Combined list of allergies from Department of Defense and [facility] Affairs facilities. It does not include entries that were removed or entered in error. Substance Category Reaction Severity Reaction type Status Date Reported Comments Source MUPIROCIN Propensity to adverse reactions to drug (finding) Eruption active 3 [facility] Mupirocin Calcium Drug allergy (disorder) Eruption of skin active 9 [facility] mupirocin topical Drug allergy Eruption of skin (disorder ), Eruption of skin (disorder ) Active One or More [facility] Immunizations Combined list of available immunizations from the Department of Defense and Veterans Affairs facilities. Immunization Series Date Given Administered By Site Reaction Lot Number CVX Code Drug Running Rigger Status Comments Source influenza virus vaccine, unspecified 2019 88 complet ed influenza virus vaccine, unspecifi ed 07/22/20 Recorded Ambulat ory Pharmac y INFLUENZA, UNSPECIFIED FORMULATION [address] [facility] INFLUENZA, MDCK, QUADRIVALENT, PF 1 2019 171 complet ed HISTORICA L INFORMATI ON - FROM OTHER REGISTRY, [facility] TDAP 2015 115 complet ed Left Deltoid [facility] tetanus, diphtheria, acellular pertu is 2015 115 complet ed Result Comment: Left Deltoid Ambulat ory Pharmac y tetanus, diphtheria, acellular pertu is 2013 115 complet ed tetanus, diphtheri a, acellular pertussis 09/25/13 Recorded Ambulat ory Pharmac y TDAP 2013 115 complet ed [facility] Td(adult) unspecified formulation 2007 139 complet ed Td(adult) unspecifi ed formulati on 09/25/07 Recorded Ambulat ory Pharmac y TETANUS DIPTHERIA (TD-ADULT) (HISTORICAL) 2007 139 complet ed [facility] Td(adult) unspecified formulation 2003 139 complet ed Td(adult) unspecifi ed formulati on 09/25/03 Recorded Ambulat ory Pharmac y TD(ADULT) UNSPECIFIED FORMULATION 2003 139 complet ed [facility] Results Combined list of recent chemistry, hematology and other laboratory results from Department of Defense and Veterans Affairs, ranging from 15 months to all on record, depending upon the facility. Order Name Results Value Reference Range Date Interpretation Specimen Comments Source B12 COBALAMIN (VITAMIN B12) [MASS/VOLU ME] IN SERUM OR PLASMA 350 pg/mL 213 - 816 04/09 Specimen Type: SERUM No comment entered. Ordering Provider: Deborah MEDINA Report Released Date/Time: Apr 09, 2025 04:48 AM Reporting Lab: [facility] [address] [facility] [address] Performing Lab: [facility] [address] [place] [phone] [facility] MRSA SURVL NARES DNA METHICILLI N RESISTANT STAPHYLOCO CCUS AUREUS (MRSA) DNA [PRESENCE] IN NOSE BY GUANACO WITH PROBE DETECTION Negative 04/08 Specimen Type: NARES Comment: Qualitative real-time PCR test for the rapid detection of methicillin -resistant Staphylococ cus aureus (MRSA) DNA from nasal swabs. A negative result does not preclude infection with the agent(s) tested and should not be used as the sole basis for treatment or other patient management decisions. A positive test does not necessarily indicate the presence of viable organisms, following bacterial culture to recover the organism for further characteriz ation and susceptibil ity testing. All results must be combined with clinical observation s, patient history, and epidemiolog ical information for final interpretat ion. Ordering Provider: Deborah MEDINA Report Released Date/Time: Apr 08, 2025 09:42 PM Reporting Lab: [place] [phone] Performing Lab: [address] [address] [facility] LIPID PANEL (STL) CHOLESTERO L [MASS/VOLU ME] IN SERUM OR PLASMA 207 mg/dL 0 - 200 04/08 H Specimen Type: PLASMA No comment entered. Ordering Provider: Deborah MEDINA Report Released Date/Time: Apr 08, 2025 09:42 PM Reporting Lab: [address] [address] Performing Lab: [address] [address] [facility] LIPID PANEL (STL) TRIGLYCERI DE [MASS/VOLU ME] IN SERUM OR PLASMA 121 mg/dL 0 - 150 04/08 Specimen Type: PLASMA No comment entered. Ordering Provider: Deborah MEDINA Report Released Date/Time: Apr 08, 2025 09:42 PM Reporting Lab: [place] [phone] Performing Lab: [facility] [address] [facility] [address] [facility] LIPID PANEL (STL) CHOLESTERO L IN LDL [MASS/VOLU ME] IN SERUM OR PLASMA BY CALCEFRAÍN N 141 mg/dL 04/08 Specimen Type: PLASMA No comment entered. Ordering Provider: Deborah MEDINA Report Released Date/Time: Apr 08, 2025 09:42 PM Reporting Lab: [facility] [address] [facility] [address] Performing Lab: [place] [address] [facility] [place] [address] [facility] LIPID PANEL (STL) CHOLESTERO L IN HDL [MASS/VOLU ME] IN SERUM OR PLASMA 42 mg/dL 40 04/08 Specimen Type: PLASMA No comment entered. Ordering Provider: Deborah MEDINA Report Released Date/Time: Apr 08, 2025 09:42 PM Reporting Lab: [place] [address] [facility] [address] Performing Lab: [facility] [address] [facility] [place] [address] [facility] PHOSPHOR OUS PHOSPHATE [MASS/VOLU ME] IN SERUM OR PLASMA 3.0 mg/dL 2.3 - 4.7 04/08 Specimen Type: PLASMA Comment: No hemolysis noted. Ordering Provider: [facility] KELLY GOODWIN Report Released Date/Time: Apr 08, 2025 03:20 PM Reporting Lab: [facility] [address] [facility] [address] Performing Lab: [facility] [address] [place] [address] [facility] MAGNESIU M MAGNESIUM [MASS/VOLU ME] IN SERUM OR PLASMA 2.1 mg/dL 1.6 - 2.6 04/08 Specimen Type: PLASMA Comment: No hemolysis noted. Ordering Provider: [facility] KELLY GOODWIN Report Released Date/Time: Apr 08, 2025 03:20 PM Reporting Lab: [address] [address] Performing Lab: [address] [phone] TROPONIN I (STL) TROPONIN I.CARDIAC [MASS/VOLU ME] IN SERUM OR PLASMA <0.010ng /mL 0 - 0.033 04/08 Specimen Type: PLASMA Comment: No hemolysis noted. Ordering Provider: [facility] KELLY GOODWIN Report Released Date/Time: Apr 08, 2025 03:20 PM Reporting Lab: [place] [address] Performing Lab: [address] [phone] TSH (MA-PB) THYROTROPI N [UNITS/VOL UME] IN SERUM OR PLASMA 2.009 u[IU]/mL 0.47 - 5 04/08 Specimen Type: SERUM No comment entered. Ordering Provider: [facility] KELLY GOODWIN Report Released Date/Time: Apr 08, 2025 03:20 PM Reporting Lab: [address] [address] Performing Lab: [address] [phone] [place] [address] CBC LEUKOCYTES [#/VOLUME] IN BLOOD BY AUTOMATED COUNT 6.7 10*3/uL 3.6 - 11.2 04/08 Specimen Type: BLOOD No comment entered. Ordering Provider: [facility] KELLY GOODWIN Report Released Date/Time: Apr 08, 2025 03:20 PM Reporting Lab: [address] [phone] Performing Lab: [address] [address] [facility] CBC ERYTHROCYT ES [#/VOLUME] IN BLOOD BY AUTOMATED COUNT 4.69 10*6/uL 4.10 - 5.70 04/08 Specimen Type: BLOOD No comment entered. Ordering Provider: [facility] KELLY GOODWIN Report Released Date/Time: Apr 08, 2025 03:20 PM Reporting Lab: [address] [address] Performing Lab: [address] [phone] [place] [address] CBC HEMOGLOBIN [MASS/VOLU ME] IN BLOOD 14.2 g/dL 13.1 - 16.8 04/08 Specimen Type: BLOOD No comment entered. Ordering Provider: [facility] KELLY GOODWIN Report Released Date/Time: Apr 08, 2025 03:20 PM Reporting Lab: [address] [address] Performing Lab: [address] [phone] [place] [address] CBC HEMATOCRIT [VOLUME FRACTION] OF BLOOD 41.2 38.2 - 48.4 04/08 Specimen Type: BLOOD No comment entered. Ordering Provider: [facility] KELLY GOODWIN Report Released Date/Time: Apr 08, 2025 03:20 PM Reporting Lab: [address] [address] Performing Lab: [address] [address] [facility] CBC MCV [ENTITIC VOLUME] BY AUTOMATED COUNT 87.8 fL 80.0 - 100.0 04/08 Specimen Type: BLOOD No comment entered. Ordering Provider: ST KELLY GOODWIN Report Released Date/Time: Apr 08, 2025 03:20 PM Reporting Lab: [address] [address] Performing Lab: [address] [address] [facility] CBC MCH [ENTITIC MASS] BY AUTOMATED COUNT 30.3 pg 27.0 - 34.0 04/08 Specimen Type: BLOOD No comment entered. Ordering Provider: [facility] KELLY GOODWIN Report Released Date/Time: Apr 08, 2025 03:20 PM Reporting Lab: [address] [address] Performing Lab: [address] [address] [facility] CBC MCHC [MASS/VOLU ME] BY AUTOMATED COUNT 34.5 g/dL 33.0 - 36.0 04/08 Specimen Type: BLOOD No comment entered. Ordering Provider: ST KELLY GOODWIN Report Released Date/Time: Apr 08, 2025 03:20 PM Reporting Lab: [address] [address] Performing Lab: [address] [address] [facility] CBC PLATELETS [#/VOLUME] IN BLOOD BY AUTOMATED COUNT 315 10*3/uL 150 - 400 04/08 Specimen Type: BLOOD No comment entered. Ordering Provider: ST KELLY GOODWIN Report Released Date/Time: Apr 08, 2025 03:20 PM Reporting Lab: [address] [address] Performing Lab: [address] [address] [facility] CBC PLATELET MEAN VOLUME [ENTITIC VOLUME] IN BLOOD BY AUTOMATED COUNT 9.1 fL 7.5 - 11.2 04/08 Specimen Type: BLOOD No comment entered. Ordering Provider: ST KELLY GOODWIN Report Released Date/Time: Apr 08, 2025 03:20 PM Reporting Lab: [address] [address] Performing Lab: [address] [address] [facility] CBC ERYTHROCYT E DISTRIBUTI ON WIDTH [RATIO] BY AUTOMATED COUNT 11.8 11.8 - 15.1 04/08 Specimen Type: BLOOD No comment entered. Ordering Provider: ST KELLY GOODWIN Report Released Date/Time: Apr 08, 2025 03:20 PM Reporting Lab: [facility] [address] [facility] [address] Performing Lab: [facility] [address] [facility] [place] [address] [facility] CBC LYMPHOCYTE S/100 LEUKOCYTES IN BLOOD BY AUTOMATED COUNT 28 04/08 Specimen Type: BLOOD No comment entered. Ordering Provider: ST KELLY GOODWIN Report Released Date/Time: Apr 08, 2025 03:20 PM Reporting Lab: [facility] [address] [facility] [place] [address] Performing Lab: [facility] [address] [facility] [place] [address] [facility] CBC MONOCYTES/ 100 LEUKOCYTES IN BLOOD BY AUTOMATED COUNT 12 04/08 Specimen Type: BLOOD No comment entered. Ordering Provider: ST KELLY GOODWIN Report Released Date/Time: Apr 08, 2025 03:20 PM Reporting Lab: [facility] [address] [facility] [place] [address] Performing Lab: [facility] [address] [facility] [address] [facility] CBC NEUTROPHIL S/100 LEUKOCYTES IN BLOOD BY AUTOMATED COUNT 55 04/08 Specimen Type: BLOOD No comment entered. Ordering Provider: ST KELLY GOODWIN Report Released Date/Time: Apr 08, 2025 03:20 PM Reporting Lab: [facility] [address] [facility] [address] Performing Lab: [facility] [address] [facility] [place] [address] [facility] CBC EOSINOPHIL S/100 LEUKOCYTES IN BLOOD BY AUTOMATED COUNT 5 04/08 Specimen Type: BLOOD No comment entered. Ordering Provider: [facility] KELLY GOODWIN Report Released Date/Time: Apr 08, 2025 03:20 PM Reporting Lab: [facility] [address] Performing Lab: [facility] [address] [facility] [address] [facility] CBC BASOPHILS/ 100 LEUKOCYTES IN BLOOD BY AUTOMATED COUNT 1 04/08 Specimen Type: BLOOD No comment entered. Ordering Provider: [facility] KELLY GOODWIN Report Released Date/Time: Apr 08, 2025 03:20 PM Reporting Lab: [place] [address] [facility] [address] Performing Lab: [place] [address] [facility] [address] [facility] CBC LYMPHOCYTE S [#/VOLUME] IN BLOOD BY AUTOMATED COUNT 1.86 10*3/uL 0.77 - 4.50 04/08 Specimen Type: BLOOD No comment entered. Ordering Provider: ST KELLY GOODWIN Report Released Date/Time: Apr 08, 2025 03:20 PM Reporting Lab: [place] [address] [facility] [address] Performing Lab: [facility] [address] [facility] CBC MONOCYTES [#/VOLUME] IN BLOOD BY AUTOMATED COUNT 0.80 10*3/uL 0.19 - 0.80 04/08 Specimen Type: BLOOD No comment entered. Ordering Provider: ST KELLY GOODWIN Report Released Date/Time: Apr 08, 2025 03:20 PM Reporting Lab: [facility] [address] Performing Lab: [address] [address] [facility] CBC NEUTROPHIL S [#/VOLUME] IN BLOOD BY AUTOMATED COUNT 3.67 10*3/uL 2.10 - 8.00 04/08 Specimen Type: BLOOD No comment entered. Ordering Provider: ST KELLY GOODWIN Report Released Date/Time: Apr 08, 2025 03:20 PM Reporting Lab: [place] [id number] Performing Lab: [facility] [address] [facility] [address] [facility] CBC EOSINOPHIL S [#/VOLUME] IN BLOOD BY AUTOMATED COUNT 0.32 10*3/uL 0.00 - 0.60 04/08 Specimen Type: BLOOD No comment entered. Ordering Provider: [facility] KELLY GOODWIN Report Released Date/Time: Apr 08, 2025 03:20 PM Reporting Lab: [place] [address] [facility] [address] Performing Lab: [place] [address] [facility] [phone] [place] [address] CBC BASOPHILS [#/VOLUME] IN BLOOD BY AUTOMATED COUNT 0.07 10*3/uL 0.00 - 0.20 04/08 Specimen Type: BLOOD No comment entered. Ordering Provider: ST KELLY GOODWIN Report Released Date/Time: Apr 08, 2025 03:20 PM Reporting Lab: [place] [address] [facility] [address] Performing Lab: [place] [address] [facility] [address] [facility] COMPREHE NSIVE METABOLI C PANEL CREATININE [MASS/VOLU ME] IN SERUM OR PLASMA 1.08 mg/dL 0.7 - 1.3 04/08 Specimen Type: PLASMA Comment: No hemolysis noted. Ordering Provider: ST KELLY GOODWIN Report Released Date/Time: Apr 08, 2025 03:20 PM Reporting Lab: [place] [address] [facility] [address] Performing Lab: [place] [address] [facility] [address] [facility] COMPREHE NSIVE METABOLI C PANEL UREA NITROGEN [MASS/VOLU ME] IN SERUM OR PLASMA 19.7 mg/dL 9.0 - 25.0 04/08 Specimen Type: PLASMA Comment: No hemolysis noted. Ordering Provider: ST KELLY GOODWIN Report Released Date/Time: Apr 08, 2025 03:20 PM Reporting Lab: [place] [address] [facility] [address] Performing Lab: [place] [address] [facility] [address] [facility] COMPREHE NSIVE METABOLI C PANEL GLUCOSE [MASS/VOLU ME] IN SERUM OR PLASMA 90 mg/dL 72 - 99 04/08 Specimen Type: PLASMA Comment: No hemolysis noted. Ordering Provider: ST KELLY GOODWIN Report Released Date/Time: Apr 08, 2025 03:20 PM Reporting Lab: [place] [address] [facility] [address] Performing Lab: [place] [address] [facility] [address] [facility] COMPREHE NSIVE METABOLI C PANEL SODIUM [MOLES/VOL UME] IN SERUM OR PLASMA 135 meq/L 136 - 145 04/08 L Specimen Type: PLASMA Comment: No hemolysis noted. Ordering Provider: ST KELLY GOODWIN Report Released Date/Time: Apr 08, 2025 03:20 PM Reporting Lab: [place] [address] [facility] [address] Performing Lab: [place] [address] [facility] [address] [facility] COMPREHE NSIVE METABOLI C PANEL POTASSIUM [MOLES/VOL UME] IN SERUM OR PLASMA 4.2 meq/L 3.5 - 5 04/08 Specimen Type: PLASMA Comment: No hemolysis noted. Ordering Provider: ST KELLY GOODWIN Report Released Date/Time: Apr 08, 2025 03:20 PM Reporting Lab: [place] [address] [facility] [address] Performing Lab: [facility] [address] [facility] [address] [facility] COMPREHE NSIVE METABOLI C PANEL CHLORIDE [MOLES/VOL UME] IN SERUM OR PLASMA 106 meq/L 98 - 107 04/08 Specimen Type: PLASMA Comment: No hemolysis noted. Ordering Provider: ST KELLY GOODWIN Report Released Date/Time: Apr 08, 2025 03:20 PM Reporting Lab: [facility] [address] [facility] [address] Performing Lab: [facility] [address] [facility] [address] [facility] COMPREHE NSIVE METABOLI C PANEL CARBON DIOXIDE, TOTAL [MOLES/VOL UME] IN SERUM OR PLASMA 22 meq/L 22 - 31 04/08 Specimen Type: PLASMA Comment: No hemolysis noted. Ordering Provider: ST KELLY GOODWIN Report Released Date/Time: Apr 08, 2025 03:20 PM Reporting Lab: [facility] [address] [facility] [address] Performing Lab: [place] [address] [facility] [address] [facility] COMPREHE NSIVE METABOLI C PANEL CALCIUM [MASS/VOLU ME] IN SERUM OR PLASMA 9.1 mg/dL 8.4 - 10.4 04/08 Specimen Type: PLASMA Comment: No hemolysis noted. Ordering Provider: ST KELLY GOODWIN Report Released Date/Time: Apr 08, 2025 03:20 PM Reporting Lab: [facility] [address] [facility] [address] Performing Lab: [facility] [address] [facility] [address] [facility] COMPREHE NSIVE METABOLI C PANEL PROTEIN [MASS/VOLU ME] IN SERUM OR PLASMA 7.8 g/dL 6 - 8.6 04/08 Specimen Type: PLASMA Comment: No hemolysis noted. Ordering Provider: ST KELLY GOODWIN Report Released Date/Time: Apr 08, 2025 03:20 PM Reporting Lab: [facility] [address] [facility] [address] Performing Lab: [facility] [address] [facility] [address] [facility] COMPREHE NSIVE METABOLI C PANEL ALBUMIN [MASS/VOLU ME] IN SERUM OR PLASMA 4.1 g/dL 3.4 - 5 04/08 Specimen Type: PLASMA Comment: No hemolysis noted. Ordering Provider: ST KELLY GOODWIN Report Released Date/Time: Apr 08, 2025 03:20 PM Reporting Lab: [place] [address] [facility] [address] Performing Lab: [place] [address] [facility] [address] [facility] COMPREHE NSIVE METABOLI C PANEL BILIRUBIN. TOTAL [MASS/VOLU ME] IN SERUM OR PLASMA 0.5 mg/dL 0.2 - 1.2 04/08 Specimen Type: PLASMA Comment: No hemolysis noted. Ordering Provider: ST KELLY GOODWIN Report Released Date/Time: Apr 08, 2025 03:20 PM Reporting Lab: [place] [address] [facility] [address] Performing Lab: [place] [address] [facility] [address] [facility] COMPREHE NSIVE METABOLI C PANEL ALKALINE PHOSPHATAS E [ENZYMATIC ACTIVITY/V OLUME] IN SERUM OR PLASMA 65 U/L 40 - 150 04/08 Specimen Type: PLASMA Comment: No hemolysis noted. Ordering Provider: ST KELLY GOODWIN Report Released Date/Time: Apr 08, 2025 03:20 PM Reporting Lab: [facility] [address] [facility] [address] Performing Lab: [facility] [address] [facility] [address] [facility] COMPREHE NSIVE METABOLI C PANEL ASPARTATE AMINOTRANS FERASE [ENZYMATIC ACTIVITY/V OLUME] IN SERUM OR PLASMA 31 U/L 5 - 34 04/08 Specimen Type: PLASMA Comment: No hemolysis noted. Ordering Provider: ST KELLY GOODWIN Report Released Date/Time: Apr 08, 2025 03:20 PM Reporting Lab: [place] [address] [facility] [address] Performing Lab: [place] [address] [facility] [address] [facility] COMPREHE NSIVE METABOLI C PANEL ALANINE AMINOTRANS FERASE [ENZYMATIC ACTIVITY/V OLUME] IN SERUM OR PLASMA 38 U/L 8 - 40 04/08 Specimen Type: PLASMA Comment: No hemolysis noted. Ordering Provider: ST KELLY GOODWIN Report Released Date/Time: Apr 08, 2025 03:20 PM Reporting Lab: [place] [address] [facility] [address] Performing Lab: [place] [address] [facility] [address] [facility] COMPREH NSIVE METABOLI C PANEL GLOMERULAR FILTRATION RATE/1.73 SQ M.PREDICTE D [VOLUME RATE/AREA] IN SERUM, PLASMA OR BLOOD BY CREATININE -BASED FORMULA (CKD-EPI 2020) 84.1 60 04/08 Specimen Type: PLASMA Comment: No hemolysis noted. Ordering Provider: ST KELLY GOODWIN Report Released Date/Time: Apr 08, 2025 03:20 PM Reporting Lab: [place] [address] [facility] [address] Performing Lab: [place] [address] 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 Ordering Provider: Nkechi COREAS Report Released Date/Time: January 29, 2025 10:38 AM Reporting Lab: [facility] [address] [facility] [address] Performing Lab: [facility] [id number] [place] [address] [facility] URINE STONE PNL (24HR-ST L-PB) CREATININE [MASS/TIME ] IN 24 HOUR URINE 1833 800 - 2000 02/06 Specimen Type: 24-HOUR URINE Comment: Total Urine Volume: 0.87 (L) L/day Uric acid, 24 Hour Urine: 160mg/day The patient has: Low urinary pH Low urine volume Supersat Index,Respe ct to: Calcium oxalate Uric acid 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 Ordering Provider: Nkechi COREAS Report Released Date/Time: January 29, 2025 10:38 AM Reporting Lab: [facility] [address] [facility] [address] Performing Lab: [facility] [id number] [place] [address] [facility] URINE STONE PNL (24HR-ST L-PB) POTASSIUM [MOLES/GINO E] IN 24 HOUR URINE 58 19 - 135 02/06 Specimen Type: 24-HOUR URINE Comment: Total Urine Volume: 0.87 (L) L/day Uric acid, 24 Hour Urine: 160mg/day The patient has: Low urinary pH Low urine volume Supersat Index,Respe ct to: Calcium oxalate Uric acid 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 Ordering Provider: Nkechi COREAS Report Released Date/Time: January 29, 2025 10:38 AM Reporting Lab: [facility] [address] [facility] [address] Performing Lab: [facility] [id number] [place] [address] [facility] URINE STONE PNL (24HR-ST L-PB) SODIUM [MOLES/GINO E] IN 24 HOUR URINE 121 <200 - 200 02/06 Specimen Type: 24-HOUR URINE Comment: Total Urine Volume: 0.87 (L) L/day Uric acid, 24 Hour Urine: 160mg/day The patient has: Low urinary pH Low urine volume Supersat Index,Respe ct to: Calcium oxalate Uric acid 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 Ordering Provider: Nkechi COREAS Report Released Date/Time: January 29, 2025 10:38 AM Reporting Lab: [facility] [address] [facility] [address] Performing Lab: [facility] [id number] [place] [address] [facility] URINE STONE PNL (24HR-ST L-PB) URATE [MASS/TIME ] IN 24 HOUR URINE 160 <700 - 700 02/06 Specimen Type: 24-HOUR URINE Comment: Total Urine Volume: 0.87 (L) L/day Uric acid, 24 Hour Urine: 160mg/day The patient has: Low urinary pH Low urine volume Supersat Index,Respe ct to: Calcium oxalate Uric acid 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 Ordering Provider: Nkechi COREAS Report Released Date/Time: January 29, 2025 10:38 AM Reporting Lab: [facility] [address] [facility] [address] Performing Lab: [facility] [id number] [place] [address] [facility] URINE STONE PNL (24HR-ST L-PB) OXALATE [MASS/TIME ] IN 24 HOUR URINE 22 <45 - 45 02/06 Specimen Type: 24-HOUR URINE Comment: Total Urine Volume: 0.87 (L) L/day Uric acid, 24 Hour Urine: 160mg/day The patient has: Low urinary pH Low urine volume Supersat Index,Respe ct to: Calcium oxalate Uric acid 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 Ordering Provider: Nkechi COREAS Report Released Date/Time: January 29, 2025 10:38 AM Reporting Lab: [place] [id number] [facility] [address] Performing Lab: [facility] [id number] [place] [address] [facility] URINE STONE PNL (24HR-ST L-PB) SODIUM URATE [SATURATIO N FRACTION] IN 24 HOUR URINE 0.97 <2.00 - 2.00 02/06 Specimen Type: 24-HOUR URINE Comment: Total Urine Volume: 0.87 (L) L/day Uric acid, 24 Hour Urine: 160mg/day The patient has: Low urinary pH Low urine volume Supersat Index,Respe ct to: Calcium oxalate Uric acid 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 Ordering Provider: Nkechi COREAS Report Released Date/Time: January 29, 2025 10:38 AM Reporting Lab: [facility] [address] [facility] [address] Performing Lab: [facility] [address] [facility] Vital Signs Combined list of inpatient and outpatient Vital Signs from Department of Defense and Veterans Affairs, ranging from 12 months to all on record, depending upon the facility. Vital Sign Value Date Comments Source SYSTOLIC BLOOD PRESSURE 130 04/09/2025 00:46:42 [facility] DIASTOLIC BLOOD PRESSURE 78 04/09/2025 00:46:42 [facility] PULSE OXIMETRY 95 % 04/09/2025 00:46:42 [facility] TEMPERATURE 97.4 04/09/2025 00:46:42 [facility] PULSE 70 04/09/2025 00:46:42 [facility] RESPIRATION 18 04/09/2025 00:46:42 [facility] SYSTOLIC BLOOD PRESSURE 132 04/08/2025 14:30:44 [facility] DIASTOLIC BLOOD PRESSURE 82 04/08/2025 14:30:44 [facility] PULSE OXIMETRY 97 % 04/08/2025 14:30:44 [facility] TEMPERATURE 98.1 04/08/2025 14:30:44 [facility] PULSE 78 04/08/2025 14:30:44 [facility] RESPIRATION 14 04/08/2025 14:30:44 [facility] SYSTOLIC BLOOD PRESSURE 136 01/31/2025 14:10:02 [facility] DIASTOLIC BLOOD PRESSURE 88 01/31/2025 14:10:02 [facility] PULSE OXIMETRY 95 01/31/2025 14:10:02 Cristofer REED [facility] WEIGHT 234 01/31/2025 14:10:02 [facility] K[facility]ice MICHEL [facility] BMI 37 kg/m2 01/31/2025 14:10:[address] [facility] MICHEL [facility] PAIN 7 01/31/2025 14:10:02 [facility] HEIGHT 67 01/31/2025 14:10:02 [facility] TEMPERATURE 98.1 01/31/2025 14:10:02 [facility] REED [facility] PULSE 83 01/31/2025 14:10:02 [address] [facility] MICHEL [facility] RESPIRATION 18 01/31/2025 14:10:02 STNora REED [facility] SYSTOLIC BLOOD PRESSURE 118 11/20/2024 13:22:29 [facility] DIASTOLIC BLOOD PRESSURE 73 11/20/2024 13:22:29 [facility] PULSE OXIMETRY 96 11/20/2024 13:22:29 [facility] WEIGHT 229.3 11/20/2024 13:22:29 [facility] BMI 36 kg/m2 11/20/2024 13:22:29 [facility] PAIN 0 11/20/2024 13:22:29 [facility] HEIGHT 67 11/20/2024 13:22:29 [facility] TEMPERATURE 97.9 11/20/2024 13:22:29 [facility] PULSE 66 11/20/2024 13:22:29 [facility] RESPIRATION 16 11/20/2024 13:22:29 [facility] SYSTOLIC BLOOD PRESSURE 121 04/22/2024 13:35:51 [facility] DIASTOLIC BLOOD PRESSURE 83 04/22/2024 13:35:51 [facility] PULSE OXIMETRY 97 04/22/2024 13:35:51 [facility] WEIGHT 235.4 04/22/2024 13:35:51 [facility] BMI 37 kg/m2 04/22/2024 13:35:51 [facility] PAIN 0 04/22/2024 13:35:51 [facility] HEIGHT 67 04/22/2024 13:35:51 [facility] TEMPERATURE 97.4 04/22/2024 13:35:51 [facility] PULSE 78 04/22/2024 13:35:51 [facility] RESPIRATION 18 04/22/2024 13:35:51 [facility] Encounters Combined list of: 1) Encounters from Department of Veterans Affairs facilities going backup to the last 18 months, not all [place] inpatient encounters are included; 2) Encounters from the Department of [facility] facilities going backup to 280 months. Location Location Details Encounter Type Encounter Number Reason For Visit Attending Provider ADM Date DC Date Status Disposition Source [facility] Outpatient Encounter [id number] 12/18 [facility] Outpatient Encounter [id number] JUAN MATTHEW Y 12/18 [facility] Outpatient Encounter [id number] Diagnos is: ICD-10- CM M54.2 Cervica lgia CHANDLERCHINTAN N L 12/18 [facility] N [facility] Outpatient Encounter [id number] 12/25 [facility] OFF/OP CNSLTJ NEW/EST MOD 40 [id number] Diagnos is: ICD-10- CM M54.12 Radicul opathy, cervica l region JOHANN,FUR QAN 12/25 [facility] Outpatient Encounter [id number] 12/25 [facility] COMPRE OPH EXAM EST PT 1/> [id number] Diagnos is: ICD-10- CM H52.4 PEDRO Chen 12/31 [facility] OFF/OP CNSLTJ NEW/EST MOD 40 [id number] Diagnos is: ICD-10- CM M54.2 Cervica lgia MARQUISE,ABRAM HN 01/07 [facility] Outpatient Encounter [id number] 01/[address] 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, cervica l region QAMAR GROSSMAN 02/21 [facility] Outpatient Encounter [id number] 2 03/08 [facility] OFFICE O/P EST MOD 30 MIN [id number] [id number] Diagnos is: ICD-10- CM M54.2 Cervica lgia MARQUISE,BARAM HN 03/11 [facility] Outpatient Encounter [id number] 03/12 [facility] Outpatient Encounter [id number] [id number] 03/15 [facility] Outpatient Encounter [id number] PEDRO KRAUSE 03/25 [facility] Outpatient Encounter [id number] 03/25 [facility] Outpatient Encounter [id number] Diagnos is: ICD-10- CM N20.1 Calculu s of ureter VU,SERGIO D 03/25 [facility] Outpatient Encounter [id number] 03/[address] [facility] HC PRO PHONE CALL 5-10 MIN [id number] [id number] Diagnos is: ICD-10- CM N20.1 Calculu s of ureter MAYDEN,CHR ISTINE M 04/01 [facility] EMERGENCY DEPT VISIT [facility] [id number] [id number] Diagnos is: ICD-10- CM N23 Unspeci fied renal colic Cristofer VOGEL MD 04/04 [facility] Outpatient Encounter [id number] Cristofer VOGEL MD 04/04 [facility] OFFICE O/P EST LOW 20 MIN [id number] [id number] Diagnos is: ICD-10- CM N20.0 Calculu s of kidney RADHA,R ALPH J 04/22 [facility] HC PRO PHONE CALL 5-10 MIN [id number] [id number] Diagnos is: ICD-10- CM N20.0 Calculu s of kidney SCOTT SALVADOR 04/25 [facility] Outpatient Encounter [id number] [id number] 2 05/01 [facility] Outpatient Encounter [id number] [id number] 06/19 [facility] Outpatient Encounter [id number] [id number] 06/21 [facility] Outpatient Encounter [id number] [id number] 10/16 [facility] Outpatient Encounter [id number] TRICIA ZAMORA 10/[address] [facility] OFF/OP EST MAY X REQ PHY/QHP [id number] Diagnos is: ICD-10- CM Z91.89 Oth persona l risk factors , not elsewhe re classif ied DAMARIS MENDEZ 10/24 [facility] Outpatient Encounter [id number] [id number] DAMARIS MENDEZ 10/25 [facility] OFFICE O/P EST LOW 20 MIN [id number] [id number] Diagnos is: ICD-10- CM N20.0 Calculu s of kidney VIKY DISLA 11/20 [facility] OFFICE O/P NEW LOW 30 MIN [id number] [id number] 3 Diagnos is: ICD-10- CM N20.0 Calculu s of kidney SYL COREAS S 12/10 [facility] Outpatient Encounter [id number] 12/10 [facility] Outpatient Encounter [id number] [id number] 12/10 [facility] OFFICE O/P EST LOW 20 MIN [id number] [id number] 9 Diagnos is: ICD-10- CM Z01.00 Encount er for exam of eyes and vision w/o abnorma l finding s Mague LEBLANC BRANDON CONCHITA 12/23 [facility] Outpatient Encounter [id number] [id number] 01/17 [facility] Outpatient Encounter [id number] [id number] 01/28 [facility] PH1 ASSMT&MGMT NQHP 11-20 [id number] [id number] 2 Diagnos is: ICD-10- CM N20.0 Calculu s of kidney SCOTT SALVADOR S 01/29 [facility] Outpatient Encounter [id number] Diagnos is: ICD-10- CM Z00.00 Encntr for general adult medical exam w/o abnorma l finding s TRICIA ZAMORA 01/31 [facility] Outpatient Encounter [id number] [id number] 02/03 [facility] BRIEF COMUNICAJ TECH-BSD SVC [id number] [id number] 2 Diagnos is: ICD-10- CM N20.0 Calculu s of kidney MADDUKURI, SYL S 02/03 [facility] Outpatient Encounter [id number] [id number] 1 Lisset KNAPP 02/04 [facility] OFFICE O/P NEW LOW 30 MIN [id number] [id number] 2 Diagnos is: ICD-10- CM L43.9 Lichen planus, unspeci fied ALIA MEADE J 02/14 [facility] OFF/OP CNSLTJ NEW/EST MOD 40 [id number] [id number] Diagnos is: ICD-10- CM R10.31 Right lower quadran t pain CANDIDA WILKES 02/26 [facility] SYNCH AUDIO-ONLY EST LOW 20 [id number] [id number] 1 Diagnos is: ICD-10- CM N20.0 Calculu s of kidney MADDUKURI, SYL S 02/28 [facility] OFFICE O/P EST SF 10 MIN [id number] [id number] Diagnos is: ICD-10- CM M54.2 Cervica randallamy DANTEGAGE COREABRUCE Deborah 04/08 [facility] Inpatient Encounter [id number] [id number] CHARLENE COFFMAN 04/08 [facility] EMERGENCY DEPT VISIT [facility] [id number] [id number] Diagnos is: ICD-10- CM R20.2 Paresth esia of skin Cristofer GOODWIN 04/08 [facility] Inpatient Encounter [id number] Admit Reason: R/O CVA ONEA,MED 04/08 Discharge from inpatient treatment to the [facility] ([facility]) [facility] Inpatient Encounter [id number] [id number] VIRGIL JAIN 04/08 [facility] Inpatient Encounter [id number] [id number] NITHYA DIAZ ISS 04/08 [facility] Inpatient Encounter [id number] [id number] NITHYA DIAZ ISS 04/08 [facility] Inpatient Encounter [id number] [id number] NITHYA DIAZ ISS 04/08 [facility] Inpatient Encounter [id number] [id number] NITHYA DIAZ ISS 04/08 [facility] Inpatient Encounter [id number] [id number] NITHYA DIAZ ISS 04/09 [facility] IP/OBS CNSLTJ NEW/EST LOW 45 [id number] [id number] Diagnos is: ICD-10- CM M48.02 Spinal stenosi s, cervica l region MARQUISE,ABRAM HN 04/09 [facility] Inpatient Encounter [id number] [id number] CHRIS DUARTE 04/09 [facility] Inpatient Encounter [id number] [id number] [facility] DUARTE [facility] 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 [id number] [id number] Diagnos is: ICD-10- CM Z71.81 Spiritu al or 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 us 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 OBIE Lomas 04/09 [facility] Inpatient Encounter [id number] CHRIS DUARTE 04/09 [facility] Inpatient Encounter [id number] CHRIS DUARTE AELLA 04/09 [facility] Outpatient Encounter [id number] DAMARIS MENDEZ 04/11 [facility] OFF/OP EST JANUARY X REQ PHY/QHP [id number] [id number] Diagnos is: ICD-10- CM Z91.89 Oth persona l risk factors , not elsewhe re classif ied DAMARIS MENDEZ 04/11 [facility] Procedures Combined list of: 1) Procedures from Department of [facility] Affairs facilities [facility], not all [facility] non-surgical procedures are included; 2) All procedures from the Department of Defense facilities. Procedure Procedure Type Code Date Perfomer Comments Sourc e COLONOSCOPY, FLEXIBLE; DIAGNOSTIC, INCLUDING COLLECTION OF SPECIMEN(S) BY BRUSHING OR WASHING, WHEN PERFORMED (SEPARATE PROCEDURE) Colonoscopy, flexible, proximal to splenic flexure; diagnostic, with or without collection of specimen(s) by brushing or washing, with or without colon decompression (separate procedure) [id number] 12/05/19 [facility] ESOPHAGOGASTRODUODEN OSCOPY, FLEXIBLE, TRANSORAL; WITH BIOPSY, SINGLE OR MULTIPLE Upper gastrointestinal endoscopy including esophagus, stomach, and either the duodenum and/or jejunum as appropriate; with biopsy, single or multiple [id number] 12/05/19 [facility] EXCISION OF LESION, TENDON, TENDON SHEATH, OR CAPSULE (INCLUDING SYNOVECTOMY) (EG, CYST OR GANGLION); FOOT Excision of lesion, tendon, tendon sheath, or capsule (including synovectomy) (eg, cyst or ganglion); foot [id number] 01/03/20 09 [facility] IMMUNIZATION ADMINISTRATION (INCLUDES PERCUTANEOUS, INTRADERMAL, SUBCUTANEOUS, OR INTRAMUSCULAR INJECTIONS); 1 VACCINE (SINGLE OR COMBINATION VACCINE/TOXOID) 08/03/20 17 [facility] IMMUNIZATION ADMINISTRATION (INCLUDES PERCUTANEOUS, INTRADERMAL, SUBCUTANEOUS, OR INTRAMUSCULAR INJECTIONS); EACH ADDITIONAL VACCINE (SINGLE OR COMBINATION VACCINE/TOXOID) 07/29/20 16 [facility] OPHTHALMOLOGICAL SERVICES: MEDICAL EXAMINATION AND EVALUATION, WITH INITIATION OR CONTINUATION OF DIAGNOSTIC AND TREATMENT PROGRAM; COMPREHENSIVE, ESTABLISHED PATIENT, 1 OR MORE VISITS 06/21/20 16 [facility] OPHTHALMOLOGICAL SERVICES: MEDICAL EXAMINATION AND EVALUATION, WITH INITIATION OR CONTINUATION OF DIAGNOSTIC AND TREATMENT PROGRAM; COMPREHENSIVE, ESTABLISHED PATIENT, 1 OR MORE VISITS 05/13/20 15 [facility] INFLUENZA VIRUS VACCINE, QUADRIVALENT (IIV4), SPLIT VIRUS, 0.5 ML DOSAGE, FOR INTRAMUSCULAR USE 08/06/20 14 [facility] OPHTHALMOLOGICAL SERVICES: MEDICAL EXAMINATION AND EVALUATION, WITH INITIATION OR CONTINUATION OF DIAGNOSTIC AND TREATMENT PROGRAM; COMPREHENSIVE, ESTABLISHED PATIENT, 1 OR MORE VISITS 04/30/20 14 [facility] INTRAOPERATIVE CHOLANGIOGRAM 03/27/20 14 [facility] LAPAROSCOPIC CHOLECYSTECTOMY 03/27/20 14 [facility] CASE MANAGEMENT, EACH 15 MINUTES 03/27/20 14 [facility] MEDICAL NUTRITION THERAPY; INITIAL ASSESSMENT AND INTERVENTION, INDIVIDUAL, [id number]-[id number] WITH THE PATIENT, EACH 15 MINUTES 03/26/20 14 [facility] LAPAROSCOPY, SURGICAL; CHOLECYSTECTOMY WITH CHOLANGIOGRAPHY 03/25/20 14 [facility] THERAPEUTIC, PROPHYLACTIC, OR DIAGNOSTIC INJECTION (SPECIFY SUBSTANCE OR DRUG); INTRAVENOUS PUSH, SINGLE OR INITIAL SUBSTANCE/DRUG 03/24/20 14 [facility] INFLUENZA VIRUS VACCINE, TRIVALENT (IIV3), SPLIT VIRUS, PRESERVATIVE FREE, 0.5 ML DOSAGE, FOR INTRAMUSCULAR USE 09/04/20 13 [facility] OPHTHALMOLOGICAL SERVICES: MEDICAL EXAMINATION AND EVALUATION, WITH INITIATION OR CONTINUATION OF DIAGNOSTIC AND TREATMENT PROGRAM; COMPREHENSIVE, ESTABLISHED PATIENT, 1 OR MORE VISITS 07/23/20 13 [facility] UNLISTED SPECIAL SERVICE, PROCEDURE OR REPORT 06/27/20 13 [facility] ELECTROCARDIOGRAM, ROUTINE ECG WITH AT LEAST 12 LEADS; WITH INTERPRETATION AND REPORT 06/21/20 13 [facility] OPHTHALMOLOGICAL SERVICES: MEDICAL EXAMINATION AND EVALUATION, WITH INITIATION OR CONTINUATION OF DIAGNOSTIC AND TREATMENT PROGRAM; COMPREHENSIVE, ESTABLISHED PATIENT, 1 OR MORE VISITS 12/28/19 13 [facility] IMMUNIZATION ADMINISTRATION (INCLUDES PERCUTANEOUS, INTRADERMAL, SUBCUTANEOUS, OR INTRAMUSCULAR INJECTIONS); EACH ADDITIONAL VACCINE (SINGLE OR COMBINATION VACCINE/TOXOID) 07/23/20 12 [facility] ECHOCARDIOGRAPHY, TRANSTHORACIC, REAL-TIME WITH IMAGE DOCUMENTATION (2D), INCLUDES M-MODE RECORDING, WHEN PERFORMED, COMPLETE, WITHOUT SPECTRAL OR COLOR DOPPLER ECHOCARDIOGRAPHY 05/21/20 12 [facility] PNEUMOCOCCAL POLYSACCHARIDE VACCINE, 23-VALENT (PPSV23), ADULT OR IMMUNOSUPPRESSED PATIENT DOSAGE, WHEN ADMINISTERED TO INDIVIDUALS 2 YEARS OR OLDER, FOR SUBCUTANEOUS OR INTRAMUSCULAR USE 04/25/20 12 [facility] TETANUS, DIPHTHERIA TOXOIDS AND ACELLULAR PERTUSSIS VACCINE (TDAP), WHEN ADMINISTERED TO INDIVIDUALS 7 YEARS OR OLDER, FOR INTRAMUSCULAR USE 04/25/20 12 [facility] OPHTHALMOLOGICAL SERVICES: MEDICAL EXAMINATION AND EVALUATION, WITH INITIATION OR CONTINUATION OF DIAGNOSTIC AND TREATMENT PROGRAM; COMPREHENSIVE, ESTABLISHED PATIENT, 1 OR MORE VISITS 03/22/20 12 [facility] OPHTHALMOLOGICAL SERVICES: MEDICAL EXAMINATION AND EVALUATION, WITH INITIATION OR CONTINUATION OF DIAGNOSTIC AND TREATMENT PROGRAM; COMPREHENSIVE, ESTABLISHED PATIENT, 1 OR MORE VISITS 06/16/20 11 [facility] VIS FUNCT SCREEN,AUTOMAT/SEMI- AUTOMAT BILAT QUANT DETERM VISUAL ACUITY,OCULAR ALIGN,COLOR VISION,PSEUDOISOCHRO MAT PLATES,& FIELD VIS (MAY INC ALL/SOME SCRN DETERM FOR CONTRAST SENSITIV,VIS UND GLARE) 05/13/20 11 [facility] INFLUENZA VIRUS VACCINE, TRIVALENT (IIV3), SPLIT VIRUS, 0.5 ML DOSAGE, FOR INTRAMUSCULAR USE 08/31/20 10 [facility] TELE ASSESS & MGT SRV PROV QUAL NONPHYS HLTH CARE PRO TO EST PAT,PARENT,GUARD NOT ORIG REL ASSESS & MGT SRV PROV W/IN PREV 7 DAYS NOR LEAD ASSESS & MGT SRV/PX W/IN NXT 24H/SOON APT; 11-20 MIN MED DIS 04/06/20 10 [facility] IMMUNIZATION ADMINISTRATION (INCLUDES PERCUTANEOUS, INTRADERMAL, SUBCUTANEOUS, OR INTRAMUSCULAR INJECTIONS); 1 VACCINE (SINGLE OR COMBINATION VACCINE/TOXOID) 09/24/20 09 [facility] ECHOCARDIOGRAPHY,TRA NSTHORACIC,REAL-TIME W IMAGE DOCUMENTATION (2D),INCLUDES M-MODE RECORDING,WHEN PERFORMED,COMPLETE,W ITH SPECTRAL DOPPLER ECHOCARDIOGRAPHY,AND W COLOR FLOW DOPPLER ECHOCARDIOGRAPHY 09/23/20 09 [facility] INFLUENZA VIRUS VACCINE, TRIVALENT (IIV3), SPLIT VIRUS, 0.5 ML DOSAGE, FOR INTRAMUSCULAR USE 07/22/20 09 [facility] DUPLEX SCAN OF EXTREMITY VEINS INCLUDING RESPONSES TO COMPRESSION AND OTHER MANEUVERS; UNILATERAL OR LIMITED STUDY 05/27/20 09 [facility] TELE ASSESS & MGT SRV PROV QUAL NONPHYS HLTH CARE PRO TO EST PAT,PARENT,GUARD NOT ORIG REL ASSESS & MGT SRV PROV W/IN PREV 7 DAYS NOR LEAD ASSESS & MGT SRV/PX W/IN NXT 24 HR/SOON APT;5-10 MIN MED DIS 03/26/20 09 [facility] INFLUENZA VIRUS VACCINE, TRIVALENT (IIV3), SPLIT VIRUS, PRESERVATIVE FREE, 0.5 ML DOSAGE, FOR INTRAMUSCULAR USE 07/25/20 08 [facility] IMMUNIZATION ADMINISTRATION (INCLUDES PERCUTANEOUS, INTRADERMAL, SUBCUTANEOUS, OR INTRAMUSCULAR INJECTIONS); 1 VACCINE (SINGLE OR COMBINATION VACCINE/TOXOID) 08/22/20 06 [facility] INFLUENZA VIRUS VACCINE, TRIVALENT (IIV3), SPLIT VIRUS, 0.5 ML DOSAGE, FOR INTRAMUSCULAR USE 09/01/20 05 [facility] NONINVASIVE EAR OR PULSE OXIMETRY FOR OXYGEN SATURATION; SINGLE DETERMINATION 04/17/20 05 [facility] INFLUENZA VIRUS VACCINE, TRIVALENT (IIV3), SPLIT VIRUS, 0.5 ML DOSAGE, FOR INTRAMUSCULAR USE 09/02/20 04 [facility] SCREENING PAPANICOLAOU SMEAR; OBTAINING, PREPARING AND CONVEYANCE OF CERVICAL OR VAGINAL SMEAR TO LABORATORY 07/29/20 04 [facility] BLOOD,OCCULT,BY PEROXIDASE ACTIV (EG,GUAIAC),QUAL;FEC ES,CONSECUTIVE COLLECTED SPECIMENS W SING DETERMIN,FOR COLORECTAL NEOPLAS SCREEN (IE,PAT PROVIDE 3 CARDS/SING TRIPLE CARD FOR CONSECUTIVE COLLECT) 06/17/20 03 [facility] DETERMINATION OF REFRACTIVE STATE 06/12/20 03 [facility] ROUTINE VENIPUNCTURE FOR COLLECTION OF SPECIMEN(S) 03/25/20 03 [facility] INFLUENZA VIRUS VACCINE, TRIVALENT (IIV3), SPLIT VIRUS, 0.5 ML DOSAGE, FOR INTRAMUSCULAR USE 02/11/20 03 [facility] SCREENING PAPANICOLAOU SMEAR; OBTAINING, PREPARING AND CONVEYANCE OF CERVICAL OR VAGINAL SMEAR TO LABORATORY 12/27/19 02 [facility] COLLECTION OF VENOUS BLOOD BY VENIPUNCTURE 08/08/20 [facility] INFLUENZA VIRUS VACCINE, TRIVALENT (IIV3), SPLIT VIRUS, 0.5 ML DOSAGE, FOR INTRAMUSCULAR USE 08/07/20 [facility] Social History Combined list of available smoking, tobacco, and other social history from Department of Defense and Veterans Affairs facilities. Social History Type Response Date Comment [facility] e Tobacco smoking status IAIS VA-TOBACCO USE FORMER CIGARETTES 01/31/2025 [facility] History of tobacco use VA-TOBACCO NEVER USED OTHER TYPE 01/31/2025 [facility] History of tobacco use VA-TOBACCO FORMER USER 01/24/2024 [facility] Sex Representation Male (finding) 12/29/2021 Un known Organization History of tobacco use VA-TOBACCO FORMER USER 06/12/2020 [facility] History of tobacco use HI-TOBACCO QUIT 1 TO < 5 YRS 08/28/2018 [facility] History of tobacco use QUIT TOBACCO >12 MO and <7 YRS AGO 02/07/2018 [facility] History of tobacco use TOBACCO OFFERRED PT MEDS (PROVIDER) 04/01/2016 [facility] History of tobacco use CURRENT TOBACCO USER 01/06/2015 [facility] History of tobacco use TOBACCO SCREEN COMPLETED 11/22/2012 No, not willing to quit now [facility] History of tobacco use TOBACCO OFFERRED PT MEDS (PROVIDER) 09/01/2011 [facility] History of tobacco use TOBACCO OFFERRED STOP [facility]MOKING [facility] 08/31/2010 [facility] History of tobacco use TOBACCO OFFERRED PT MEDS (PROVIDER) 09/03/2009 [facility] History of tobacco use TOBACCO OFFERRED STOP SMOKING CLINIC 08/20/2008 [facility] Sexual Orientation [facility] Gender identity [facility] This section is an empty social history section. [facility] Assessment and Plan Combined list of future care activities from Department of Defense and Veterans Affairs facilities (e.g., assessment and plan notes, appointments, orders, and referrals). Additional future care activities may be listed in the Plan of Care section. Result Assessment and Plan Date Source Assessment and Plan No data available for this section 04/11/2025 [facility] Plan of Care List of future care activities from Department of Veterans Affairs facilities. Additional future care activities may be listed in the Assessment and Plan section. Date/Time Care Activity Care Activity Detail Facili ty 04/11/2025 AMBULATORY - MEDICINE AMBULATORY [facility] Functional Status Combined list of recent functional and cognitive assessments recorded at Department of Defense and Veterans Affairs (VA).VA Functional [place] Measurement (FIM) Scale: 1 = Total Assistance (Subject = 0% +), 2 = Maximal Assistance (Subject = 25% +), 3 = Moderate Assistance (Subject = 50% +), 4 = Minimal Assistance (Subject = 75% +), 5 = Supervision, 6 = Modified [place] (Device), 7 = Complete [place] (Timely, Safely). Assessment Date/Time Source Assessment Type Assessment Skill Assessment Score Assessment Details No data available for this section
--- OUTSIDE RECORDS SUMMARY | 2025-04-11 15:22 | XMS_ITS | Clinical Summary ---
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 Gender Identity Not on file Sexual Orientation Not on file Plan of Treatment Health Maintenance Due Date Last Done Comments Colorectal Cancer Screening Colonoscopy (10 Years) 1976 Annual Physical 1979 Hepatitis C 1994 DTaP, Tdap and Td Vaccines ( 1 - Tdap) 1995 Hepatitis B Vaccines (1 of 3 - 19+ 3-dose series) 1995 COVID-19 Vaccine (2023-2 5 season) 2024 Meningococcal B Vaccine Aged Out No l onger eligible based on patient's age to complete this topic Meningococcal Vaccine Aged Out No kiara lexi eligible based on patient's age to complete this topic Pneumococcal Vaccine: Pediat rics (0 to 5 Years) and At-Risk Patients (6 to 49 Years) Aged Out No longer eligible b ased on patient's age to complete this topic RSV Immunizations Under 20 Months Aged Out No longer eligible based on patient's age to complete this topic
--- OUTSIDE RECORDS SUMMARY | 2025-04-11 15:22 | XMS_ITS | Encounter Summary ---
Author Name [facility] [facility] [place] [facility] [place] Address [address] [place] [address] Care Team Providers Care Warehouse Clerk Name Role Phone MARGARITA ZAMORA Primary Care Provider Unavailabl e Selected Encounter This section includes the information on record at [place] for the Encounter. Date/Time Encounter Type Encounter Description Reason Provider Source Dec 23, 2024 02:00 PM OFFICE O/P EST LOW 20 MIN OPTOMETRY ICD-10-CM Z01.00 Encounter for exam of eyes and vision w/o abnormal findings KAYLA LEBLANC [facility] Encounter Template Text not used by [place] Assessments - Encounter Diagnoses This section includes the primary and secondary diagnoses documented for the Encounter. Date/Time Primary/Secondary Diagnosis Diagnosis Name Provider Source Dec 23, 2024 02:23 PM PRIMARY Encounter for exam of eyes and vision w/o abnormal findings KAYLA LEBLANC [facility] Dec 23, 2024 02:23 PM SECONDARY Hypermetropia, bilateral KAYLA LEBLANC [facility] Dec 23, 2024 02:23 PM SECONDARY Presbyopia KAYLA LEBLANC [facility] Plan of Treatment: Future Appointments (+ 6 months) and Future Tests (+/- 45 days) The Plan of Treatment section includes future care activities for the patient from [facility] [place] [facility] This section includes future appointments and future orders which are active, pending or scheduled. Future Appointments This section includes appointments that were scheduled to occur 6 months from the date of the Encounter, up to a maximum of 20 appointments. The data comes from all [facility]. Appointment Date/Time Appointment Type Appointme nt Facility Name January 31, 2025 01:30 PM AMBULATORY - MEDICINE [facility] February 14, 2025 03:30 PM AMBULATORY - MEDICINE [facility] Feb 26, 2025 01:00 PM AMBULATORY - MEDICINE [facility] Mar 21, 2025 01:30 PM AMBULATORY - NONE [facility] Apr 08, 2025 02:20 PM AMBULATORY - MEDICINE [facility] Apr 11, 2025 03:30 PM AMBULATORY - MEDICINE [facility] Apr 23, 2025 01:20 PM AMBULATORY - SURGERY [facility] Apr 29, 2025 10:00 AM AMBULATORY - NONE [facility] May 19, 2025 02:00 PM AMBULATORY - MEDICINE [facility] Active, Pending, and Scheduled Orders This section includes a listing of several types of active, pending, and scheduled orders, including clinic medications orders, diagnostic test orders, procedure orders and consult orders; where the start date of the order is 45 days before the date of the Encounter or 45 days after the date of theEncounter. The data comes from all [facility]. Test Date/Time Test Type Test Details Facility Name Dec 10, 2024 12:00 AM Laboratory - Chemi stry Order PTH, INTACT (STL) RED/NO-GEL SERUM SP [facility] Dec 10, 2024 12:00 AM Laboratory - Chemi stry Order MICRAL/CREAT PROFILE (STL) URINE YELLOW SP [facility] Dec 10, 2024 12:00 AM Laboratory - Chemi stry Order RENAL PANEL GREEN LI/HEP BLD/PLAS PLASMA SP [facility] Dec 10, 2024 12:00 AM Laboratory - Chemi stry Order URINE STONE PNL (24HR-STL-PB) 24HR UR ANGELITO 24-HOUR URINE SP ONCE [facility] Dec 10, 2024 12:00 AM Laboratory - Chemi stry Order URIC ACID GREEN LI/HEP BLD/PLAS PLASMA SP [facility] Dec 10, 2024 12:00 AM Laboratory - Chemi stry Order CBC BLOOD SP [facility] Social History: Smoking Status (Most current) and Tobacco Use (All prior to encounter date) This section includes the most current, and the historical, smoking and tobacco- related health factors from the [place] facility where the Encounter took place. Current Smoking Status This section includes the most current smoking, or tobacco-related health factor, from the [place] facility where the Encounter took place. Date/Time Current Smoking Status Comment Facil ity Jan 06, 2015 01:37 PM CURRENT TOBACCO USER [facility] Tobacco Use History This section includes a history of the smoking, or tobacco-related health factors, that were collected on or before the date of the Encounter. The data comes from the [place] facility where the Encounter took place. Date/Time Smoking Status/Tobacco Use Comment F acility Jan 06, 2015 01:37 PM TOBACCO MEDS OFFER ED BUT DECLINED [facility] Encounter Notes: All associated encounter notes This section contains the clinical notes associated to the Encounter. Date/Time Encounter Note(s) Provider Source Dec 23, 2024 01:55 PM OPTOMETRY NOTE: LOCAL TITLE: OPTOMETRY NOTE STANDARD TITLE: OPTOMETRY NOTE DATE OF NOTE: DEC 23, 2024@13:55 ENTRY DATE: DEC 23, 2024@07:29:50 AUTHOR: LEDA LEBLANC EXP COSIGNER: URGENCY: STATUS: COMPLETED Last seen 01/01/24 Reason for visit: Ocular Health CC: 1. Vision stable with correction per patient - No ocular complaints or vision changes - Interested in new glasses Ocular meds: None Ocular ROS: (-) Surgery (-) Trauma (+) Refractive Error/Presbyopia Family OcHX: (-) blindness (+) glaucoma - PGF (-) AMD (-) RD Cardiovascular ROS: no change from problem & medication lists [facility] Problem list, medications and allergies reviewed: [facility] Serology for Diabetes GLUCOSE 96 mg/dL 04/04/2024 09:54 No HEMOGLOBIN A1C EO data found Cardiovascular BP: 118/73 (11/20/2024 13:22) Pulse: 66 (11/20/2024 13:22) Neuro: Orientation: Normal Psych: Mood/Affect: Normal Depression/suicide ideation: NO VISUAL ACUITY With correction Distance Visual Acuity OD 20/20- OS 20/25-2 Pupils PERRL OU (-)APD Confrontation: FTFC OU Extra-Ocular Muscles Full OU, (-) diplopia, (-) pain Externals/adnexa: Unremarkable OU Refraction: 01/01/24 OD +3.00 -0.75 x097 20/20 OS +1.75 DS 20/20 Add: + 1.75 12/23/24 OD +3.00 - 0.50 x 100 20/20- OS +2.25 SPH 20/20 Add: + 1.75 SLIT LAMP EXAMINATION Lids/Lashes/Lacrimal No blepharitis OU Conjunctiva/Sclera White/quiet OU Cornea Clear OU Ant Chamber Deep and quiet OU; no cells or flare Iris Normal, (-)NVI OU Lens Clear OU Intraocular Pressures (Goldmann) 1 gtt fluress Date: O.D. O.S. Time Meds 01/01/24 18 18 1120 none 07/26/2021 16 16 1420 none 12/23/24 12 12 1405 none RETINAL EVALUATION 1 phenyleph 2.5%, 1 trop 1% OU Pt educated on temporary effects of dilation drops such as light sensitivityand blurry vision. DFE Dilated retinal exam Optic Nerve OD: 0.25 CDR Flat, pink, distinct (-)NVD OS: 0.25 CDR Flat, pink, distinct (-)NVD Vessels: 2/3 OU; no tortuosity noted Posterior Pole: OD: (-) Hemorrhages (-) exudates (-) cotton wool spots OS: (-) Hemorrhages (-) exudates (-) cotton wool spots Macula: OD: Flat, clear (-)CSME OS: Flat, clear (-)CSME Periphery: OD: Flat and attached; no holes, tears, detachments 360 OS: Flat and attached; no holes, tears, detachments 360 Vitreous: No PVD OU Assessment/Plan 12/23/24 1. Good Ocular Health - BCVAs: 20/20 OU - Retina flat, intact, no holes, tears, detachments noted on clinical examination - Educated patient on today's findings. Patient is to RTC should she note any vision changes - Monitor yearly 2. Refractive error/Presbyopia - increase in bva w/refraction - Ordered new glasses for patient today - Monitor yearly Ed. Pt on all findings and given the opportunity to have questions answered RTC in 1 year for CEE; sooner PRN /brigida/ LEDA LEBLANC O.D. Staff Md Senior Research Scientist, Optometry Signed: 12/23/2024 14:24 LEDA LEBLANC [facility]
--- OUTSIDE RECORDS SUMMARY | 2025-04-11 15:22 | XMS_ITS | Encounter Summary ---
Author Name [facility] [place] [facility] [place] Address [address] [place] [address] Care Team Providers Care Benefits Clerk Name Role Phone NAOH MARGARITA Primary Care Provider Unavailabl e Selected Encounter This section includes the information on record at [place] for the Encounter. Date/Time Encounter Type Encounter Description Reason Provider Source February 14, 2025 03:30 PM OFFICE O/P NEW LOW 30 MIN DERMATOLOGY ICD-10-CM L43.9 Lichen planus, unspecified ALIA MEADE [facility] Encounter Template Text not used by [place] Assessments - Encounter Diagnoses This section includes the primary and secondary diagnoses documented for the Encounter. Date/Time Primary/Secondary Diagnosis Diagnosis Name Provider Source Mar 05, 2025 01:59 PM PRIMARY Lichen planus, unspecified ABRAM SINHA [facility] Mar 05, 2025 01:59 PM SECONDARY Pityriasis versicolor ABRAM SINHA [facility] Plan of Treatment: Future Appointments (+ 6 months) and Future Tests (+/- 45 days) The Plan of Treatment section includes future care activities for the patient from all [place] treatmentfacilities. This section includes future appointments and future orders which are active, pending or scheduled. Future Appointments This section includes appointments that were scheduled to occur 6 months from the date of the Encounter, up to a maximum of 20 appointments. The data comes from all [place] treatment facilities. Appointment Date/Time Appointment Type Appointme nt Facility Name Feb 26, 2025 01:00 PM AMBULATORY - MEDICINE [facility] Mar 21, 2025 01:30 PM AMBULATORY - NONE [facility] Apr 08, 2025 02:20 PM AMBULATORY - MEDICINE [facility] Apr 11, 2025 03:30 PM AMBULATORY - MEDICINE [facility] Apr 23, 2025 01:20 PM AMBULATORY - SURGERY . [facility] Apr 29, 2025 10:00 AM AMBULATORY - NONE [facility] May 19, 2025 02:00 PM AMBULATORY - MEDICINE [facility] Jul 01, 2025 11:00 AM AMBULATORY - MEDICINE [facility] Lab Results: +/- 30 days of the encounter This section includes the Chemistry and Hematology Lab Results on record with [place] for the patient. Radiology Reports and Pathology Reports are provided separately, in subsequent sections. Lab Results This section contains the Chemistry/Hematology Results that were resulted 30 days before or 30 daysafter the date of the Encounter. Date/Time Source Result Type Result - Unit Interpretation Reference Range Specimen Type Comment February 06, 2025 08:00 AM [facility] URINE STONE PNL (24HR-STL-PB) 24-HOUR URINE Specimen [...] January 29, 2025 10:38 AM Reporting Lab: [facility] [address] [facility] [address] Performing Lab: [facility] [address] [facility] VOLUME 950 mL CREATININE URINE/OTHERS [phone] POTASSIUM URINE/OTHERS 58 19-135 SODIUM URINE/OTHERS 121 <200 CALCIUM URINE/OTHERS 199 <250.0 PHOSPHOROUS URINE/OTHERS 1119 H <1100 URIC ACID URINE/OTHERS 160 <700 MAGNESIUM URINE/OTHER 71 >60.0 OXALATE 22 <45 CITRIC ACID 607 >320 SULFATE,U-PB STL 24 <30 +BRUSHITE 1.08 <2.00 .INTERP comment PH(SO) 5.3 L 5.5-7.0 +CALCIUM OXALATE 2.38 H <2.00 +SODIUM-URATE 0.97 <2.00 January 31, 2025 01:38 PM [facility] PTH, INTACT (STL) SERUM Specimen Type: SERUM No comment entered. Ordering Provider: SYL COREAS Report Released Date/Time: January 29, 2025 10:38 AM Reporting Lab: [address] [address] Performing Lab: [address] [address] PTH, INTACT (STL) 45.60 pg/mL 8.7-77.7 January 31, 2025 01:38 PM [facility] URIC ACID PLASMA Specimen Type: PLASM A Comment: No hemolysis noted. Ordering Provider: SYL COREAS Report Released Date/Time: January 29, 2025 10:38 AM Reporting Lab: [address] [address] Performing Lab: [address] [address] URIC ACID 5.5 mg/dL 3.5-7.2 January 31, 2025 01:38 PM [facility] TSH (MA-PB) SERUM Specimen Type: SERUM No comment entered. Ordering Provider: MARGARITA ZAMORA Report Released Date/Time: January 31, 2025 01:31 PM Reporting Lab: [address] [address] Performing Lab: [address] [address] TSH 1.989 u[IU]/mL 0.47-5 January 31, 2025 01:38 PM [facility] RENAL PANEL PLASMA Specimen Type: PLASM A Comment: No hemolysis noted. Ordering Provider: SYL COREAS Report Released Date/Time: January 29, 2025 10:38 AM Reporting Lab: [address] [address] Performing Lab: [address] [address] CREATININE 1.04 mg/dL 0.7-1.3 UREA NITROGEN 12.7 mg/dL 9.0-25.0 GLUCOSE 119 mg/dL H 72-99 SODIUM 138 meq/L 136-145 POTASSIUM 3.8 meq/L 3.5-5 CHLORIDE 107 meq/L 98-107 CARBON DIOXIDE 24 meq/L 22-31 CALCIUM 9.2 mg/dL 8.4-10.4 PHOSPHOROUS 3.0 mg/dL 2.3-4.7 ALBUMIN 4.1 g/dL 3.4-5 EGFR (CKD-EPI 2020) 88.6 >60 January 31, 2025 01:38 PM [facility] HGA1C BLOOD Specimen Type: BLOOD No comment entered. Ordering Provider: MARGARITA ZAMORA Report Released Date/Time: January 31, 2025 01:31 PM Reporting Lab: [address] [address] Performing Lab: [address] [address] HGA1C 4.7 4.0-6.0 January 31, 2025 01:38 PM [facility] HEPATIC FUNTION PANEL (STL) PLASMA Specimen Ty pe: PLASMA No comment entered. Ordering Provider: MARGARITA ZAMORA Report Released Date/Time: January 31, 2025 01:31 PM Reporting Lab: [address] [address] Performing Lab: [address] [address] PROTEIN 7.8 g/dL 6-8.6 ALBUMIN 4.1 g/dL 3.4-5 TOTAL BILIRUBIN 0.6 mg/dL 0.2-1.2 ALKALINE PHOSPHATASE 68 U/L 40-150 AST/SGOT 25 U/L 5-34 ALT/SGPT 19 U/L 8-40 CONJ. BILIRUBIN 0.2 mg/dL 0-0.5 January 31, 2025 01:38 PM [facility] CBC BLOOD Specimen Type: BLOOD No comment entered. Ordering Provider: SYL COREAS Report Released Date/Time: January 29, 2025 10:38 AM Reporting Lab: [address] [address] Performing Lab: [address] [address] WBC 6.1 10*3/uL 3.6-11.2 RBC 4.80 10*6/uL [...] 0.00-0. 20 January 31, 2025 01:38 PM [facility] LIPID PANEL (STL) PLASMA Specimen Type: PLASM A No comment entered. Ordering Provider: MARGARITA ZAMORA Report Released Date/Time: January 31, 2025 01:31 PM Reporting Lab: [address] [place] [address] Performing Lab: [address] [address] CHOLESTEROL 176 mg/dL 0-200 TRIGLYCERIDE 223 mg/dL H 0-150 CALCULATED LDL 96 mg/dL HDL(New) 35 mg/dL L >40 January 31, 2025 01:38 PM [facility] VITAMIN D, 25-HYDROXY SERUM Specimen Type: SE RUM No comment entered. Ordering Provider: MARGARITA ZAMORA Report Released Date/Time: January 31, 2025 01:31 PM Reporting Lab: [address] [address] Performing Lab: [address] [address] VITAMIN D, 25-HYDROXY 21.4 ng/mL L 30-96 January 31, 2025 01:35 PM [facility] MICRAL/CREAT PROFILE (STL) URINE Specimen Typ e: URINE No comment entered. Ordering Provider: SYL COREAS Report Released Date/Time: January 29, 2025 10:38 AM Reporting Lab: [address] [address] Performing Lab: [address] [address] URINE ALBUMIN (PB-STL) 6.6 mg/L uACR (STL) 3 mg/g 0-29 CREATININE URINE/OTHERS 192.6 mg/dL H 63-1 66 Social History: Smoking Status (Most current) and Tobacco Use (All prior to encounter date) This section includes the most current, and the historical, smoking and tobacco- related health factors from the [place] facility where the Encounter took place. Current Smoking Status This section includes the most current smoking, or tobacco-related health factor, from the [place] facility where the Encounter took place. Date/Time Current Smoking Status Comment Facil ity Jan 06, 2015 01:37 PM CURRENT TOBACCO USER [facility] Tobacco Use History This section includes a history of the smoking, or tobacco-related health factors, that were collected on or before the date of the Encounter. The data comes from the [place] facility where the Encounter took place. Date/Time Smoking Status/Tobacco Use Comment F acility Jan 06, 2015 01:37 PM TOBACCO MEDS OFFER ED BUT DECLINED [facility] Encounter Notes: All associated encounter notes This section contains the clinical notes associated to the Encounter. Date/Time Encounter Note(s) Provider Source February 14, 2025 03:58 PM DERMATOLOGY CONSUL T: LOCAL TITLE: DERMATOLOGY CONSULT STL STANDARD TITLE: DERMATOLOGY CONSULT DATE OF NOTE: FEBRUARY 14, 2025@15:58 ENTRY DATE: FEBRUARY 14, 2025@15:58:24 AUTHOR: JARET SINHA EXP COSIGNER: ALIA MEADE URGENCY: STATUS: COMPLETED DERMATOLOGY CONSULT STL Has ADDENDA DERM CONSULT NOTE VANNA GLEZ is a 49 year MALE with no history of skin cancer presenting for CONSULTATION OF: #Lichen planus: -Intermittent in nature. -Medication: Clobetasol cream PRN. -Ongoing. reports the rash has incresed in area. Requesting [place] dermatology consult. Today: - Reports history of lichen planus, previously [place]ops[place]. Has been using clobetasol for the last month which has helped somewhat but has not cleared rash, taking benadryl as needed - Also has rash on back and chest, using OTC 1% HC cream ROS: all systems reviewed and were negative except as noted in the HPI Allergies: Patient has answered NKA OBJECTIVE Physical Examination Skin - - Multiple round faint hypopigmented macules and patches on chest and upper back - Violaceous and erythematous flat-topped papules on dorsal hands, forearms, ankles otherwise: General Appearance: Well Appearing MALE, NAD Mood/Affect: pleasant/appropriate Face: WNL Ears: WNL Nose: WNL Forehead: WNL Scalp, Hair: WNL Neck: WNL Chest: WNL Abd: WNL Back: WNL Upper Extremities: WNL Lower Extremities: WNL Nails/Hair: WNL ASSESSMENT AND PLAN # Lichen planus - 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, clincally consistent with LP today - Discussed diagnosis - Discussed treatment options including topical steroids, phototherapy, systemic immunosuppressants including MTX - Patient would like to avoid systemic treatment at this time, plan to continue topicals and reevaluate at the end of summer - Start clobetasol 0.05% ointment to AA BID until clear; SER, rx sent today - Continue OTC antihistamine daily PRN # Tinea versicolor - Discussed diagnosis, etiology - Start JUANCARLOS 2% shampoo as body wash daily, lather and set sit for 5-10 minutes, then rinse; rx sent today - Pigmentary changes will take longer to improve, photoprotect Pt phone: RTC 3 months /brigida/ JARET SINHA Pipe Straightener Signed: 02/14/2025 16:30 /brigida/ ALIA MEADE MD PHD STAFF PHYSICIAN - DERMATOLOGY Cosigned: 02/18/2025 06:15 02/18/2025 ADDENDUM STATUS: COMPLETED Reviewed documented history and physical examination and agree with assessment and plan. I was immediately available during entire visit and procedures. /brigida/ ALIA MEADE MD PHD STAFF PHYSICIAN - DERMATOLOGY Signed: 02/18/2025 06:15 JARET SINHA [facility]
--- OUTSIDE RECORDS SUMMARY | 2025-04-11 15:22 | XMS_ITS | Encounter Summary ---
Author Name [facility] Organization [facility] Address [address] [place] [address] Care Team Providers Care Electrical Cad Technician Name Role Phone SHANTHI ZAMORA Primary Care Provider Unavailabl e Selected Encounter This section includes the information on record at [place] for the Encounter. Date/Time Encounter Type Encounter Description Reason Provider Source January 31, 2025 01:30 PM Outpatient Encounter PRIMARY CARE/MEDICINE ICD-10-CM Z00.00 Encntr for general adult medical exam w/o abnormal findings SHANTHI ZAMORA Kimberly Encounter Template Text not used by [place] Assessments - Encounter Diagnoses This section includes the primary and secondary diagnoses documented for the Encounter. Date/Time Primary/Secondary Diagnosis Diagnosis Name Provider Source January 31, 2025 03:05 PM PRIMARY Encntr for general adult medical exam w/o abnormal findings SHANTHI ZAMORA [facility] January 31, 2025 03:05 PM SECONDARY Calculus of kidney SHANTHI ZAMORA [facility] January 31, 2025 03:05 PM SECONDARY Cervicalgia SHANTHI ZAMORA [facility] January 31, 2025 03:05 PM SECONDARY Gastro-esophageal reflux disease without esophagitis SHANTHI ZAMORA D[facility] January 31, 2025 03:05 PM SECONDARY Hyperlipidemia, unspecified SHANTHI ZAMORA [facility] January 31, 2025 03:05 PM SECONDARY Lichen planus, unspecified SHANTHI ZAMORA [facility] January 31, 2025 03:05 PM SECONDARY Obesity, unspecified SHANTHI ZAMORA [facility] January 31, 2025 03:05 PM SECONDARY Personality disorder, unspecified SHANTHI ZAMORA DEREK [facility] January 31, 2025 03:05 PM SECONDARY Unspecified abdominal pain SHANTHI ZAMORA Nora DEREK [facility] Plan of Treatment: Future Appointments (+ 6 months) and Future Tests (+/- 45 days) The Plan of Treatment section includes future care activities for the patient from all [place] treatmentfacilities. This section includes future appointments and future orders which are active, pending or scheduled. Future Appointments This section includes appointments that were scheduled to occur 6 months from the date of the Encounter, up to a maximum of 20 appointments. The data comes from all [facility] facilities. Appointment Date/Time Appointment Type Appointme nt Facility Name February 14, 2025 03:30 PM AMBULATORY - MEDICINE [facility] Feb 26, 2025 01:00 PM AMBULATORY - MEDICINE [facility] Mar 21, 2025 01:30 PM AMBULATORY - NONE [facility] Apr 08, 2025 02:20 PM AMBULATORY - MEDICINE [facility] Apr 11, 2025 03:30 PM AMBULATORY - MEDICINE [facility] Apr 23, 2025 01:20 PM AMBULATORY - SURGERY [facility] Apr 29, 2025 10:00 AM AMBULATORY - NONE [facility] May 19, 2025 02:00 PM AMBULATORY - MEDICINE [facility] Jul 01, 2025 11:00 AM AMBULATORY - MEDICINE [facility] Lab Results: +/- 30 days of the [...] Type Comment February 06, 2025 08:00 AM [facility] URINE STONE PNL (24HR-STL-PB) 24-HOUR URINE Specimen [...] 2025 10:38 AM Reporting Lab: [facility] [address] [address] Performing Lab: [address] [address] VOLUME 950 mL CREATININE URINE/OTHERS [phone] POTASSIUM URINE/OTHERS 58 19-135 SODIUM URINE/OTHERS 121 <200 CALCIUM URINE/OTHERS 199 <250.0 PHOSPHOROUS URINE/OTHERS 1119 H <1100 URIC ACID URINE/OTHERS 160 <700 MAGNESIUM URINE/OTHER 71 >60.0 OXALATE 22 <45 CITRIC ACID 607 >320 SULFATE,U-PB STL 24 <30 +BRUSHITE 1.08 <2.00 .INTERP comment PH(SO) 5.3 L 5.5-7.0 +CALCIUM OXALATE 2.38 H <2.00 +SODIUM-URATE 0.97 <2.00 January 31, 2025 01:38 PM [facility] PTH, INTACT (STL) SERUM Specimen Type: SERUM No comment entered. Ordering Provider: SYL COREAS Report Released Date/Time: January 29, 2025 10:38 AM Reporting Lab: [facility] [address] [address] Performing Lab: [address] [address] PTH, INTACT (STL) 45.60 pg/mL 8.7-77.7 January 31, 2025 01:38 PM [facility] URIC ACID PLASMA Specimen Type: PLASM A Comment: No hemolysis noted. Ordering Provider: SYL COREAS Report Released Date/Time: January 29, 2025 10:38 AM Reporting Lab: [address] [address] Performing Lab: [address] [address] URIC ACID 5.5 mg/dL 3.5-7.2 January 31, 2025 01:38 PM [facility] TSH (MA-PB) SERUM Specimen Type: SERUM No comment entered. Ordering Provider: SHANTHI ZAMORA Report Released Date/Time: January 31, 2025 01:31 PM Reporting Lab: [address] [address] Performing Lab: [address] [address] TSH 1.989 u[IU]/mL 0.47-5 January 31, 2025 01:38 PM [facility] RENAL PANEL PLASMA Specimen Type: PLASM A Comment: No hemolysis noted. Ordering Provider: SYL COREAS Report Released Date/Time: January 29, 2025 10:38 AM Reporting Lab: [address] [address] Performing Lab: [address] [address] CREATININE 1.04 mg/dL 0.7-1.3 UREA NITROGEN 12.7 mg/dL 9.0-25.0 GLUCOSE 119 mg/dL H 72-99 SODIUM 138 meq/L 136-145 POTASSIUM 3.8 meq/L 3.5-5 CHLORIDE 107 meq/L 98-107 CARBON DIOXIDE 24 meq/L 22-31 CALCIUM 9.2 mg/dL 8.4-10.4 PHOSPHOROUS 3.0 mg/dL 2.3-4.7 ALBUMIN 4.1 g/dL 3.4-5 EGFR (CKD-EPI 2020) 88.6 >60 January 31, 2025 01:38 PM [facility] HGA1C BLOOD Specimen Type: BLOOD No comment entered. Ordering Provider: SHANTHI ZAMORA Report Released Date/Time: January 31, 2025 01:31 PM Reporting Lab: [address] [address] Performing Lab: [address] [address] HGA1C 4.7 4.0-6.0 January 31, 2025 01:38 PM [facility] HEPATIC FUNTION PANEL (STL) PLASMA Specimen Ty pe: PLASMA No comment entered. Ordering Provider: SHANTHI ZAMORA Report Released Date/Time: January 31, 2025 01:31 PM Reporting Lab: [address] [address] Performing Lab: [address] [address] PROTEIN 7.8 g/dL 6-8.6 ALBUMIN 4.1 g/dL 3.4-5 TOTAL BILIRUBIN 0.6 mg/dL 0.2-1.2 ALKALINE PHOSPHATASE 68 U/L 40-150 AST/SGOT 25 U/L 5-34 ALT/SGPT 19 U/L 8-40 CONJ. BILIRUBIN 0.2 mg/dL 0-0.5 January 31, 2025 01:38 PM [facility] CBC BLOOD Specimen Type: BLOOD No comment entered. Ordering Provider: SYL COREAS Report Released Date/Time: January 29, 2025 10:38 AM Reporting Lab: [address] [address] Performing Lab: [address] [address] WBC 6.1 10*3/uL 3.6-11.2 RBC 4.80 10*6/uL [...] 0.00-0. 20 January 31, 2025 01:38 PM [facility] LIPID PANEL (STL) PLASMA Specimen Type: PLASM A No comment entered. Ordering Provider: SHANTHI ZAMORA Report Released Date/Time: January 31, 2025 01:31 PM Reporting Lab: [address] [address] Performing Lab: [address] [address] CHOLESTEROL 176 mg/dL 0-200 TRIGLYCERIDE 223 mg/dL H 0-150 CALCULATED LDL 96 mg/dL HDL(New) 35 mg/dL L >40 January 31, 2025 01:38 PM [facility] VITAMIN D, 25-HYDROXY SERUM Specimen Type: SE RUM No comment entered. Ordering Provider: SHANTHI ZAMORA Report Released Date/Time: January 31, 2025 01:31 PM Reporting Lab: [address] [address] Performing Lab: [address] [address] VITAMIN D, 25-HYDROXY 21.4 ng/mL L 30-96 January 31, 2025 01:35 PM [facility] MICRAL/CREAT PROFILE (STL) URINE Specimen Typ e: URINE No comment entered. Ordering Provider: SYL COREAS Report Released Date/Time: January 29, 2025 10:38 AM Reporting Lab: [address] [address] Performing Lab: [facility] [address] [facility] [address] URINE ALBUMIN (PB-STL) 6.6 mg/L uACR (STL) 3 mg/g 0-29 CREATININE URINE/OTHERS 192.6 mg/dL H 63-1 66 Vital Signs: All taken on the encounter date This section contains inpatient and outpatient Vital Signs collected on the date of the Encounter. Date/Time Temperature Pulse Blood Pressure Respiratory Rate SP02 Pain Height Weight Body Mass Index Source January 31, 2025 02:10 PM 98.1 83 136/88 18 95 7 67 234 37 [facility] Social History: Smoking Status (Most current) and Tobacco Use (All prior to encounter date) This section includes the most current, and the historical, smoking and tobacco- related health factors from the [place] facility where the Encounter took place. Current Smoking Status This section includes the most current smoking, or tobacco-related health factor, from the [place] facility where the Encounter took place. Date/Time Current Smoking Status Comment Facil ity January 31, 2025 01:30 PM VA-TOBACCO USE FOR HAYLIE CIGARETTES [facility] Tobacco Use History This section includes a history of the smoking, or tobacco-related health factors, that were collected on or before the date of the Encounter. The data comes from the [place] facility where the Encounter took place. Date/Time Smoking Status/Tobacco Use Comment F acmounika January 31, 2025 01:30 PM VA-TOBACCO USE FOR HAYLIE CIGARETTES [facility] January 24, 2024 03:00 PM VA-TOBACCO FORMER USER [facility] January 24, 2024 03:00 PM VA-TOBACCO QUIT 5 TO < 15 YRS [facility] Jun 12, 2020 01:00 PM VA-TOBACCO FORMER USER [facility] Jun 12, 2020 01:00 PM VA-TOBACCO QUIT 1 TO < 5 YRS [facility] Aug 28, 2018 09:20 AM VA-TOBACCO FORMER USER [facility] Aug 28, 2018 09:20 AM VA-TOBACCO QUIT 1 TO < 5 YRS [facility] February 07, 2018 11:07 AM QUIT TOBACCO >12 M O & <7 YRS AGO [facility] Apr 01, 2016 01:13 PM CURRENT TOBACCO USER [facility] Apr 01, 2016 01:13 PM TOBACCO OFFERRED P T MEDS (PROVIDER) [facility] Encounter Notes: All associated encounter notes This section contains the clinical notes associated to the Encounter. Date/Time Encounter Note(s) Provider Source February 19, 2025 11:46 AM ADDENDUM: LOCAL TITLE: Addendum STANDARD TITLE: ADDENDUM DATE OF NOTE: FEBRUARY 19, 2025@11:46:02 ENTRY DATE: FEBRUARY 19, 2025@11:46:03 AUTHOR: SHANTHI ZAMORA COSIGNER: URGENCY: STATUS: COMPLETED Labs reviewed from 01/31/25: Hepatic function panel, A1C, Lipid panel, Vitamin D and TSH (non-fasting). Attempted to schedule for a telehealth visit with PCP to discuss further, unable to schedule. Will mail result letter to patient. RNCM please review with . Thank you! #HLD: TRIGLYCERIDE 223 H mg/dL 01/31/2025 13:38 CHOLESTEROL 176 mg/dL 01/31/2025 13:38 HDL(New) 35 L mg/dL 01/31/2025 13:38 CALCULATED LDL 96 mg/dL 01/31/2025 13:38 -ASCVD risk 3.8% -Recommend lifestyle modifications. #Vitamin D deficiency: VITAMIN D, 25-HYDROXY 21.4 L ng/mL 30 - 96 -Begin Vitamin D 50 mcg daily. Will mail to yulissa. /brigida/ Shanthi Zamora DNP, SPECIAL EFFECTS TECHNICIAN, FARM HAND-C Primary Care Nurse Practitioner Signed: 02/27/2025 10:00 Receipt Acknowledged By: 02/28/2025 14:02 /brigida/ WOODROW MENDEZ RN BSN REGISTERED NURSE --- Original Document --- 01/31/25 PRIMARY CARE PROVIDER ESTABLISHED VISIT STL: REASON FOR VISIT/CHIEF COMPLAINT: Evaluation and management of chronic medical conditions/My scheduled visit HPI: Patient is a 49 year old WHITE MALE who presents to the clinic for evaluation and management of chronic medical conditions. Patient denies any recent ED visits or hospitalizations. Patient goes by Vanna. Private providers: Denies. #HLD: -Diet controlled. #Obesity: -BMI: 36.73. -Diet: Regular. -Exercise: Denies. #Cervicalgia: -Patient has cervical spinal stenosis s/p C5/6 ACDF in 2002. -Onset: 2002. -Duration: Intermittent. -Character: Tingling. -Aggravating factors: Certain positioning. -Relieving factors: Rest. -Medications: Tylenol PRN. Patient prefers to not be on medication for this. -Treatments: Has participated in chiropractor and PT historically. -Injury: Denies. -Imaging: Patient has cervical and lumbar MRI per [facility] 01/2024. -Patient had EMG 12/19/2023. -Denies bowel or bladder incontinence and saddle anesthesia. -Patient had [place] physiatry consult 02/22/24. -Evaluation and management per [place] NSURG. #Personality disorder: -Stable per patient. -Denies SI/HI. #GERD: -Diet controlled. -Denies concerns today. #Lichen planus: -Intermittent in nature. Reports exacerbated during stress. -Medication: Clobetasol cream PRN. -Ongoing. reports the rash has increased in area. Requesting [place] dermatology consult. #Wlslzqr-9-obxwmfzhl dehydrogenase deficiency anemia: -Denies concerns today. #Hx of recurrent kidney stones: -[place] has hx of recurrent nephrolithiasis since 2001. Approx. 8 episodes. - presented to [facility] 02/2024, was diagnosed with L kidney stone at [facility], represented to [facility], stone progressed to UVJ. Since that episode has not passed another stone or had UTIs. -Denies concerns today. #RLQ abdomen pain: -Onset: September 2024. -[place] reports having ongoing right lower quadrant abdominal pain, evaluated by [facility] with the below findings 10/16/24: CT COMPLETED AT [facility] 10/16/24: IMPRESSION: NO ACUTE PATHOLOGY NORMAL APPENDIX -Reports the pain is intermittent in nature. -Denies associated s/s. SOURCE(S) OF HISTORY: Patient PAST MEDICAL HISTORY: 1) Gastroesophageal reflux disease 2) Neck pain 3) Personality disorder 4) Hyperlipidemia 5) Qmwkgxv-7-mmjmfizuw dehydrogenase deficiency anemia 6) Obesity 7) Lichen planus 8) Kidney stone 9) Abdominal pain SOCIAL HISTORY: Tobacco: Former smoker. Quit April 2016. Smoked for approx. 23 years 1 PPD. Alcohol: Denies. Illicit: Denies. -Patients teresa has lung cancer, reports she is having complications of this. ALLERGIES: Patient has answered NKA ALLERGY REVIEW: Allergy list reviewed and remains current. MEDICATIONS: -This was updated as appropriate. REVIEW OF SYSTEMS: Constitutional: Denies weight loss, fever, chills. Ears, Nose, Mouth, Throat: Denies nasal drainage or sore throat. Denies dizziness. Denies hearing loss. Endocrinology: Denies heat or cold intolerance, polydipsia, polyuria, or polyphagia. Cardiovascular: Denies chest pain, palpitations, or dizziness. Respiratory: Denies cough or shortness of breath. ABD/GI: Denies abdominal pain, nausea, vomiting, constipation, diarrhea or incontinence. Musculoskeletal/Extremities: Denies edema. Denies pain. /WHEAT BUYER: Denies frequency, hesitancy, urgency, or hematuria. Psychology: Denies insomnia or SI/HI. Denies anxiety or depression. Neurology: Denies LAMB, tremors, neuropathy, or seizures. Skin: Denies rashes, skin lesions. PHYSICAL EXAMINATION: VITALS (most recent, as listed in the electronic record): Temperature: 98.1 F [36.7 C] (01/31/2025 14:10) BP: 136/88 (01/31/2025 14:10) Pulse: 83 (01/31/2025 14:10) Resp: 18 (01/31/2025 14:10) PulsOx: 95% (01/31/2025 14:10) Pain: 7 (01/31/2025 14:10) Weight: Measurement DT WEIGHT LB(KG)[BMI] 01/31/2025 14:10 234(106.14)[37*] 11/20/2024 13:22 229.3(104.01)[36*] 04/22/2024 13:35 235.4(106.78)[37*] HEENT: EOMI, PERRLA, Moist mucous membranes. No Scleral icterus or cervical lymphadenopathy. Lungs: Clear to auscultation bilaterally. No accessory muscle use. Cardiovascular: Regular rate and rhythm. No murmur. No JVD. Abdomen: Soft, nontender and non-distended. No palpable masses. Positive bowel sounds in all four quadrants. Extremities: No edema. Nontender. Full ROM to all joints. Gait steady. : Deferred. Neurologic: No focal neurological deficits. Psychiatric: Appropriate mood and affect. Skin: Skin warm, dry and intact. No lesions or rashes noted. DATA REVIEW: No HEMOGLOBIN A1C EO data found Lipid Panel: No LIPID PANEL EO data found CMP: SODIUM 138 mEq/L 04/04/2024 09:54 POTASSIUM 5.0 mEq/L 04/04/2024 09:54 CHLORIDE 108 H mEq/L 04/04/2024 09:54 UREA NITROGEN 14.5 mg/dL 04/04/2024 09:54 CREATININE 0.94 mg/dL 04/04/2024 09:54 CALCIUM 9.5 mg/dL 04/04/2024 09:54 PROTEIN 7.4 g/dL 04/04/2024 09:54 ALBUMIN 4.0 g/dL 04/04/2024 09:54 ALKALINE PHOSPHATASE 65 U/L 04/04/2024 09:54 ALT/SGPT 27 U/L 04/04/2024 09:54 AST/SGOT 22 U/L 04/04/2024 09:54 TOTAL BILIRUBIN 0.4 mg/dL 04/04/2024 09:54 CARBON DIOXIDE 21 L [...] 09:54 BASOPHILS, ABSOLUTE 0.08 10*3/uL 04/04/2024 09:54 PSA: No PSA EO data found Result: Acceptable. Health maintenance: -Declines immunizations today. Immunization Series Date Facility Reaction Info INFLUENZA, MDCK, QUADRIVALENT, PF 1 06/27/2020 [facility] TDAP 02/17/2016 [facility]* <C> TDAP In anothe* Colonoscopy: Patient denies family history of colon cancer. 12/05/2019 IMPRESSION - Prep quality BBPS total score: 9 - External Hemorrhoids RECOMMENDATIONS Colonoscopy reminder set 10 years from DEC 05, 2019. PSA: Patient denies family history of prostate cancer. LDCT: Review at age 51. AAA screening: Due at age 66. Eye exam: Evaluation and management per [place] optometry. Labs ordered: Hepatic function panel, A1C, Lipid panel, Vitamin D and TSH (non- fasting). CBC, Renal panel, PTH, Uric acid and Micral ordered per [place] renal. ASSESSMENT/PLAN: Annual visit: -Routine labs reviewed. -Preventative health screenings reviewed. -Recommend regular eye exams. -Discussed Fall Safety. -Continue wearing mask in public and wash hands frequently. -Immunizations reviewed. HLD: -Reviewed lifestyle modifications including participating in a low fat/low cholesterol diet. -Dietitian contact information given. Obesity: -Reviewed lifestyle modifications. -MOVE program and dietitian contact information given. Cervicalgia: -Continue medication regimen. -Whole health contact information given. -Evaluation and management per [facility]. Last visit 03/11/24 with 6 month f/u recommended. Recommend schedule an appointment. Personality disorder: -Reviewed lifestyle modifications. -[place] crisis line and whole health contact information given. GERD: -Reviewed lifestyle modifications. -Educated to avoid triggering foods such as alcohol, caffeinated drinks, chocolate, coffee, spicy foods, citrus foods, tomatoes etc. Lichen planus: -Continue medication regimen. -[facility] dermat[facility] consult today. Xkqrhnh-3-khesbaxew dehydrogenase deficiency anemia: -Continue to trend. Hx of recurrent kidney stones: -Lifestyle modifications reviewed. -Evaluation and management per [place] urology. -Evaluation and management per [facility] renal. RLQ abdomen pain: -[facility] GI consult placed. RETURN TO CLINIC: 1 year or earlier as needed. SUMMARY STATEMENT: Plan of care has been discussed with including expected therapeutic benefits and potential side effects of prescribed medication and treatments. verbalizes understanding and is in agreement with the plan of care. Patient was instructed to keep all scheduled appointments and contact upholstery estimator for any additional problems. Medication Reconciliation Opt STL: I have reviewed the patient's medication list (including active outpatient prescriptions dispensed from this [facility] (local) and dispensed from another VA or [facility]D facility (remote) as well as inpatient orders (local pending and active), local clinic medications, locally documented non-VA medications, and local prescriptions that have or been discontinued in the past 90 days.) with the patient and/or his/her care-soldering machine setter. Handwritten corrections, additions and/or deletions were made to the list, as appropriate. Corrected Outpatient Medication List was provided to the patient/caregiver. Toxic Exposure Screening - CP,DI,L,NS,P,PH,S,U: The [place]/caregiver was asked if they believe the experienced any toxic exposure(s), such as Airborne Hazards and Open [place], [place] War related exposures, Agent [place], Radiation, contaminated water at [place] or other such exposures, while serving in the [employer]. has no concerns about toxic exposure(s) while serving in the [employer]. The /caregiver was informed that we will continue to ask this screening question every 5 years. They can contact their provider/healthcare team if they have concerns about exposures and would like to be screened sooner. Printed information was offered and provided if desired. Depression Screening - V: Perform PHQ-2 A PHQ-2 screen was performed. The score was 0 which is a negative screen for depression. Over the past two weeks, how often have you been bothered by the following problems? 1. Little interest or pleasure in doing things Not at all 2. Feeling down, depressed, or hopeless Not at all Alcohol Use Screen (AUDIT-C) - V: Alcohol Screen: SCREEN FOR ALCOHOL (AUDIT-C) An alcohol screening test (AUDIT-C) was negative (score=0). 1. How often did you have a drink containing alcohol in the past year? Consider a drink to be a 12 ounce can or bottle of regular beer, 8 ounces of malt liquor, a 5 ounce glass of table wine, or a 1.5 ounce shot of liquor (like scotch, gin, or vodka). Never 2. How many drinks containing alcohol did you have on a typical day when you were drinking in the past year? Response not required due to responses to other questions. 3. How often did you have six or more drinks on one occasion in the past year? Response not required due to responses to other questions. /brigida/ Shanthi Zamora DNP, SPECIAL EFFECTS TECHNICIAN, FARM HAND-C Primary Care Nurse Practitioner Signed: 01/31/2025 15:[address] [facility] February 03, 2025 12:33 PM PHYSICIAN LETTERS: LOCAL TITLE: TEST RESULT GENERAL LETTER STL STANDARD TITLE: PHYSICIAN LETTERS DATE OF NOTE: FEBRUARY 03, 2025@12:33 ENTRY DATE: FEBRUARY 03, 2025@12:33:07 AUTHOR: SHANTHI ZAMORA EXP COSIGNER: URGENCY: STATUS: COMPLETED [facility] [address] [place] [address] FEBRUARY 03, 2025 VANNA GLEZ [address] [place], [place] [address] Dear Vanna Glez, The clinic attempted to reach you by phone to schedule a phone appointment to discuss these results but was unable to get a hold of you. Please contact the clinic if you have any questions. LIPID PROFILE - High cholesterol and triglycerides (lipids) are risk factors for heart disease. Your cholesterol should fall between 140 and 200, and your triglycerides levels should be less than or equal to 150. HDL is the good cholesterol and should ideally be greater than 40. LDL is the bad cholesterol and optimal levels should be less than 100 (near optimal is between 100 and 129). TRIGLYCERIDE 223 H mg/dL 01/31/2025 13:38 CHOLESTEROL 176 mg/dL 01/31/2025 13:38 HDL(New) 35 L mg/dL 01/31/2025 13:38 CALCULATED LDL 96 mg/dL 01/31/2025 13:38 These results are abnormal. See education below. -HDL's (high-density lipoproteins) and LDL's (low-density lipoproteins) transport cholesterol in your blood. LDLs carry cholesterol into your cells and HDLs carry it away and dispose of it in the liver, having a protective effect on your circulatory system. -HDL is good cholesterol and should be above 50. -LDL is bad cholesterol and should be less than 100 for most people including diabetics and less than 70 for people with heart disease. This level is the most important predictor of heart disease in a cholesterol panel. -Triglycerides (TG) are fatty compounds that are a combination of three (tri) fatty acids and glycerin. Body fat is made up of mostly stored triglycerides. -Triglycerides are another type of fat in the blood and should be less than 150. -Total cholesterol should be less than 200. You can improve these values by changing your diet and exercise regimen. Please review the following recommendations: -Incorporate 30-minutes of exercise with walking 5 days per week. Increasing your physical activity can help with weight management and improve your cholesterol levels. -Carefully review nutrition labels. Decrease intake of saturated fats or trans-fats. Monitor your salt intake. -Reduce your intake of sugars such as cake or candy. Additional hidden sugars are found foods such as pastries, breads, and pasta. Monitor your intake of these items as well and try not to consume on a daily basis. -Increase your intake of fresh or frozen fruits and vegetables which is preferred over canned or processed items. Canned foods have high amounts of sugar and salt. -Low fat dairy products are encouraged. -Leaner meats such as chicken or fish can have less fat that beef or pork. HEMOGLOBIN A1C - Gives us information about your diabetes (sugar or glucose) control over the past 3 months. Your target is to keep your A1C below 7 %. HGA1C 4.7 % 01/31/2025 13:38 These readings are within normal limits. CBC - A complete blood count (CBC) gives important information about the kinds and numbers of cells in the blood, especially red blood cells, white blood cells, and platelets. HGB 14.5 g/dL 01/31/2025 13:38 HEMATOCRIT 43.0 % (01/31/25 13:38) PLT 320 10*3/uL 01/31/2025 13:38 WHITE BLOOD COUNT 6.1 10*3/uL (01/31/25 13:38) These readings are within normal limits. LIVER FUNCTION PANEL - These are tests for liver function: PROTEIN 7.8 g/dL 01/31/2025 13:38 ALBUMIN 4.1 g/dL 01/31/2025 13:38 TOTAL BILIRUBIN 0.6 mg/dL 01/31/2025 13:38 ALKALINE PHOSPHATASE 68 U/L 01/31/2025 13:38 AST/SGOT 25 U/L 01/31/2025 13:38 ALT/SGPT 19 U/L 01/31/2025 13:38 These readings are within normal limits. TSH - Thyroid-stimulating hormone (also known as TSH or thyrotropin) is a peptide hormone synthesized and secreted by thyrotrope cells in the anterior pituitary gland, which regulates the endocrine function of the thyroid gland. TSH 1.989 uIU/mL 01/31/2025 13:38 These readings are within normal limits. VITAMIN D - Helps promote the proper utilization of calcium and phosphorus, thereby producing proper bone maintenance. VITAMIN D, 25-HYDROXY 21.4 L ng/mL 01/31/2025 13:38 These results are abnormal. Your vitamin D level is low. A normal Vitamin D ranges between 30-96. People get vitamin D from food and sunlight. Some people are at higher risk of not getting enough vitamin D, especially those with dark skin, overweight, or adults over 65. Foods high in vitamin D includes: Milk, orange juice, yogurt, salmon, canned tuna fish, cod liver oil and cereals with vitamin D added. Most people have no symptoms. In severe cases, deficiency can lead to thin brittle, or misshapen bones. Vitamin D helps bone health by promoting calcium uptake and maintaining enough calcium and phosphorus for bone growth and bone replacement. Research has also found that vitamin D helps control conditions such as diabetes, high blood pressure, cardiovascular disease, and muscle pain/weakness. Vitamin D supplementation is the main treatment. Begin Vitamin D 50 mcg daily. This should be mailed to you. If you have any questions please call your case assembler. I look forward to seeing you at your next clinic appointment. Thank you for choosing the [facility] for your healthcare. FUTURE APPOINTMENTS: 02/14/2025 15:30 THEO-DERM CONSULT 04/23/2025 13:20 THEO-UROLOGY RES 07/01/2025 11:00 THEO-RENAL MADD[place]URI 12/15/2025 14:00 THEO-OPTOMETRY 1 02/03/2026 14:30 THEO-ST CLR PACT 3 PCP Sincerely, Shanthi Zamora DNP, SPECIAL EFFECTS TECHNICIAN, FARM HAND-C Primary Care Nurse Practitioner VANNA GLEZ [facility] January 31, 2025 01:47 PM NURSING NOTE: LOCAL TITLE: V15 PACT FACE TO FACE NOTE STL STANDARD TITLE: NURSING NOTE DATE OF NOTE: JANUARY 31, 2025@13:47 ENTRY DATE: JANUARY 31, 2025@13:47:52 AUTHOR: EMERSON PRESCOTT COSIGNER: URGENCY: STATUS: COMPLETED Nurse Visit: Patient Identifiers : Full Name Date of Reason for visit: routine visit Mode of Arrival: Ambulatory Allergy Review: Patient has answered NKA Allergy list reviewed and remains current. Recent Vital Signs: Temperature: 97.9 F [36.6 C] (11/20/2024 13:22) Pulse: 66 (11/20/2024 13:22) Respiration: 16 (11/20/2024 13:22) B/P: 118/73 (11/20/2024 13:22) Pain: 0 (11/20/2024:22) Wt: 229.3 lb [104.01 kg] (11/20/2024:22) Ht: 67 in [170.2 cm] (11/20/2024:22) BMI: 36.0 POX: 96% (11/20/2024:) Sexual Orientation - CP,L,N,P,PH,PS,S,U: The patient thinks of their sexual orientation as: Straight or Heterosexual Homelessness/Food Insecurity Screen - DI,L,N,P,PH,PS,S,U: In the past 2 months, have you been living in stable housing that you own, rent, or stay in as part of a household? Yes - Living in stable housing. Are you worried or concerned that in the next 2 months you may NOT have stable housing that you own, rent, or stay in as part of a household? No - Not worried about housing near future The reports the following: Within the past 12 months, you worried whether your food would run out before you got money to buy more. Never true Within the past 12 months, the food you bought just didn't last and you didn't have money to get more. Never true Tobacco Use Screening - AT,DE,L,M,N,P,PH,PS,RT,S,U: The patient is a former cigarette smoker. Quit smoking LESS THAN 15 years. Year the patient quit smoking: Date: September 25, 2014 The patient states they smoked the following number of years: # of years: 26 Average number of packs/day over the entire time patient smoked: Packs/day: 1 The patient has never used other types of tobacco. /es/ EMERSON PRESCOTT, RN, BSN Registered Nurse Signed: 01/31/2025 14:11 EMERSON PRESCOTTNora [facility] January 31, 2025 01:28 PM PRIMARY CARE NOTE: LOCAL TITLE: PRIMARY CARE PROVIDER ESTABLISHED VISIT [facility] STANDARD TITLE: PRIMARY CARE NOTE DATE OF NOTE: JANUARY 31, 2025@13:28 ENTRY DATE: JANUARY 31, 2025@13:28:36 AUTHOR: SHANTHI ZAMORA EXP COSIGNER: URGENCY: STATUS: COMPLETED PRIMARY CARE PROVIDER ESTABLISHED VISIT ST Has ADDENDA REASON FOR VISIT/CHIEF COMPLAINT: Evaluation and management of chronic medical conditions/My scheduled visit HPI: Patient is a 49 year old WHITE MALE who presents to the clinic for evaluation and management of chronic medical conditions. Patient denies any recent ED visits or hospitalizations. Patient goes by [employer]. Private providers: Denies. #HLD: -Diet controlled. #Obesity: -BMI: 36.73. -Diet: Regular. -Exercise: Denies. #Cervicalgia: -Patient has cervical spinal stenosis s/p C5/6 ACDF in 2002. -Onset: 2002. -Duration: Intermittent. -Character: Tingling. -Aggravating factors: Certain positioning. -Relieving factors: Rest. -Medications: Tylenol PRN. Patient prefers to not be on medication for this. -Treatments: Has participated in chiropractor and PT historically. -Injury: Denies. -Imaging: Patient has cervical and lumbar MRI per [facility] 01/2024. -Patient had EMG 12/19/2023. -Denies bowel or bladder incontinence and saddle anesthesia. -Patient had [facility] physiatry consult 02/22/24. -[facility] #Personality disorder: -Stable per patient. -Denies SI/HI. #GERD: -Diet controlled. -Denies concerns today. #Lichen planus: -Intermittent in nature. Reports exacerbated during stress. -Medication: Clobetasol cream PRN. -Ongoing. [place] reports the rash has increased in area. Requesting [facility] dermatology consult. #Uvfzolp-9-sfohokmru dehydrogenase deficiency anemia: -Denies concerns today. #Hx of recurrent kidney stones: -[place] has hx of recurrent nephrolithiasis since 2001. Approx. 8 episodes. - presented to [facility] 02/2024, was diagnosed with L kidney stone at [facility], represented to [facility] ED, stone progressed to [facility]. Since that episode has not passed another stone or had UTIs. -Denies concerns today. #RLQ abdomen pain: -Onset: September 2024. -[place] reports having ongoing right lower quadrant abdominal pain, evaluated by [facility] with the below findings 10/16/24: CT COMPLETED AT [facility] 10/16/24: IMPRESSION: NO ACUTE PATHOLOGY NORMAL APPENDIX -Reports the pain is intermittent in nature. -Denies associated s/s. SOURCE(S) OF HISTORY: Patient PAST MEDICAL HISTORY: 1) Gastroesophageal reflux disease 2) Neck pain 3) Personality disorder 4) Hyperlipidemia 5) Navwgmq-8-zecbkmdjd dehydrogenase deficiency anemia 6) Obesity 7) Lichen planus 8) Kidney stone 9) Abdominal pain SOCIAL HISTORY: Tobacco: Former smoker. Quit April 2016. Smoked for approx. 23 years 1 PPD. Alcohol: Denies. Illicit: Denies. -Patients teresa has lung cancer, reports she is having complications of this. ALLERGIES: Patient has answered NKA ALLERGY REVIEW: Allergy list reviewed and remains current. MEDICATIONS: -This was updated as appropriate. REVIEW OF SYSTEMS: Constitutional: Denies weight loss, fever, chills. Ears, Nose, Mouth, Throat: Denies nasal drainage or sore throat. Denies dizziness. Denies hearing loss. Endocrinology: Denies heat or cold intolerance, polydipsia, polyuria, or polyphagia. Cardiovascular: Denies chest pain, palpitations, or dizziness. Respiratory: Denies cough or shortness of breath. ABD/GI: Denies abdominal pain, nausea, vomiting, constipation, diarrhea or incontinence. Musculoskeletal/Extremities: Denies edema. Denies pain. /WHEAT BUYER: Denies frequency, hesitancy, urgency, or hematuria. Psychology: Denies insomnia or SI/HI. Denies anxiety or depression. Neurology: Denies LAMB, tremors, neuropathy, or seizures. Skin: Denies rashes, skin lesions. PHYSICAL EXAMINATION: VITALS (most recent, as listed in the electronic record): Temperature: 98.1 F [36.7 C] (01/31/2025 14:10) BP: 136/88 (01/31/2025 14:10) Pulse: 83 (01/31/2025 14:10) Resp: 18 (01/31/2025 14:10) PulsOx: 95% (01/31/2025 14:10) Pain: 7 (01/31/2025 14:10) Weight: Measurement DT WEIGHT LB(KG)[BMI] 01/31/2025 14:10 234(106.14)[37*] 11/20/2024 13:22 229.3(104.01)[36*] 04/22/2024 13:35 235.4(106.78)[37*] HEENT: EOMI, PERRLA, Moist mucous membranes. No Scleral icterus or cervical lymphadenopathy. Lungs: Clear to auscultation bilaterally. No accessory muscle use. Cardiovascular: Regular rate and rhythm. No murmur. No JVD. Abdomen: Soft, nontender and non-distended. No palpable masses. Positive bowel sounds in all four quadrants. Extremities: No edema. Nontender. Full ROM to all joints. Gait steady. : Deferred. Neurologic: No focal neurological deficits. Psychiatric: Appropriate mood and affect. Skin: Skin warm, dry and intact. No lesions or rashes noted. DATA REVIEW: No HEMOGLOBIN A1C EO data found Lipid Panel: No LIPID PANEL EO data found CMP: SODIUM 138 mEq/L 04/04/2024 09:54 POTASSIUM 5.0 mEq/L 04/04/2024 09:54 CHLORIDE 108 H mEq/L 04/04/2024 09:54 UREA NITROGEN 14.5 mg/dL 04/04/2024 09:54 CREATININE 0.94 mg/dL 04/04/2024 09:54 CALCIUM 9.5 mg/dL 04/04/2024 09:54 PROTEIN 7.4 g/dL 04/04/2024 09:54 ALBUMIN 4.0 g/dL 04/04/2024 09:54 ALKALINE PHOSPHATASE 65 U/L 04/04/2024 09:54 ALT/SGPT 27 U/L 04/04/2024 09:54 AST/SGOT 22 U/L 04/04/2024 09:54 TOTAL BILIRUBIN 0.4 mg/dL 04/04/2024 09:54 CARBON DIOXIDE 21 L [...] 09:54 BASOPHILS, ABSOLUTE 0.08 10*3/uL 04/04/2024 09:54 PSA: No PSA EO data found Result: Acceptable. Health maintenance: -Declines immunizations today. Immunization Series Date Facility Reaction Info INFLUENZA, MDCK, QUADRIVALENT, PF 1 06/27/2020 [facility] TDAP 02/17/2016 [facility]* <C> TDAP In [facility]* Colonoscopy: Patient denies family history of colon cancer. 12/05/2019 IMPRESSION - Prep quality BBPS total score: 9 - External Hemorrhoids RECOMMENDATIONS Colonoscopy reminder set 10 years from DEC 05, 2019. PSA: Patient denies family history of prostate cancer. LDCT: Review at age 51. AAA screening: Due at age 66. Eye exam: Evaluation and management per [facility] optometry. Labs ordered: Hepatic function panel, A1C, Lipid panel, Vitamin D and TSH (non- fasting). CBC, Renal panel, PTH, Uric acid and Micral ordered per [facility] renal. ASSESSMENT/PLAN: Annual visit: -Routine labs reviewed. -Preventative health screenings reviewed. -Recommend regular eye exams. -Discussed Fall Safety. -Continue wearing mask in public and wash hands frequently. -Immunizations reviewed. HLD: -Reviewed lifestyle modifications including participating in a low fat/low cholesterol diet. -Dietitian contact information given. Obesity: -Reviewed lifestyle modifications. -MOVE program and dietitian contact information given. Cervicalgia: -Continue medication regimen. -Whole health contact information given. -[facility] Last visit 03/11/24 with 6 month f/u recommended. Recommend schedule an appointment. Personality disorder: -Reviewed lifestyle modifications. - crisis line and whole health contact information given. GERD: -Reviewed lifestyle modifications. -Educated to avoid triggering foods such as alcohol, caffeinated drinks, chocolate, coffee, spicy foods, citrus foods, tomatoes etc. Lichen planus: -Continue medication regimen. -[facility] consult today. Cwomuux-6-wwsthvodf dehydrogenase deficiency anemia: -Continue to trend. Hx of recurrent kidney stones: -Lifestyle modifications reviewed. -Evaluation and [facility] per [facility]. -Evaluation and management per [facility]. RLQ abdomen pain: -[facility] consult placed. RETURN TO CLINIC: 1 year or earlier as needed. SUMMARY STATEMENT: Plan of care has been discussed with including expected therapeutic benefits and potential side effects of prescribed medication and treatments. [place] verbalizes understanding and is in agreement with the plan of care. Patient was instructed to keep all scheduled appointments and contact upholstery estimator for any additional problems. Medication Reconciliation Opt STL: I have reviewed the patient's medication list (including active outpatient prescriptions dispensed from this [facility] (local) and dispensed from another [facility] or [facility] facility (remote) as well as inpatient orders (local pending and active), local clinic medications, locally documented non-VA medications, and local prescriptions that have or been discontinued in the past 90 days.) with the patient and/or his/her care-soldering machine setter. Handwritten corrections, additions and/or deletions were made to the list, as appropriate. Corrected Outpatient Medication List was provided to the patient/caregiver. 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 [place] has no concerns about toxic exposure(s) while serving in the Armed Forces. The [place]/caregiver was informed that we will continue to ask this screening question every 5 years. They can contact their provider/healthcare team if they have concerns about exposures and would like to be screened sooner. Printed information was offered and provided if desired. Depression Screening - V: Perform PHQ-2 A PHQ-2 screen was performed. The score was 0 which is a negative screen for depression. Over the past two weeks, how often have you been bothered by the following problems? 1. Little interest or pleasure in doing things Not at all 2. Feeling down, depressed, or hopeless Not at all Alcohol Use Screen (AUDIT-C) - V: Alcohol Screen: SCREEN FOR ALCOHOL (AUDIT-C) An alcohol screening test (AUDIT-C) was negative (score=0). 1. How often did you have a drink containing alcohol in the past year? Consider a drink to be a 12 ounce can or bottle of regular beer, 8 ounces of malt liquor, a 5 ounce glass of table wine, or a 1.5 ounce shot of liquor (like scotch, gin, or vodka). Never 2. How many drinks containing alcohol did you have on a typical day when you were drinking in the past year? Response not required due to responses to other questions. 3. How often did you have six or more drinks on one occasion in the past year? Response not required due to responses to other questions. /brigida/ Shanthi Zamora DNP, APRN, IESHA-C Primary Care Nurse Practitioner Signed: 01/31/2025 15:05 02/19/2025 ADDENDUM STATUS: COMPLETED Labs reviewed from 01/31/25: Hepatic function panel, A1C, Lipid panel, Vitamin D and TSH (non-fasting). Attempted to schedule for a telehealth visit with PCP to discuss further, unable to schedule. Will mail result letter to patient. RNCM please review with . Thank you! #HLD: TRIGLYCERIDE 223 H mg/dL 01/31/2025 13:38 CHOLESTEROL 176 mg/dL 01/31/2025 13:38 HDL(New) 35 L mg/dL 01/31/2025 13:38 CALCULATED LDL 96 mg/dL 01/31/2025 13:38 -ASCVD risk 3.8% -Recommend lifestyle modifications. #Vitamin D deficiency: VITAMIN D, 25-HYDROXY 21.4 L ng/mL 30 - 96 -Begin Vitamin D 50 mcg daily. Will mail to . /brigida/ Shanthi Zamora DNP, APRN, IESHA-C Primary Care Nurse Practitioner Signed: 02/27/2025 10:00 Receipt Acknowledged By: * AWAITING SIGNATURE * WOODROW MENDEZ [facility]
--- OUTSIDE RECORDS SUMMARY | 2025-04-11 15:23 | XMS_ITS | Encounter Summary ---
Author Name [facility] Organization [facility] Address [address] [place] [address] Care Team Providers Care Plant Attendant Or Assistant Operator Name Role Phone NOAHTRICIABY Primary Care Provider Unavailabl e Selected Encounter This section includes the information on record at [facility] for the Encounter. Date/Time Encounter Type Encounter Description Reason Provider Source Apr 11, 2025 02:59 PM Outpatient Encounter PRIMARY CARE/MEDICINE WOODROW MENDEZ IHE Encounter Template Text not used by [facility] Plan of Treatment: Future Appointments (+ 6 months) and Future Tests (+/- 45 days) The Plan of Treatment section includes future care activities for the patient from all [facility] treatmentfacilities. This section includes future appointments and future orders which are active, pending or scheduled. Future Appointments This section includes appointments that were scheduled to occur 6 months from the date of the Encounter, up to a maximum of 20 appointments. The data comes from all [facility] treatment facilities. Appointment Date/Time Appointment Type Appointme nt Facility Name Apr 23, 2025 01:20 PM AMBULATORY - SURGERY [facility] Apr 29, 2025 10:00 AM AMBULATORY - NONE [facility] May 19, 2025 02[facility]00 PM [facility] Jul 01, 2025 11:00 AM AMBULATORY - MEDICINE [facility] Active, Pending, and Scheduled Orders This section includes a listing of several types of active, pending, and scheduled orders, including clinic medications orders, diagnostic test orders, procedure orders and consult orders; where the start date of the order is 45 days before the date of the Encounter or 45 days after the date of theEncounter. The data comes from all [facility] treatment facilities. Test Date/Time Test Type Test Details Facility Name Apr 08, 2025 03:22 PM Procedure Order CP EKG STL CP EKG - STL Proc Computer Numerical Control Operator's Choice [facility] Apr 29, 2025 12:00 AM Imaging - Magnetic Resonance Imaging (MRI) Order MRI SPINE CERVICAL W/O&W CONT [facility] Apr 29, 2025 12:00 AM Imaging - Magnetic Resonance Imaging (MRI) Order MRI BRAIN W/O CONT [facility] Lab Results: +/- 30 days of the encounter This section includes the Chemistry and Hematology Lab Results on record with [facility] for the patient. Radiology Reports and Pathology Reports are provided separately, in subsequent sections. Lab Results This section contains the Chemistry/Hematology Results that were resulted 30 days before or 30 daysafter the date of the Encounter. Date/Time Source Result Type Result - Unit Interpretation Reference Range Specimen Type Comment Apr 09, 2025 06:38 AM [facility] B12 SERUM Specimen Type: SERUM No comment entered. Ordering Provider: ANTONINA MEDINA Report Released Date/Time: Apr 09, 2025 04:48 AM Reporting Lab: [facility] [address] [facility] [address] Performing Lab: [facility] [address] [facility] [address] B12 350 pg/mL 213-816 Apr 08, 2025 11:50 PM [facility] MRSA SURVL NARES DNA NARES Specimen [...] Apr 08, 2025 09:42 PM Reporting Lab: [place] [address] [facility] [address] Performing Lab: [address] [address] MRSA SURVL NARES DNA Negative Negative Apr 08, 2025 10:06 PM [facility] LIPID PANEL (STL) PLASMA Specimen Type: PLASM A No comment entered. Ordering Provider: JESSICA MEDINA Report Released Date/Time: Apr 08, 2025 09:42 PM Reporting Lab: [address] [address] Performing Lab: [place] [address] [facility] [address] CHOLESTEROL 207 mg/dL H 0-200 TRIGLYCERIDE 121 mg/dL 0-150 CALCULATED LDL 141 mg/dL HDL(New) 42 mg/dL >40 Apr 08, 2025 04:08 PM [facility] PHOSPHOROUS PLASMA Specimen Type: PLASM A Comment: No hemolysis noted. Ordering Provider: DI GOODWIN Report Released Date/Time: Apr 08, 2025 03:20 PM Reporting Lab: [place] [address] [facility] [address] Performing Lab: [place] [address] [facility] [address] PHOSPHOROUS 3.0 mg/dL 2.3-4.7 Apr 08, 2025 04:08 PM [facility] MAGNESIUM PLASMA Specimen Type: PLASM A Comment: No hemolysis noted. Ordering Provider: DI GOODWIN Report Released Date/Time: Apr 08, 2025 03:20 PM Reporting Lab: [place] [address] [facility] [address] Performing Lab: [facility] [address] [facility] [address] MAGNESIUM 2.1 mg/dL 1.6-2.6 Apr 08, 2025 04:08 PM [facility] TROPONIN I (STL) PLASMA Specimen Type: PLASM A Comment: No hemolysis noted. Ordering Provider: DI GOODWIN Report Released Date/Time: Apr 08, 2025 03:20 PM Reporting Lab: [address] [address] Performing Lab: [address] [address] TROPONIN I (STL) <0.010 ng/mL 0-0.033 Apr 08, 2025 04:08 PM [facility] TSH (MA-PB) SERUM Specimen Type: SERUM No comment entered. Ordering Provider: DI GOODWIN Report Released Date/Time: Apr 08, 2025 03:20 PM Reporting Lab: [address] [address] Performing Lab: [address] [address] TSH 2.009 u[IU]/mL 0.47-5 Apr 08, 2025 04:08 PM [facility] CBC BLOOD Specimen Type: BLOOD No comment entered. Ordering Provider: DI GOODWIN Report Released Date/Time: Apr 08, 2025 03:20 PM Reporting Lab: [address] [address] Performing Lab: [address] [address] WBC 6.7 10*3/uL 3.6-11.2 RBC 4.69 10*6/uL [...] 0.00-0. 20 Apr 08, 2025 04:08 PM [facility] COMPREHENSIVE METABOLIC PANEL PLASMA Specimen Type: PLASMA Comment: No hemolysis noted. Ordering Provider: DI GOODWIN Report Released Date/Time: Apr 08, 2025 03:20 PM Reporting Lab: [place] [id number] [facility] [address] Performing Lab: [place] [address] [facility] [address] CREATININE 1.08 mg/dL 0.7-1.3 UREA NITROGEN 19.7 [...] U/L 8-40 EGFR (CKD-EPI 2020) 84.1 >60 Social History: Smoking Status (Most current) and Tobacco Use (All prior to encounter date) This section includes the most current, and the historical, smoking and tobacco- related health factors from the [facility] where the Encounter took place. Current Smoking Status This section includes the most current smoking, or tobacco-related health factor, from the [facility] facility where the Encounter took place. Date/Time Current Smoking Status Comment Jojo ferirs Jan 06, 2015 01:37 PM TOBACCO MEDS OFFER ED BUT DECLINED [facility] Tobacco Use History This section includes a history of the smoking, or tobacco-related health factors, that were collected on or before the date of the Encounter. The data comes from the [facility] facility where the Encounter took place. Date/Time Smoking Status/Tobacco Use Comment F mellisa Jan 06, 2015 01:37 PM TOBACCO MEDS OFFER ED BUT DECLINED [facility] Radiology Reports: +/- 30 days of [...] the Encounter. The data comes from all [facility] treatment facilities. Date/Time Radiology Report Provider Source Apr 08, 2025 04:[address] CERVICAL SPINE W/O CONT: VANNA GLEZ ALL [id number] -1975 M Exm Date: APR 08, 2025@16:26 Req Phys: DI GOODWIN Loc: [facility]-EMERGENCY DEPT 2ND SHIFT (R Img Loc: [facility]-CT IMAGING Service: Unknown [address] [address] (Case [id number] COMPLETE) CT CERVICAL SPINE W/O CONT (CT Detailed) CPT:00950 Reason for Study: possibel chord blockage c [...] 08, 2025 Date Verified: APR 08, 2025 Communication Professor E-Sig:/ES/OUTSIDE SERVICE RADIOLOGY Report: CT HEAD W/O CONT, CT CERVICAL SPINE W/O CONT HISTORY: weakness COMPARISON: 12/26/[address] TECHNIQUE: Contiguous axial CT images from the level of the skull base through the skull apex, performed at the local [facility] facility. 270 images were received by the [facility] ([facility]) for interpretation. CT of the cervical spine with multiplanar reformatting was performed at the local [facility] facility. 1260 images were received by the [facility] ([facility]) for interpretation. RADIATION [...] as described READING PHYSICIAN: Fly Hui M.D. -[phone] 04/08/2025 12:34 [facility] National Teleradiology Program [phone] (For Medical Practitioner Use Only) Attention Patients / Veterans: If you have questions or concerns about these test results, please contact your ordering provider or primary care team. Primary Interpreting Staff: OUTSIDE SERVICE RADIOLOGY, Staff Physician / RADIOLOGY,OUTSIDE SERVICE [facility] Apr 08, 2025 04:[address] HEAD W/O CONT: VANNA GLEZ [id number] -1975 M Exm Date: APR 08, 2025@16:26 Req Phys: DI GOODWIN Loc: [facility]-EMERGENCY DEPT 2ND SHIFT (R Img Loc: [facility]-CT IMAGING Service: Unknown [address] [address] (Case [id number] COMPLETE) CT HEAD W/O CONT (CT Detailed) CPT:82840 Reason for Study: weakness Clinical History: Responsible [...] 08, 2025 Date Verified: APR 08, 2025 Communication Professor E-Sig:/ES/OUTSIDE SERVICE RADIOLOGY Report: CT HEAD W/O CONT, CT CERVICAL SPINE W/O CONT HISTORY: weakness COMPARISON: 12/26/[address] TECHNIQUE: Contiguous axial CT images from the level of the skull base through the skull apex, performed at the local [facility] facility. 270 images were received by the [facility] ([facility]) for interpretation. CT of the cervical spine with multiplanar reformatting was performed at the local [facility] facility. 1260 images were received by the [facility] (NTP) for interpretation. RADIATION [...] as described READING PHYSICIAN: Fly Hui M.D. -[phone] 04/08/2025 12:34 [facility] [employer] [phone] (For Medical Practitioner Use Only) Attention Patients / Veterans: If you have questions or concerns about these test results, please contact your ordering provider or primary care team. Primary Interpreting Staff: OUTSIDE SERVICE RADIOLOGY, Staff Physician / RADIOLOGY,OUTSIDE SERVICE [facility] Mar 21, 2025 01:25 PM US RENAL COMPLETE: VANNA GLEZ [id number] -1975 M Ex Date: MAR 21, 2025@13:25 Req Phys: SYL COREAS Loc: [facility]-UROLOGY RES (Req'g Loc) Img Loc: [facility]-ULTRASOUND Service: [address] [address] (Case [id number] COMPLETE) US RENAL COMPLETE (US Detailed) CPT:56430 Reason for Study: history of stones Clinical History: Report Status: Verified Date Reported: MAR 21, 2025 Date Verified: MAR 21, 2025 Communication Professor E-Sig:/ES/JAVIER ZAMORA Report: HISTORY: history of stones FINDINGS: Echotexure of the kidneys normal, with age appropriate size. Right kidney normal measuring 10.8cm and left kidney normal measuring 11.7cm. No hydronephrosis or obstruction. No renal lithiasis. No large mass or cyst. No perirenal fluid collections. Visualized bladder normal. Impression: Normal renal ultrasound. RR Primary Interpreting Staff: JAVIER ZAMORA Staff Physician (Communication Professor) /JAVIER DIAZ [facility] Encounter Notes: All associated encounter notes This section contains the clinical notes associated to the Encounter. Date/Time Encounter Note(s) Provider Source Apr 11, 2025 02:59 PM PRIMARY CARE SECUR E MESSAGING: LOCAL TITLE: PRIMARY CARE SECURE MESSAGING STANDARD TITLE: PRIMARY CARE SECURE MESSAGING DATE OF NOTE: APR 11, 2025@14:59 ENTRY DATE: APR 11, 2025@13:59:42 AUTHOR: WOODROW MENDEZ EXP COSIGNER: URGENCY: STATUS: COMPLETED ------Original Message ------ Sent: 04/11/2025 02:59 PM ET From: WOODROW MENDEZ To: VANNA GLEZ Subject: General:General The following is a message from your provider. Recommend schedule a f[facility]. Thank you! [facility] [phone] ex [phone] If you have any questions please let us know. Thank you for your service. AYDEN Gonzalez /brigida/ WOODROW MENDEZPRESS FEEDER REGISTERED NURSE Signed: 04/11/2025 13:[address] [facility]
--- OUTSIDE RECORDS SUMMARY | 2025-04-11 15:23 | XMS_ITS | Encounter Summary ---
Author Name [facility] [facility] [place] Address [address] [place] [address] Care Team Providers Care Kettle Coordinator Name Role Phone MARGARITA ZAMORA Primary Care Provider Unavailabl e Selected Encounter This section includes the information on record at [place] for the Encounter. Date/Time Encounter Type Encounter Description Reason Provider Source Apr 08, 2025 02:20 PM EMERGENCY DEPT VISIT [facility] EMERGENCY DEPT ICD-10-CM R20.2 Paresthesia of skin LINO GOODWIN IHE Encounter Template Text not used by [place] Assessments - Encounter Diagnoses This section includes the primary and secondary diagnoses documented for the Encounter. Date/Time Primary/Secondary Diagnosis Diagnosis Name Provider Source Apr 08, 2025 11:12 PM PRIMARY Paresthesia of skin LINO GOODWIN [facility] Plan of Treatment: Future Appointments (+ 6 months) and Future Tests (+/- 45 days) The Plan of Treatment section includes future care activities for the patient from all [place] treatmentfacilities. This section includes future appointments and future orders which are active, pending or scheduled. Future Appointments This section includes appointments that were scheduled to occur 6 months from the date of the Encounter, up to a maximum of 20 appointments. The data comes from all [place] treatment facilities. Appointment Date/Time Appointment Type Appointme nt Facility Name Apr 11, 2025 03:30 PM AMBULATORY - MEDICINE [facility] Apr 23, 2025 01:20 PM AMBULATORY - SURGERY . Maddison [facility] Apr 29, 2025 10:00 AM AMBULATORY - NONE [facility] [place] [facility] May 19, 2025 02:00 PM AMBULATORY - MEDICINE [facility] Jul 01, 2025 11:00 AM AMBULATORY - MEDICINE [facility] Active, Pending, and Scheduled Orders This section includes a listing of several types of active, pending, and scheduled orders, including clinic medications orders, diagnostic test orders, procedure orders and consult orders; where the start date of the order is 45 days before the date of the Encounter or 45 days after the date of theEncounter. The data comes from all [facility]. Test Date/Time Test Type Test Details Facility Name Apr 08, 2025 03:22 PM Procedure Order CP EKG STL CP EKG - STL Proc Linen Attendant's Choice [facility] Apr 29, 2025 12:00 AM Imaging - Magnetic Resonance Imaging (MRI) Order MRI SPINE CERVICAL W/O&W CONT [facility] Apr 29, 2025 12:00 AM Imaging - Magnetic Resonance Imaging (MRI) Order MRI BRAIN W/O CONT [facility] Lab Results: +/- 30 days of the encounter This section includes the Chemistry and Hematology Lab Results on record with [place] for the patient. Radiology Reports and Pathology Reports are provided separately, in subsequent sections. Lab Results This section contains the Chemistry/Hematology Results that were resulted 30 days before or 30 daysafter the date of the Encounter. Date/Time Source Result Type Result - Unit Interpretation Reference Range Specimen Type Comment Apr 09, 2025 06:38 AM [facility] B12 SERUM Specimen Type: SERUM No comment entered. Ordering Provider: ANTONINA MEDINA Report Released Date/Time: Apr 09, 2025 04:48 AM Reporting Lab: [place] [address] [facility] [phone] Performing Lab: [place] [address] [facility] [address] B12 350 pg/mL [id number] Apr 08, 2025 11:50 PM [facility] MRSA SURVL NARES DNA NARES Specimen Type: [...] Apr 08, 2025 09:42 PM Reporting Lab: [address] [address] Performing Lab: [address] [address] MRSA SURVL NARES DNA Negative Negative Apr 08, 2025 10:06 PM [facility] LIPID PANEL (STL) PLASMA Specimen Type: PLASM A No comment entered. Ordering Provider: JESSICA MEDINA Report Released Date/Time: Apr 08, 2025 09:42 PM Reporting Lab: [facility] [address] [place] [phone] Performing Lab: [address] [address] CHOLESTEROL 207 mg/dL H 0-200 TRIGLYCERIDE 121 mg/dL 0-150 CALCULATED LDL 141 mg/dL HDL(New) 42 mg/dL >40 Apr 08, 2025 04:08 PM [facility] MAGNESIUM PLASMA Specimen Type: PLASM A Comment: No hemolysis noted. Ordering Provider: DI GOODWIN Report Released Date/Time: Apr 08, 2025 03:20 PM Reporting Lab: [facility] [address] [facility] [address] Performing Lab: [facility] [address] [place] [phone] MAGNESIUM 2.1 mg/dL 1.6-2.6 Apr 08, 2025 04:08 PM [facility] PHOSPHOROUS PLASMA Specimen Type: PLASM A Comment: No hemolysis noted. Ordering Provider: DI GOODWIN Report Released Date/Time: Apr 08, 2025 03:20 PM Reporting Lab: [facility] [address] [facility] [address] Performing Lab: [facility] [address] [facility] [address] PHOSPHOROUS 3.0 mg/dL 2.3-4.7 Apr 08, 2025 04:08 PM [facility] TROPONIN I (STL) PLASMA Specimen Type: PLASM A Comment: No hemolysis noted. Ordering Provider: DI GOODWIN Report Released Date/Time: Apr 08, 2025 03:20 PM Reporting Lab: [place] [address] [facility] [address] Performing Lab: [facility] [address] [facility] [address] TROPONIN I (STL) <0.010 ng/mL 0-0.033 Apr 08, 2025 04:08 PM [facility] TSH (MA-PB) SERUM Specimen Type: SERUM No comment entered. Ordering Provider: DI GOODWIN Report Released Date/Time: Apr 08, 2025 03:20 PM Reporting Lab: [place] [address] [facility] [address] Performing Lab: [facility] [address] [facility] [address] TSH 2.009 u[IU]/mL 0.47-5 Apr 08, 2025 04:08 PM [facility] CBC BLOOD Specimen Type: BLOOD No comment entered. Ordering Provider: DI GOODWIN Report Released Date/Time: Apr 08, 2025 03:20 PM Reporting Lab: [place] [address] [facility] [address] Performing Lab: [address] [address] WBC 6.7 10*3/uL 3.6-11.2 RBC 4.69 10*6/uL [...] 0.00-0. 20 Apr 08, 2025 04:08 PM [facility] COMPREHENSIVE METABOLIC PANEL PLASMA Specimen Type: PLASMA Comment: No hemolysis noted. Ordering Provider: DI GOODWIN Report Released Date/Time: Apr 08, 2025 03:20 PM Reporting Lab: [address] [address] Performing Lab: [address] [address] CREATININE 1.08 mg/dL 0.7-1.3 UREA NITROGEN 19.7 [...] Source Apr 08, 2025 11:[address] [facility] Apr 08, 2025 10:15 PM [facility] Apr 08, 2025 09:44 PM 97.9 F 71 /min 154/96 mm[Hg] 18 /min 96 % 6 237.1 lb 37 [facility] N Apr 08, 2025 09:43 PM 73 /min 144/93 mm[Hg] 15 /min 95 % [facility] Apr 08, 2025 08:46 PM 79 /min 147/108 mm[Hg] 18 /min 94 % [facility] N Social History: Smoking Status (Most current) and Tobacco Use (All prior to encounter date) This section includes the most current, and the historical, smoking and tobacco- related health factors from the [place] facility where the Encounter took place. Current Smoking Status This section includes the most current smoking, or tobacco-related health factor, from the [place] facility where the Encounter took place. Date/Time Current Smoking Status Comment Jojo ferris Jan 06, 2015 01:37 PM CURRENT TOBACCO USER [facility] Tobacco Use History This section includes a history of the smoking, or tobacco-related health factors, that were collected on or before the date of the Encounter. The data comes from the [place] facility where the Encounter took place. Date/Time Smoking Status/Tobacco Use Comment F mellisa Jan 06, 2015 01:37 PM TOBACCO MEDS OFFER ED BUT DECLINED [facility] Radiology Reports: +/- 30 days [...] the Encounter. The data comes from all [place] treatment facilities. Date/Time Radiology Report Provider Source Apr 08, 2025 04:[address] CERVICAL SPINE W/O CONT: VANNA GLEZ [id number] -1975 M Exm Date: APR 08, 2025@16:26 Req Phys: DI GOODWIN Loc: THEO-EMERGENCY DEPT 2ND SHIFT (R Img Loc: THE[facility]-CT IMAGING THEO Service: Unknown [address] [address] (Case [id number] COMPLETE) CT CERVICAL SPINE W/O CONT (CT Detailed) CPT:76394 Reason for Study: possibel chord blockage c spine, dr sam says ct is best test Clinical History: [...] 08, 2025 Date Verified: APR 08, 2025 Packager Hand E-Sig:/ES/OUTSIDE SERVICE RADIOLOGY Report: CT HEAD W/O CONT, CT CERVICAL SPINE W/O CONT HISTORY: weakness COMPARISON: 12/26/[address] TECHNIQUE: Contiguous axial CT images from the level of the skull base through the skull apex, performed at the local [place] facility. 270 images were received by the [place] National Teleradiology Program (NTP) for interpretation. CT of the cervical spine with multiplanar reformatting was performed at the local [place] facility. 1260 images were received by the [place] National Teleradiology Program (NTP) for interpretation. RADIATION [...] as described READING PHYSICIAN: Fly Hui M.D. -[phone] 04/08/2025 12:34 [facility] National [employer]iology Program [phone] (For Medical Practitioner Use Only) Attention Patients / Veterans: If you have questions or concerns about these test results, please contact your ordering provider or primary care team. Primary Interpreting Staff: OUTSIDE SERVICE RADIOLOGY, Staff Physician / RADIOLOGY,OUTSIDE SERVICE [facility] Apr 08, 2025 04:[address] HEAD W/O CONT: VANNA GLEZ [id number] -1975 M Exm Date: APR 08, 2025@16:26 Req Phys: DI GOODWIN Loc: THEO-EMERGENCY DEPT 2ND SHIFT (R Img Loc: THEO-CT IMAGING THEO Service: Unknown [address] [address] (Case [id number] COMPLETE) CT HEAD W/O CONT (CT Detailed) CPT:62746 Reason for Study: weakness Clinical History: Responsible [...] 08, 2025 Date Verified: APR 08, 2025 Packager Hand E-Sig:/ES/OUTSIDE SERVICE RADIOLOGY Report: CT HEAD W/O CONT, CT CERVICAL SPINE W/O CONT HISTORY: weakness COMPARISON: 12/26/[address] TECHNIQUE: Contiguous axial CT images from the level of the skull base through the skull apex, performed at the local [place] facility. 270 images were received by the [place] National Teleradiology Program (NTP) for interpretation. CT of the cervical spine with multiplanar reformatting was performed at the local [place] facility. 1260 images were received by the [place] National Teleradiology Program (NTP) for interpretation. RADIATION [...] as described READING PHYSICIAN: Fly Hui M.D. -[phone] 04/08/2025 12:34 [facility] National Teleradiology Program [phone] (For Medical Practitioner Use Only) Attention Patients / Veterans: If you have questions or concerns about these test results, please contact your ordering provider or primary care team. Primary Interpreting Staff: OUTSIDE SERVICE RADIOLOGY, Staff Physician / RADIOLOGY,OUTSIDE SERVICE [facility] Mar 21, 2025 01:25 PM US RENAL COMPLETE: BLASTENBREI,VANNA ALL [id number] -1975 M Exm Date: MAR 21, 2025@13:25 Req Phys: SYL COREAS Loc: THEO-UROLOGY RES (Req'g Loc) Img Loc: THEO-ULTRASOUND THEO Service: Unknown [facility] [address] [place] [address] (Case [id number] COMPLETE) US RENAL COMPLETE (US Detailed) CPT:48210 Reason for Study: history of stones Clinical History: Report Status: Verified Date Reported: MAR 21, 2025 Date Verified: MAR 21, 2025 Packager Hand E-Sig:/ES/JAVIER ZAMORA Report: HISTORY: history of stones FINDINGS: Echotexure of the kidneys normal, with age appropriate size. Right kidney normal measuring 10.8cm and left kidney normal measuring 11.7cm. No hydronephrosis or obstruction. No renal lithiasis. No large mass or cyst. No perirenal fluid collections. Visualized bladder normal. Impression: Normal renal ultrasound. RR Primary Interpreting Staff: JAVIER ZAMORA, Staff Physician (Packager Hand) /JAVIER DIA[place] [facility] Encounter Notes: All associated encounter notes This section contains the clinical notes associated to the Encounter. Date/Time Encounter Note(s) Provider Source Apr 08, 2025 05:54 PM NURSING NOTE: LOCAL TITLE: PREMA PERSONAL EFFECTS [facility] STANDARD TITLE: NURSING NOTE DATE OF NOTE: APR 08, 2025@17:54 ENTRY DATE: APR 08, 2025@17:54:19 AUTHOR: BASSAM BOOKER EXP COSIGNER: URGENCY: STATUS: COMPLETED PERSONAL EFFECTS: Contraband Check: --Advised of prohibited contraband --Denies contraband --No contraband observed Contraband identified and disposition: --None Medication Check: --Pt has Rx medication on their person at this time. --Denies EtOH and/or illicit substance(s) on their person at this time. --Denies having Rx narcotic pain medication on their person at this time. Prosthetic Check: --Glasses Personal Items: --Patient/Family advised that [facility] not responsible for loss of any personal effects or valuables. --Patient present during collection of personal effects. Patient Funds Disposition: 1 WALLET MONEY: $20 Patient Valuables Observed: 1 SET KEYS 1 MOBILE PHONE 1 MOBILE PHONE HOME CARE NURSE 1 SHIRT 1 PAIR SHORTS 1 PAIR SOCKS 1 PAIR SHOES /brigida/ BASSAM BOOKER RN REGISTERED NURSE Signed: 04/08/2025 17:57 Receipt Acknowledged By: 04/08/2025 18:17 /es/ SOULEYMANE AGUILAR, RN REGISTERED NURSE * AWAITING SIGNATURE * NITHIN FERNANDEZ SCOTT D [facility] Apr 08, 2025 05:40 PM NURSING NOTE: LOCAL TITLE: [facility] NSG IV INSERTION AND MAINTENANCE STANDARD TITLE: NURSING NOTE DATE OF NOTE: APR 08, 2025@17:40 ENTRY DATE: APR 08, 2025@17:40:25 AUTHOR: BASSAM BOOKER EXP COSIGNER: URGENCY: STATUS: COMPLETED Version 2.2 Charting in accordance with [facility] STANDARD ([facility]) ACUTE INPATIENT/REHABILITATION NURSING ADMISSION SCREENING, ASSESSMENT, AND STANDARDS OF CARE IV Line Insertion and Maintenance Peripheral IV Line #1: Insertion: Date: 04/08/2025 Inserted by (name): language arts teacher Gauge: 18g Location: LAC Line # 1: Assessment: Dressing Condition: --Clean, dry, intact --Transparent dressing Site Condition: --No redness, swelling, pain. Line Status: -- + Blood return. -- IV flushed. -- IV saline locked. /brigida/ BASSAM BOOKER RN REGISTERED NURSE Signed: 04/08/2025 17:41 BASSAM BOOKER [facility] Apr 08, 2025 02:53 PM PHYSICIAN EMERGENCY DEPT NOTE: LOCAL TITLE: EMERGENCY DEPARTMENT STL STANDARD TITLE: PHYSICIAN EMERGENCY DEPT NOTE DATE OF NOTE: APR 08, 2025@14:53 ENTRY DATE: APR 08, 2025@14:53:39 AUTHOR: DI GOODWIN EXP COSIGNER: URGENCY: STATUS: COMPLETED TRIAGE CHIEF COMPLAINT As Written By Triage Nurse and Copied From Triage Nurse Note: LOCAL TITLE: EMERGENCY DEPARTMENT TRIAGE NOTE STANDARD TITLE: EMERGENCY DEPT TRIAGE NOTE DATE OF NOTE: APR 08, 2025@14:31 ENTRY DATE: APR 08, 2025@14:31:41 AUTHOR: DENISE COFFMAN EXP COSIGNER: URGENCY: STATUS: COMPLETED Emergency Department/Urgent Care Center Triage Patient age:50 Sex in chart: MALE Mode of Arrival: Self Mode of Mobility: * Walk Chief Complaint: facial numbness, bilateral thumb numbness 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 pt related hx of numbness to R thumb, hx of neck surgery and fusion, pt being followed by neurosurgery. pt denied weakness, bilateral composition weatherboard installer strength equal, no facial droop. pt related he feels off balance, denied changes to gait just off HPI: [place] is a 50 year old male with pmh signficant for the conditions below including previous cervical fusion presenting with bilateral facial numbness as well as bilateral thumb numbness. associates with their symptoms pain in his neck that is chronic. Pain worse with activity and better with rest. REVIEW OF SYSTEMS: See HPI for further details. All 10 systems reviewed and otherwise negative unless otherwise detailed herein. PAST MEDICAL HISTORY: 1) Gastroesophageal reflux disease 2) Neck pain 3) Personality disorder 4) Hyperlipidemia 5) Nlkdtpk-1-voyurhghr dehydrogenase deficiency anemia 6) Obesity 7) Lichen planus 8) Kidney stone 9) Abdominal pain 10) Vitamin D deficiency CURRENT MEDICATIONS: Active Outpatient Medications (including Supplies): Active Outpatient Medications Status = 1) CHOLECALCIF 50MCG (D3-2,000UNIT) TAB TAKE ONE [...] Indication: FOR PAIN Active Non-VA Medications Status = 1) Non-VA ACETAMINOPHEN TAB BY MOUTH ACTIVE 6 Total Medications No medications found.. I have reviewed the patient's medication list with the patient and/or his/her care-save all operator. Any medication discrepancies have been resolved. Patient will be provided with an updated list of his/her medication(s). SURGICAL HISTORY: not pertinent FAMILY HISTORY: not pertinent SOCIAL HISTORY: Social History Main Topics: Smoking status: 04/01/2016 Current Tobacco User Alcohol Use: not indorsed ____ Illicit Drug Use: not indorsed Sexual Activity: Other Topics of Concern: Child bearing age: N/A LMP: N/A possible: N/A ALLERGIES: Review of patient's allergies indicates: Patient has answered NKA PHYSICAL EXAM: VITAL SIGNS: 132/82 (04/08/2025 14:30)78 (04/08/2025 14:30)97% (04/08/2025 14:30)98.1 F [36.7 C] (04/08/2025 14:30)14 (04/08/2025 14:30)The OBJECT WEIGHT LAST 3 was NOT found...Contact IRM. MAThe OBJECT was NOT found...Contact IRM.PAIN ASSESSMENTThe OBJECT was NOT found...Contact IRM. No data available for: PAIN CONSTITUTIONAL: No acute distress, Non-toxic appearance HENT: airway patent EYES: Conj pink, sclera clear NECK: Normal range of motion, bilateral neck tenderness, Supple, No stridor, No LAD. CARDIOVASCULAR: Normal heart rate, Normal rhythm, No murmurs, No rubs, No gallops. PULMONARY/CHEST: CTA throughout, thorax stable without tenderness ABDOMEN: Bowel sounds normal, Soft, flat, No tenderness, No bruit, No masses, No pulsatile masses BACK: No tenderness, No CVA tenderness : RECTAL: EXTREMITIES: Normal range of motion, Intact distal pulses, No edema, No tenderness NEUROLOGIC: Alert & oriented/reactive, Normal motor function, Normal gait, no ataxia, No focal deficits appreciated on cursory screening exam SKIN: Warm, Dry, No erythema, No rash LABS: RADIOLOGY: CT HEAD W/O CONT Exm Date: APR 08, 2025@16:26 Req Phys: DI GOODWIN Loc: THEO-EMERGENCY DEPT 2ND SHIFT (R Img Loc: THEO-CT IMAGING THEO Service: Unknown [address] [address] (Case [id number] COMPLETE) CT HEAD W/O CONT (CT Detailed) CPT:52683 Reason for Study: weakness Clinical History: Responsible [...] 08, 2025 Date Verified: APR 08, 2025 Packager Hand E-Sig:/ES/OUTSIDE SERVICE RADIOLOGY Report: CT HEAD W/O CONT, CT CERVICAL SPINE W/O CONT HISTORY: weakness COMPARISON: 12/26/[address] TECHNIQUE: Contiguous axial CT images from the level of the skull base through the skull apex, performed at the local [place] facility. 270 images were received by the [place] National Teleradiology Program (NTP) for interpretation. CT of the cervical spine with multiplanar reformatting was performed at the local [place] facility. 1260 images were received by the [place] National Teleradiology Program (NTP) for interpretation. RADIATION [...] other cervical levels also noted as described ECG IMPRESSION:deferred ED COURSE & MEDICAL DECISION MAKING: Nursing notes, medications, vital signs, allergies and pertinent labs & imaging studies reviewed (see chart for details) with lab results reviewed with patient and family/caregivers at bedside and radiology results reviewed with patient and any family/caregivers at bedside. Stable, alert, nontoxic, nonfocal talked with Neurosurgery Dr. Kumar, he does not think any pathology in the neck is causing the facial numbness, recomends considering stroke in the differential, thumb numbness can be worked up as an outpatient talked with Dr. 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 History obtained from or confirmed by: ___spouse ___parent ___guardian ___family ___friend ___EMS ___other: Discussed with radiology regarding test interpretation imaging: I performed an independent interpretation of: __x_EKG __x_rhythm strip ___plain x-ray ___ultrasound _x__CT scan ___MRI ___other Patient's care impacted by: ___Diabetes ___Hypertension ___Cancer ___other: Patient's care is significantly limited by social determinants of health including, but not limited to: ___inadequate housing __x_low income ___alcoholism and drug addiction in patient or family ___problems related to primary support group ___unemployment ___problems with employment ___language barrier ___lack of transportation ___psychiatric disease ___other social determinants of health: External records reviewed: ___Inpatient records ___office records __x_outpatient records ___prior outpatient labs ___prior outpatient radiology ___primary care record ___outside ED record ___PMD referral ___outside ER ___urgent care referral ___other: Management of the patient was discussed with: _x__Hospitalist ___Consultant ___Behavioral health provider ___Primary care provider ___Other: The following testing was considered but ultimately was not performed after discussion with the patient/family: I considered prescription management with the following but ultimately did not prescribe: ___Pain medication ___Antiviral ___Antibiotic ___Other: ___I considered admission/ observation but decided upon discharge due to: hospitalization not required WEIGHT CALLER SERVICE/TIME: MEDICATIONS GIVEN IN ED: [ ] YES [ ] NO DIFFERENTIAL DIAGNOSES CONSIDERED:stroke vs cervical radiculopathy vs anemia vs electrolyte abnormality vs other DECISION to ADMIT TIME: 658pm DISPOSITION CONDITION:[x ] Improved [ ] Unchanged [ ] Deteriorated CLINICAL IMPRESSION: 1 -Facial numbness 2 -bilateral thumb numbness 3 - DISCHARGE INSTRUCTIONS AND PATIENT-DIRECTED FOLLOW-UP RECOMMENDATIONS: DIET: regular ACTIVITY: ad dany NEW MEDS: MEDICATION RECONCILIATION: CONTINUE ALL PRESCRIBED MEDICATIONS DIRECTED EXCEPT: FOLLOW-UP WITH PRIMARY ONSITE HEALTH COACH/SPECIALIST: routine in 1-2 weeks if not improving, sooner if worse RETURN TO EMERGENCY: if any worries or concerns ADDITIONAL SIGNATURE PCP: [x ] YES [ ] NO [ ] not listed Active Outpatient Medications (including Supplies): Active Outpatient Medications Status = 1) CHOLECALCIF 50MCG (D3-2,000UNIT) TAB TAKE ONE [...] Indication: FOR PAIN Active Non-VA Medications Status = 1) Non-VA ACETAMINOPHEN TAB BY MOUTH ACTIVE 6 Total Medications /es/ DI GOODWIN MD STAFF PHYSICIAN Signed: 04/08/2025 19:06 DI GOODWIN [facility]
--- OUTSIDE RECORDS SUMMARY | 2025-04-11 15:23 | XMS_ITS | Encounter Summary ---
Author Name [facility] [place] [facility] [place] Address [address] [place] [address] Care Team Providers Care Certified Nursing Assistant Name Role Phone NOAH MARGARITA Primary Care Provider Unavailabl e Selected Encounter This section includes the information on record at [place] for the Encounter. Date/Time Encounter Type Encounter Description Reason Provider Source Dec 10, 2024 10:00 AM OFFICE O/P NEW LOW 30 MIN RENAL/NEPHROL(EXCE PT DIALYSIS) ICD-10-CM N20.0 Calculus of kidney ANAMARIA COREAS [facility] Encounter Template Text not used by [place] Assessments - Encounter Diagnoses This section includes the primary and secondary diagnoses documented for the Encounter. Date/Time Primary/Secondary Diagnosis Diagnosis Name Provider Source Dec 10, 2024 10:49 AM PRIMARY Calculus of kidney MEÑO COREAS [facility] Dec 10, 2024 10:49 AM SECONDARY Elevated blood-pressure reading, w/o diagnosis of htn MEÑO COREAS [facility] Dec 10, 2024 10:49 AM SECONDARY Other acidosis MEÑO COREAS [facility] Plan of Treatment: Future Appointments (+ 6 months) and Future Tests (+/- 45 days) The Plan of Treatment section includes future care activities for the patient from [facility] [place] [facility] This section includes future appointments and future orders which are active, pending or scheduled. Future Appointments This section includes appointments that were scheduled to occur 6 months from the date of the Encounter, up to a maximum of 20 appointments. The data comes from all [facility]. Appointment Date/Time Appointment Type Appointme nt Facility Name Dec 23, 2024 02:00 PM AMBULATORY - SURGERY [facility] January 31, 2025 01:30 PM AMBULATORY - MEDICINE [facility] February 14, 2025 03:30 PM [facility] Feb 26, 2025 01:00 PM [facility] Mar 21, 2025 01:30 PM AMBULATORY - NONE [facility] Apr 08, 2025 02:20 PM [facility] Apr 11, 2025 03:30 PM AMBULATORY - MEDICINE [facility] Apr 23, 2025 01:20 PM AMBULATORY - SURGERY [facility] Apr 29, 2025 10:00 AM AMBULATORY - NONE [facility] May 19, 2025 02:00 PM [facility] Active, Pending, and Scheduled Orders This section includes a listing of several types of active, pending, and scheduled orders, including clinic medications orders, diagnostic test orders, procedure orders and consult orders; where the start date of the order is 45 days before the date of the Encounter or 45 days after the date of theEncounter. The data comes from all [facility]. Test Date/Time Test Type Test Details Facility Name Dec 10, 2024 12:00 AM Laboratory - Chemi stry Order PTH, INTACT (STL) RED/NO-GEL SERUM SP [facility] Dec 10, 2024 12:00 AM Laboratory - Chemi stry Order MICRAL/CREAT PROFILE (STL) URINE YELLOW [facility] Dec 10, 2024 12:00 AM Laboratory - Chemi stry Order RENAL PANEL GREEN LI/HEP BLD/PLAS PLASMA SP [facility] Dec 10, 2024 12:00 AM Laboratory - Chemi stry Order CBC BLOOD [facility] Dec 10, 2024 12:00 AM Laboratory - Chemi stry Order URINE STONE PNL (24HR-STL-PB) 24HR UR ANGELITO 24-HOUR URINE SP ONCE [facility] Dec 10, 2024 12:00 AM Laboratory - Chemi stry Order URIC ACID GREEN LI/HEP BLD/PLAS PLASMA [facility] Social History: Smoking Status (Most current) and Tobacco Use (All prior to encounter date) This section includes the most current, and the historical, smoking and tobacco- related health factors from the [place] facility where the Encounter took place. Current Smoking Status This section includes the most current smoking, or tobacco-related health factor, from the [place] facility where the Encounter took place. Date/Time Current Smoking Status Comment Facil ity Jan 06, 2015 01:37 PM TOBACCO MEDS OFFER ED BUT DECLINED [facility] Tobacco Use History This section includes a history of the smoking, or tobacco-related health factors, that were collected on or before the date of the Encounter. The data comes from the [place] facility where the Encounter took place. Date/Time Smoking Status/Tobacco Use Comment F acility Jan 06, 2015 01:37 PM TOBACCO MEDS OFFER ED BUT DECLINED [facility] Encounter Notes: All associated encounter notes This section contains the clinical notes associated to the Encounter. Date/Time Encounter Note(s) Provider Source January 29, 2025 10:39 AM ADDENDUM: LOCAL TITLE: Addendum STANDARD TITLE: ADDENDUM DATE OF NOTE: JANUARY 29, 2025@10:39:03 ENTRY DATE: JANUARY 29, 2025@10:39:05 AUTHOR: SYL COREAS EXP COSIGNER: URGENCY: STATUS: COMPLETED I called pt and clarified with him that he did not get labs done as ordered for 12/10 when he was supposed to belt picker the jug for 24 hr urine. Pt has pcp appt at [facility] and I reordered his labs. Tere, please mail the jug if it is not available at the clinic. Thank you! /brigida/ SYL COREAS MD STAFF PHYSICIAN,NEPHROLOGY Signed: 01/29/2025 10:41 Receipt Acknowledged By: 01/29/2025 14:50 /es/ TERE SALVADOR REGISTERED NURSE --- Original Document --- 12/10/24 RENAL OUTPATIENT CONSULT STL: Reason for Consult: nephrolithiasis Visit conducted by phone as per pt's request 49ym with recurrent nephrolithiasis since 2001, he has every other year since then. He always passed kidney stone and he last did two months ago and it was 6mm, he has stone at home. Pt has dull rt sided pain in flank, intermittent every other month for few weeks, going on for a year. Pt has diarrhea most of the time since he had gall bladder taken out. Pt has no surgery for weight loss. Pt drinks 5-6 water 16 OZ daily. Pt in general, eats mostly outside and sometimes has high sodium diet. He try to eat healthy, when he can. Pt takes tylenol and ibuprofen. He has no difficulty urinating and sometimes he see pink color urine. pt has GERD and sometimes has reflux and indigestion. Pt drinks 1-2 cups of sodas and denied any caffeine intake. Pt has no history of HTN and he is monitoring his bp as sometimes his readings are elevated. He has no DM and denied any other chronic medical issues. ROS General: Denies changes in weight. HEENT: No changes in vision, nasal discharge, headache. CV: intermittent palpitations, No left-sided chest pain/pressure,No edema. Resp: No cough. Denied fever or wheezing GI: No nausea, vomiting, diarrhea,or constipation, or change in bowel habits. : No dysuria. No increased frequency. Neuro: No weakness, confusion, numbness, dizziness. MSK: No new weakness, arthralgias, myalgias. Heme: No easy bruising, easy bleeding. Skin: No new lesions or rashes. Endocrine: No polydipsia, No polyuria,No heat/cold sensitivity. Diet: as above Psych:Denied night-sweats.Denies problems with concentration, eating, socializations, mood changes, suicidal or homicidal ideation. PMH: 1) Gastroesophageal reflux disease 2) Neck pain 3) Personality disorder 4) Hyperlipidemia 5) Akqqcft-6-dgwwjwsfy dehydrogenase deficiency anemia 6) Obesity 7) Lichen planus 8) Kidney stone 9) Abdominal pain Meds: Active Outpatient Medications (including Supplies): Active Non-VA Medications Status = 1) Non-VA ACETAMINOPHEN TAB BY MOUTH ACTIVE Medications reviewed with patient Allergies:Patient has answered NKA Family History:mother has kidney stones, she from choking, no kidney faiure needing dialysis Social History: Pt smoked fo 23 years 1/2 ppd and quit 9 years ago, Occasional ETOH use and has no illicit drug use Exam: deferred due to phone visit Labs:URINE COLOR Colorless 04/04/2024 09:54 APPEARANCE Clear 04/04/2024 09:54 U.PH 5.5 04/04/2024 09:54 U.BILIRUBIN Negative mg/dL 04/04/2024 09:54 U.NITRITE Negative mg/dL 04/04/2024 09:54 URINE RBC/HPF 1 /HPF 04/04/2024 09:54 URINE WBC/HPF <1 /HPF 04/04/2024 09:54 MUCUS RARE /LPF 04/04/2024 09:54 SODIUM 138 mEq/L 04/04/2024 09:54 POTASSIUM 5.0 [...] 09:54 EGFR (CKD-EPI 2020) 100.0 04/04/2024 09:54 HGB 14.2 g/dL 04/04/2024 09:54 A/P #Nephrolothiasis recurrent had ~7 episodes in the past and most recently 2 months ago, stone not analyzed in the past. I discussed with pt about stone diet with good hydration to have >2 liter urine output and to avoid animal protein and high sodium foods Stone can be analyzed if pt could bring and ? cystine stones F/u 24 hr urine for metabolic evaluation and I discussed with pt about the instructions for urine collection Re-ordered renal u/s for rt flank pain and there is concern for rt UO obstruction and pt is followed in urology clinic Continue to monitor home bp to start medications for HTN if indicated Repeat labs ordered to f/u renal function, low co2 due to diarrhea RTC 6 months /brigida/ SYL COREAS MD STAFF PHYSICIAN,NEPHROLOGY Signed: 12/10/2024 20:59 01/29/2025 ADDENDUM STATUS: COMPLETED Pt called and stated he never recieved the items he needed to complete a 24 hr urine for metabolic evaluation as discussed with the provider. Please f/u with the pt for further instructions. /brigida/ NEELAM LEMUS RN REGISTERED NURSE Signed: 01/29/2025 09:59 Receipt Acknowledged By: 01/29/2025 10:35 /maury COREAS MD STAFF PHYSICIAN,NEPHROLOGY SYL COREAS [facility] January 29, 2025 09:57 AM ADDENDUM: LOCAL TITLE: Addendum STANDARD TITLE: ADDENDUM DATE OF NOTE: JANUARY 29, 2025@09:57:18 ENTRY DATE: JANUARY 29, 2025@09:57:20 AUTHOR: NEELAM LEMUS EXP COSIGNER: URGENCY: STATUS: COMPLETED Pt called and stated he never recieved the items he needed to complete a 24 hr urine for metabolic evaluation as discussed with the provider. Please f/u with the pt for further instructions. /es/ NEELAM LEMUS RN REGISTERED NURSE Signed: 01/29/2025 09:59 Receipt Acknowledged By: 01/29/2025 10:35 /brigida/ SYL COREAS MD STAFF PHYSICIAN,NEPHROLOGY --- Original Document --- 12/10/24 RENAL OUTPATIENT CONSULT STL: Reason for Consult: nephrolithiasis Visit conducted by phone as per pt's request 49ym with recurrent nephrolithiasis since 2001, he has every other year since then. He always passed kidney stone and he last did two months ago and it was 6mm, he has stone at home. Pt has dull rt sided pain in flank, intermittent every other month for few weeks, going on for a year. Pt has diarrhea most of the time since he had gall bladder taken out. Pt has no surgery for weight loss. Pt drinks 5-6 water 16 OZ daily. Pt in general, eats mostly outside and sometimes has high sodium diet. He try to eat healthy, when he can. Pt takes tylenol and ibuprofen. He has no difficulty urinating and sometimes he see pink color urine. pt has GERD and sometimes has reflux and indigestion. Pt drinks 1-2 cups of sodas and denied any caffeine intake. Pt has no history of HTN and he is monitoring his bp as sometimes his readings are elevated. He has no DM and denied any other chronic medical issues. ROS General: Denies changes in weight. HEENT: No changes in vision, nasal discharge, headache. CV: intermittent palpitations, No left-sided chest pain/pressure,No edema. Resp: No cough. Denied fever or wheezing GI: No nausea, vomiting, diarrhea,or constipation, or change in bowel habits. : No dysuria. No increased frequency. Neuro: No weakness, confusion, numbness, dizziness. MSK: No new weakness, arthralgias, myalgias. Heme: No easy bruising, easy bleeding. Skin: No new lesions or rashes. Endocrine: No polydipsia, No polyuria,No heat/cold sensitivity. Diet: as above Psych:Denied night-sweats.Denies problems with concentration, eating, socializations, mood changes, suicidal or homicidal ideation. PMH: 1) Gastroesophageal reflux disease 2) Neck pain 3) Personality disorder 4) Hyperlipidemia 5) Djtvixs-8-zivxyqalu dehydrogenase deficiency anemia 6) Obesity 7) Lichen planus 8) Kidney stone 9) Abdominal pain Meds: Active Outpatient Medications (including Supplies): Active Non-VA Medications Status = 1) Non-VA ACETAMINOPHEN TAB BY MOUTH ACTIVE Medications reviewed with patient Allergies:Patient has answered NKA Family History:mother has kidney stones, she from choking, no kidney faiure needing dialysis Social History: Pt smoked fo 23 years 1/2 ppd and quit 9 years ago, Occasional ETOH use and has no illicit drug use Exam: deferred due to phone visit Labs:URINE COLOR Colorless 04/04/2024 09:54 APPEARANCE Clear 04/04/2024 09:54 U.PH 5.5 04/04/2024 09:54 U.BILIRUBIN Negative mg/dL 04/04/2024 09:54 U.NITRITE Negative mg/dL 04/04/2024 09:54 URINE RBC/HPF 1 /HPF 04/04/2024 09:54 URINE WBC/HPF <1 /HPF 04/04/2024 09:54 MUCUS RARE /LPF 04/04/2024 09:54 SODIUM 138 mEq/L 04/04/2024 09:54 POTASSIUM 5.0 [...] 09:54 EGFR (CKD-EPI 2020) 100.0 04/04/2024 09:54 HGB 14.2 g/dL 04/04/2024 09:54 A/P #Nephrolothiasis recurrent had ~7 episodes in the past and most recently 2 months ago, stone not analyzed in the past. I discussed with pt about stone diet with good hydration to have >2 liter urine output and to avoid animal protein and high sodium foods Stone can be analyzed if pt could bring and ? cystine stones F/u 24 hr urine for metabolic evaluation and I discussed with pt about the instructions for urine collection Re-ordered renal u/s for rt flank pain and there is concern for rt UO obstruction and pt is followed in urology clinic Continue to monitor home bp to start medications for HTN if indicated Repeat labs ordered to f/u renal function, low co2 due to diarrhea RTC 6 months /es/ SYL COREAS MD STAFF PHYSICIAN,NEPHROLOGY Signed: 12/10/2024 20:59 NEELAM LEMUS [facility] Dec 10, 2024 10:27 AM NEPHROLOGY CONSULT: LOCAL TITLE: RENAL OUTPATIENT CONSULT STL STANDARD TITLE: NEPHROLOGY CONSULT DATE OF NOTE: DEC 10, 2024@10:27 ENTRY DATE: DEC 10, 2024@10:27:36 AUTHOR: SYL COREAS EXP COSIGNER: URGENCY: STATUS: COMPLETED RENAL OUTPATIENT CONSULT STL Has ADDENDA Reason for Consult: nephrolithiasis Visit conducted by phone as per pt's request 49ym with recurrent nephrolithiasis since 2001, he has every other year since then. He always passed kidney stone and he last did two months ago and it was 6mm, he has stone at home. Pt has dull rt sided pain in flank, intermittent every other month for few weeks, going on for a year. Pt has diarrhea most of the time since he had gall bladder taken out. Pt has no surgery for weight loss. Pt drinks 5-6 water 16 OZ daily. Pt in general, eats mostly outside and sometimes has high sodium diet. He try to eat healthy, when he can. Pt takes tylenol and ibuprofen. He has no difficulty urinating and sometimes he see pink color urine. pt has GERD and sometimes has reflux and indigestion. Pt drinks 1-2 cups of sodas and denied any caffeine intake. Pt has no history of HTN and he is monitoring his bp as sometimes his readings are elevated. He has no DM and denied any other chronic medical issues. ROS General: Denies changes in weight. HEENT: No changes in vision, nasal discharge, headache. CV: intermittent palpitations, No left-sided chest pain/pressure,No edema. Resp: No cough. Denied fever or wheezing GI: No nausea, vomiting, diarrhea,or constipation, or change in bowel habits. : No dysuria. No increased frequency. Neuro: No weakness, confusion, numbness, dizziness. MSK: No new weakness, arthralgias, myalgias. Heme: No easy bruising, easy bleeding. Skin: No new lesions or rashes. Endocrine: No polydipsia, No polyuria,No heat/cold sensitivity. Diet: as above Psych:Denied night-sweats.Denies problems with concentration, eating, socializations, mood changes, suicidal or homicidal ideation. PMH: 1) Gastroesophageal reflux disease 2) Neck pain 3) Personality disorder 4) Hyperlipidemia 5) Cicwkas-9-dyqwnelhl dehydrogenase deficiency anemia 6) Obesity 7) Lichen planus 8) Kidney stone 9) Abdominal pain Meds: Active Outpatient Medications (including Supplies): Active Non-VA Medications Status = 1) Non-VA ACETAMINOPHEN TAB BY MOUTH ACTIVE Medications reviewed with patient Allergies:Patient has answered NKA Family History:mother has kidney stones, she from choking, no kidney faiure needing dialysis Social History: Pt smoked fo 23 years 1/2 ppd and quit 9 years ago, Occasional ETOH use and has no illicit drug use Exam: deferred due to phone visit Labs:URINE COLOR Colorless 04/04/2024 09:54 APPEARANCE Clear 04/04/2024 09:54 U.PH 5.5 04/04/2024 09:54 U.BILIRUBIN Negative mg/dL 04/04/2024 09:54 U.NITRITE Negative mg/dL 04/04/2024 09:54 URINE RBC/HPF 1 /HPF 04/04/2024 09:54 URINE WBC/HPF <1 /HPF 04/04/2024 09:54 MUCUS RARE /LPF 04/04/2024 09:54 SODIUM 138 mEq/L 04/04/2024 09:54 POTASSIUM 5.0 [...] 09:54 EGFR (CKD-EPI 2020) 100.0 04/04/2024 09:54 HGB 14.2 g/dL 04/04/2024 09:54 A/P #Nephrolothiasis recurrent had ~7 episodes in the past and most recently 2 months ago, stone not analyzed in the past. I discussed with pt about stone diet with good hydration to have >2 liter urine output and to avoid animal protein and high sodium foods Stone can be analyzed if pt could bring and ? cystine stones F/u 24 hr urine for metabolic evaluation and I discussed with pt about the instructions for urine collection Re-ordered renal u/s for rt flank pain and there is concern for rt UO obstruction and pt is followed in urology clinic Continue to monitor home bp to start medications for HTN if indicated Repeat labs ordered to f/u renal function, low co2 due to diarrhea RTC 6 months /brigida/ SYL COREAS MD STAFF PHYSICIAN,NEPHROLOGY Signed: 12/10/2024 20:59 01/29/2025 ADDENDUM STATUS: COMPLETED Pt called and stated he never recieved the items he needed to complete a 24 hr urine for metabolic evaluation as discussed with the provider. Please f/u with the pt for further instructions. /brigida/ NEELAM LEMUS RN REGISTERED NURSE Signed: 01/29/2025 09:59 Receipt Acknowledged By: 01/29/2025 10:35 /maury COREAS MD STAFF PHYSICIAN,NEPHROLOGY 01/29/2025 ADDENDUM STATUS: COMPLETED I called pt and clarified with him that he did not get labs done as ordered for 12/10 when he was supposed to belt picker the jug for 24 hr urine. Pt has pcp appt at [facility] and I reordered his labs. Tere, please mail the jug if it is not available at the clinic. Thank you! /maury COREAS MD STAFF PHYSICIAN,NEPHROLOGY Signed: 01/29/2025 10:41 Receipt Acknowledged By: * AWAITING SIGNATURE * TERE SALVADOR GEETHA S [facility]
--- OUTSIDE RECORDS SUMMARY | 2025-04-11 15:23 | XMS_ITS | Encounter Summary ---
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 Date/Time Encounter Type Encounter Description Reason Provider Source Apr 08, 2025 12:50 PM OFFICE O/P EST SF 10 MIN NEUROSURGERY ICD-10-CM M54.2 CervicalHANNY Davis IHKimberly Encounter Template Text not used by [place] Assessments - Encounter Diagnoses This section includes the primary and secondary diagnoses documented for the Encounter. Date/Time Primary/Secondary Diagnosis Diagnosis Name Provider Source Apr 08, 2025 12:58 PM PRIMARY CervicalGABRIEL Davis [facility] Plan of Treatment: Future Appointments (+ 6 months) and Future Tests (+/- 45 days) The Plan of Treatment section includes future care activities for the patient from all [place] treatmentfacilities. This section includes future appointments and future orders which are active, pending or scheduled. Future Appointments This section includes appointments that were scheduled to occur 6 months from the date of the Encounter, up to a maximum of 20 appointments. The data comes from all [place] treatment facilities. Appointment Date/Time Appointment Type Appointme nt Facility Name Apr 11, 2025 03:30 PM AMBULATORY - MEDICINE [facility] Apr 23, 2025 01:20 PM AMBULATORY - SURGERY [facility] Apr 29, 2025 10:00 AM AMBULATORY - NONE [facility] [place] [facility] May 19, 2025 02:00 PM AMBULATORY - MEDICINE [facility] Jul 01, 2025 11:00 AM AMBULATORY - MEDICINE [facility] Active, Pending, and Scheduled Orders This section includes a listing of several types of active, pending, and scheduled orders, including clinic medications orders, diagnostic test orders, procedure orders and consult orders; where the start date of the order is 45 days before the date of the Encounter or 45 days after the date of theEncounter. The data comes from all [facility]. Test Date/Time Test Type Test Details Facility Name Apr 08, 2025 03:22 PM Procedure Order CP EKG STL CP EKG - STL Proc [employer] [facility] Apr 29, 2025 12:00 AM Imaging - Magnetic Resonance Imaging (MRI) Order MRI SPINE CERVICAL W/O&W CONT [facility] Apr 29, 2025 12:00 AM Imaging - Magnetic Resonance Imaging (MRI) Order MRI BRAIN W/O CONT [facility] Lab Results: +/- 30 days of the encounter This section includes the Chemistry and Hematology Lab Results on record with [place] for the patient. Radiology Reports and Pathology Reports are provided separately, in subsequent sections. Lab Results This section contains the Chemistry/Hematology Results that were resulted 30 days before or 30 daysafter the date of the Encounter. Date/Time Source Result Type Result - Unit Interpretation Reference Range Specimen Type Comment Apr 09, 2025 06:38 AM [facility] B12 SERUM Specimen Type: SERUM No comment entered. Ordering Provider: ANTONINA MEDINA Report Released Date/Time: Apr 09, 2025 04:48 AM Reporting Lab: [facility] [address] [address] Performing Lab: [facility] [address] [address] B12 350 pg/mL 213-816 Apr 08, 2025 11:50 PM [facility] MRSA SURVL NARES DNA NARES Specimen Type: [...] Apr 08, 2025 09:42 PM Reporting Lab: [address] [address] Performing Lab: [address] [address] MRSA SURVL NARES DNA Negative Negative Apr 08, 2025 10:06 PM [facility] LIPID PANEL (STL) PLASMA Specimen Type: PLASM A No comment entered. Ordering Provider: JESSICA MEDINA Report Released Date/Time: Apr 08, 2025 09:42 PM Reporting Lab: [address] [address] Performing Lab: [address] [address] CHOLESTEROL 207 mg/dL H 0-200 TRIGLYCERIDE 121 mg/dL 0-150 CALCULATED LDL 141 mg/dL HDL(New) 42 mg/dL >40 Apr 08, 2025 04:08 PM [facility] MAGNESIUM PLASMA Specimen Type: PLASM A Comment: No hemolysis noted. Ordering Provider: DI GOODWIN Report Released Date/Time: Apr 08, 2025 03:20 PM Reporting Lab: [address] [address] Performing Lab: [address] [address] MAGNESIUM 2.1 mg/dL 1.6-2.6 Apr 08, 2025 04:08 PM [facility] PHOSPHOROUS PLASMA Specimen Type: PLASM A Comment: No hemolysis noted. Ordering Provider: DI GOODWIN Report Released Date/Time: Apr 08, 2025 03:20 PM Reporting Lab: [facility] [address] [place] [phone] Performing Lab: [address] [address] PHOSPHOROUS 3.0 mg/dL 2.3-4.7 Apr 08, 2025 04:08 PM [facility] CBC BLOOD Specimen Type: BLOOD No comment entered. Ordering Provider: DI GOODWIN Report Released Date/Time: Apr 08, 2025 03:20 PM Reporting Lab: [address] [address] Performing Lab: [address] [address] WBC 6.7 10*3/uL 3.6-11.2 RBC 4.69 10*6/uL [...] 0.00-0. 20 Apr 08, 2025 04:08 PM [facility] COMPREHENSIVE METABOLIC PANEL PLASMA Specimen Type: PLASMA Comment: No hemolysis noted. Ordering Provider: DI GOODWIN Report Released Date/Time: Apr 08, 2025 03:20 PM Reporting Lab: [address] [address] Performing Lab: [address] [address] CREATININE 1.08 mg/dL 0.7-1.3 UREA NITROGEN 19.7 [...] U/L 8-40 EGFR (CKD-EPI 2020) 84.1 >60 Apr 08, 2025 04:08 PM [facility] TSH (MA-PB) SERUM Specimen Type: SERUM No comment entered. Ordering Provider: DI GOODWIN Report Released Date/Time: Apr 08, 2025 03:20 PM Reporting Lab: [address] [address] Performing Lab: [address] [address] TSH 2.009 u[IU]/mL 0.47-5 Apr 08, 2025 04:08 PM [facility] TROPONIN I (STL) PLASMA Specimen Type: PLASM A Comment: No hemolysis noted. Ordering Provider: DI GOODWIN Report Released Date/Time: Apr 08, 2025 03:20 PM Reporting Lab: [address] [address] Performing Lab: [address] [place] [address] TROPONIN I (STL) <0.010 ng/mL 0-0.033 Vital Signs: All taken on the encounter date This section contains inpatient and outpatient Vital Signs collected on the date of the Encounter. Date/Time Temperature Pulse Blood Pressure Respiratory Rate SP02 Pain Height Weight Body Mass Index Source Apr 08, 2025 11:45 PM [facility] Apr 08, 2025 10:15 PM 5 [facility] Apr 08, 2025 09:44 PM 97.9 F 71 /min 154/96 mm[Hg] 18 /min 96 % 6 237.1 lb 37 [facility] Apr 08, 2025 09:43 PM 73 /min 144/93 mm[Hg] 15 /min 95 % [facility] Apr 08, 2025 08:46 PM 79 /min 147/108 mm[Hg] 18 /min 94 % [facility] Social History: Smoking Status (Most current) and Tobacco Use (All prior to encounter date) This section includes the most current, and the historical, smoking and tobacco- related health factors from the [place] facility where the Encounter took place. Current Smoking Status This section includes the most current smoking, or tobacco-related health factor, from the [place] facility where the Encounter took place. Date/Time Current Smoking Status Comment Jojo ferris Jan 06, 2015 01:37 PM TOBACCO MEDS OFFER ED BUT DECLINED [facility] Tobacco Use History This section includes a history of the smoking, or tobacco-related health factors, that were collected on or before the date of the Encounter. The data comes from the [place] facility where the Encounter took place. Date/Time Smoking Status/Tobacco Use Comment F mellisa Jan 06, 2015 01:37 PM TOBACCO MEDS OFFER ED BUT DECLINED [facility] Radiology Reports: +/- 30 days of the [...] the Encounter. The data comes from all [place] treatment facilities. Date/Time Radiology Report Provider Source Apr 08, 2025 04:[address] HEAD W/O CONT: VANNA GLEZ [id number] -1975 M Exm Date: APR 08, 2025@16:26 Req Phys: DI GOODWIN Loc: [facility]-EMERGENCY DEPT 2ND SHIFT (R Img Loc: [facility]-CT IMAGING [facility] Service: Unknown [address] [address] (Case [id number] COMPLETE) CT HEAD W/O CONT (CT Detailed) CPT:69861 Reason for Study: weakness Clinical History: Responsible [...] 08, 2025 Date Verified: APR 08, 2025 [employer] E-Sig:/ES/OUTSIDE SERVICE RADIOLOGY Report: CT HEAD W/O CONT, CT CERVICAL SPINE W/O CONT HISTORY: weakness COMPARISON: 12/26/[address] TECHNIQUE: Contiguous axial CT images from the level of the skull base through the skull apex, performed at the local [place] facility. 270 images were received by the [place] National [facility] (NTP) for interpretation. CT of the cervical spine with multiplanar reformatting was performed at the local [place] facility. 1260 images were received by the [place] [facility] (NTP) for interpretation. RADIATION [...] as described READING PHYSICIAN: Fly Hui M.D. -[phone] 04/08/2025 12:34 [facility] National Enable Injectionsradiology Program [phone] (For Medical Practitioner Use Only) Attention Patients / Veterans: If you have questions or concerns about these test results, please contact your ordering provider or primary care team. Primary Interpreting Staff: OUTSIDE SERVICE RADIOLOGY, Staff Physician / RADIOLOGY,OUTSIDE SERVICE [facility] Apr 08, 2025 04:[address] CERVICAL SPINE W/O CONT: VANNA GLEZ [id number] -1975 M Exm Date: APR 08, 2025@16:26 Req Phys: DI GOODWIN Loc: [facility]-EMERGENCY DEPT 2ND SHIFT (R Img Loc: [facility]-CT IMAGING THEO Service: Unknown [facility] [address] [place] [address] (Case [id number] COMPLETE) CT CERVICAL SPINE W/O CONT (CT Detailed) CPT:19352 Reason for Study: possibel chord blockage c [...] 08, 2025 Date Verified: APR 08, 2025 [employer] E-Sig:/ES/OUTSIDE SERVICE RADIOLOGY Report: CT HEAD W/O CONT, CT CERVICAL SPINE W/O CONT HISTORY: weakness COMPARISON: 12/26/[address] TECHNIQUE: Contiguous axial CT images from the level of the skull base through the skull apex, performed at the local [place] facility. 270 images were received by the [place] [facility] Teler[facility] (NTP) for interpretation. CT of the cervical spine with multiplanar reformatting was performed at the local [place] facility. 1260 images were received by the [place] [facility] Teler[facility] (NTP) for interpretation. RADIATION [...] as described READING PHYSICIAN: Fly Hui M.D. -[phone] 04/08/2025 12:34 [facility] National Enable Injectionsradiology Program [phone] (For Medical Practitioner Use Only) Attention Patients / Veterans: If you have questions or concerns about these test results, please contact your ordering provider or primary care team. Primary Interpreting Staff: OUTSIDE SERVICE RADIOLOGY, Staff Physician / RADIOLOGY,OUTSIDE SERVICE [facility] Mar 21, 2025 01:25 PM US RENAL COMPLETE: BLASTENBREI,VANNA ALL [id number] -1975 M Exm Date: MAR 21, 2025@13:25 Req Phys: KLARISSAMagueERICKASYL Cristofer Mitchell Loc: THEO-UROLOGY RES (Req'g Loc) Img Loc: [facility]-ULTRASOUND THEO Service: Unknown [facility] [address] [place] [address] (Case [id number] COMPLETE) US RENAL COMPLETE (US Detailed) CPT:23817 Reason for Study: history of stones Clinical History: Report Status: Verified Date Reported: MAR 21, 2025 Date Verified: MAR 21, 2025 [employer] E-Sig:/BRIGIDA/JAVIER ZAMORA Report: HISTORY: history of stones FINDINGS: Echotexure of the kidneys normal, with age appropriate size. Right kidney normal measuring 10.8cm and left kidney normal measuring 11.7cm. No hydronephrosis or obstruction. No renal lithiasis. No large mass or cyst. No perirenal fluid collections. Visualized bladder normal. Impression: Normal renal ultrasound. RR Primary Interpreting Staff: JAVIER ZAMORA, Staff Physician (Corporation Lawyer) /JAVIER DIAZ [facility] Encounter Notes: All associated encounter notes This section contains the clinical notes associated to the Encounter. Date/Time Encounter Note(s) Provider Source Apr 08, 2025 12:50 PM NEUROSURGERY NOTE: LOCAL TITLE: NEUROSURGERY ST STANDARD TITLE: NEUROSURGERY NOTE DATE OF NOTE: APR 08, 2025@12:50 ENTRY DATE: APR 08, 2025@12:50:41 AUTHOR: GABRIEL HOWELL EXP COSIGNER: URGENCY: STATUS: COMPLETED Spoke with pt and his baseline is left thumb numbness only. Pt has developed facial numbness, bilaterally, from cheeks down, and bilateral thumb numbness. Pt also describes a slight gait abnormailty. Discussed with MERT Krause and she recommended pt go to ED. Called pt back and pt agreed to go to ED. Pt requesting an RTC with NP2 on . I have spent approximately 5-10 minutes on this phone encounter. Including reviewing the chart, teaching, and allowing ample time for discussion and questions. /brigida/ GABRIEL HOWELL BSN RN REGISTERED NURSE Signed: 04/08/2025 12:58 Receipt Acknowledged By: 04/08/2025 14:59 /es/ DECEMBER Maddison KRAUSE DNP, JANEEN, LEAH NURSE PRACTITIONER, NEUROSURGERY [facility]
--- NOTE | 2025-04-11 18:07 | ED_ITS ---
HPI - Neuro Symptoms/Deficit General Chief Complaint: Neuro Symptoms/Deficit <Germania Harmon PA-C - Last Filed: 04/14/25 09:02> Stated Complaint: L sided facial/arm numbness <Germania Harmon PA-C - Last Filed: 04/14/25 09:02> Time Seen by Provider: 04/11/25 18:07 <Germania Harmon PA-C - Last Filed: 04/14/25 09:02> Focused HPI: Patient is a 50 y/o male who presents to the ED with c/o numbness to his L sided face/LUE. Patient reports he first noticed numbness in his L lower jaw/chin, numbness in his L hand on Monday. He went to the [facility] at that time and reports he had a negative CT scan of his brain. States he was kept overnight and scheduled for an outpatient brain MRI on 04/29/25. Reports today the numbness has been spreading further up his L sided face up to his forehead. Also reports pain/tightness across L shoulder, L forearm today, pain in bilateral legs- L>R, feels like he just finished running a marathon. Also reports intermittent brief episodes of double vision in both eyes, pain throughout his R sided neck last week. Denies confusion, slurred speech, CP, SOB. GENERAL: Well-appearing, well-nourished, and in no acute distress. HEAD: Normocephalic, atraumatic. CHEST: Clear to auscultation. ?No respiratory distress. HEART: Regular rate and rhythm.? NEURO: ?Alert and oriented x3. Speech clear. Follows commands. CN II-XII intact. Sensation subjectively decreased throughout L sided face (V1,2,3 distributions), and throughout L arm. Steady gait. No ataxic movements. Strength 5/5 in upper and lower extremities bilaterally. [id number] testing intact bilaterally. No pronator drift. Equal sponsorship manager strength bilaterally. PSYCHIATRIC: Appropriate mood and affect. Normal interaction. Patient screened in triage and initial orders placed.? ?Additional care and disposition to be based upon?diagnostic testing and treatment. <CHRISTY Tomlinson Last Filed: 04/14/25 09:02> Source: patient <Germania Harmon PA-C - Last Filed: 04/14/25 09:02> Mode of arrival: ambulatory <Germania Harmon PA-C - Last Filed: 04/14/25 09:02> Limitations: no limitations <Germania Harmon PA-C - Last Filed: 04/14/25 09:02> History of Present Illness HPI Narrative: I agree with the above HPI <Blas Templeton MD - Last Filed: 04/14/25 22:55> Related Data Allergies/Adverse Reactions: Allergies Allergy/AdvReac Type Severity Reaction Status Date / Time No Known Allergies Allergy Verified 10/16/24 17:56 <Germania Harmon PA-C - Last Filed: 04/14/25 09:02> Review of Systems 2 Review of Systems: All systems reviewed & are unremarkable except as noted in HPI and below <Blas Templeton MD - Last Filed: 04/14/25 22:55> PMFSH Past Medical History Medical History: Medical History Calculus of gallbladder with acute cholecystitis without obstruction Hypertension <Germania Harmon PA-C - Last Filed: 04/14/25 09:02> Surgical History Surgical History: Surgical History History of cholecystectomy <Germania Harmon PA-C - Last Filed: 04/14/25 09:02> Family History Family History: Family History (Updated 04/12/25 @ 02:15 by Ava Quinteros RN) Mother Diabetes mellitus Congestive heart failure Father Hypertension <Germania Harmon PA-C - Last Filed: 04/14/25 09:02> Social History Social History: Social History Smoking status: Never smoker Second hand tobacco smoke exposure: No Smoking end date: 09/25/15 Alcohol intake: never Substance use: never Substance use type: does not use Do You Feel Safe in your Home?: Yes Lack of Transportation: No Lack of Food: Never True Current Housing: I Have Housing Concerned About Future Housing: No Difficulty Paying Gas/Electric Bills: No Difficulty Paying for Meds: No Currently Unemployed: No Education: Associate Degree Difficulty w/ Childcare or Family Care: No Spiritual care concerns: No <Germania Harmon PA-C - Last Filed: 04/14/25 09:02> Exam 2 Narrative: APPEARANCE: Well appearing, no pain, no distress, well-nourished. HEAD: normocephalic, atraumatic. EYES: Mild droop of left eye NOSE: Normal no drainage EARS:TMS clear with good light reflex. THROAT: Pharynx clear, no exudate. NECK: Supple. No adenopathy, no masses. RESPIRATORY: Airway patent, respirations nonlabored. Clear to auscultation bilaterally, no rales, rhonchi, wheezing. CARDIOVASCULAR: Regular rate and rhythm without murmurs rubs or gallops. ABDOMINAL: Soft, nontender, nondistended, normal bowel sounds MUSCULOSKELETAL: Moves all extremities. Strength/ROM intact, No edema, No calf tenderness. NEURO: Subjective decreased sensation over the left upper extremity and left lower extremity with objective weakness SKIN: Warm, dry. Normal Color <Blas Templeton MD - Last Filed: 04/14/25 22:55> Course Vital Signs Vital signs: Vital Signs Temperature 97.9 F 04/11/25 15:20 Pulse Rate 86 04/11/25 15:20 Respiratory Rate 18 04/11/25 15:20 Blood Pressure 169/92 H 04/11/25 15:20 Pulse Oximetry 96 04/11/25 15:20 Oxygen Delivery Room Air 04/11/25 15:20 Temperature 97.3 F L 04/12/25 14:00 Pulse Rate 65 04/12/25 14:00 Respiratory Rate 18 04/12/25 14:00 Blood Pressure 134/78 04/12/25 14:00 Pulse Oximetry 97 04/12/25 14:00 Oxygen Delivery Room Air 04/12/25 09:24 <Germania Harmon PA-C - Last Filed: 04/14/25 09:02> Vital Signs Temperature 97.9 F 04/11/25 15:20 Pulse Rate 86 04/11/25 15:20 Respiratory Rate 18 04/11/25 15:20 Blood Pressure 169/92 H 04/11/25 15:20 Pulse Oximetry 96 04/11/25 15:20 Oxygen Delivery Room Air 04/11/25 15:20 Temperature 97.3 F L 04/12/25 14:00 Pulse Rate 65 04/12/25 14:00 Respiratory Rate 18 04/12/25 14:00 Blood Pressure 134/78 04/12/25 14:00 Pulse Oximetry 97 04/12/25 14:00 Oxygen Delivery Room Air 04/12/25 09:24 <Blas Templeton MD - Last Filed: 04/14/25 22:55> MDM - Neuro Symptoms/Deficit MDM Narrative Medical decision making narrative: MSE by JUAN CARLOS in triage. <Germania Harmon PA-C - Last Filed: 04/14/25 09:02> MSE by JUAN CARLOS in triage. 50-year-old male presents emergency department for evaluation for neurologic changes including left facial numbness left arm numbness and left leg numbness. Patient's left arm symptoms could be explained by cervical radiculopathy is patient does have some reproducible tenderness in his left trapezius. Patient does have mild droop of the left eyelid and patient is unsure if this is new. Patient also does complain decreased sensation of the left lower extremity. Discussed case with the hospitalist patient was accepted for admission. <Blas Templeton MD - Last Filed: 04/14/25 22:55> Differential Diagnosis Differential diagnosis: Likely subarachnoid hemorrhage, peripheral neuropathy, cerebrovascular accident and transient cerebral ischemia <Blas Templeton MD - Last Filed: 04/14/25 22:55> Lab Data Attestation: I reviewed the patient's lab results. <Blas Templeton MD - Last Filed: 04/14/25 22:55> Result diagrams: 04/11/25 18:17 04/11/25 18:17 <Germania Harmon PA-C - Last Filed: 04/14/25 09:02> Labs: Lab Results 04/11/25 04/11/25 Range/Units 18:17 18:55 WBC 9.4 (4.5-10.0) K/mm3 RBC 4.82 (4.6-6.20) M/mm3 Hgb 14.9 (14.0-18.0) g/dL Hct 43.2 (42.0-52.0) % MCV 89.6 (80-100) fl MCH 30.9 (26-34) pg MCHC 34.5 (32-36) g/dl RDW 11.7 (11.5-14.5) % Plt Count 305 (150-375) k/mm3 MPV 9.2 (7.4-10.4) fl Immature Gran % (Auto) 0.3 (0-0.5) % Neut % (Auto) 64.0 (45.5-73.1) % Lymph % (Auto) 23.5 (18.3-44.2) % [place] % (Auto) 8.0 (2.6-8.5) % Eos % (Auto) 3.5 (0-4.4) % Baso % (Auto) 0.7 (0.2-1.2) % Lymph # (Auto) 2.22 (0.9-3.2) K/mm3 [place] # (Auto) 0.8 H (0.1-0.6) K/mm3 Eos # (Auto) 0.3 (0-0.3) K/mm3 Baso # (Auto) 0.1 (0.0-0.1) K/mm3 Abs Immat Gran (auto) 0.03 (0.00-0.031) K/mm3 Absolute Neuts (auto) 6.0 (1.3-6.7) K/mm3 Absolute Nucleated RBC 0.000 (0.0-0.012) K/mm3 Nucleated RBC % 0.0 (0.0-0.2) % PT 13.5 (11.1-14.7) Seconds INR 1.0 APTT 28.2 (22.3-36.8) Seconds Sodium 135 L (137-145) mmol/L Potassium 4.2 (3.4-5.0) mmol/L Chloride 103 (98-107) mmol/L Carbon Dioxide 21 L (22-30) mmol/L Anion Gap 11 (4-12) mmol/L BUN 19 (9-20) mg/dL Creatinine 1.15 (0.7-1.3) mg/dL Estim Creat Clear Calc 80 ml/min Estimated GFR > 60 (59 - ) Glucose 95 (65-110) mg/dL Calcium 9.7 (8.4-10.2) mg/dL Total Bilirubin 0.8 (0.2-1.3) mg/dL AST 29 (17-59) U/L ALT 40 (6-50) U/L Alkaline Phosphatase 62 (38-126) U/L Total Creatine Kinase 86 (55-170) U/L Troponin I < 0.012 (0.000-0.034) ng/mL Total Protein 8.4 H (6.3-8.2) g/dL Albumin 4.4 (3.5-5.1) g/dL Urine Color Yellow (Yellow) Urine Appearance Cloudy H (Clear) Urine pH 5.0 (5.0-9.0) Ur Specific [place] 1.021 (1.001-1.035) Urine Protein Negative (Negative) mg/dL Urine Glucose (UA) Negative (Negative) mg/dL Urine Ketones Negative (Negative) mg/dL Ur Blood (Man) Negative (Negative) Urine Nitrate Negative (Negative) Urine Bilirubin Negative (Negative) Urine Urobilinogen 0.2 (<2.0) mg/dL Leukocyte Esterase Rfl Negative (Negative) MELISSA/UL Urine RBC 0-2 (0-2) /hpf Urine WBC 0-5 (0-3) /hpf Ur Squamous Epith Cells None seen (Few) /hpf Urine Bacteria None seen /hpf Urine Casts 0-2 <Germania Harmon PA-C - Last Filed: 04/14/25 09:02> Lab Results 04/11/25 04/11/25 Range/Units 18:17 18:55 WBC 9.4 (4.5-10.0) K/mm3 RBC 4.82 (4.6-6.20) M/mm3 Hgb 14.9 (14.0-18.0) g/dL Hct 43.2 (42.0-52.0) % MCV 89.6 (80-100) fl MCH 30.9 (26-34) pg MCHC 34.5 (32-36) g/dl RDW 11.7 (11.5-14.5) % Plt Count 305 (150-375) k/mm3 MPV 9.2 (7.4-10.4) fl Immature Gran % (Auto) 0.3 (0-0.5) % Neut % (Auto) 64.0 (45.5-73.1) % Lymph % (Auto) 23.5 (18.3-44.2) % [place] % (Auto) 8.0 (2.6-8.5) % Eos % (Auto) 3.5 (0-4.4) % Baso % (Auto) 0.7 (0.2-1.2) % Lymph # (Auto) 2.22 (0.9-3.2) K/mm3 [place] # (Auto) 0.8 H (0.1-0.6) K/mm3 Eos # (Auto) 0.3 (0-0.3) K/mm3 Baso # (Auto) 0.1 (0.0-0.1) K/mm3 Abs Immat Gran (auto) 0.03 (0.00-0.031) K/mm3 Absolute Neuts (auto) 6.0 (1.3-6.7) K/mm3 Absolute Nucleated RBC 0.000 (0.0-0.012) K/mm3 Nucleated RBC % 0.0 (0.0-0.2) % PT 13.5 (11.1-14.7) Seconds INR 1.0 APTT 28.2 (22.3-36.8) Seconds Sodium 135 L (137-145) mmol/L Potassium 4.2 (3.4-5.0) mmol/L Chloride 103 (98-107) mmol/L Carbon Dioxide 21 L (22-30) mmol/L Anion Gap 11 (4-12) mmol/L BUN 19 (9-20) mg/dL Creatinine 1.15 (0.7-1.3) mg/dL Estim Creat Clear Calc 80 ml/min Estimated GFR > 60 (59 - ) Glucose 95 (65-110) mg/dL Calcium 9.7 (8.4-10.2) mg/dL Total Bilirubin 0.8 (0.2-1.3) mg/dL AST 29 (17-59) U/L ALT 40 (6-50) U/L Alkaline Phosphatase 62 (38-126) U/L Total Creatine Kinase 86 (55-170) U/L Troponin I < 0.012 (0.000-0.034) ng/mL Total Protein 8.4 H (6.3-8.2) g/dL Albumin 4.4 (3.5-5.1) g/dL Urine Color Yellow (Yellow) Urine Appearance Cloudy H (Clear) Urine pH 5.0 (5.0-9.0) Ur Specific [place] 1.021 (1.001-1.035) Urine Protein Negative (Negative) mg/dL Urine Glucose (UA) Negative (Negative) mg/dL Urine Ketones Negative (Negative) mg/dL Ur Blood (Man) Negative (Negative) Urine Nitrate Negative (Negative) Urine Bilirubin Negative (Negative) Urine Urobilinogen 0.2 (<2.0) mg/dL Leukocyte Esterase Rfl Negative (Negative) MELISSA/UL Urine RBC 0-2 (0-2) /hpf Urine WBC 0-5 (0-3) /hpf Ur Squamous Epith Cells None seen (Few) /hpf Urine Bacteria None seen /hpf Urine Casts 0-2 <Blas Templeton MD - Last Filed: 04/14/25 22:55> Discharge Plan Discharge Clinical Impression: Left arm numbness <Germania Harmon PA-C - Last Filed: 04/14/25 09:02> Patient Disposition: Still a Patient <Germania Harmon PA-C - Last Filed: 04/14/25 09:02> Condition: Stable <Germania Harmon PA-C - Last Filed: 04/14/25 09:02>
--- NOTE | 2025-04-11 18:10 | ECG_ITS ---
Test Date: 2025-04-11 18:21:40 Measurements Intervals [place] Rate: 73 P: 22 [place]: 165 QRS: 7 QRSD: 94 T: 22 QT: 353 QTc: 391 Interpretive Statements SINUS RHYTHM NORMAL ELECTROCARDIOGRAM No previous ECG available for comparison Electronically Signed On 04-12-2025 08:47:27 CDT by Brown Quiroz M.D.
[2025-04-11 18:41] LABS: Hematocrit 43.2 % (42.0-52.0); Hemoglobin 14.9 g/dL (14.0-18.0); Immature Granulocyte Percent A 0.3 % (0-0.5); Lymphocytes Absolute Auto 2.22 K/mm3 (0.9-3.2); Mean Corpuscular HGB Conc 34.5 g/dl (32-36); Mean Corpuscular Hemoglobin 30.9 pg (26-34); Mean Corpuscular Volume 89.6 fl (80-100); Nucleated Red Blood Cells Absolute Auto 0.000 K/mm3 (0.0-0.012); Nucleated Red Blood Cells Perc 0.0 % (0.0-0.2); Platelet Count Result 305 k/mm3 (150-375); Red Blood Count 4.82 M/mm3 (4.6-6.20); White Blood Count 9.4 K/mm3 (4.5-10.0)
[2025-04-11 18:54] LABS: Alanine Aminotransferase 40 U/L (6-50); Albumin Level 4.4 g/dL (3.5-5.1); Alkaline Phosphatase 62 U/L (38-126); Anion Gap 11 mmol/L (4-12); Aspartate Amino Transferase 29 U/L (17-59); Bilirubin,Total 0.8 mg/dL (0.2-1.3); Blood Urea Nitrogen 19 mg/dL (9-20); Calcium 9.7 mg/dL (8.4-10.2); Carbon Dioxide 21 mmol/L (22-30); Chloride 103 mmol/L (98-107); Creatine Kinase 86 U/L (55-170); Estimated CRCL calculation 80 ml/min; Estimated Glomerular Filt Rate > 60; Glucose 95 mg/dL (65-110); Potassium 4.2 mmol/L (3.4-5.0); Sodium 135 mmol/L (137-145); Total Protein 8.4 g/dL (6.3-8.2)
--- OUTSIDE RECORDS SUMMARY | 2025-04-11 18:59 | XMS_ITS | Clinical Summary ---
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
[2025-04-11 19:00] LABS: INR 1.0; Prothrombin Time 13.5 Seconds (11.1-14.7)
--- OUTSIDE RECORDS SUMMARY | 2025-04-11 19:00 | XMS_ITS | Encounter Summary ---
Author Name [facility] [facility] [place] [place] [facility] [place] Address [address] [place] [address] Care Team Providers Care Color Receiver Name Role Phone SHANTHI ZAMORA Primary Care Provider Unavailabl e Selected Encounter This section includes the information on record at [place] for the Encounter. Date/Time Encounter Type Encounter Description Reason Provider Source Apr 11, 2025 03:30 PM OFF/OP EST JANUARY X REQ PHY/QHP TELEPHONE PRIMARY CARE ICD-10-CM Z91.89 Oth personal risk factors, not elsewhere classified WOODROW MENDEZ [facility] Encounter Template Text not used by [place] Assessments - Encounter Diagnoses This section includes the primary and secondary diagnoses documented for the Encounter. Date/Time Primary/Secondary Diagnosis Diagnosis Name Provider Source Apr 11, 2025 03:30 PM PRIMARY Oth personal risk factors, not elsewhere classified WOODROW MENDEZ [facility] Plan of Treatment: Future Appointments (+ 6 months) and Future Tests (+/- 45 days) The Plan of Treatment section includes future care activities for the patient from all [facility] treatment[facility]ilities. This section includes future appointments and future orders which are active, pending or scheduled. Future Appointments This section includes appointments that were scheduled to occur 6 months from the date of the Encounter, up to a maximum of 20 appointments. The data comes from all [facility]. Appointment Date/Time Appointment Type Appointme nt Facility Name Apr 23, 2025 01:20 PM AMBULATORY - SURGERY [facility] Apr 29, 2025 10:00 AM AMBULATORY - NONE [facility] [place] [facility] May 19, 2025 02:00 PM AMBULATORY - MEDICINE [facility] Jul 01, 2025 11:00 AM AMBULATORY - MEDICINE [facility] Active, Pending, and Scheduled Orders This section includes a listing of several types of active, pending, and scheduled orders, including clinic medications orders, diagnostic test orders, procedure orders and consult orders; where the start date of the order is 45 days before the date of the Encounter or 45 days after the date of theEncounter. The data comes from all [facility]. Test Date/Time Test Type Test Details Facility Name Apr 08, 2025 03:22 PM Procedure Order CP EKG STL CP EKG - STL Proc Spool [facility] Choice [facility] Apr 29, 2025 12:00 AM Imaging - Magnetic Resonance Imaging (MRI) Order MRI SPINE CERVICAL W/O&W CONT [facility] Apr 29, 2025 12:00 AM Imaging - Magnetic Resonance Imaging (MRI) Order MRI BRAIN W/O CONT [facility] Lab Results: +/- 30 days [...] Type Comment Apr 09, 2025 06:38 AM [facility] B12 SERUM Specimen Type: SERUM No comment entered. Ordering Provider: ANTONINA MEDINA Report Released Date/Time: Apr 09, 2025 04:48 AM Reporting Lab: [place] [address] [facility] [place] [address] Performing Lab: [place] [address] [facility] [place] [address] B12 350 pg/mL 213-816 Apr 08, 2025 11:50 PM [facility] MRSA SURVL NARES DNA NARES [...] Apr 08, 2025 09:42 PM Reporting Lab: [address] [address] Performing Lab: [address] [address] MRSA SURVL NARES DNA Negative Negative Apr 08, 2025 10:06 PM [facility] LIPID PANEL (STL) PLASMA Specimen Type: PLASM A No comment entered. Ordering Provider: JESSICA MEDINA Report Released Date/Time: Apr 08, 2025 09:42 PM Reporting Lab: [facility] [address] [place] [phone] Performing Lab: [address] [address] CHOLESTEROL 207 mg/dL H 0-200 TRIGLYCERIDE 121 mg/dL 0-150 CALCULATED LDL 141 mg/dL HDL(New) 42 mg/dL >40 Apr 08, 2025 04:08 PM [facility] MAGNESIUM PLASMA Specimen Type: PLASM A Comment: No hemolysis noted. Ordering Provider: DI GOODWIN Report Released Date/Time: Apr 08, 2025 03:20 PM Reporting Lab: [facility] [address] [facility] [address] Performing Lab: [facility] [address] [place] [address] MAGNESIUM 2.1 mg/dL 1.6-2.6 Apr 08, 2025 04:08 PM [facility] PHOSPHOROUS PLASMA Specimen Type: PLASM A Comment: No hemolysis noted. Ordering Provider: DI GOODWIN Report Released Date/Time: Apr 08, 2025 03:20 PM Reporting Lab: [facility] [address] [facility] [place] [address] Performing Lab: [facility] [address] [facility] [place] [address] PHOSPHOROUS 3.0 mg/dL 2.3-4.7 Apr 08, 2025 04:08 PM [facility] TROPONIN I (STL) PLASMA Specimen Type: PLASM A Comment: No hemolysis noted. Ordering Provider: DI GOODWIN Report Released Date/Time: Apr 08, 2025 03:20 PM Reporting Lab: [place] [address] [facility] [place] [address] Performing Lab: [facility] [address] [facility] [place] [address] TROPONIN I (STL) <0.010 ng/mL 0-0.033 Apr 08, 2025 04:08 PM [facility] TSH (MA-PB) SERUM Specimen Type: SERUM No comment entered. Ordering Provider: DI GOODWIN Report Released Date/Time: Apr 08, 2025 03:20 PM Reporting Lab: [place] [address] [facility] [place] [address] Performing Lab: [facility] [address] [facility] [place] [address] TSH 2.009 u[IU]/mL 0.47-5 Apr 08, 2025 04:08 PM [facility] CBC BLOOD Specimen Type: BLOOD No comment entered. Ordering Provider: DI GOODWIN Report Released Date/Time: Apr 08, 2025 03:20 PM Reporting Lab: [place] [address] [facility] [place] [address] Performing Lab: [address] [address] WBC 6.7 10*3/uL 3.6-11.2 RBC 4.69 10*6/uL [...] 0.00-0. 20 Apr 08, 2025 04:08 PM [facility] COMPREHENSIVE METABOLIC PANEL PLASMA Specimen Type: PLASMA Comment: No hemolysis noted. Ordering Provider: DI GOODWIN Report Released Date/Time: Apr 08, 2025 03:20 PM Reporting Lab: [address] [address] Performing Lab: [address] [address] CREATININE 1.08 mg/dL 0.7-1.3 UREA NITROGEN 19.7 [...] 01:30 PM VA-TOBACCO USE FOR HAYLIE CIGARETTES [facility] Tobacco Use History This section includes a history of the smoking, or tobacco-related health factors, that were collected on or before the date of the Encounter. The data comes from the [place] facility where the Encounter took place. Date/Time Smoking Status/Tobacco Use Comment F acility January 31, 2025 01:30 PM VA-TOBACCO USE FOR [facility] CIGARETTES [facility] January 24, 2024 03:00 PM VA-TOBACCO FORMER USER [facility] January 24, 2024 03:00 PM VA-TOBACCO QUIT 5 TO < [address] [facility] Jun 12, 2020 01:00 PM VA-TOBACCO FORMER USER [facility] Jun 12, 2020 01:00 PM VA-TOBACCO QUIT 1 TO < [address] [facility] Aug 28, 2018 09:20 AM VA-TOBACCO FORMER USER [facility] Aug 28, 2018 09:20 AM VA-TOBACCO QUIT 1 TO < [address] [facility] February 07, 2018 11:07 AM QUIT TOBACCO >12 M O & <[address] [facility] Apr 01, 2016 01:13 PM CURRENT TOBACCO USER [facility] Apr 01, 2016 01:13 PM TOBACCO OFFERRED P T MEDS (PROVIDER) [facility] Radiology Reports: +/- 30 days of the [...] CT CERVICAL SPINE W/O CONT: VANNA GLEZ [id number] -[id number] M Exm Date: APR 08, 2025@16:26 Req Phys: DI GOODWIN Loc: THEO-EMERGENCY DEPT 2ND SHIFT (R Img Loc: THEO-CT IMAGING THEO Service: Unknown [facility] [address] [place] [address] (Case [id number] COMPLETE) CT CERVICAL SPINE W/O CONT (CT Detailed) CPT:33253 Reason for Study: possibel chord blockage c [...] 08, 2025 Date Verified: APR 08, 2025 Training And Development Rep E-Sig:/ES/OUTSIDE SERVICE RADIOLOGY Report: CT HEAD W/O CONT, CT CERVICAL SPINE W/O CONT HISTORY: weakness COMPARISON: 12/26/[address] TECHNIQUE: Contiguous axial CT images from the level of the skull base through the skull apex, performed at the local [place] facility. 270 images were received by the [place] National Teleradiology Program (NTP) for interpretation. CT of the cervical spine with multiplanar reformatting was performed at the local [place] facility. 1260 images were received by the [place] National Teleradiology Program (NTP) for interpretation. RADIATION [...] as described READING PHYSICIAN: Fly Hui M.D. -[id number] 04/08/2025 12:34 [facility] National The Web Collaboration Networkradiology Program [phone] (For Medical Practitioner Use Only) Attention Patients / Veterans: If you have questions or concerns about these test results, please contact your ordering provider or primary care team. Primary Interpreting Staff: OUTSIDE SERVICE RADIOLOGY, Staff Physician / RADIOLOGY,OUTSIDE SERVICE [facility] Apr 08, 2025 04:[address] HEAD W/O CONT: VANNA GLEZ [id number] -1975 M Exm Date: APR 08, 2025@16:26 Req Phys: DI GOODWIN Loc: THEO-EMERGENCY DEPT 2ND SHIFT (R Img Loc: THEO-CT IMAGING THEO Service: Unknown [facility] [address] [place] [address] (Case [id number] COMPLETE) CT HEAD W/O CONT (CT Detailed) CPT:60490 Reason for Study: weakness Clinical History: Responsible [...] 08, 2025 Date Verified: APR 08, 2025 Training And Development Rep E-Sig:/ES/OUTSIDE SERVICE RADIOLOGY Report: CT HEAD W/O CONT, CT CERVICAL SPINE W/O CONT HISTORY: weakness COMPARISON: 12/26/[address] TECHNIQUE: Contiguous axial CT images from the level of the skull base through the skull apex, performed at the local [place] facility. 270 images were received by the [place] National Teleradiology Program (NTP) for interpretation. CT of the cervical spine with multiplanar reformatting was performed at the local [place] facility. 1260 images were received by the [place] National Teleradiology Program (NTP) for interpretation. RADIATION [...] as described READING PHYSICIAN: Fly Hui M.D. -[id number] 04/08/2025 12:34 [facility] National Teleradiology Program [phone] (For Medical Practitioner Use Only) Attention Patients / Veterans: If you have questions or concerns about these test results, please contact your ordering provider or primary care team. Primary Interpreting Staff: OUTSIDE SERVICE RADIOLOGY, Staff Physician / RADIOLOGY,OUTSIDE SERVICE [facility] Mar 21, 2025 01:25 PM US RENAL COMPLETE: VANNA GLEZ [id number] -1975 M Exm Date: MAR 21, 2025@13:25 Req Phys: SYL COREAS Loc: THEO-UROLOGY RES (Req'g Loc) Img Loc: -ULTRASOUND Service: Unknown [facility] [address] [place] [address] (Case [id number] COMPLETE) US RENAL COMPLETE (US Detailed) CPT:52491 Reason for Study: history of stones Clinical History: Report Status: Verified Date Reported: MAR 21, 2025 Date Verified: MAR 21, 2025 Training And Development Rep E-Sig:/BRIGIDA/JAVIER ZAMORA Report: HISTORY: history of stones FINDINGS: Echotexure of the kidneys normal, with age appropriate size. Right kidney normal measuring 10.8cm and left kidney normal measuring 11.7cm. No hydronephrosis or obstruction. No renal lithiasis. No large mass or cyst. No perirenal fluid collections. Visualized bladder normal. Impression: Normal renal ultrasound. RR Primary Interpreting Staff: JAVIER ZAMORA, Staff Physician (Training And Development Rep) /JAVIER DIAZ [facility] Encounter Notes: All associated encounter notes This section contains the clinical notes associated to the Encounter. Date/Time Encounter Note(s) Provider Source Apr 11, 2025 12:37 PM ADDENDUM: LOCAL TITLE: Addendum STANDARD TITLE: ADDENDUM DATE OF NOTE: APR 11, 2025@12:37:46 ENTRY DATE: APR 11, 2025@12:37:46 AUTHOR: SHANTHI ZAMORA EXP COSIGNER: URGENCY: STATUS: COMPLETED Recommend schedule a f/u with [facility]. Tagging [facility] below. Thank you! /brigida/ Shanthi Zamora DNP, GRAPHITE PAN DRIER TENDER, WHISTLE PUNK-C Primary Care Nurse Practitioner Signed: 04/11/2025 12:40 Receipt Acknowledged By: 04/11/2025 13:56 /es/ WOODROW MENDEZ,MACHINE ETCHER REGISTERED NURSE 04/11/2025 12:46 /es/ KEY CAMARILLO, MSN, GRAPHITE PAN DRIER TENDER, BC NURSE PRACTITIONER, NEUROSURGERY * AWAITING SIGNATURE * KAYDEN KRAUSE 04/11/2025 13:00 /brigida/ GABRIEL LARIOSN RN REGISTERED NURSE --- Original Document --- 04/11/25 POST DISCHARGE CONTACT: Location of Discharge: Emergency Department/Urgent Care Contact attempt: 1st identified by the following: Full Name Full Social Security Number (SSN) Contact made through telephone call RN called to follow up on hospital visit. Yulissa stated he went to the ER because he has fascial and hand numbness and tingling. Thornton stated he was supposed to get an MRI while in ER but was discharged. RN noted an order for MRI. While RN on the phone with yulissa received a call from MRI dept to schedule MRI. stated they offered an appt for 05/02/25. sated he would like to go into the community to get MRI. RN explained to that PCP unable to place direct order for [facility] MRI. RN educated on [facility] process. stated he understood. stated he was already offered to go into the community. RN did not see consult for MRI. Thornton stated he has spoken to patient advocacy because he did not receive the MRI in the ER. Thornton state he is still experiencing numbness and tingling and is thinking to go to [place]. stated he is concerned that the numbness and tingling is not related to his neck and wants the MRI jess. RN provided [facility] phone number to report visit. Reason for hospitalization/Emergency Department/Urgent Care visit: Thornton stated he was having fascial and hand numbness then went to ER Thornton/Caregiver states condition has not changed. Symptoms to monitor for health maintenance: numbness and tingling Confirmed no changes made to medications, equipment or supplies. Primary Diagnosis at Discharge: Other Diagnosis: numbness and tingling Follow up Service Referrals: Other: may need neuro consult Future Appointments: Informed, discussed and confirmed next scheduled appointments Education Provided: Topic 1: When to go to ER Specific Content: SOB, Chest pain, numbness and tingling Method: Verbal Provided to: Patient Patient understanding of education content: Verbalized understanding Topic 2: Call [facility] tele-emergency line @ [phone] Specific Content: for urgent care concerns Method: [facility] Verbal Provided to: Patient Patient understanding of education content: Verbalized understanding Length of time spent: 15 minutes /FAWN [place] REGISTERED NURSE Signed: 04/11/2025 09:46 Receipt Acknowledged By: 04/11/2025 12:33 /brigida/ Shanthi Zamora DNP, APRN, IESHA-C Primary Care Nurse Practitioner 04/11/2025 ADDENDUM STATUS: COMPLETED Recommend discuss his concerns with the ordering provider, [facility] tagged below. Thank you! /maury Zamora DNP, APRN, FNP-C Primary Care Nurse Practitioner Signed: 04/11/2025 12:36 Receipt Acknowledged By: 04/11/2025 13:57 /FAWN [place] REGISTERED NURSE 04/11/2025 12:46 /brigida/ KEY CAMARILLO MSN, GRAPHITE PAN DRIER TENDER, NURSE PRACTITIONER, NEUROSURGERY SHANTHI ZAMORA DEREK [facility] Apr 11, 2025 12:33 PM ADDENDUM: LOCAL TITLE: Addendum STANDARD TITLE: ADDENDUM DATE OF NOTE: APR 11, 2025@12:33:44 ENTRY DATE: APR 11, 2025@12:33:45 AUTHOR: SHANTHI ZAMORA EXP COSIGNER: URGENCY: STATUS: COMPLETED Recommend discuss his concerns with the ordering provider, [facility] tagged below. Thank you! /maury Zamora DNP, APRN, IESHA-C Primary Care Nurse Practitioner Signed: 04/11/2025 12:36 Receipt Acknowledged By: 04/11/2025 13:57 /FAWN [place] REGISTERED NURSE 04/11/2025 12:46 /maury CAMARILLO MSN, GRAPHITE PAN DRIER TENDER, NURSE PRACTITIONER, NEUROSURGERY --- Original Document --- 04/11/25 POST DISCHARGE CONTACT: Location of Discharge: Emergency Department/Urgent Care Contact attempt: 1st identified by the following: Full Name Full Social Security Number (SSN) Contact made through telephone call RN called to follow up on hospital visit. Yulissa stated he went to the ER because he has fascial and hand numbness and tingling. Thornton stated he was supposed to get an MRI while in ER but was discharged. RN noted an order for MRI. While RN on the phone with yulissa received a call from MRI dept to schedule MRI. stated they offered an appt for 05/02/25. Thornton sated he would like to go into the community to get MRI. RN explained to yulissa that PCP unable to place direct order for [facility] MRI. RN educated on [facility] process. stated he understood. Thornton stated he was already offered to go into the community. RN did not see consult for MRI. stated he has spoken to patient advocacy because he did not receive the MRI in the ER. state he is still experiencing numbness and tingling and is thinking to go to [place]. Thornton stated he is concerned that the numbness and tingling is not related to his neck and wants the MRI jess. RN provided [facility] phone number to report visit. Reason for hospitalization/Emergency Department/Urgent Care visit: Thornton stated he was having fascial and hand numbness then went to ER Thornton/Caregiver states condition has not changed. Symptoms to monitor for health maintenance: numbness and tingling Confirmed no changes made to medications, equipment or supplies. Primary Diagnosis at Discharge: Other Diagnosis: numbness and tingling Follow up Service Referrals: Other: may need neuro consult Future Appointments: Informed, discussed and confirmed next scheduled appointments Education Provided: Topic 1: When to go to ER Specific Content: SOB, Chest pain, numbness and tingling Method: Verbal Provided to: Patient Patient understanding of education content: Verbalized understanding Topic 2: Call [place] tele-emergency line @ [phone] Specific Content: for urgent care concerns Method: [employer] Verbal Provided to: Patient Patient understanding of education content: Verbalized understanding Length of time spent: 15 minutes /es/ WOODROW MENDEZ RN BSN REGISTERED NURSE Signed: 04/11/2025 09:46 Receipt Acknowledged By: 04/11/2025 12:33 /es/ Shanthi Zamora DNP, JANEEN, WHISTLE PUNK-C Primary Care Nurse Practitioner 04/11/2025 ADDENDUM STATUS: COMPLETED Recommend schedule a f/u with [facility]. Tagging [facility] below. Thank you! /brigida/ Shanthi Zamora DNP, APRN, WHISTLE PUNK-C Primary Care Nurse Practitioner Signed: 04/11/2025 12:40 Receipt Acknowledged By: 04/11/2025 13:56 /es/ WOODROW MENDEZ RN BSN REGISTERED NURSE 04/11/2025 12:46 /es/ KEY CAMARILLO, MSN, GRAPHITE PAN DRIER TENDER, NURSE PRACTITIONER, NEUROSURGERY * AWAITING SIGNATURE * KAYDEN KRUASE 04/11/2025 13:00 /es/ GABRILE COMER RN REGISTERED NURSE SHANTHI ZAMORA [facility] Apr 11, 2025 09:15 AM PRIMARY CARE NOTE: LOCAL TITLE: POST DISCHARGE CONTACT STANDARD TITLE: PRIMARY CARE NOTE DATE OF NOTE: APR 11, 2025@09:15 ENTRY DATE: APR 11, 2025@09:16:08 AUTHOR: WOODROW MENDEZ EXP COSIGNER: URGENCY: STATUS: COMPLETED POST DISCHARGE CONTACT Has ADDENDA Location of Discharge: Emergency Department/Urgent Care Contact attempt: 1st identified by the following: Full Name Full Social Security Number (SSN) Contact made through telephone call RN called to follow up on hospital visit. stated he went to the ER because he has fascial and hand numbness and tingling. stated he was supposed to get an MRI while in ER but was discharged. RN noted an order for MRI. While RN on the phone with received a call from MRI dept to schedule MRI. stated they offered an appt for 05/02/25. sated he would like to go into the community to get MRI. RN explained to that PCP unable to place direct order for [facility] MRI. RN educated on [facility] process. stated he understood. Thornton stated he was already offered to go into the community. RN did not see consult for MRI. Thornton stated he has spoken to patient advocacy because he did not receive the MRI in the ER. Thornton state he is still experiencing numbness and tingling and is thinking to go to [place]. Thornton stated he is concerned that the numbness and tingling is not related to his neck and wants the MRI jess. RN provided [facility] phone number to report visit. Reason for hospitalization/Emergency Department/Urgent Care visit: stated he was having fascial and hand numbness then went to ER Thornton/Caregiver states condition has not changed. Symptoms to monitor for health maintenance: numbness and tingling Confirmed no changes made to medications, equipment or supplies. Primary Diagnosis at Discharge: Other Diagnosis: numbness and tingling Follow up Service Referrals: Other: may need neuro consult Future Appointments: Informed, discussed and confirmed next scheduled appointments Education Provided: Topic 1: When to go to ER Specific Content: SOB, Chest pain, numbness and tingling Method: Verbal Provided to: Patient Patient understanding of education content: Verbalized understanding Topic 2: Call [facility] tele-emergency line @ [phone] Specific Content: for urgent care concerns Method: [employer] Verbal Provided to: Patient Patient understanding of education content: Verbalized understanding Length of time spent: 15 minutes /brigida/ WOODROW MENDEZ RN BSN REGISTERED NURSE Signed: 04/11/2025 09:46 Receipt Acknowledged By: 04/11/2025 12:33 /brigida/ Shanthi Zamora DNP, APRN, IESHA-C Primary Care Nurse Practitioner 04/11/2025 ADDENDUM STATUS: COMPLETED Recommend discuss his concerns with the ordering provider, [facility] tagged below. Thank you! /maury Zamora DNP, APRN, WHISTLE PUNK-C Primary Care Nurse Practitioner Signed: 04/11/2025 12:36 Receipt Acknowledged By: * AWAITING SIGNATURE * WOODROW MENDEZ 04/11/2025 12:46 /brigida/ KEY CAMARILLO MSN, GRAPHITE PAN DRIER TENDER, BC NURSE PRACTITIONER, NEUROSURGERY 04/11/2025 ADDENDUM STATUS: COMPLETED Recommend schedule a f/u with [facility]. Tagging [facility] below. Thank you! /maury Zamora DNP, APRN, WHISTLE PUNK-C Primary Care Nurse Practitioner Signed: 04/11/2025 12:40 Receipt Acknowledged By: * AWAITING SIGNATURE * WOODROW MENEDZ 04/11/2025 12:46 /es/ KEY CAMARILLO, MSN, GRAPHITE PAN DRIER TENDER, NURSE PRACTITIONER, NEUROSURGERY * AWAITING SIGNATURE * KAYDEN KRAUSE * AWAITING SIGNATURE * GABRIEL HOWELL EVELYN L [facility]
--- OUTSIDE RECORDS SUMMARY | 2025-04-11 19:00 | XMS_ITS | Continuity of Care Document ---
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 It does not include entries that were removed or entered in error. 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 Unknown [...] Abdominal pain Active Condition Nora BROWNU IS [facility] Blood Platelet Disorders Active Condition Jul 14, 2006 Entered By: NILDA VALENTINE Comment: stays awayf rom black hair dye, Vit C, Vit K and other listsOct 2005 Entered By: NILDA VALENTINE Comment: Dx: G6PD [facility] Calculus of Kidney Active Condition O ct 2005 Entered By: NILDA VALENTINE [facility] Calculus of Kidney Active Condition [facility] Cervical Radiculopathy Active Condition Jul 14, 2006 Entered By: NILDA VALENTINE Comment: fusion C5-6 [facility] Cyst, ganglion * (ICD-9-CM 727.43) Active Condition [facility] Dermatitis or Eczema Active Condition [facility] Disorders of bursae and tendons in shoulder [...] Entered By: NILDA VALENTINE Comment: FH HTN [facility] Family History of Stroke (Cerebrovascular) Active Condition [facility] Folliculitis * (ICD-9-CM 704.8) Active Condition [facility] Gastroesophageal reflux disease Active Condition [facility] Gastroesophageal Reflux Disorder Active Condition [facility] H CS Bikjqme-4-hbvmjpjcr dehydrogenase deficiency anemia Active Condition [facility] Headache * (ICD-9-CM 784.0) Active Condition Jul 14 6 Entered By: NILDA VALENTINE Comment: related to neck pain [facility] Hyperlipidemia Active Condition [facility] Kidney stone Active Condition [facility] Lichen planus Active Condition [facility] Lichen planus, bullous Active Condition [facility] Neck pain Active Condition Jan 06 15 Entered By: DERRICK HENDERSON Comment: cervical spinal surgery 10/2004 [facility] Neck Pain Active Condition [facility] Obesity Active Condition Jul 14 06 Entered By: NILDA VALENTINE Comment: BMI-32 06/30 FH DMT2 [facility] Obesity Active Condition [facility] Pain in joint involving ankle and foot (ICD-9-CM 719.47) Active Condition Jul 14, 2006 Entered By: NILDA VALENTINE Comment: cystic bone lesion right ankle [facility] Pain in joint involving hand (ICD-9-CM 719.44) Active Condition [facility] Personality disorder Active Condition [facility] Pompholyx * (ICD-9-CM 705.81) Active Condition [facility] Tobacco Use Disorder * (ICD-9-CM 305.1) Active Condition Jul 14 6 Entered By: NILDA VALENTINE Comment: 09/26 PPD 06/30 [facility] Vitamin D deficiency Active Condition [facility] Benign essential hypertension Inactive Condition 01/24/2024 [facility] Dyslipidemia Inactive Condition 01/24/2024 [facility] Legal problem Inactive Condition 01/24/[address] [facility] Pain in joint involving shoulder region (ICD-9-CM 719.41) Inactive Condition 08/08/2006 Jul 14, 2006 Entered By: NILDA VALENTINE Comment: left shoulder pain with possible rotator cuff injury [facility] Diagnosis: ICD-10-CM Z91.89 Oth personal risk factors, not elsewhere classified Active Diagnosis [facility] Diagnosis: ICD-10-CM Z71.81 Spiritual or advent counseling Active Diagnosis [facility] Diagnosis: ICD-10-CM M48.02 Spinal stenosis, cervical region Active Diagnosis [facility] Admit Reason: R/O CVA Active Diagnosis [facility] Diagnosis: ICD-10-CM R20.2 Paresthesia of skin Active Diagnosis [facility] Diagnosis: ICD-10-CM M54.2 Cervicalgia Active Diagnosis [facility] Diagnosis: ICD-10-CM N20.0 Calculus of kidney Active Diagnosis [facility] Diagnosis: ICD-10-CM R10.31 Right lower quadrant pain Active Diagnosis [facility] Diagnosis: ICD-10-CM L43.9 Lichen planus, unspecified Active Diagnosis [facility] Diagnosis: ICD-10-CM Z00.00 Encntr for general adult medical exam w/o abnormal findings Active Diagnosis [facility] Diagnosis: ICD-10-CM Z01.00 Encounter for exam of eyes and vision w/o abnormal findings Active Diagnosis [facility] Diagnosis: ICD-10-CM N23 Unspecified renal colic Active Diagnosis [facility] Diagnosis: ICD-10-CM N20.1 Calculus of ureter Active Diagnosis [facility] Diagnosis: ICD-10-CM M47.892 Other spondylosis, cervical region Active Diagnosis [facility] Diagnosis: ICD-10-CM H52.4 Presbyopia Active Diagnosis [facility] Diagnosis: ICD-10-CM M54.12 Radiculopathy, cervical region Active [...] NEEDED ORAL ACTIVE JOSEPH ZAMORA R 2023 [facility] CAMPHOR/MEN THOL/METHYL SALICYLATE LARGE PATCH APPLY 1 PATCH TO SKIN SITE ONCE A DAY NEEDED FOR PAIN (EXTERNA L USE ONLY) TRANSD ERMAL ACTIVE 02/27/2026 [id number] CHUY RUDOLPH IVJULIAN A 2024 30 [facility] CHOLECALCIF IRIS 50MCG (2,000UNIT) TAB TAKE ONE TABLET BY MOUTH ONCE A DAY FOR VITAMIN D DEFICIEN CY ORAL ACTIVE 02/28/2026 [id number] 5 JOSEPH ZAMORA MARLENE R 2024 100 [facility] CLOBETASOL 0.05% CREAM/CEREV E CREAM 1:1- APPLY SPARINGL Y TO AFFECTED AREA(S) ONCE A DAY (EXTERNA L USE ONLY) 02/23/2024 [id number] 4 MARGARITA ZAMORA 2023 30 [facility] CLOBETASOL 0.05% CREAM/CEREV E CREAM 1:1- APPLY SPARINGL Y TO AFFECTED AREA(S) ONCE A DAY (EXTERNA L USE ONLY) 02/23/2024 [id number] 4 MARGARITA ZAMORA 2023 30 [facility] CLOBETASOL PROPIONATE 0.05% CREAM,TOP APPLY SPARINGL Y TO AFFECTED AREA(S) ONCE A DAY (EXTERNA L USE ONLY) TOPICA L DISCONT INUED 03/02/2025 [id number] 5 JOSEPH ZAMORA FABIANLiane R 2024 30 [facility] CLOBETASOL PROPIONATE 0.05% CREAM,TOP APPLY SPARINGL Y TO AFFECTED AREA(S) ONCE A DAY (EXTERNA L USE ONLY) TOPICA L 02/23/2024 [id number] 4 JOSEPH ZAMORA LBLiane R 2023 30 [facility] CLOBETASOL PROPIONATE 0.05% OINT,TOP APPLY SPARINGL Y TO AFFECTED AREA(S) TWICE A DAY (EXTERNA L USE ONLY) APPLY TO RASH ON ARMS AND LEGS TWICE DAILY TOPICA L ACTIVE 02/15/2026 [id number] 5 BRUNO-MURP JARET SALAZAR E 2024 60 [facility] KETOCONAZOL E 2% SHAMPOO USE SHAMPOO TO AFFECTED AREA(S) ONCE A DAY (EXTERNA L USE ONLY) (SHAKE WELL) LATHER AND LET SIT FOR 5 MINUTES THEN RINSE TOPICA L ACTIVE 02/15/2026 [id number] 5 BRUNO-MURP HY,JARET E 2024 120 [facility] NAPROXEN 500MG TAB TAKE ONE TABLET BY MOUTH TWICE A DAY FOR PAIN TAKE WITH FOOD. ORAL 05/04/2024 [id number] 4 MARIANO FLORES 2023 28 [facility] POTASSIUM CITRATE 10MEQ TAB,SA TAKE ONE TABLET BY MOUTH TWICE A DAY SWALLOW WHOLE, DO NOT CUT, CRUSH, CHEW, OR DISSOLVE ORAL ACTIVE 03/01/2026 [id number] 5 SYL COREAS 2024 200 [facility] Allergies, Adverse Reactions, Alerts Combined list of allergies from Department of Defense and [facility] Affairs facilities. It does not include entries that were removed or entered in error. Substance Category Reaction Severity Reaction type Status Date Reported Comments Source MUPIROCIN Propensity to adverse reactions to drug (finding) Eruption active 3 [facility] Mupirocin Calcium Drug allergy (disorder) Eruption of skin active 9 [facility] mupirocin topical Drug allergy Eruption of skin (disorder ), Eruption of skin (disorder ) Active One or More [facility] Facilities MST Immunizations Combined list of available immunizations from the Department of Defense and Veterans Affairs facilities. 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 Comments Source INFLUENZA, UNSPECIFIED FORMULATION 2019 88 complet ed [facility] influenza virus vaccine, unspecified 2019 88 complet ed influenza virus vaccine, unspecifi ed 07/22/20 Recorded Ambulat ory Pharmac y INFLUENZA, MDCK, QUADRIVALENT, PF 1 2019 171 complet ed HISTORICA L INFORMATI ON - FROM OTHER REGISTRY, [facility] TDAP 2015 115 complet ed Left Deltoid [facility] tetanus, diphtheria, acellular pertu is 2015 115 complet ed Result Comment: Left Deltoid Ambulat ory Pharmac y TDAP 2013 115 complet ed [facility] tetanus, diphtheria, acellular pertu is 2013 115 complet ed tetanus, diphtheri a, acellular pertussis 09/25/13 Recorded Ambulat ory Pharmac y TETANUS DIPTHERIA (TD-ADULT) (HISTORICAL) 2007 139 complet ed [facility] Td(adult) unspecified formulation 2007 139 complet ed Td(adult) unspecifi ed formulati on 09/25/07 Recorded Ambulat ory Pharmac y TD(ADULT) UNSPECIFIED FORMULATION 2003 139 complet ed [facility] Td(adult) unspecified formulation 2003 139 complet ed Td(adult) unspecifi ed formulati on 09/25/03 Recorded Ambulat ory Pharmac y Results Combined list of recent chemistry, hematology [...] Apr 09, 2025 04:48 AM Reporting Lab: [facility] [address] [facility] [address] Performing Lab: [facility] [address] [place] [address] [facility] MRSA SURVL NARES DNA METHICILLI N RESISTANT [...] Apr 08, 2025 09:42 PM Reporting Lab: [place] [phone] Performing Lab: [address] [address] [facility] LIPID PANEL (STL) CHOLESTERO L [MASS/VOLU ME] IN SERUM OR PLASMA 207 mg/dL 0 - 200 04/08 H Specimen Type: PLASMA No comment entered. Ordering Provider: Deborah MEDINA Report Released Date/Time: Apr 08, 2025 09:42 PM Reporting Lab: [address] [address] Performing Lab: [address] [address] [facility] LIPID PANEL (STL) TRIGLYCERI DE [MASS/VOLU ME] IN SERUM OR PLASMA 121 mg/dL 0 - 150 04/08 Specimen Type: PLASMA No comment entered. Ordering Provider: Deborah MEDINA Report Released Date/Time: Apr 08, 2025 09:42 PM Reporting Lab: [place] [phone] Performing Lab: [facility] [address] [facility] [address] [facility] LIPID PANEL (STL) CHOLESTERO L IN LDL [MASS/VOLU ME] IN SERUM OR PLASMA BY CALCULATIO N 141 mg/dL 04/08 Specimen Type: PLASMA No comment entered. Ordering Provider: Deborah MEDINA Report Released Date/Time: Apr 08, 2025 09:42 PM Reporting Lab: [place] [address] [facility] [address] Performing Lab: [address] [address] [facility] LIPID PANEL (STL) CHOLESTERO L IN HDL [MASS/VOLU ME] IN SERUM OR PLASMA 42 mg/dL 40 04/08 Specimen Type: PLASMA No comment entered. Ordering Provider: Deborah MEDINA Report Released Date/Time: Apr 08, 2025 09:42 PM Reporting Lab: [place] [address] [facility] [address] Performing Lab: [place] [address] [facility] [address] [facility] CBC LEUKOCYTES [#/VOLUME] IN BLOOD BY AUTOMATED COUNT 6.7 10*3/uL 3.6 - 11.2 04/08 Specimen Type: BLOOD No comment entered. Ordering Provider: ST KELLY GOODWIN Report Released Date/Time: Apr 08, 2025 03:20 PM Reporting Lab: [place] [address] [facility] [address] Performing Lab: [address] [address] [facility] CBC ERYTHROCYT ES [#/VOLUME] IN BLOOD BY AUTOMATED COUNT 4.69 10*6/uL 4.10 - 5.70 04/08 Specimen Type: BLOOD No comment entered. Ordering Provider: ST KELLY GOODWIN Report Released Date/Time: Apr 08, 2025 03:20 PM Reporting Lab: [place] [address] [facility] [address] Performing Lab: [place] [address] [facility] [address] [facility] CBC HEMOGLOBIN [MASS/VOLU ME] IN BLOOD 14.2 g/dL 13.1 - 16.8 04/08 Specimen Type: BLOOD No comment entered. Ordering Provider: ST KELLY GOODWIN Report Released Date/Time: Apr 08, 2025 03:20 PM Reporting Lab: [place] [address] [facility] [address] Performing Lab: [place] [address] [facility] [address] [facility] CBC HEMATOCRIT [VOLUME FRACTION] OF BLOOD 41.2 38.2 - 48.4 04/08 Specimen Type: BLOOD No comment entered. Ordering Provider: ST KELLY GOODWIN Report Released Date/Time: Apr 08, 2025 03:20 PM Reporting Lab: [place] [address] [facility] [address] Performing Lab: [place] [address] [facility] [address] [facility] CBC MCV [ENTITIC VOLUME] BY AUTOMATED COUNT 87.8 fL 80.0 - 100.0 04/08 Specimen Type: BLOOD No comment entered. Ordering Provider: ST KELLY GOODWIN Report Released Date/Time: Apr 08, 2025 03:20 PM Reporting Lab: [place] [address] [facility] [address] Performing Lab: [place] [address] [facility] [address] [facility] CBC MCH [ENTITIC MASS] BY AUTOMATED COUNT 30.3 pg 27.0 - 34.0 04/08 Specimen Type: BLOOD No comment entered. Ordering Provider: ST KELLY GOODWIN Report Released Date/Time: Apr 08, 2025 03:20 PM Reporting Lab: [place] [address] [facility] [address] Performing Lab: [address] [address] [facility] CBC MCHC [MASS/VOLU ME] BY AUTOMATED COUNT 34.5 g/dL 33.0 - 36.0 04/08 Specimen Type: BLOOD No comment entered. Ordering Provider: ST KELLY GOODWIN Report Released Date/Time: Apr 08, 2025 03:20 PM Reporting Lab: [place] [address] [facility] [address] Performing Lab: [place] [address] [facility] [address] [facility] CBC PLATELETS [#/VOLUME] IN BLOOD BY AUTOMATED COUNT 315 10*3/uL 150 - 400 04/08 Specimen Type: BLOOD No comment entered. Ordering Provider: ST KELLY GOODWIN Report Released Date/Time: Apr 08, 2025 03:20 PM Reporting Lab: [place] [address] [facility] [address] Performing Lab: [place] [address] [facility] [address] [facility] CBC PLATELET MEAN VOLUME [ENTITIC VOLUME] IN BLOOD BY AUTOMATED COUNT 9.1 fL 7.5 - 11.2 04/08 Specimen Type: BLOOD No comment entered. Ordering Provider: ST KELLY GOODWIN Report Released Date/Time: Apr 08, 2025 03:20 PM Reporting Lab: [place] [address] [facility] [address] Performing Lab: [address] [address] [facility] CBC ERYTHROCYT E DISTRIBUTI ON WIDTH [RATIO] BY AUTOMATED COUNT 11.8 11.8 - 15.1 04/08 Specimen Type: BLOOD No comment entered. Ordering Provider: ST KELLY GOODWIN Report Released Date/Time: Apr 08, 2025 03:20 PM Reporting Lab: [facility] [address] [facility] [address] Performing Lab: [facility] [address] [facility] [address] [facility] CBC LYMPHOCYTE S/100 LEUKOCYTES IN BLOOD BY AUTOMATED COUNT 28 04/08 Specimen Type: BLOOD No comment entered. Ordering Provider: ST KELLY GOODWIN Report Released Date/Time: Apr 08, 2025 03:20 PM Reporting Lab: [facility] [address] [facility] [address] Performing Lab: [facility] [address] [facility] [address] [facility] CBC MONOCYTES/ 100 LEUKOCYTES IN BLOOD BY AUTOMATED COUNT 12 04/08 Specimen Type: BLOOD No comment entered. Ordering Provider: ST KELLY GOODWIN Report Released Date/Time: Apr 08, 2025 03:20 PM Reporting Lab: [facility] [address] [facility] [address] Performing Lab: [facility] [address] [facility] [address] [facility] CBC NEUTROPHIL S/100 LEUKOCYTES IN BLOOD BY AUTOMATED COUNT 55 04/08 Specimen Type: BLOOD No comment entered. Ordering Provider: ST KELLY GOODWIN Report Released Date/Time: Apr 08, 2025 03:20 PM Reporting Lab: [facility] [address] [facility] [address] Performing Lab: [facility] [address] [facility] [address] [facility] CBC EOSINOPHIL S/100 LEUKOCYTES IN BLOOD BY AUTOMATED COUNT 5 04/08 Specimen Type: BLOOD No comment entered. Ordering Provider: ST KELLY GOODWIN Report Released Date/Time: Apr 08, 2025 03:20 PM Reporting Lab: [facility] [address] [facility] [address] Performing Lab: [facility] [address] [facility] [address] [facility] CBC BASOPHILS/ 100 LEUKOCYTES IN BLOOD BY AUTOMATED COUNT 1 04/08 Specimen Type: BLOOD No comment entered. Ordering Provider: ST KELLY GOODWIN Report Released Date/Time: Apr 08, 2025 03:20 PM Reporting Lab: [place] [address] [facility] [address] Performing Lab: [place] [address] [facility] [address] [facility] CBC LYMPHOCYTE S [#/VOLUME] IN BLOOD BY AUTOMATED COUNT 1.86 10*3/uL 0.77 - 4.50 04/08 Specimen Type: BLOOD No comment entered. Ordering Provider: ST KELLY GOODWIN Report Released Date/Time: Apr 08, 2025 03:20 PM Reporting Lab: [place] [address] [address] [facility] [address] Performing Lab: [place] [address] [facility] [address] [facility] CBC MONOCYTES [#/VOLUME] IN BLOOD BY AUTOMATED COUNT 0.80 10*3/uL 0.19 - 0.80 04/08 Specimen Type: BLOOD No comment entered. Ordering Provider: ST KELLY GOODWIN Report Released Date/Time: Apr 08, 2025 03:20 PM Reporting Lab: [facility] [address] [facility] [address] Performing Lab: [place] [address] [facility] [address] [facility] CBC NEUTROPHIL S [#/VOLUME] IN BLOOD BY AUTOMATED COUNT 3.67 10*3/uL 2.10 - 8.00 04/08 Specimen Type: BLOOD No comment entered. Ordering Provider: ST KELLY GOODWIN Report Released Date/Time: Apr 08, 2025 03:20 PM Reporting Lab: [facility] [address] [facility] [address] Performing Lab: [facility] [address] [facility] [address] [facility] CBC EOSINOPHIL S [#/VOLUME] IN BLOOD BY AUTOMATED COUNT 0.32 10*3/uL 0.00 - 0.60 04/08 Specimen Type: BLOOD No comment entered. Ordering Provider: ST KELLY GOODWIN Report Released Date/Time: Apr 08, 2025 03:20 PM Reporting Lab: [place] [address] [address] [facility] [address] Performing Lab: [address] [address] [facility] CBC BASOPHILS [#/VOLUME] IN BLOOD BY AUTOMATED COUNT 0.07 10*3/uL 0.00 - 0.20 04/08 Specimen Type: BLOOD No comment entered. Ordering Provider: ST KELLY GOODWIN Report Released Date/Time: Apr 08, 2025 03:20 PM Reporting Lab: [place] [address] [address] [facility] [address] Performing Lab: [place] [address] [facility] [address] [facility] COMPREHE NSIVE METABOLI C PANEL CREATININE [MASS/VOLU ME] IN SERUM OR PLASMA 1.08 mg/dL 0.7 - 1.3 04/08 Specimen Type: PLASMA Comment: No hemolysis noted. Ordering Provider: ST KELLY GOODWIN Report Released Date/Time: Apr 08, 2025 03:20 PM Reporting Lab: [place] [address] [facility] [address] Performing Lab: [address] [address] [facility] COMPREHE NSIVE METABOLI C PANEL UREA NITROGEN [MASS/VOLU ME] IN SERUM OR PLASMA 19.7 mg/dL 9.0 - 25.0 04/08 Specimen Type: PLASMA Comment: No hemolysis noted. Ordering Provider: ST KELLY GOODWIN Report Released Date/Time: Apr 08, 2025 03:20 PM Reporting Lab: [facility] [address] [facility] [address] Performing Lab: [facility] [address] [facility] [address] [facility] COMPREHE NSIVE METABOLI C PANEL GLUCOSE [MASS/VOLU ME] IN SERUM OR PLASMA 90 mg/dL 72 - 99 04/08 Specimen Type: PLASMA Comment: No hemolysis noted. Ordering Provider: ST KELLY GOODWIN Report Released Date/Time: Apr 08, 2025 03:20 PM Reporting Lab: [facility] [address] [facility] [address] Performing Lab: [facility] [address] [facility] [address] [facility] COMPREHE NSIVE METABOLI C PANEL SODIUM [MOLES/VOL UME] IN SERUM OR PLASMA 135 meq/L 136 - 145 04/08 L Specimen Type: PLASMA Comment: No hemolysis noted. Ordering Provider: ST KELLY GOODWIN Report Released Date/Time: Apr 08, 2025 03:20 PM Reporting Lab: [facility] [address] [facility] [address] Performing Lab: [facility] [address] [facility] [address] [facility] COMPREHE NSIVE METABOLI C PANEL POTASSIUM [MOLES/VOL UME] IN SERUM OR PLASMA 4.2 meq/L 3.5 - 5 04/08 Specimen Type: PLASMA Comment: No hemolysis noted. Ordering Provider: ST KELLY GOODWIN Report Released Date/Time: Apr 08, 2025 03:20 PM Reporting Lab: [facility] [address] [facility] [address] Performing Lab: [facility] [address] [facility] [address] [facility] COMPREHE NSIVE METABOLI C PANEL CHLORIDE [MOLES/VOL UME] IN SERUM OR PLASMA 106 meq/L 98 - 107 04/08 Specimen Type: PLASMA Comment: No hemolysis noted. Ordering Provider: ST KELLY GOODWIN Report Released Date/Time: Apr 08, 2025 03:20 PM Reporting Lab: [facility] [address] [facility] [address] Performing Lab: [place] [address] [facility] [address] [facility] COMPREHE NSIVE METABOLI C PANEL CARBON DIOXIDE, TOTAL [MOLES/VOL UME] IN SERUM OR PLASMA 22 meq/L 22 - 31 04/08 Specimen Type: PLASMA Comment: No hemolysis noted. Ordering Provider: ST KELLY GOODWIN Report Released Date/Time: Apr 08, 2025 03:20 PM Reporting Lab: [place] [address] [facility] [address] Performing Lab: [place] [address] [address] [facility] [address] [facility] COMPREHE NSIVE METABOLI C PANEL CALCIUM [MASS/VOLU ME] IN SERUM OR PLASMA 9.1 mg/dL 8.4 - 10.4 04/08 Specimen Type: PLASMA Comment: No hemolysis noted. Ordering Provider: ST KELLY GOODWIN Report Released Date/Time: Apr 08, 2025 03:20 PM Reporting Lab: [place] [address] [facility] [address] Performing Lab: [place] [address] [address] [facility] [address] [facility] COMPREHE NSIVE METABOLI C PANEL PROTEIN [MASS/VOLU ME] IN SERUM OR PLASMA 7.8 g/dL 6 - 8.6 04/08 Specimen Type: PLASMA Comment: No hemolysis noted. Ordering Provider: ST KELLY GOODWIN Report Released Date/Time: Apr 08, 2025 03:20 PM Reporting Lab: [place] [address] [facility] [address] Performing Lab: [facility] [address] [facility] [address] [facility] COMPREHE NSIVE METABOLI C PANEL ALBUMIN [MASS/VOLU ME] IN SERUM OR PLASMA 4.1 g/dL 3.4 - 5 04/08 Specimen Type: PLASMA Comment: No hemolysis noted. Ordering Provider: ST KELLY GOODWIN Report Released Date/Time: Apr 08, 2025 03:20 PM Reporting Lab: [place] [address] [address] [facility] [address] Performing Lab: [place] [address] [facility] [address] [facility] COMPREHE NSIVE METABOLI C PANEL BILIRUBIN. TOTAL [MASS/VOLU ME] IN SERUM OR PLASMA 0.5 mg/dL 0.2 - 1.2 04/08 Specimen Type: PLASMA Comment: No hemolysis noted. Ordering Provider: [facility] KELLY GOODWIN Report Released Date/Time: Apr 08, 2025 03:20 PM Reporting Lab: [place] [address] [address] [facility] [address] Performing Lab: [place] [address] [facility] [address] [facility] COMPREHE NSIVE METABOLI C PANEL ALKALINE PHOSPHATAS E [ENZYMATIC ACTIVITY/V OLUME] IN SERUM OR PLASMA 65 U/L 40 - 150 04/08 Specimen Type: PLASMA Comment: No hemolysis noted. Ordering Provider: [facility] KELLY GOODWIN Report Released Date/Time: Apr 08, 2025 03:20 PM Reporting Lab: [place] [address] [address] [facility] [address] Performing Lab: [place] [address] [facility] [address] [facility] COMPREHE NSIVE METABOLI C PANEL ASPARTATE AMINOTRANS FERASE [ENZYMATIC ACTIVITY/V OLUME] IN SERUM OR PLASMA 31 U/L 5 - 34 04/08 Specimen Type: PLASMA Comment: No hemolysis noted. Ordering Provider: ST KELLY GOODWIN Report Released Date/Time: Apr 08, 2025 03:20 PM Reporting Lab: [facility] [address] [facility] [address] Performing Lab: [facility] [address] [facility] [address] [facility] COMPREHE NSIVE METABOLI C PANEL ALANINE AMINOTRANS FERASE [ENZYMATIC ACTIVITY/V OLUME] IN SERUM OR PLASMA 38 U/L 8 - 40 04/08 Specimen Type: PLASMA Comment: No hemolysis noted. Ordering Provider: ST KELLY GOODWIN Report Released Date/Time: Apr 08, 2025 03:20 PM Reporting Lab: [facility] [address] [facility] [address] Performing Lab: [place] [address] [facility] [address] [facility] COMPREHE NSIVE METABOLI C PANEL GLOMERULAR FILTRATION RATE/1.73 SQ M.PREDICTE D [VOLUME RATE/AREA] IN SERUM, PLASMA OR BLOOD BY CREATININE -BASED FORMULA (CKD-EPI 2020) 84.1 60 04/08 Specimen Type: PLASMA Comment: No hemolysis noted. Ordering Provider: ST KELLY GOODWIN Report Released Date/Time: Apr 08, 2025 03:20 PM Reporting Lab: [facility] [address] [facility] [address] Performing Lab: [facility] [address] [facility] [address] [facility] MAGNESIU M MAGNESIUM [MASS/VOLU ME] IN SERUM OR PLASMA 2.1 mg/dL 1.6 - 2.6 04/08 Specimen Type: PLASMA Comment: No hemolysis noted. Ordering Provider: ST KELLY GOODWIN Report Released Date/Time: Apr 08, 2025 03:20 PM Reporting Lab: [facility] [address] [facility] [address] Performing Lab: [facility] [address] [facility] [address] [facility] PHOSPHOR OUS PHOSPHATE [MASS/VOLU ME] IN SERUM OR PLASMA 3.0 mg/dL 2.3 - 4.7 04/08 Specimen Type: PLASMA Comment: No hemolysis noted. Ordering Provider: ST KELLY GOODWIN Report Released Date/Time: Apr 08, 2025 03:20 PM Reporting Lab: [place] [address] [address] [place] [address] Performing Lab: [place] [address] TROPONIN I (STL) TROPONIN I.CARDIAC [MASS/VOLU ME] IN SERUM OR PLASMA <0.010ng /mL 0 - 0.033 04/08 Specimen Type: PLASMA Comment: No hemolysis noted. Ordering Provider: ST KELLY GOODWIN Report Released Date/Time: Apr 08, 2025 03:20 PM Reporting Lab: [place] [address] [address] [place] [address] Performing Lab: [place] [address] [place] [id number] TSH (MA-PB) THYROTROPI N [UNITS/VOL UME] IN SERUM OR PLASMA 2.009 u[IU]/mL 0.47 - 5 04/08 Specimen Type: SERUM No comment entered. Ordering Provider: ST KELLY GOODWIN Report Released Date/Time: Apr 08, 2025 03:20 PM Reporting Lab: [place] [address] [address] [place] [address] Performing Lab: [place] [address] URINE STONE PNL (24HR-ST L-PB) VOLUME OF [...] January 29, 2025 10:38 AM Reporting Lab: [facility] [address] [facility] [address] Performing Lab: [facility] [id number] [place] [address] [facility] URINE STONE PNL (24HR-ST L-PB) CREATININE [MASS/TIME [...] January 29, 2025 10:38 AM Reporting Lab: [facility] [address] [facility] [address] Performing Lab: [facility] [id number] [place] [address] [facility] URINE STONE PNL (24HR-ST L-PB) POTASSIUM [MOLES/GINO [...] January 29, 2025 10:38 AM Reporting Lab: [facility] [address] [facility] [address] Performing Lab: [facility] [id number] [place] [address] [facility] URINE STONE PNL (24HR-ST L-PB) SODIUM [MOLES/GINO [...] January 29, 2025 10:38 AM Reporting Lab: [address] [address] Performing Lab: [facility] [id number] [place] [address] [facility] URINE STONE PNL (24HR-ST L-PB) CALCIUM [MASS/TIME [...] January 29, 2025 10:38 AM Reporting Lab: [address] [address] Performing Lab: [facility] [address] [facility] URINE STONE PNL (24HR-ST L-PB) PHOSPHATE [MASS/TIME [...] January 29, 2025 10:38 AM Reporting Lab: [facility] [address] [facility] [address] Performing Lab: [facility] [id number] [place] [address] [facility] URINE STONE PNL (24HR-ST L-PB) URATE [MASS/TIME [...] January 29, 2025 10:38 AM Reporting Lab: [facility] [address] [facility] [address] Performing Lab: [address] [facility] URINE STONE PNL (24HR-ST L-PB) MAGNESIUM [MASS/TIME [...] January 29, 2025 10:38 AM Reporting Lab: [facility] [address] [facility] [address] Performing Lab: [facility] [id number] [place] [address] [facility] URINE STONE PNL (24HR-ST L-PB) OXALATE [MASS/TIME [...] January 29, 2025 10:38 AM Reporting Lab: [address] [address] Performing Lab: [address] [facility] URINE STONE PNL (24HR-ST L-PB) CITRATE [MASS/VOLU [...] January 29, 2025 10:38 AM Reporting Lab: [address] [address] Performing Lab: [facility] [id number] [place] [address] [facility] URINE STONE PNL (24HR-ST L-PB) SULFATE [MOLES/VOL [...] January 29, 2025 10:38 AM Reporting Lab: [facility] [address] [facility] [address] Performing Lab: [address] [facility] URINE STONE PNL (24HR-ST L-PB) +BRUSHITE 1.08 [...] January 29, 2025 10:38 AM Reporting Lab: [facility] [address] [facility] [address] Performing Lab: [address] [facility] URINE STONE PNL (24HR-ST L-PB) INTERPRETA TION [...] January 29, 2025 10:38 AM Reporting Lab: [facility] [address] [facility] [address] Performing Lab: [address] [facility] URINE STONE PNL (24HR-ST L-PB) PH OF [...] January 29, 2025 10:38 AM Reporting Lab: [address] [address] Performing Lab: [facility] [id number] [place] [address] [facility] URINE STONE PNL (24HR-ST L-PB) CALCIUM OXALATE [...] January 29, 2025 10:38 AM Reporting Lab: [place] [address] [facility] [address] Performing Lab: [facility] [id number] [place] [address] [facility] URINE STONE PNL (24HR-ST L-PB) SODIUM URATE [...] January 29, 2025 10:38 AM Reporting Lab: [facility] [address] [facility] [address] Performing Lab: [facility] [address] [facility] Vital Signs Combined list of inpatient and outpatient Vital Signs from Department of Defense and Veterans Affairs, ranging from 12 months to all on record, depending upon the facility. Vital Sign Value Date Comments Source SYSTOLIC BLOOD PRESSURE 130 04/09/2025 00:46:42 [facility] DIASTOLIC BLOOD PRESSURE 78 04/09/2025 00:46:42 [facility] PULSE OXIMETRY 95 % 04/09/2025 00:46:42 [facility] TEMPERATURE 97.4 04/09/2025 00:46:42 [facility] PULSE 70 04/09/2025 00:46:42 [facility] RESPIRATION 18 04/09/2025 00:46:42 [facility] SYSTOLIC BLOOD PRESSURE 132 04/08/2025 14:30:44 [facility] DIASTOLIC BLOOD PRESSURE 82 04/08/2025 14:30:44 [facility] PULSE OXIMETRY 97 % 04/08/2025 14:30:44 [facility] TEMPERATURE 98.1 04/08/2025 14:30:44 [facility] PULSE 78 04/08/2025 14:30:44 [facility] RESPIRATION 14 04/08/2025 14:30:44 [facility] SYSTOLIC BLOOD PRESSURE 136 01/31/2025 14:10:02 [facility] DIASTOLIC BLOOD PRESSURE 88 01/31/2025 14:10:02 [facility] PULSE OXIMETRY 95 01/31/2025 14:10:02 Cristofer REED [facility] WEIGHT 234 01/31/2025 14:10:02 [facility] Kandice MICHEL [facility] BMI 37 kg/m2 01/31/2025 14:10:02 [facility] K[facility] PAIN 7 01/31/2025 14:10:02 [facility] HEIGHT 67 01/31/2025 14:10:02 [facility] TEMPERATURE 98.1 01/31/2025 14:10:02 ST. REED [facility] PULSE 83 01/31/2025 14:10:02 [facility] Kandice MICHEL [facility] RESPIRATION 18 01/31/2025 14:10:02 STNora REED [facility] SYSTOLIC BLOOD PRESSURE 118 11/20/2024 13:22:29 [facility] DIASTOLIC BLOOD PRESSURE 73 11/20/2024 13:22:29 [facility] PULSE OXIMETRY 96 11/20/2024 13:22:29 [facility] WEIGHT 229.3 11/20/2024 13:22:29 [facility] BMI 36 kg/m2 11/20/2024 13:22:29 [facility] PAIN 0 11/20/2024 13:22:29 [facility] HEIGHT 67 11/20/2024 13:22:29 [facility] TEMPERATURE 97.9 11/20/2024 13:22:29 [facility] PULSE 66 11/20/2024 13:22:29 [facility] RESPIRATION 16 11/20/2024 13:22:29 [facility] SYSTOLIC BLOOD PRESSURE 121 04/22/2024 13:35:51 [facility] DIASTOLIC BLOOD PRESSURE 83 04/22/2024 13:35:51 [facility] PULSE OXIMETRY 97 04/22/2024 13:35:51 [facility] WEIGHT 235.4 04/22/2024 13:35:51 [facility] BMI 37 kg/m2 04/22/2024 13:35:51 [facility] PAIN 0 04/22/2024 13:35:51 [facility] HEIGHT 67 04/22/2024 13:35:51 [facility] TEMPERATURE 97.4 04/22/2024 13:35:51 [facility] PULSE 78 04/22/2024 13:35:51 [facility] RESPIRATION 18 04/22/2024 13:35:51 [facility] Encounters Combined list of: 1) Encounters from Department of Veterans Affairs facilities going backup to the last 18 months, not all ID inpatient encounters are included; 2) Encounters from the Department of [facility] facilities going backup to 280 months. Location Location Details Encounter Type Encounter Number Reason For Visit Attending Provider ADM Date DC Date Status Disposition Source [facility] Outpatient Encounter [id number] 12/18 [facility] Outpatient Encounter [id number] JUAN MATTHEW Y 12/18 [facility] Outpatient Encounter [id number] Diagnos is: ICD-10- CM M54.2 Cervica lgia CHANDLERCHINTAN N L 12/18 [facility] N [facility] Outpatient Encounter [id number] 12/25 [facility] OFF/OP CNSLTJ NEW/EST MOD 40 [id number] Diagnos is: ICD-10- CM M54.12 Radicul opathy, cervica l region JOHANN,FUR QAN 12/25 [facility] Outpatient Encounter [id number] 12/25 [facility] COMPRE OPH EXAM EST PT 1/> [id number] Diagnos is: ICD-10- CM H52.4 PEDRO Chen 12/31 [facility] OFF/OP CNSLTJ NEW/EST MOD 40 [id number] Diagnos is: ICD-10- CM M54.2 Cervica lgia MARQUISE,ABRAM HN 01/07 [facility] Outpatient Encounter [id number] 01/23 [facility] Outpatient Encounter [id number] Diagnos is: ICD-10- CM Z00.00 Encntr for general adult medical exam w/o abnorma l finding s TRICIA ZAMORA BY R 01/23 [facility] Outpatient Encounter [id number] 02/15 [facility] OFF/OP CNSLTJ NEW/EST LOW 30 [id number] Diagnos is: ICD-10- CM M47.892 Other spondyl osis, cervica l region QAMAR GROSSMAN 02/21 [facility] Outpatient Encounter [id number] 03/08 [facility] OFFICE O/P EST MOD 30 MIN [id number] Diagnos is: ICD-10- CM M54.2 Cervica lgia MARQUISE,ABRAM HN 03/11 [facility] Outpatient Encounter [id number] 03/12 [facility] Outpatient Encounter [id number] 03/15 [facility] Outpatient Encounter [id number] PEDRO KRAUSE 03/25 [facility] Outpatient Encounter [id number] 03/25 [facility] Outpatient Encounter [id number] Diagnos is: ICD-10- CM N20.1 Calculu s of ureter VU,SERGIO D 03/25 [facility] Outpatient Encounter [id number] 03/29 [facility] HC PRO PHONE CALL 5-10 MIN [id number] Diagnos is: ICD-10- CM N20.1 Calculu s of ureter MAYDEN,CHR ISTINE M 04/01 [facility] EMERGENCY DEPT VISIT [facility] [id number] Diagnos is: ICD-10- CM N23 Unspeci fied renal colic Cristofer VOGEL MD 04/04 [facility] Outpatient Encounter [id number] Cristofer VOGEL MD 04/04 [facility] OFFICE O/P EST LOW 20 MIN [id number] Diagnos is: ICD-10- CM N20.0 Calculu s of kidney RADHA,R ALPH J 04/22 [facility] HC PRO PHONE CALL 5-10 MIN [id number] Diagnos is: ICD-10- CM N20.0 Calculu s of kidney SCOTT SALVADOR 04/25 [facility] Outpatient Encounter [id number] 05/01 [facility] Outpatient Encounter [id number] 06/19 [facility] Outpatient Encounter [id number] 06/21 [facility] Outpatient Encounter [id number] 10/16 [facility] Outpatient Encounter [id number] TRICIA ZAMORA 10/18 [facility] OFF/OP EST MAY X REQ PHY/QHP [id number] Diagnos is: ICD-10- CM Z91.89 Oth persona l risk factors , not elsewhe re classif ied DAMARIS MENDEZ 10/24 [facility] Outpatient Encounter [id number] DAMARIS MENDEZ 10/25 [facility] OFFICE O/P EST LOW 20 MIN [id number] Diagnos is: ICD-10- CM N20.0 Calculu s of kidney VIKY DISLA 11/20 [facility] OFFICE O/P NEW LOW 30 MIN [id number] Diagnos is: ICD-10- CM N20.0 Calculu s of kidney SYL COREAS S 12/10 [facility] Outpatient Encounter [id number] 12/10 [facility] Outpatient Encounter [id number] 12/10 [facility] OFFICE O/P EST LOW 20 MIN [id number] Diagnos is: ICD-10- CM Z01.00 Encount er for exam of eyes and vision w/o abnorma l finding s Mague LEBLANC BRANDON CONCHITA 12/23 [facility] Outpatient Encounter [id number] 01/17 [facility] Outpatient Encounter [id number] 01/28 [facility] PH1 ASSMT&MGMT NQHP 11-20 [id number] Diagnos is: ICD-10- CM N20.0 Calculu s of kidney SCOTT SALVADOR S 01/29 [facility] Outpatient Encounter [id number] Diagnos is: ICD-10- CM Z00.00 Encntr for general adult medical exam w/o abnorma l finding s TRICIA ZAMORA 01/31 [facility] Outpatient Encounter [id number] 02/03 [facility] BRIEF COMUNICAJ TECH-BSD SVC [id number] Diagnos is: ICD-10- CM N20.0 Calculu s of kidney MADDUKURI, SYL S 02/03 [facility] Outpatient Encounter [id number] Lisset KNAPP 02/04 [facility] OFFICE O/P NEW LOW 30 MIN [id number] Diagnos is: ICD-10- CM L43.9 Lichen planus, unspeci fied ALIA MEADE J 02/14 [facility] OFF/OP CNSLTJ NEW/EST MOD 40 [id number] Diagnos is: ICD-10- CM R10.31 Right lower quadran t pain CANDIDA WILKES 02/26 [facility] SYNCH AUDIO-ONLY EST LOW 20 [id number] Diagnos is: ICD-10- CM N20.0 Calculu s of kidney MADDUKURI, SYL S 02/28 [facility] OFFICE O/P EST SF 10 MIN [id number] Diagnos is: ICD-10- CM M54.2 Cervica randallamy DANTEGAGE COREABRUCE Deborah 04/08 [facility] Inpatient Encounter [id number] CHARLENE COFFMAN 04/08 [facility] EMERGENCY DEPT VISIT [facility] [id number] Diagnos is: ICD-10- CM R20.2 Paresth esia of skin Cristofer GOODWIN 04/08 [facility] Inpatient Encounter [id number] Admit Reason: R/O CVA ONEA,MED 04/08 Discharge from inpatient treatment to the [facility] Inpatient Encounter [id number] VIRGIL JAIN 04/08 [facility] Inpatient Encounter [id number] NITHYA DIAZ ISS 04/08 [facility] Inpatient Encounter [id number] NITHYA DIAZ ISS 04/08 [facility] Inpatient Encounter [id number] NITHYA DIAZ ISS 04/08 [facility] Inpatient Encounter [id number] NITHYA DIAZ ISS 04/08 [facility] Inpatient Encounter [id number] NITHYA DIAZ ISS 04/09 [facility] IP/OBS CNSLTJ NEW/EST LOW 45 [id number] Diagnos is: ICD-10- CM M48.02 Spinal stenosi s, cervica l region MARQUISE,ABRAM HN 04/09 [facility] Inpatient Encounter [id number] CHRIS DUARTE 04/09 [facility] Inpatient Encounter [id number] [facility]ARTE 04/09 [facility] DECK MECHANIC BID MANAGER INDIVIDU [id number] Diagnos is: ICD-10- CM Z71.81 Spiritu al or religio us anger control counselor OBIE Lomas 04/09 [facility] Inpatient Encounter [id number] CHRIS DUARTE 04/09 [facility] Inpatient Encounter [id number] CHRIS DUARTE AELLA 04/09 [facility] Outpatient Encounter [id number] DAMARIS MENDEZ 04/11 [facility] OFF/OP EST JANUARY X REQ PHY/QHP [id number] Diagnos is: ICD-10- CM Z91.89 Oth persona l risk factors , not elsewhe re classif ied DAMARIS MENDEZ 04/11 [facility] Procedures Combined list of: 1) Procedures from Department of Veterans Affairs facilities [facility], not all VA non-surgical procedures are included; 2) All procedures from the Department of Defense facilities. Procedure Procedure Type Code Date Perfomer Comments [facility] IMMUNIZATION ADMINISTRATION (INCLUDES PERCUTANEOUS, INTRADERMAL, SUBCUTANEOUS, OR INTRAMUSCULAR INJECTIONS); 1 VACCINE (SINGLE OR COMBINATION VACCINE/TOXOID) 08/03/20 17 [facility] IMMUNIZATION ADMINISTRATION (INCLUDES PERCUTANEOUS, INTRADERMAL, SUBCUTANEOUS, OR INTRAMUSCULAR INJECTIONS); EACH ADDITIONAL VACCINE (SINGLE OR COMBINATION VACCINE/TOXOID) 07/29/20 16 [facility] OPHTHALMOLOGICAL SERVICES: MEDICAL EXAMINATION AND EVALUATION, WITH INITIATION OR CONTINUATION OF DIAGNOSTIC AND TREATMENT PROGRAM; COMPREHENSIVE, ESTABLISHED PATIENT, 1 OR MORE VISITS 06/21/20 16 [facility] OPHTHALMOLOGICAL SERVICES: MEDICAL EXAMINATION AND EVALUATION, WITH INITIATION OR CONTINUATION OF DIAGNOSTIC AND TREATMENT PROGRAM; COMPREHENSIVE, ESTABLISHED PATIENT, 1 OR MORE VISITS 05/13/20 15 [facility] INFLUENZA VIRUS VACCINE, QUADRIVALENT (IIV4), SPLIT VIRUS, 0.5 ML DOSAGE, FOR INTRAMUSCULAR USE 08/06/20 14 [facility] OPHTHALMOLOGICAL SERVICES: MEDICAL EXAMINATION AND EVALUATION, WITH INITIATION OR CONTINUATION OF DIAGNOSTIC AND TREATMENT PROGRAM; COMPREHENSIVE, ESTABLISHED PATIENT, 1 OR MORE VISITS 04/30/20 14 [facility] INTRAOPERATIVE CHOLANGIOGRAM 03/27/20 14 [facility] LAPAROSCOPIC CHOLECYSTECTOMY 03/27/20 14 [facility] CASE MANAGEMENT, EACH 15 MINUTES 03/27/20 14 [facility] MEDICAL NUTRITION THERAPY; INITIAL ASSESSMENT AND INTERVENTION, INDIVIDUAL, [id number] WITH THE PATIENT, EACH 15 MINUTES 03/26/20 14 [facility] LAPAROSCOPY, SURGICAL; CHOLECYSTECTOMY WITH CHOLANGIOGRAPHY 03/25/20 14 [facility] THERAPEUTIC, PROPHYLACTIC, OR DIAGNOSTIC INJECTION (SPECIFY SUBSTANCE OR DRUG); INTRAVENOUS PUSH, SINGLE OR INITIAL SUBSTANCE/DRUG 03/24/20 14 [facility] INFLUENZA VIRUS VACCINE, TRIVALENT (IIV3), SPLIT VIRUS, PRESERVATIVE FREE, 0.5 ML DOSAGE, FOR INTRAMUSCULAR USE 09/04/20 13 [facility] OPHTHALMOLOGICAL SERVICES: MEDICAL EXAMINATION AND EVALUATION, WITH INITIATION OR CONTINUATION OF DIAGNOSTIC AND TREATMENT PROGRAM; COMPREHENSIVE, ESTABLISHED PATIENT, 1 OR MORE VISITS 07/23/20 13 [facility] UNLISTED SPECIAL SERVICE, PROCEDURE OR REPORT 06/27/20 13 [facility] ELECTROCARDIOGRAM, ROUTINE ECG WITH AT LEAST 12 LEADS; WITH INTERPRETATION AND REPORT 06/21/20 13 [facility] OPHTHALMOLOGICAL SERVICES: MEDICAL EXAMINATION AND EVALUATION, WITH INITIATION OR CONTINUATION OF DIAGNOSTIC AND TREATMENT PROGRAM; COMPREHENSIVE, ESTABLISHED PATIENT, 1 OR MORE VISITS 12/28/19 13 [facility] IMMUNIZATION ADMINISTRATION (INCLUDES PERCUTANEOUS, INTRADERMAL, SUBCUTANEOUS, OR INTRAMUSCULAR INJECTIONS); EACH ADDITIONAL VACCINE (SINGLE OR COMBINATION VACCINE/TOXOID) 07/23/20 12 [facility] ECHOCARDIOGRAPHY, TRANSTHORACIC, REAL-TIME WITH IMAGE DOCUMENTATION (2D), INCLUDES M-MODE RECORDING, WHEN PERFORMED, COMPLETE, WITHOUT SPECTRAL OR COLOR DOPPLER ECHOCARDIOGRAPHY 05/21/20 12 [facility] PNEUMOCOCCAL POLYSACCHARIDE VACCINE, 23-VALENT (PPSV23), ADULT OR IMMUNOSUPPRESSED PATIENT DOSAGE, WHEN ADMINISTERED TO INDIVIDUALS 2 YEARS OR OLDER, FOR SUBCUTANEOUS OR INTRAMUSCULAR USE 04/25/20 12 [facility] TETANUS, DIPHTHERIA TOXOIDS AND ACELLULAR PERTUSSIS VACCINE (TDAP), WHEN ADMINISTERED TO INDIVIDUALS 7 YEARS OR OLDER, FOR INTRAMUSCULAR USE 04/25/20 12 [facility] OPHTHALMOLOGICAL SERVICES: MEDICAL EXAMINATION AND EVALUATION, WITH INITIATION OR CONTINUATION OF DIAGNOSTIC AND TREATMENT PROGRAM; COMPREHENSIVE, ESTABLISHED PATIENT, 1 OR MORE VISITS 03/22/20 12 [facility] OPHTHALMOLOGICAL SERVICES: MEDICAL EXAMINATION AND EVALUATION, WITH INITIATION OR CONTINUATION OF DIAGNOSTIC AND TREATMENT PROGRAM; COMPREHENSIVE, ESTABLISHED PATIENT, 1 OR MORE VISITS 06/16/20 11 [facility] VIS FUNCT SCREEN,AUTOMAT/SEMI- AUTOMAT BILAT QUANT DETERM VISUAL ACUITY,OCULAR ALIGN,COLOR VISION,PSEUDOISOCHRO MAT PLATES,& FIELD VIS (MAY INC ALL/SOME SCRN DETERM FOR CONTRAST SENSITIV,VIS UND GLARE) 05/13/20 11 [facility] INFLUENZA VIRUS VACCINE, TRIVALENT (IIV3), SPLIT VIRUS, 0.5 ML DOSAGE, FOR INTRAMUSCULAR USE 08/31/20 10 [facility] TELE ASSESS & MGT SRV PROV QUAL NONPHYS HLTH CARE PRO TO EST PAT,PARENT,GUARD NOT ORIG REL ASSESS & MGT SRV PROV W/IN PREV 7 DAYS NOR LEAD ASSESS & MGT SRV/PX W/IN NXT 24H/SOON APT; 11-20 MIN MED DIS 04/06/20 10 [facility] IMMUNIZATION ADMINISTRATION (INCLUDES PERCUTANEOUS, INTRADERMAL, SUBCUTANEOUS, OR INTRAMUSCULAR INJECTIONS); 1 VACCINE (SINGLE OR COMBINATION VACCINE/TOXOID) 09/24/20 09 [facility] ECHOCARDIOGRAPHY,TRA NSTHORACIC,REAL-TIME W IMAGE DOCUMENTATION (2D),INCLUDES M-MODE RECORDING,WHEN PERFORMED,COMPLETE,W ITH SPECTRAL DOPPLER ECHOCARDIOGRAPHY,AND W COLOR FLOW DOPPLER ECHOCARDIOGRAPHY 09/23/20 09 [facility] INFLUENZA VIRUS VACCINE, TRIVALENT (IIV3), SPLIT VIRUS, 0.5 ML DOSAGE, FOR INTRAMUSCULAR USE 07/22/20 09 [facility] DUPLEX SCAN OF EXTREMITY VEINS INCLUDING RESPONSES TO COMPRESSION AND OTHER MANEUVERS; UNILATERAL OR LIMITED STUDY 05/27/20 09 [facility] TELE ASSESS & MGT SRV PROV QUAL NONPHYS HLTH CARE PRO TO EST PAT,PARENT,GUARD NOT ORIG REL ASSESS & MGT SRV PROV W/IN PREV 7 DAYS NOR LEAD ASSESS & MGT SRV/PX W/IN NXT 24 HR/SOON APT;5-10 MIN MED DIS 03/26/20 09 [facility] INFLUENZA VIRUS VACCINE, TRIVALENT (IIV3), SPLIT VIRUS, PRESERVATIVE FREE, 0.5 ML DOSAGE, FOR INTRAMUSCULAR USE 07/25/20 08 [facility] IMMUNIZATION ADMINISTRATION (INCLUDES PERCUTANEOUS, INTRADERMAL, SUBCUTANEOUS, OR INTRAMUSCULAR INJECTIONS); 1 VACCINE (SINGLE OR COMBINATION VACCINE/TOXOID) 08/22/20 06 [facility] INFLUENZA VIRUS VACCINE, TRIVALENT (IIV3), SPLIT VIRUS, 0.5 ML DOSAGE, FOR INTRAMUSCULAR USE 09/01/20 05 [facility] NONINVASIVE EAR OR PULSE OXIMETRY FOR OXYGEN SATURATION; SINGLE DETERMINATION 04/17/20 05 [facility] INFLUENZA VIRUS VACCINE, TRIVALENT (IIV3), SPLIT VIRUS, 0.5 ML DOSAGE, FOR INTRAMUSCULAR USE 09/02/20 04 [facility] SCREENING PAPANICOLAOU SMEAR; OBTAINING, PREPARING AND CONVEYANCE OF CERVICAL OR VAGINAL SMEAR TO LABORATORY 07/29/20 04 [facility] BLOOD,OCCULT,BY PEROXIDASE ACTIV (EG,GUAIAC),QUAL;FEC ES,CONSECUTIVE COLLECTED SPECIMENS W SING DETERMIN,FOR COLORECTAL NEOPLAS SCREEN (IE,PAT PROVIDE 3 CARDS/SING TRIPLE CARD FOR CONSECUTIVE COLLECT) 06/17/20 03 [facility] DETERMINATION OF REFRACTIVE STATE 06/12/20 03 [facility] ROUTINE VENIPUNCTURE FOR COLLECTION OF SPECIMEN(S) 03/25/20 03 [facility] INFLUENZA VIRUS VACCINE, TRIVALENT (IIV3), SPLIT VIRUS, 0.5 ML DOSAGE, FOR INTRAMUSCULAR USE 02/11/20 [facility] SCREENING PAPANICOLAOU SMEAR; OBTAINING, PREPARING AND CONVEYANCE OF CERVICAL OR VAGINAL SMEAR TO LABORATORY 12/27/19 [facility] COLLECTION OF VENOUS BLOOD BY VENIPUNCTURE 08/08/20 [facility] INFLUENZA VIRUS VACCINE, TRIVALENT (IIV3), SPLIT VIRUS, 0.5 ML DOSAGE, FOR INTRAMUSCULAR USE 08/07/20 [facility] COLONOSCOPY, FLEXIBLE; DIAGNOSTIC, INCLUDING COLLECTION OF SPECIMEN(S) BY BRUSHING OR WASHING, WHEN PERFORMED (SEPARATE PROCEDURE) Colonoscopy, flexible, proximal to splenic flexure; diagnostic, with or without collection of specimen(s) by brushing or washing, with or without colon decompression (separate procedure) [id number] 12/05/19 [facility] ESOPHAGOGASTRODUODEN OSCOPY, FLEXIBLE, TRANSORAL; WITH BIOPSY, SINGLE OR MULTIPLE Upper gastrointestinal endoscopy including esophagus, stomach, and either the duodenum and/or jejunum as appropriate; with biopsy, single or multiple [id number] 12/05/19 [facility] EXCISION OF LESION, TENDON, TENDON SHEATH, OR CAPSULE (INCLUDING SYNOVECTOMY) (EG, CYST OR GANGLION); FOOT Excision of lesion, tendon, tendon sheath, or capsule (including synovectomy) (eg, cyst or ganglion); foot [id number] 01/03/20 [facility]ulatory [facility] Social History Combined list of available smoking, tobacco, and other social history from [facility] and [facility] facilities. Social History Type Response Date Comment [facility] e Tobacco smoking status [place] VA-TOBACCO USE FORMER CIGARETTES 01/31/2025 [facility] History of tobacco use VA-TOBACCO NEVER USED OTHER TYPE 01/31/2025 [facility] History of tobacco use VA-TOBACCO FORMER USER 01/24/2024 [facility] Sex Representation Male (finding) 12/29/2021 Un known Organization History of tobacco use VA-TOBACCO FORMER USER 06/12/2020 [facility] History of tobacco use ID-TOBACCO QUIT 1 TO < 5 YRS 08/28/2018 [facility] History of tobacco use QUIT TOBACCO >12 MO and <7 YRS AGO 02/07/2018 [facility] History of tobacco use TOBACCO OFFERRED PT MEDS (PROVIDER) 04/01/2016 [facility] History of tobacco use CURRENT TOBACCO USER 01/06/2015 [facility] History of tobacco use TOBACCO SCREEN COMPLETED 11/22/2012 No, not willing to quit now [facility] History of tobacco use TOBACCO OFFERRED PT MEDS (PROVIDER) 09/01/2011 [facility] History of tobacco use TOBACCO OFFERRED STOP [facility]MOKING [facility] 08/31/2010 [facility] History of tobacco use TOBACCO OFFERRED PT MEDS (PROVIDER) 09/03/2009 [facility] History of tobacco use TOBACCO OFFERRED STOP [facility]MOKING CLINIC 08/20/2008 [facility] This section is an empty social [...] 04/11/2025 AMBULATORY - MEDICINE AMBULATORY - MEDICI [facility] Functional Status Combined list of recent functional and cognitive assessments recorded at [facility] ([facility] Functional Brantley Measurement (FIM) Scale: 1 = Total Assistance (Subject = 0% +), 2 = Maximal Assistance (Subject = 25% +), 3 = Moderate Assistance (Subject = 50% +), 4 = Minimal Assistance (Subject = 75% +), 5 = Supervision, 6 = Modified Brantley (Device), 7 = Complete Brantley (Timely, Safely). Assessment Date/Time Source Assessment Type Assessment Skill Assessment Score Assessment Details No data available for this section
[2025-04-11 19:01] LABS: Partial Thromboplastin Time 28.2 Seconds (22.3-36.8)
[2025-04-11 19:07] LABS: Troponin I < 0.012 ng/mL (0.000-0.034)
[2025-04-11 19:11] LABS: Add Urine Microscopic? YES; Appearance Urine Cloudy (Clear); Glucose Urine UA Negative (Negative); Leukocyte Esterase Ur Negative LEU/UL (Negative); Nitrate Urine Negative (Negative); Non Pathogenic Casts 0-2; Specific Grav Ur 1.021 (1.001-1.035)
[2025-04-11] MEDS: ACETAMINOPHEN 500 MG TABLET 1000 MG PO (19:48)
[2025-04-11] MEDS: ASPIRIN 81 MG CHEWABLE TABLET 324 MG PO (20:14)
--- NOTE | 2025-04-11 22:09 | PM.IMHP ---
H&P: HPI History of Present Illness Date/Time: 04/11/25 22:09 Chief Complaint: Left arm numbness Narrative: 50-year-old male presents with numbness on the left lower side of his face, left neck/shoulder achy pain, left arm numbness. He presented to [facility] at the time of symptom onset 3 days prior to admission reported to have a negative CT of brain as scheduled for outpatient MRI. The symptoms have become gradually worse. He does not report any specific weakness. Denies drug use, alcohol use, he has a prior smoker. Reports previously having plate and screws placed in C4. Head and neck CTA without acute process, no carotid or vertebral artery occlusion. Review of Systems Review of Systems: All systems reviewed & are unremarkable except as noted in HPI and below (Subjective/HPI) PMFSH Past Medical History Medical History Calculus of gallbladder with acute cholecystitis without obstruction Hypertension Surgical History Surgical History History of cholecystectomy Family History Family History Mother Diabetes mellitus Father Hypertension Social History Social History Smoking status: Former smoker Smoking end date: 09/25/15 Alcohol intake: never Meds Home Medications and Allergies Home Medications ?Medication ?Instructions ?Recorded ?Confirmed ?Type amoxicillin 500 mg capsule 500 mg PO Q12H 10 days #20 caps 10/18/21 Rx fexofenadine 180 mg tablet 180 mg PO DAILY #30 tabs 10/18/21 Rx (Fe Allergy) hydrocodone 5 mg-acetaminophen 325 1 tablet PO Q8H PRN pain #10 tabs 09/15/22 Rx mg tablet tamsulosin 0.4 mg capsule (Flomax) 0.4 mg PO DAILY #7 caps 09/15/22 Rx dicyclomine 20 mg tablet 20 mg PO BID #14 tabs 09/23/22 Rx hydrocodone 5 mg-acetaminophen 325 1 tablet PO Q8H PRN pain #10 tabs 09/23/22 Rx mg tablet hydrocodone 5 mg-acetaminophen 325 1 tablet PO Q6H PRN pain 3 days 03/12/24 Rx mg tablet #12 tabs ondansetron 4 mg disintegrating 4 mg PO Q8H PRN nausea and 03/12/24 Rx tablet vomiting #10 tabs tamsulosin 0.4 mg capsule (Flomax) 0.4 mg PO DAILY #10 caps 03/12/24 Rx acetaminophen 500 mg tablet 1,000 mg (2 x 500 mg) PO TID PRN 03/25/24 Rx veronica 7 days #42 tabs ibuprofen 800 mg tablet 800 mg PO TID PRN pain 7 days #21 03/25/24 Rx tabs ondansetron 4 mg disintegrating 4 mg PO Q8H PRN nausea and 03/25/24 Rx tablet vomiting #30 tabs oxycodone 5 mg tablet 5 mg PO Q4H PRN pain #14 tabs 03/25/24 Rx tamsulosin 0.4 mg capsule (Flomax) 0.4 mg PO DAILY #30 caps 03/25/24 Rx Allergies Allergy/AdvReac Type Severity Reaction Status Date / Time No Known Allergies Allergy Verified 10/16/24 17:56 Vital Signs Vital Signs - 24 hr 04/11/25 15:20 04/11/25 18:53 04/11/25 18:54 Temperature 97.9 F Pulse Rate 86 73 83 Respiratory Rate 18 18 Blood Pressure 169/92 H 142/91 H Pulse Oximetry 96 98 Oxygen Delivery Room Air 04/11/25 21:02 04/11/25 21:31 Temperature Pulse Rate 75 81 Respiratory Rate 21 H 20 Blood Pressure 120/86 144/110 H Pulse Oximetry 96 Oxygen Delivery Exam Const: General: comfortable and no acute distress HENMT: Mouth: Yes moist mucous membranes Eyes: Pupils: Equal, round and reactive pupils present Neck: Neck: supple Resp: Effort & Inspection: normal respiratory effort Auscultation: clear to auscultation bilaterally Cardio: Rate: regular rate Rhythm: regular rhythm GI: Inspection: non-distended GI Palp: Yes Soft to palpation : General: Yes bladder normal to palpation Neuro: Motor exam (neuro): 5/5 motor strength present throughout Other: No tongue deviation, uvula midline. Visual peters intact. No ataxia. Reproducible pain on deep palpation of the trapezius muscle left side. Numbness to dull and light touch left face below the maxilla. Numbness to left upper extremity on the lateral aspect distal to the forearm and the lateral aspect of the 1st and 2nd digits. Neurovascular intact. H&P: Results Labs Labs: Short CBC 04/11/25 Range/Units 18:17 WBC 9.4 (4.5-10.0) K/mm3 Hgb 14.9 (14.0-18.0) g/dL Hct 43.2 (42.0-52.0) % Plt Count 305 (150-375) k/mm3 BMP 04/11/25 18:17 Sodium 135 L Potassium 4.2 Chloride 103 Carbon Dioxide 21 L BUN 19 Creatinine 1.15 Glucose 95 Calcium 9.7 Cardiac Enzymes 04/11/25 Range/Units 18:17 Total Creatine Kinase 86 (55-170) U/L Troponin I < 0.012 (0.000-0.034) ng/mL Liver Function 04/11/25 Range/Units 18:17 Total Bilirubin 0.8 (0.2-1.3) mg/dL AST 29 (17-59) U/L ALT 40 (6-50) U/L Alkaline Phosphatase 62 (38-126) U/L Albumin 4.4 (3.5-5.1) g/dL Urine 04/11/25 Range/Units 18:55 Urine Color Yellow (Yellow) Urine Appearance Cloudy H (Clear) Urine pH 5.0 (5.0-9.0) Ur Specific [place] 1.021 (1.001-1.035) Urine Protein Negative (Negative) mg/dL Urine Glucose (UA) Negative (Negative) mg/dL Assessment and Plan Assessment and plan (1) Left arm numbness: Code(s): R20.0 - Anesthesia of skin Status: Acute Plan 50-year-old male presents with numbness on the left lower side of his face, left neck/shoulder achy pain, left arm numbness. He presented to [facility] at the time of symptom onset 3 days prior to admission reported to have a negative CT of brain as scheduled for outpatient MRI. The symptoms have become gradually worse. He does not report any specific weakness. Denies drug use, alcohol use, he has a prior smoker. Reports previously having plate and screws placed in C4. Head and neck CTA without acute process, no carotid or vertebral artery occlusion. ----- Symptoms are stable. Evidence of CVA or stenosis on head and neck CTA. MRI brain has been ordered. Symptoms may be related to radiculopathy, will also order MRI C-spine. Neurochecks, continue aspirin daily. SCDs. Patient would like to be full code. Hospitalist MIPS Advance Care Plan I have confirmed that the patient's Advanced Care Plan is present, code status is documented, or surrogate decision maker is listed in patient medical record.: Yes Medication Reconciliation I have utilized all available resources to obtain, update and review the patients current medications (includes all prescriptions, OTC, herbals, cannabis, and nutritional supplements).: Yes
[2025-04-12 04:00] VITALS: PULSE 71
[2025-04-12 06:00] VITALS: BP 115/63; PULSE 63; RESP 18; TEMP 36.6; O2SAT 97
[2025-04-12 08:00] VITALS: PULSE 65
[2025-04-12] MEDS: ASPIRIN 81 MG CHEWABLE TABLET PO (09:03)
[2025-04-12 14:00] VITALS: BP 134/78; PULSE 65; RESP 18; TEMP 36.3; O2SAT 97
--- NOTE | 2025-04-12 15:01 | P.DS_ITS ---
DS: Admitting Diagnosis Discharge Date 04/12/2025 Admitting Diagnosis Left ARM Numbness/R/O stroke DS: Discharge Diagnosis Discharge Diagnosis (1) Left arm numbness: Code(s): R20.0 - Anesthesia of skin Status: Acute DS: Summary Hospital Course Reason for hospitalization: Rule out stroke/ cervical evaluation for left arm numbness Hospital Course: Admission: 50-year-old male presents with numbness on the left lower side of his face, left neck/shoulder achy pain, left arm numbness. He presented to [facility] at the time of symptom onset 3 days prior to admission reported to have a negative CT of brain as scheduled for outpatient MRI. The symptoms have become gradually worse. He does not report any specific weakness. Denies drug use, alcohol use, he has a prior smoker. Reports previously having plate and screws placed in C4. Head and neck CTA without acute process, no carotid or vertebral artery occlusion. Hospital course: Patient was admitted to the medical unit for further evaluation and rule out of stroke. Symptoms are stable, patient has full 5/5 motor strength to bilateral upper extremities with reproducible pain to the trapezius muscle did report numbness to dull and light touch left face numbness of left upper extremity on the lateral aspect distal forearm but was neurovascularly intact. No evidence of CVA or stenosis on head and neck CTA. MRI brain was ordered with normal aging brain. Symptoms may be related to radiculopathy, and a MRI C- spine was ordered this showed advance spondylosis at the C4 - C5 with disc protrusion and osteophyte complex resulting in a mild central cord compression. I spoke with on-call Neurosurgery Dr. Funes regarding findings on cervical MRI at which time she recommended patient be started on a steroid taper dose and outpatient PT/OT if no improvement can refer back to his neurosurgeon at the [facility] for further evaluation and discussion of surgical intervention if needed. patient is seen and assessed at time of discharge in no acute distress no further complaints acknowledged and agreed with discharge plan and reported he will follow-up with his neurosurgeon at the [facility]. patient was advised though if he loses any sensation strength in symptoms worsen to seek medical evaluation. Status at Discharge Functional status at discharge: independent ambulation Overall status at discharge: patient is progressing back to baseline Time Spent with Patient Time attestation: Total time spent providing and/or coordinating discharge services: Time spent: Less than 30 minutes Exam Const: General: comfortable and no acute distress HENMT: Mouth: Yes moist mucous membranes Eyes: Pupils: Equal, round and reactive pupils present Neck: Neck: supple Resp: Effort & Inspection: normal respiratory effort Auscultation: clear to auscultation bilaterally Cardio: Rate: regular rate Rhythm: regular rhythm GI: Inspection: non-distended : General: Yes bladder normal to palpation Neuro: Cranial nerves: Yes Equal, round and reactive pupils present Motor exam (neuro): 5/5 motor strength present throughout Other: No tongue deviation, uvula midline. Visual peters intact. No ataxia. Reproducible pain on deep palpation of the trapezius muscle left side. Numbness to dull and light touch left face below the maxilla. Numbness to left upper extremity on the lateral aspect distal to the forearm and the lateral aspect of the 1st and 2nd digits. Neurovascular intact. DS: Data Data Completed and Pending Labs on day of discharge: Labs from last 24 hours 04/11/25 04/11/25 18:55 18:17 WBC 9.4 RBC 4.82 Hgb 14.9 Hct 43.2 MCV 89.6 MCH 30.9 MCHC 34.5 RDW 11.7 Plt Count 305 MPV 9.2 Immature Gran % (Auto) 0.3 Neut % (Auto) 64.0 Lymph % (Auto) 23.5 [place] % (Auto) 8.0 Eos % (Auto) 3.5 Baso % (Auto) 0.7 Lymph # (Auto) 2.22 [place] # (Auto) 0.8 H Eos # (Auto) 0.3 Baso # (Auto) 0.1 Abs Immat Gran (auto) 0.03 Absolute Neuts (auto) 6.0 Absolute Nucleated RBC 0.000 Nucleated RBC % 0.0 PT 13.5 INR 1.0 APTT 28.2 Sodium 135 L Potassium 4.2 Chloride 103 Carbon Dioxide 21 L Anion Gap 11 BUN 19 Creatinine 1.15 Estim Creat Clear Calc 80 Estimated GFR > 60 Glucose 95 Calcium 9.7 Total Bilirubin 0.8 AST 29 ALT 40 Alkaline Phosphatase 62 Total Creatine Kinase 86 Troponin I < 0.012 Total Protein 8.4 H Albumin 4.4 Urine Color Yellow Urine Appearance Cloudy H Urine pH 5.0 Ur Specific [place] 1.021 Urine Protein Negative Urine Glucose (UA) Negative Urine Ketones Negative Ur Blood (Man) Negative Urine Nitrate Negative Urine Bilirubin Negative Urine Urobilinogen 0.2 Leukocyte Esterase Rfl Negative Urine RBC 0-2 Urine WBC 0-5 Ur Squamous Epith Cells None seen Urine Bacteria None seen Urine Casts 0-2 Discharge Plan Discharge Attending physician on discharge: Lala Vasquez Consulting providers: Mary Jane Dejesus; Tyson Richmond Discharging Clinician: Mary Jane Dejesus Anticipated Discharge Date/Time: 04/12/25 13:18 Patient Disposition: Home Activity: may shower and as tolerated Diet: regular Discharge Instructions: 1). Advanced spondylosis at C4-C5, with disc protrusion and osteophyte complex, resulting in mild ventral cord compression. * I have prescribed in oral prednisone taper * I have also provided order for outpatient physical and occupational therapy * will need to follow up with your neurosurgeon at the [facility] outpatient for further evaluation How can you care for yourself at home? ? Keep track of any new symptoms or changes in your symptoms. ? Rest until you feel better. ? Be safe with medicines. Take your medicines exactly as prescribed. Call your doctor if you think you are having a problem with your medicine. ? Do not drive after taking a prescription pain medicine. ? Ensure to follow-up with primary care physician as indicated and provide updated medication list provided to you at discharge. When should you call for help? Call 911 anytime you think you may need emergency care. For example, call if: ? You passed out (lost consciousness). Call your doctor now or seek immediate medical care if: ? You have new symptoms like fever, difficulty breathing, Chest pain, vomiting, or rash. ? You have new or different pain. ? You are confused and are having trouble thinking clearly. ? Your symptoms are getting worse. Watch closely for changes in your health, and be sure to contact your doctor if: ? You do not get better as expected. Patient Instructions: Antibiotic Form, Cervical Radiculopathy (GEN) Patient Language: Citizen Of [place] Stand Alone Forms: General Discharge Information Follow-up/Referrals: PHYSICIAN NOT ON STAFF,NONSTAFF [Non-Staff] - (Establish with a primary I would also recommend follow-up with your previous neurosurgeon) Discharge Medications: New prednisone 20 mg tablet 20 mg PO USEASDIRECTD Qty: 30 0RF Rx Instructions: 60 mg (3tabs) x 5 days; 40mg (2 tabs) x 5 days; 20mg (1 tab) daily x 5 days Continued ibuprofen 800 mg tablet 800 mg PO TID PRN (Reason: pain) 7 Days Qty: 21 0RF acetaminophen 500 mg tablet 1,000 mg PO TID PRN (Reason: veronica) 7 Days Qty: 42 0RF Other Ambulatory Orders: PT Outpatient Eval and Treat (ONCE) Timeframe: [id number] Location: Determined by Patient Ordered By: Mary Jane Dejesus Date of admission: 04/11/25 20:16 Primary Care Provider: KING PANG,TINO Admitting Provider: Yanci Ornelas Attending physician on admission: Yanci Ornelas Condition: Stable Quality VTE Prophylaxis VTE prophylaxis: mechanical ordered -Patient's previous records reviewed on admission -ER notes reviewed in detail on admission -discussed all findings and current treatment plan with patient/Family/POA -Consultations reviewed for recommendations -Patient's disposition for safe discharge discussed with binder caser Dictation performed by [employer] direct speech recognition software, therefore boiler repair supervisor variants and typographical errors may occur. Hospitalist MIPS Heart Failure (Exclusion) Patient has history of Heart Transplant or Left Ventricular Assistive Device?: No IF YES, STOP HERE Heart Failure (Qualifier) Patient has current or prior documentation of LVEF less than or equal to 40%, or mod/servere depressed LVSF?: No IF NO, STOP HERE
== END 2025-04-12 15:45 | disposition home or self-care (01) ==
LOC: ANHED 18:57 → ANH3MEDSUR 04-12 01:15
PROVIDERS: Physician Assistant; Admitting Provider General Practice; Emergency Provider Emergency Medicine; Visit Provider Family Medicine
DX: R20.0 Anesthesia of skin (principal); I10 Essential (primary) hypertension; M47.12 Other spondylosis with myelopathy, cervical region
CPT/HCPCS: 36415; 70496; 70498; 70553; 71046; 72141; 80053; 81001; 82550; 84484; 85025; 85610; 85730; 93005; 97161; 97165; 99285; A9270; A9577; G0378; Q9967